=== PATIENT | male | born 1930 | race Caucasian/White ===

== ENCOUNTER 2017-01-10 13:26 | Inpatient (IN) | payer OTHER ==
[2017-01-10 13:41] VITALS: BMI 28.2
[2017-01-10] MEDS ORDERED: SODIUM CHLORIDE 0.9% 1000 ML INFUS.BAG IV ONE ×2 (14:37→15:37)
[2017-01-10 15:21] LABS: BASOPHIL 0.8 % (0-2.0); EOSINOPHIL 1.4 % (0-4.5); MCH 30.5 pg (25.7-33.7); MCHC 33.1 g/dl (32.0-35.9); MEAN CELL VOLUME 92.1 fl (80-96); MEAN PLT VOLUME 8.6 fl (7.5-11.1); NEUTROPHILS 64.9 % (42.8-82.8); PLATELET COUNT 199 K/MM3 (134-434); RDW 14.6 % (11.9-15.9); WHITE BLOOD COUNT 8.1 K/mm3 (4.0-10.0)
[2017-01-10 15:58] LABS: ALBUMIN 3.8 g/dl (3.4-5.0); ALK PHOS 123 U/L (45-117); ANION GAP 14 (8-16); BILIRUBIN,TOTAL 1.2 mg/dL (0.2-1.0); CALCIUM 9.5 mg/dL (8.5-10.1); CO2 24 mmol/L (21-32); CREATININE 1.7 mg/dL (0.7-1.3); GLUCOSE,RANDOM 119 mg/dL (74-106); SGOT/AST 17 U/L (15-37); SGPT/ALT 29 U/L (12-78); TOT PROT 7.4 g/dl (6.4-8.2)
--- NOTE | 2017-01-10 16:03 | PDOC ---
Attending Attestation - Resident Resident Name: Cornelius Walker - ED Attending Attestation I have performed the following: I have examined & evaluated the patient, The case was reviewed & discussed with the resident, I agree w/resident's findings & plan, Exceptions are as noted - HPI HPI: 01/10/17 15:57 86 yo M with unknown pmhx here with c/o lower back and groin pain. started few days ago. pt lives alone, brought by family who hasn't seen him in some time. pt family states went to his home and found it is dissarray, in filth, poorly kempt. concerns pt is confused and not taking care of himself and lives alone. pt states he has seen a danica bello but hasn't in many years. no n/v no hematuria. states has difficulty with urine stream. no f/c no cough monica cp or sob. states he was told he " had some blockage in his kidney may years ago " - Physicial Exam PE: 01/10/17 16:01 awake alert . dry mucous membranes. lungs clear. herat RRR no mrg. abd soft NT nondistended. no cva tenderness. ext wwp FROM. left anterior sainz with cellulitis changes ( erythema warmth, ulceration. no drainage. ) 2 + dp/ pt pulses bilaterally. alert and oriented x 3. but has some short term memory loss - Medical Decision Making 01/10/17 16:03 86 yo M with unknown pmhx here wtih /co groin and flank pain, concerns for social safety and unable to care for self in home. sx of cellulilits on exam. differential: renal failure, dehydration, anemia, retnention, uti, pna, anemia, dementia, electrolyte disturbance. plan labs fluids, bedside renal us bladder us. will likley require admission. 01/10/17 16:46 pt had bedside renal ultrasound focused ED renal ultrasound performed bilateral kidneys, moderate right hydronephrosis, left kidney multiple complicated cyst, bladder wtih 347 ml aorta not visulized. impression:" right moderate hydronephrosis, left renal cyst, recommend ct followup cirilli 01/10/17 17:25 d/w medical admitting resident blog sent. will admit pt for abx, for uti, celluilitks hydro and social concerns.
--- NOTE | 2017-01-10 16:09 | PDOC ---
History of Present Illness <oZnia Damian - Last Filed: 01/10/17 17:25> - General History Source: Patient, Family Exam Limitations: Clinical Condition, Dementia - History of Present Illness Initial Comments: 01/10/17 15:39 The patient is an 86M with an unknown PMH who presents to the ED with groin and back pain. The patient lives alone in his apartment and is not a reliable historian. His brother, brother's , and brother's daughter are at bedside. They state that the patient has been more confused and has terrible living conditions. The last time they saw him was one month ago and they are not sure if he is eating or drinking. He states that he has had 2-3 weeks of not feeling well. He is unsure of when the pain started and does not have a clear story about this pain. Allergies: NKDA Social: None Surg: none Meds: only a daily centrum, takes no meds Unsure about PCP, very poor historian <Cornelius Walker - Last Filed: 01/23/17 22:19> - General Chief Complaint: Back Pain Stated Complaint: GROIN PAIN Time Seen by Provider: 01/10/17 14:03 Past History <Zonia Damian - Last Filed: 01/10/17 17:25> - Past Medical History Other medical history: denies - Psycho/Social/Smoking Cessation Hx Anxiety: No Suicidal Ideation: No Smoking History: Never smoked Have you smoked in the past 12 months: No Information on smoking cessation initiated: No Hx Alcohol Use: No Drug/Substance Use Hx: No Substance Use Type: None <Cornelius Walker - Last Filed: 01/23/17 22:19> - Past Medical History Allergies/Adverse Reactions: Allergies Allergy/AdvReac Type Severity Reaction Status Date / Time No Known Allergies Allergy Verified 01/10/17 13:53 Home Medications: Ambulatory Orders Tamsulosin HCl [Flomax -] 0.4 mg PO BID@0830,2200 #30 cap 01/15/17 Review of Systems - Review of Systems Able to Perform ROS?: Yes Is the patient limited Luxem[place]ish proficient: No Constitutional: No: Chills, Fever Respiratory: No: Shortness of Breath Cardiac (ROS): No: Chest Pain ABD/GI: No: Nausea, Vomiting : No: Dysuria, Discharge, Flank Pain Neurological: No: Numbness, Tingling, Weakness <Cornelius Walker - Last Filed: 01/23/17 22:19> *Physical Exam - Vital Signs Last Vital Signs Temp Pulse Resp BP Pulse Ox 98.5 F 110 H 20 154/88 92 L 01/10/17 13:38 01/10/17 13:38 01/10/17 13:38 01/10/17 13:38 01/10/17 13:38 <Zonia Damian - Last Filed: 01/10/17 17:25> - Vital Signs Last Vital Signs Temp Pulse Resp BP Pulse Ox 98.5 F 110 H 20 154/88 92 L 01/10/17 13:38 01/10/17 13:38 01/10/17 13:38 01/10/17 13:38 01/10/17 13:38 - Physical Exam General Appearance: Yes: Nourished, Appropriately Dressed, Disheveled. No: Apparent Distress HEENT: positive: Normal Voice Respiratory/Chest: positive: Lungs Clear, Normal Breath Sounds. negative: Chest Tender, Respiratory Distress, Labored Respiration, Decreased Breath Sounds Cardiovascular: positive: Regular Rhythm, Regular Rate, S1, S2 Gastrointestinal/Abdominal: positive: Flat, Soft. negative: Tender, Guarding, Rebound, Tenderness Male Genitalia: negative: testicular tenderness Musculoskeletal: negative: CVA Tenderness, CVA Tenderness (R), CVA Tenderness (L ) Extremity: positive: Normal Range of Motion, Other (b/l anterior calf cellulitis ). negative: Swelling Neurologic: positive: accounts specialist II-XII NML intact, Fully Oriented, Alert, Normal Mood/ Affect, Normal Response, Motor Strength 5/5, Finger to Nose (normal), Confused ( Could not recall parts of his history). negative: Numbness, Sensory Deficit, Disoriented <Cornelius Walker - Last Filed: 01/23/17 22:19> Heart Score/ECG Review - ECG Impressions Comment:: 01/10/17 17:44 Sinus tach w/ 1 PVC <Cornelius Walker - Last Filed: 01/23/17 22:19> ED Treatment Course - LABORATORY CBC & Chemistry Diagram: 01/10/17 14:50 01/10/17 14:50 - ADDITIONAL ORDERS Additional order review: Laboratory Results 01/10/17 01/10/17 01/10/17 16:25 14:50 14:50 Sodium 142 Potassium 4.2 Chloride 104 Carbon Dioxide 24 Anion Gap 14 BUN 35 H D Creatinine 1.7 H Creat Clearance w eGFR 38.59 Random Glucose 119 H D Lactic Acid 1.7 Calcium 9.5 Total Bilirubin 1.2 H D AST 17 D ALT 29 D Alkaline Phosphatase 123 H D Total Protein 7.4 Albumin 3.8 Urine Color Yellow Urine Appearance Cloudy Urine pH 6.0 Urine Protein Negative Urine Glucose (UA) Negative Urine Ketones Trace H Urine Blood 1+ H Urine Nitrite Negative Urine Bilirubin Negative Urine Urobilinogen Negative Ur Leukocyte Esterase 3+ H Urine RBC 5 Urine WBC 876 Ur Epithelial Cells Rare Calcium Oxalate Crystal Rare Urine Bacteria Moderate 01/10/17 14:50 RBC 4.70 MCV 92.1 MCHC 33.1 RDW 14.6 MPV 8.6 Neutrophils % 64.9 Lymphocytes % 25.5 Monocytes % 7.4 Eosinophils % 1.4 Basophils % 0.8 - RADIOLOGY Radiology Studies Ordered: Category Date Time Status ABDOMEN & PELVIS CT W/O CONTR [CT] Stat CT Scan 01/10/17 15:49 Ordered SPINE-LUMBAR SACRAL [RAD] Stat Radiology 01/10/17 16:05 Ordered - Medications Given in the ED: ED Medications Discontinued Medications Generic Name Dose Route Start Last Admin Trade Name Freq PRN Reason Stop Dose Admin Piperacillin Sod/Tazobactam Sod 3.375 gm 01/10/17 16:41 01/10/17 16:55 Zosyn 3.375gm Ivpb (Pre-Docked) IVPB 01/10/17 16:42 3.375 gm ONCE ONE Administration Protocol Sodium Chloride 250 ml 01/10/17 14:37 01/10/17 15:18 Normal Saline - IV 01/10/17 14:38 250 ml ONCE ONE Administration Sodium Chloride 500 ml 01/10/17 15:37 01/10/17 16:13 Normal Saline - IV 01/10/17 15:38 500 ml ONCE ONE Administration Vancomycin HCl 1,000 mg 01/10/17 16:40 01/10/17 17:20 Vancomycin (Pre-Docked) IVPB 01/10/17 16:41 1,000 mg ONCE ONE Administration Protocol <Zonia Damian - Last Filed: 01/10/17 17:25> - LABORATORY CBC & Chemistry Diagram: 01/23/17 05:15 01/23/17 05:15 - ADDITIONAL ORDERS Additional order review: 01/10/17 14:50 RBC 4.70 MCV 92.1 MCHC 33.1 RDW 14.6 MPV 8.6 Neutrophils % 64.9 Lymphocytes % 25.5 Monocytes % 7.4 Eosinophils % 1.4 Basophils % 0.8 - RADIOLOGY Radiology Studies Ordered: Category Date Time Status CHEST X-RAY PORTABLE* [RAD] Stat Radiology 01/10/17 15:38 Ordered - Medications Given in the ED: ED Medications Discontinued Medications Generic Name Dose Route Start Last Admin Trade Name Freq PRN Reason Stop Dose Admin Sodium Chloride 250 ml 01/10/17 14:37 01/10/17 15:18 Normal Saline - IV 01/10/17 14:38 250 ml ONCE ONE Administration <Cornelius Walker - Last Filed: 01/23/17 22:19> Medical Decision Making - Medical Decision Making 01/10/17 16:24 Patient is an 86M with an unsure PMH who presented to the ED with groin and back pain. Bedside ultrasound reveals R hydronephrosis and multiple L sided cysts. 300 cc in bladder. aorta not visualized. Patient has no white count. UA pending. CMP wnl compared to previous CMP. <Cornelius Walekr - Last Filed: 01/23/17 22:19> *DC/Admit/Observation/Transfer - Discharge Dispostion Admit: Yes <Zonia Damian - Last Filed: 01/10/17 17:25> - Attestations Physician Attestion: 01/23/17 22:19 I, Dr. Cornelius Walker, attest that this document has been prepared under my direction and personally reviewed by me in its entirety. I further attest, that it accurately reflects all work, treatment, procedures and medical decision -making performed by me. <Cornelius Wlaker - Last Filed: 01/23/17 22:19> Diagnosis at time of Disposition: UTI (urinary tract infection), Hydronephrosis - Discharge Dispostion Condition at time of disposition: Improved - Prescriptions
[2017-01-10 16:33] LABS: URINE APPEARANCE CLOUDY; URINE BILIRUBIN NEGATIVE (NEGATIVE); URINE BLOOD 1+ (NEGATIVE); URINE COLOR YELLOW; URINE GLUCOSE (UA) NEGATIVE (NEGATIVE); URINE KETONE TRACE (NEGATIVE); URINE NITRITE NEGATIVE (NEGATIVE); URINE PROTEIN NEGATIVE (NEGATIVE); URINE UROBILINOGEN NEGATIVE mg/dL (0.2-1.0)
[2017-01-10 16:34] LABS: URINE LEUK ESTERASE 3+ (NEGATIVE)
[2017-01-10] MEDS ORDERED: VANCOMYCIN 1 GRAM (PRE-DOCKED) 1,000 MG/250 ML BAG IVPB ONE (16:40)
[2017-01-10] MEDS ORDERED: PIPERACILLIN/TAZOB 3.375 GM/50 ML PRE-DOCKED IVPB ONE (16:41)
[2017-01-10 16:44] LABS: CALCIUM OXALATE CRYSTALS RARE /hpf (NONE SEEN); URINE BACTERIA MODERATE /hpf (NONE SEEN); URINE RBC 5 /hpf (0-3); URINE WBC 876 /hpf (3-5)
[2017-01-10] MEDS ORDERED: VANCOMYCIN 1 GRAM (PRE-DOCKED) 250 ML IVPB ONE (16:55)
[2017-01-10] MEDS ORDERED: PIPERACILLIN/TAZOB 3.375 GM 50 ML IVPB ONE (16:55)
--- NOTE | 2017-01-10 17:14 | HP ---
CHIEF COMPLAINT: "My griun hurts" PCP: None HISTORY OF PRESENT ILLNESS: This is an 86 yo M with PMH of b/l severe hydronephrosis L>R seen on CT 10/31/15 , otherwise unknown [facility] (poor hitorian/no records), who presents with confusion , groin and back pain. He is brought by family members who found him in his apt confused, and weak, unable to walk as well as he used to a few mo ago. They have not seen him in several months (he lives alone), but state that he has been complaining of abdominal and back pain for 2 mo over the phone. Over the past few days he stopped answering phone and now appears confused. Per family, his appartment is filthy and unliveable in and the patient was very dirty and discheveled when they found him. They are not aware of any health problems aside from some doreen of "kidney blockage" ER course was notable for: (1)labs (2)ekg: unremarkable for strain or acs, cxr: clear lung [place], ct abd/pelvis (3)alexx mitchell Recent Travel: none PAST MEDICAL HISTORY: unknown, as above PAST SURGICAL HISTORY: unknown (patient denies but unreliable) Social History: lives alone. next of kin is sister and brother Smoking:unknown Alcohol:unknown Drugs: unknown Family History: unknown Allergies No Known Allergies Allergy (Verified 01/10/17 13:53) HOME MEDICATIONS: REVIEW OF SYSTEMS patient denies full ros other than R groun and buttock pain, however is unreliable due to confusion and memory trouble PHYSICAL EXAMINATION Vital Signs - 24 hr 01/10/17 13:38 Temperature 98.5 F Pulse Rate 110 H Respiratory 20 Rate Blood Pressure 154/88 O2 Sat by Pulse 92 L Oximetry (%) GENERAL: Awake, alert, mildly confused, in no acute distress. Very dirty HEAD: Normal with no signs of trauma. EYES: Pupils equal, round and reactive to light, extraocular movements intact, sclera anicteric, conjunctiva clear. No lid lag. EARS, NOSE, THROAT: Moist mucous membranes. Poor hearing b/l NECK: supple without JVD LUNGS: Breath sounds equal, clear to auscultation bilaterally HEART: Regular rate and rhythm, normal S1 and S2, premature beats ABDOMEN: Soft, nontender, moderately distended, normoactive bowel sounds, no guarding, no rebound, no masses. No hepatomegaly or splenomegaly. Negative leroy MUSCULOSKELETAL: No CVA tenderness. UPPER EXTREMITIES: 2+ pulses, warm, well-perfused. No cyanosis. No clubbing. No peripheral edema. LOWER EXTREMITIES: 2+ pulses, warm, well-perfused. No calf tenderness. No peripheral edema. L ankle blanching erythema, warmth, extending to mid lower third of calf, abrasion on anterior lower sainz. no abscess, nondraining, tender. R ankle nontender stasis dermatitis NEUROLOGICAL: Cranial nerves II-XII intact. Normal speech. strength 4+/5 in all extremities, sensation intact b/l PSYCHIATRIC: Cooperative. Good eye contact. Appropriate mood and affect, forgetful, confused SKIN: Warm, dry Laboratory Results - last 24 hr 01/10/17 01/10/17 01/10/17 14:50 14:50 14:50 WBC 8.1 RBC 4.70 Hgb 14.3 D Hct 43.3 D MCV 92.1 MCH 30.5 MCHC 33.1 RDW 14.6 Plt Count 199 MPV 8.6 Neutrophils % 64.9 Lymphocytes % 25.5 Monocytes % 7.4 Eosinophils % 1.4 Basophils % 0.8 Sodium 142 Potassium 4.2 Chloride 104 Carbon Dioxide 24 Anion Gap 14 BUN 35 H D Creatinine 1.7 H Creat Clearance w eGFR 38.59 Random Glucose 119 H D Lactic Acid 1.7 Calcium 9.5 Total Bilirubin 1.2 H D AST 17 D ALT 29 D Alkaline Phosphatase 123 H D Total Protein 7.4 Albumin 3.8 Urine Color Urine Appearance Urine pH Urine Protein Urine Glucose (UA) Urine Ketones Urine Blood Urine Nitrite Urine Bilirubin Urine Urobilinogen Ur Leukocyte Esterase Urine RBC Urine WBC Ur Epithelial Cells Calcium Oxalate Crystal Urine Bacteria 01/10/17 16:25 WBC RBC Hgb Hct MCV MCH MCHC RDW Plt Count MPV Neutrophils % Lymphocytes % Monocytes % Eosinophils % Basophils % Sodium Potassium Chloride Carbon Dioxide Anion Gap BUN Creatinine Creat Clearance w eGFR Random Glucose Lactic Acid Calcium Total Bilirubin AST ALT Alkaline Phosphatase Total Protein Albumin Urine Color Yellow Urine Appearance Cloudy Urine pH 6.0 Urine Protein Negative Urine Glucose (UA) Negative Urine Ketones Trace H Urine Blood 1+ H Urine Nitrite Negative Urine Bilirubin Negative Urine Urobilinogen Negative Ur Leukocyte Esterase 3+ H Urine RBC 5 Urine WBC 876 Ur Epithelial Cells Rare Calcium Oxalate Crystal Rare Urine Bacteria Moderate ASSESSMENT/PLAN: This is an 86 yo M with PMH of b/l severe hydronephrosis L>R seen on CT 10/31/15 , otherwise unknown [facility] (poor hitorian/no records), who presents with confusion , groin and back pain. Altered mental status/weakness -possibly due to UTI -r/o CVA with CT head -no electrolyte abnormality -PT eval for weakness UTI -no leukocytosis or fever -UA consistent with UTI (3+ leuk est, moderate bacteria) -History of b/l hydronephrosis, unkown cause or workup -R [place] and complex L renal cysts on bedside US per ED -f/u abd/pelvis CT -vanco/zosyn in ED; proceed with rocephin daily -f/u urine, blood cultures CKD: -BUN/creat at baseline compared with a yr ago, at which time b/l hydro was present (35/1.7) -gentle IV hydration -f/u CT abd/pelvis results and depending or results proceed with possible renal / urology consult LLE cellulitis -no evidence of abscess or drainage -f/u blood cultures -rocephin coverage R groin pain -R hip/pelvis x ray Hyperbilirubinemia -t bili 1.2 above baseline, known gall stones -no RUQ pain -f/u ct abd FEN: NS@50 lytes stable Na restricted diet hold a/c until head CT result (patient has R groin pain and L ankle abrasion, unknown if fell) Dispo: adm med emma. Plan placement into intermediate Problem List - Problem (1) Hydronephrosis Code(s): N13.30 - UNSPECIFIED HYDRONEPHROSIS (2) UTI (urinary tract infection) Code(s): N39.0 - URINARY TRACT INFECTION, SITE NOT SPECIFIED (3) Right groin pain Code(s): R10.31 - RIGHT LOWER QUADRANT PAIN (4) Altered mental status Code(s): R41.82 - ALTERED MENTAL STATUS, UNSPECIFIED (5) Hyperbilirubinemia Code(s): E80.6 - OTHER DISORDERS OF BILIRUBIN METABOLISM Visit type - Emergency Visit Emergency Visit: Yes Care time: The patient presented to the Emergency Department on the above date and was hospitalized for further evaluation of their emergent condition. - New Patient This patient is new to me today: Yes Date on this admission: 01/10/17 - Critical Care Critical Care patient: No
[2017-01-10] MEDS ORDERED: ACETAMINOPHEN 325 MG TABLET (FP) PO PRN (17:51)
[2017-01-10] MEDS: SODIUM CHLORIDE 1,000 ML IV SCH ×2 (18:53→23:12)
--- NOTE | 2017-01-10 19:09 | PN ---
Teaching Attending Note Name of Resident: Elva Nolan ATTENDING PHYSICIAN STATEMENT I saw and evaluated the patient. I reviewed the resident's note and discussed the case with the resident. I agree with the resident's findings and plan as documented. pt is a poor historian SUBJECTIVE:86 yo M c/o R flank pain radiating to the groin intermittent for the past week. radiates the the back. also notes LLE pain and tenderness for unknown length of time he said started as a bug bite. no oozing from the site. states he recently changed doctors and has not seen them since the lesion noted on his leg. denies Cp, SOB, fever, chills, N/V/C/D, dysuria, hematuria. last BM yesterday normal color and consistency, admits to having a whisky sour (unsure quantity) he states 2 weeks ago for his bday (actual bday was last month) As per report, family brought in pt after found in his apartment confused, weak and unable to walk. He was last seen by family 2 months ago. OBJECTIVE: Last Vital Signs Temp Pulse Resp BP Pulse Ox 98.5 F 110 H 20 154/88 92 L 01/10/17 13:38 01/10/17 13:38 01/10/17 13:38 01/10/17 13:38 01/10/17 13:38 General NAD, dishelved and filthy, INUPIAT HEENT poor oral dentition CV S1 S2 RRR no murmur/rub/gallop Lungs CTA B/L no wheezing/rales/rhonchi ABdomen soft NT/ND no CVA tenderness, hyperactivs BS Extremities chronic venous statis RLE. LLE with 3 cm superficial ulcer on anterior sainz with surrounding erythema, +warmth and tenderness R hip bruising ASSESSMENT AND PLAN: 86yo M with PMH B/L hydronephrosis but no self reported medical conditions presented to the ER iwth groin pain 1. AMS- medicine admission. possibly due to UTI vs likely mechanical fall as has bruising on R hip. also c/o groin pain but possible fracture of hip. check Head CT, R hip XR. start ceftriaxone, IVF. f/u UCx. bedbound for now. PT assessment. obtain more information from family 2. RLE cellulitis- unclear etiology. states bugs but possible fall due to location of lesion. afebrile. no signs of sepsis. received vanco/zosyn in the ER. unlikely requires such broad spectrum. on Ceftriaxone for UTI as well. Check BCx 3. Flank pain- pain from fall vs kidney stone. CT abdomen/pelvis pending 4. Elevated alk phos- no RUQ pain. ct abdomen/pelvis pending. f/u 5. DVT ppx- start hep sq
[2017-01-10] MEDS ORDERED: BACITRACIN 15 GM TUBE TOPICAL OINTMENT TP ONE ×2 (20:59→23:15)
[2017-01-10] MEDS ORDERED: PT OWN MED DRAWER 7, Y5N ONE (23:04)
[2017-01-11 07:33] LABS: MCH 31.4 pg (25.7-33.7); MCHC 33.8 g/dl (32.0-35.9); MEAN PLT VOLUME 8.7 fl (7.5-11.1); PLATELET COUNT 178 K/MM3 (134-434); RDW 14.9 % (11.9-15.9)
[2017-01-11 08:07] LABS: ALBUMIN 3.5 g/dl (3.4-5.0); ANION GAP 8 (8-16); CO2 26 mmol/L (21-32); GLUCOSE,RANDOM 95 mg/dL (74-106); MAGNESIUM 1.9 mg/dL (1.8-2.4); PHOSPHOROUS 2.7 mg/dL (2.5-4.9); SGOT/AST 19 U/L (15-37)
[2017-01-11 08:18] LABS: ALK PHOS 114 U/L (45-117); BILIRUBIN,TOTAL 1.4 mg/dL (0.2-1.0); CREATININE 1.5 mg/dL (0.7-1.3); SGPT/ALT 25 U/L (12-78); THYROID STIMULATING HORMONE 0.56 uIU/ml (0.358-3.74); TOT PROT 6.5 g/dl (6.4-8.2)
[2017-01-11] MEDS: HEPARIN NA (PORCINE) 5,000 UNITS/ML 1ML VIAL SQ SCH ×2 (09:30→21:02)
[2017-01-11 09:34] LABS: PLATELET ESTIMATE ADEQUATE (NORMAL)
[2017-01-11] MEDS ORDERED: ENOXAPARIN NA (PORCINE) 30 MG/0.3 ML DISP.SYRIN SQ SCH (10:00)
[2017-01-11] MEDS ORDERED: CEFTRIAXONE 50 ML IVPB SCH (10:00)
--- NOTE | 2017-01-11 14:22 | PN ---
Progress Note (short form) - Note Progress Note: states R flank overall improved. but continues to have intermittent pain. states he suffers from frequent UTI and was told he had a kidney problem but was unable to follow up with a doctor as his insurance ran out but his father suffered from the same symptoms. denies CP, SOB, fever, chills, N/V/C/D Current Medications Generic Name Dose Route Start Last Admin Trade Name Freq PRN Reason Stop Dose Admin Acetaminophen 650 mg 01/10/17 17:51 Tylenol - PO Q4H PRN FEVER OR PAIN Heparin Sodium (Porcine) 5,000 unit 01/11/17 10:00 01/11/17 09:30 Heparin - SQ 5,000 unit BID ROBERTO Administration Sodium Chloride 1,000 mls @ 50 mls/hr 01/10/17 18:00 01/10/17 23:12 Normal Saline - IV 01/11/17 17:53 50 mls/hr ASDIR ROBERTO Administration Ceftriaxone Sodium 50 mls @ 100 mls/hr 01/11/17 10:00 01/11/17 09:30 Rocephin 1gm Ivpb (Pre-Docked) IVPB 100 mls/hr DAILY ROBERTO Administration Last Vital Signs Temp Pulse Resp BP Pulse Ox 97.5 F L 100 H 20 136/78 96 01/11/17 11:00 01/11/17 11:00 01/11/17 11:00 01/11/17 11:00 01/11/17 09:00 General NAD, A&O x3, [place] CV S1 S2 RRR no murmur/rub/gallop Lungs CTA B/L no wheezing/rales/rhonchi ABdomen soft NT/ND no CVA tenderness, hyperactivs BS Extremities chronic venous statis RLE. LLE with 3 cm superficial ulcer on anterior sainz with gill crusting and surrounding erythema, +warmth and tenderness R hip bruising CBCD WBC 9.0 K/mm3 (4.0-10.0) 01/11/17 06:35 RBC 4.50 M/mm3 (4.00-5.60) 01/11/17 06:35 Hgb 14.1 GM/dL (11.7-16.9) 01/11/17 06:35 Hct 41.8 % (35.4-49) 01/11/17 06:35 MCV 93.0 fl (80-96) 01/11/17 06:35 MCHC 33.8 g/dl (32.0-35.9) 01/11/17 06:35 RDW 14.9 % (11.9-15.9) 01/11/17 06:35 Plt Count 178 K/MM3 (134-434) 01/11/17 06:35 MPV 8.7 fl (7.5-11.1) 01/11/17 06:35 CMP Sodium 141 mmol/L (136-145) 01/11/17 06:35 Potassium 4.0 mmol/L (3.5-5.1) 01/11/17 06:35 Chloride 107 mmol/L (98-107) 01/11/17 06:35 Carbon Dioxide 26 mmol/L (21-32) 01/11/17 06:35 Anion Gap 8 (8-16) 01/11/17 06:35 BUN 30 mg/dL (7-18) H 01/11/17 06:35 Creatinine 1.5 mg/dL (0.7-1.3) H 01/11/17 06:35 Creat Clearance w eGFR 44.59 (>60) 01/11/17 06:35 Calcium 9.0 mg/dL (8.5-10.1) 01/11/17 06:35 Total Bilirubin 1.4 mg/dL (0.2-1.0) H 01/11/17 06:35 AST 19 U/L (15-37) 01/11/17 06:35 ALT 25 U/L (12-78) 01/11/17 06:35 Alkaline Phosphatase 114 U/L (45-117) 01/11/17 06:35 Total Protein 6.5 g/dl (6.4-8.2) 01/11/17 06:35 Albumin 3.5 g/dl (3.4-5.0) 01/11/17 06:35 Microbiology 01/10/17 14:41 Urine - Urine Clean Catch Urine Culture - Preliminary Strep Agalactiae Group B ASSESSMENT AND PLAN: 86yo M with PMH B/L hydronephrosis but no self reported medical conditions presented to the ER iwth groin pain 1. AMS-possible due to uti. appears more alert and coherent. Head CT negative. TSH WNL. Vitamin B12 elevated. cont gentle hydration. will switch ceftriaxone to unasyn to cover for GBS UTI and cellulitis. bedbound for now. PT assessment. obtain more information from family 2. RLE cellulitis- unclear etiology. high suspicion for mechanical fall. improved. will switch to unasyn as will provide more coverage over mssa and will cover for group B strep. f/u BCx 3. Flank pain- pain from fall vs kidney stone. CT showing hyroureteralnephrosis. likely to have hx. has not seen urologist to f/u. will obtain evaluation while here, may need stenting. 4. Elevated alk phos- no RUQ pain. cholelithasis seen on CT but no signs of acute cholecystitis or choledocholithasis. possible recently passed stone. will monitor 5. DVT ppx- hep sq Visit type - Emergency Visit Emergency Visit: Yes ED Registration Date: 01/10/17 Care time: The patient presented to the Emergency Department on the above date and was hospitalized for further evaluation of their emergent condition. - New Patient This patient is new to me today: No - Critical Care Critical Care patient: No - Discharge Referral Referred to [facility] No
[2017-01-11] MEDS: AMPICILLIN NA/SULBACTAM NA 3 GM in SODIUM CHLORIDE 100 ML IVPB SCH ×2 (16:43→21:02)
[2017-01-11] MEDS ORDERED: MAGNESIUM HYDROX 2400MG/30ML ORAL SUSPENSION 30 ML CUP PO ONE (23:27)
[2017-01-12] MEDS: AMPICILLIN NA/SULBACTAM NA 3 GM in SODIUM CHLORIDE 100 ML IVPB SCH ×4 (02:29→21:04)
[2017-01-12 08:31] LABS: ALK PHOS 104 U/L (45-117); ANION GAP 8 (8-16); BILIRUBIN,TOTAL 0.9 mg/dL (0.2-1.0); CALCIUM 8.7 mg/dL (8.5-10.1); CO2 27 mmol/L (21-32); CREATININE 1.5 mg/dL (0.7-1.3); GLUCOSE,RANDOM 115 mg/dL (74-106); SGOT/AST 18 U/L (15-37); SGPT/ALT 24 U/L (12-78)
[2017-01-12] MEDS: HEPARIN NA (PORCINE) 5,000 UNITS/ML 1ML VIAL SQ SCH ×2 (09:25→21:04)
--- NOTE | 2017-01-12 10:19 | PN ---
Progress Note (short form) - Note Progress Note: asymptomatic. denies CP, SOB, fever, chills, N/V/C/D Current Medications Generic Name Dose Route Start Last Admin Trade Name Bret PRN Reason Stop Dose Admin Acetaminophen 650 mg 01/10/17 17:51 Tylenol - PO Q4H PRN FEVER OR PAIN Heparin Sodium (Porcine) 5,000 unit 01/11/17 10:00 01/12/17 09:25 Heparin - SQ 5,000 unit BID ROBERTO Administration Ampicillin Sodium/Sulbactam 100 mls @ 200 mls/hr 01/11/17 15:00 01/12/17 09:23 Sodium 3 gm/ Sodium Chloride IVPB 200 mls/hr Q6H-IV ROBERTO Administration Last Vital Signs Temp Pulse Resp BP Pulse Ox 97.6 F 84 20 141/94 96 01/12/17 06:00 01/12/17 06:00 01/12/17 06:00 01/12/17 06:00 01/11/17 21:00 General NAD, A&O x3, [employer] A[employer]IATED CV S1 S2 RRR no murmur/rub/gallop Lungs CTA B/L no wheezing/rales/rhonchi ABdomen soft NT/ND no CVA tenderness, hyperactivs BS Extremities chronic venous statis RLE. LLE with 3 cm superficial ulcer on anterior sainz with gill crusting and surrounding erythema, +warmth and tenderness R hip bruising CMP Sodium 142 mmol/L (136-145) 01/12/17 06:30 Potassium 3.9 mmol/L (3.5-5.1) 01/12/17 06:30 Chloride 107 mmol/L (98-107) 01/12/17 06:30 Carbon Dioxide 27 mmol/L (21-32) 01/12/17 06:30 Anion Gap 8 (8-16) 01/12/17 06:30 BUN 28 mg/dL (7-18) H 01/12/17 06:30 Creatinine 1.5 mg/dL (0.7-1.3) H 01/12/17 06:30 Creat Clearance w eGFR 44.59 (>60) 01/12/17 06:30 Calcium 8.7 mg/dL (8.5-10.1) 01/12/17 06:30 Total Bilirubin 0.9 mg/dL (0.2-1.0) D 01/12/17 06:30 AST 18 U/L (15-37) 01/12/17 06:30 ALT 24 U/L (12-78) 01/12/17 06:30 Alkaline Phosphatase 104 U/L (45-117) 01/12/17 06:30 Total Protein 6.0 g/dl (6.4-8.2) L 01/12/17 06:30 Albumin 3.0 g/dl (3.4-5.0) L 01/12/17 06:30 Microbiology 01/10/17 14:41 Urine Culture - Final Urine - Urine Clean Catch 01/10/17 20:30 Blood Culture - Preliminary Blood - Peripheral Venous NO GROWTH OBTAINED AFTER 24 HOURS, INCUBATION TO CONTINUE FOR 4 DAYS. 01/10/17 20:30 Blood Culture - Preliminary Blood - Peripheral Venous NO GROWTH OBTAINED AFTER 24 HOURS, INCUBATION TO CONTINUE FOR 4 DAYS. ASSESSMENT AND PLAN: 86yo M with PMH B/L hydronephrosis but no self reported medical conditions presented to the ER iwth groin pain 1. AMS-possible due to uti. appears more alert and coherent however repeats questions frequently. UCx was +GBS yesterday and now was reported as wrong. will cont treatment at this time for UTI. bedbound for now. PT assessment. obtain more information from family 2. RLE cellulitis- unclear etiology. high suspicion for mechanical fall. improved. on unasyn day 2. day 3 of abx. BCx negative. 3. Flank pain- pain from fall vs kidney stone. CT showing hyroureteralnephrosis. urology consulted. awaiting on recommendations if intervention is required at this time. pt refusing davis placement. 4. Elevated alk phos-trending down. possible recently passed stone. 5. JUNG- likely due to infection vs hydroureternephrosis. slowly improving. likely has some component of CKD. unknown baseline levels. will contact PMD tomorrow for last set of labs (only reading from last year 1.6 unknown if this is baseline) 6. DVT ppx- hep sq 7. family requesting intermediate placement at this time Visit type - Emergency Visit Emergency Visit: Yes ED Registration Date: 01/10/17 Care time: The patient presented to the Emergency Department on the above date and was hospitalized for further evaluation of their emergent condition. - New Patient This patient is new to me today: No - Critical Care Critical Care patient: No - Discharge Referral Referred to [facility] Med P.C.: No
[2017-01-12] MEDS ORDERED: PT OWN MED DRAWER 7, Y5N ONE ×2 (13:24→14:41)
[2017-01-12] MEDS: MULTIVITAMINS (DAILY MVI) TABLET (FP) PO SCH (14:58)
[2017-01-13] MEDS: AMPICILLIN NA/SULBACTAM NA 3 GM in SODIUM CHLORIDE 100 ML IVPB SCH ×4 (02:32→21:05)
[2017-01-13 08:00] LABS: ANION GAP 8 (8-16); CALCIUM 8.4 mg/dL (8.5-10.1); CO2 26 mmol/L (21-32); CREATININE 1.5 mg/dL (0.7-1.3); GLUCOSE,RANDOM 92 mg/dL (74-106)
[2017-01-13] MEDS ORDERED: PT OWN MED DRAWER 7, Y5N ONE ×2 (08:14→15:20)
[2017-01-13] MEDS: MULTIVITAMINS (DAILY MVI) TABLET (FP) PO SCH (09:42)
[2017-01-13] MEDS: HEPARIN NA (PORCINE) 5,000 UNITS/ML 1ML VIAL SQ SCH ×2 (09:42→22:17)
--- NOTE | 2017-01-13 09:52 | EKG ---
Test Reason : Blood Pressure : / mmHG Vent. Rate : 105 BPM Atrial Rate : 105 BPM P-R Int : 150 ms QRS Dur : 086 ms QT Int : 344 ms P-R-T Axes : 078 028 009 degrees QTc Int : 454 ms SINUS TACHYCARDIA WITH OCCASIONAL PREMATURE VENTRICULAR COMPLEXES OTHERWISE NORMAL ECG NO PREVIOUS ECGS AVAILABLE Confirmed by ALMA LOGAN MD ([id number]) on 01/13/2017 9:52:01 AM Referred By: Confirmed By:ALMA LOGAN MD
--- NOTE | 2017-01-13 12:42 | PN ---
Teaching Attending Note Name of Resident: Palmer Rios ATTENDING PHYSICIAN STATEMENT I saw and evaluated the patient. I reviewed the resident's note and discussed the case with the resident. I agree with the resident's findings and plan as documented. SUBJECTIVE:asymptomatic. denies Cp, SOB, fever, chills, N/V/C/D OBJECTIVE: Last Vital Signs Temp Pulse Resp BP Pulse Ox 99.0 F 86 18 141/81 96 01/13/17 06:00 01/13/17 06:00 01/13/17 06:00 01/13/17 06:00 01/12/17 21:00 General NAD, A&O x3, [place] CV S1 S2 RRR no murmur/rub/gallop Lungs CTA B/L no wheezing/rales/rhonchi ABdomen soft NT/ND no CVA tenderness, hyperactivs BS Extremities chronic venous statis RLE. LLE with 3 cm superficial ulcer on anterior sainz with gill crusting, some oozing noted today. and surrounding erythema, +warmth and tenderness CMP Sodium 140 mmol/L (136-145) 01/13/17 05:42 Potassium 4.1 mmol/L (3.5-5.1) 01/13/17 05:42 Chloride 106 mmol/L (98-107) 01/13/17 05:42 Carbon Dioxide 26 mmol/L (21-32) 01/13/17 05:42 Anion Gap 8 (8-16) 01/13/17 05:42 BUN 26 mg/dL (7-18) H 01/13/17 05:42 Creatinine 1.5 mg/dL (0.7-1.3) H 01/13/17 05:42 Creat Clearance w eGFR 44.59 (>60) 01/12/17 06:30 Calcium 8.4 mg/dL (8.5-10.1) L 01/13/17 05:42 Total Bilirubin 0.9 mg/dL (0.2-1.0) D 01/12/17 06:30 AST 18 U/L (15-37) 01/12/17 06:30 ALT 24 U/L (12-78) 01/12/17 06:30 Alkaline Phosphatase 104 U/L (45-117) 01/12/17 06:30 Total Protein 6.0 g/dl (6.4-8.2) L 01/12/17 06:30 Albumin 3.0 g/dl (3.4-5.0) L 01/12/17 06:30 ASSESSMENT AND PLAN: 86yo M with PMH B/L hydronephrosis but no self reported medical conditions presented to the ER iwth groin pain 1. AMS-possible due to uti. appears more alert and coherent however repeats questions frequently. back at baseline. spoke with sister and her who state he is at baseline but believe he is too confused to fully care of himself. interested in assisted living vs SNF. SW to d/w them options. 2. RLE cellulitis- unclear etiology. high suspicion for mechanical fall. today some oozing noted from center of lesion. decreased overall erythema. will cx drainage however less likely to be positive as already on ABx. high supicion for strep infection. cont unasyn day 3. 3. Flank pain- pain from fall vs kidney stone. CT showing hyroureteralnephrosis. urology consulted. awaiting on recommendations if intervention is required at this time. pt refusing davis placement. 4. Elevated alk phos- possible recently passed stone. resolved. 5. JUNG- likely due to infection vs hydroureternephrosis. appears to be at baseline from 2016. will try to obtain baseline from PMD. 6. DVT ppx- hep sq 7. PT assessment, may require [facility]. spoke with sister and her who are in agreement to [facility] then from there to either assisted living vs SNF.
--- NOTE | 2017-01-13 15:50 | PN ---
Physical Exam: SUBJECTIVE: Patient seen and examined No acute events overnight. No complaints this morning. OBJECTIVE: Vital Signs Period Temp Pulse Resp BP Sys/Locke Pulse Ox Last 24 Hr 97.7 F-99.0 F 86-98 18-20 141-154/62-89 95-96 GENERAL: Awake, alert, in no acute distress. HEAD: Normal with no signs of trauma. EYES: Pupils equal, round and reactive to light, extraocular movements intact, sclera anicteric, conjunctiva clear. No lid lag. EARS, NOSE, THROAT: Moist mucous membranes. Poor hearing b/l NECK: supple without JVD LUNGS: Breath sounds equal, clear to auscultation bilaterally HEART: Regular rate and rhythm, normal S1 and S2 ABDOMEN: Soft, nontender, moderately distended, normoactive bowel sounds, no guarding, no rebound, no masses. No hepatomegaly or splenomegaly. MUSCULOSKELETAL: No CVA tenderness. UPPER EXTREMITIES: 2+ pulses, warm, well-perfused. No cyanosis. No clubbing. No peripheral edema. LOWER EXTREMITIES: 2+ pulses, warm, well-perfused. No calf tenderness. No peripheral edema. L ankle cellulitis with honey colored oozing crust and warmth extending to mid lower third of calf +tenderness to palpation R ankle-nontender stasis dermatitis NEUROLOGICAL: Cranial nerves II-XII intact. Normal speech. strength 4+/5 in all extremities, sensation intact b/l PSYCHIATRIC: Cooperative. Good eye contact. Appropriate mood and affect, forgetful, confused SKIN: Warm, dry Laboratory Results - last 24 hr 01/13/17 05:42 Sodium 140 Potassium 4.1 Chloride 106 Carbon Dioxide 26 Anion Gap 8 BUN 26 H Creatinine 1.5 H Random Glucose 92 Calcium 8.4 L Active Medications Generic Name Dose Route Start Last Admin Trade Name Freq PRN Reason Stop Dose Admin Acetaminophen 650 mg 01/10/17 17:51 Tylenol - PO Q4H PRN FEVER OR PAIN Heparin Sodium (Porcine) 5,000 unit 01/11/17 10:00 01/13/17 09:42 Heparin - SQ 5,000 unit BID ROBERTO Administration Ampicillin Sodium/Sulbactam 100 mls @ 200 mls/hr 01/11/17 15:00 01/13/17 15:40 Sodium 3 gm/ Sodium Chloride IVPB 200 mls/hr Q6H-IV ROBERTO Administration Multivitamins/Minerals/Vitamin C 1 tab 01/12/17 15:00 01/13/17 09:42 Tab-A-Vit - PO 1 tab DAILY ROBERTO Administration ASSESSMENT/PLAN: 86 yo M with PMH of b/l severe hydronephrosis L>R seen on CT 10/31/15, otherwise unknown [facility] (poor hitorian/no records), who presented with confusion, groin and back pain. #Altered mental status/weakness possibly secondary to UTI -A&Ox3 -Dr. Lopez spoke with family today who believes he should not go back home and should be placed into a intermediate teacher housing facility. 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 Will attempt to speak with them tomorrow. #FEN: -No fluids -lytes stable -Na restricted diet #PPx -DVT: heparin 5000 units sq BID -GI: not indicated at this time Visit type - Emergency Visit Emergency Visit: No - New Patient This patient is new to me today: Yes Date on this admission: 01/13/17 - Critical Care Critical Care patient: No
[2017-01-14] MEDS: AMPICILLIN NA/SULBACTAM NA 3 GM in SODIUM CHLORIDE 100 ML IVPB SCH ×4 (02:26→20:38)
[2017-01-14 07:06] LABS: MCHC 33.3 g/dl (32.0-35.9); MEAN PLT VOLUME 8.8 fl (7.5-11.1); PLATELET COUNT 159 K/MM3 (134-434); RDW 15.1 % (11.9-15.9)
[2017-01-14 07:36] LABS: ANION GAP 7 (8-16); CALCIUM 8.6 mg/dL (8.5-10.1); CO2 25 mmol/L (21-32); CREATININE 1.4 mg/dL (0.7-1.3); GLUCOSE,RANDOM 97 mg/dL (74-106)
--- NOTE | 2017-01-14 09:08 | CON.GU ---
Consult - History of Present Illness History of Present Illness: 86 yo male admitted with confusion. Has had recent CT which shows bilateral hydronephrosis down to a distended bladder with an enlarged prostate-similar to a CT from last year. Doesnt see a Urologist. Denies any hematuria/dysuria - Alcohol/Substance Use Hx Alcohol Use: No - Smoking History Smoking history: Never smoked Have you smoked in the past 12 months: No Home Medications - Allergies Allergies/Adverse Reactions: Allergies Allergy/AdvReac Type Severity Reaction Status Date / Time No Known Allergies Allergy Verified 01/10/17 13:53 - Home Medications Home Medications: Ambulatory Orders Unobtainable [Unobtainable] 01/10/17 Physical Exam- Vital Signs: Vital Signs Temperature 98.2 F 01/14/17 06:00 Pulse Rate 90 01/14/17 06:00 Respiratory Rate 20 01/14/17 06:00 Blood Pressure 151/78 01/14/17 06:00 O2 Sat by Pulse Oximetry (%) 94 L 01/13/17 21:00 Renal/: Yes: Bladder Distention Labs: CBC, BMP 01/14/17 06:25 01/14/17 06:25 Imaging - Results Cat Scan: Report Reviewed, Image Reviewed Problem List - Problems (1) Incomplete emptying of bladder due to benign prostatic hyperplasia Assessment/Plan: patient refusing davis vcatheterization. Unserstands the implications for renal function deterioration and infection. Will start flomax 0.4mg BID Code(s): N40.1 - BENIGN PROSTATIC HYPERPLASIA WITH LOWER URINARY TRACT SYMP R39.14 - FEELING OF INCOMPLETE BLADDER EMPTYING
[2017-01-14] MEDS ORDERED: PT OWN MED DRAWER 7, Y5N ONE ×3 (10:15→20:24)
[2017-01-14] MEDS: BACITRACIN/POLYMYXIN B SULFATE 15 GM TUBE TP SCH ×2 (10:17→22:06)
[2017-01-14] MEDS: TAMSULOSIN HCL 0.4 MG CAP.ER.24H (FP) PO SCH ×2 (10:17→22:06)
[2017-01-14] MEDS: HEPARIN NA (PORCINE) 5,000 UNITS/ML 1ML VIAL SQ SCH ×2 (10:17→22:06)
[2017-01-14] MEDS: MULTIVITAMINS (DAILY MVI) TABLET (FP) PO SCH (10:17)
[2017-01-14 10:33] LABS: PLATELET ESTIMATE ADEQUATE (NORMAL)
[2017-01-14 15:16] LABS: URINE APPEARANCE CLEAR; URINE BILIRUBIN NEGATIVE (NEGATIVE); URINE BLOOD NEGATIVE (NEGATIVE); URINE COLOR LTYELLOW; URINE GLUCOSE (UA) NEGATIVE (NEGATIVE); URINE KETONE NEGATIVE (NEGATIVE); URINE NITRITE NEGATIVE (NEGATIVE); URINE PROTEIN NEGATIVE (NEGATIVE); URINE UROBILINOGEN NEGATIVE mg/dL (0.2-1.0)
[2017-01-14 15:35] LABS: URINE LEUK ESTERASE 3+ (NEGATIVE)
[2017-01-14 15:50] LABS: URINE RBC 5 /hpf (0-3); URINE WBC 68 /hpf (3-5)
--- NOTE | 2017-01-14 18:14 | PN ---
Teaching Attending Note Name of Resident: Palmer Rios ATTENDING PHYSICIAN STATEMENT I saw and evaluated the patient. I reviewed the resident's note and discussed the case with the resident. I agree with the resident's findings and plan as documented. SUBJECTIVE: Patient has no complaints. OBJECTIVE: Vital Signs Period Temp Pulse Resp BP Sys/Locke Pulse Ox Last 24 Hr 97.7 F-98.4 F 85-95 20-22 117-151/62-99 94-97 HEART: S1S2, RRR LUNGS: Clear ABDOMEN: Soft, non-tender, non-distended, normal BS EXTREMITIES: Trace edema, erythema and tenderness of left lower leg ASSESSMENT AND PLAN: This is an 86-year-old man with a history of bilateral hydronephrosis who presented to the ER with groin pain. 1. Acute metabolic encephalopathy secondary to UTI and LLE cellulitis - Resolved - Continue Unasyn 2. Bilateral hydroureteronephrosis - Urology consult appreciated - Refusing Segura - Flomax started 3. Stage 3 CKD - Stable 4. Disposition - Continue PT - Will likely need subacute rehab
--- NOTE | 2017-01-14 19:41 | PN ---
Physical Exam: SUBJECTIVE: Patient seen and examined No acute events overnight. No complaints this morning. OBJECTIVE: Vital Signs Period Temp Pulse Resp BP Sys/Locke Pulse Ox Last 24 Hr 97.7 F-98.4 F 85-99 20-22 117-151/62-99 94-97 GENERAL: Awake, alert, in no acute distress. HEAD: Normal with no signs of trauma. EYES: Pupils equal, round and reactive to light, extraocular movements intact, sclera anicteric, conjunctiva clear. No lid lag. EARS, NOSE, THROAT: Moist mucous membranes. Poor hearing b/l NECK: supple without JVD LUNGS: Breath sounds equal, clear to auscultation bilaterally HEART: Regular rate and rhythm, normal S1 and S2 ABDOMEN: Soft, nontender, moderately distended, normoactive bowel sounds, no guarding, no rebound, no masses. No hepatomegaly or splenomegaly. MUSCULOSKELETAL: No CVA tenderness. UPPER EXTREMITIES: 2+ pulses, warm, well-perfused. No cyanosis. No clubbing. No peripheral edema. LOWER EXTREMITIES: 2+ pulses, warm, well-perfused. No calf tenderness. No peripheral edema. L ankle cellulitis with honey colored oozing crust and warmth extending to mid lower third of calf +tenderness to palpation R ankle-nontender stasis dermatitis NEUROLOGICAL: Cranial nerves II-XII intact. Normal speech. strength 4+/5 in all extremities, sensation intact b/l PSYCHIATRIC: Cooperative. Good eye contact. Appropriate mood and affect, forgetful, confused SKIN: Warm, dry Laboratory Results - last 24 hr 01/14/17 01/14/17 01/14/17 06:25 06:25 14:45 WBC 10.0 RBC 4.31 Hgb 13.4 Hct 40.1 MCV 93.0 MCH 31.0 MCHC 33.3 RDW 15.1 Plt Count 159 MPV 8.8 Neutrophils % 67.0 Lymphocytes % 21.0 D Monocytes % 4.0 Eosinophils % 6.0 H D Basophils % 0.0 Band Neutrophils 0.0 Differential Comment Manual diff done Reactive Lymphocytes 2 D Platelet Estimate Adequate Sodium 140 Potassium 4.0 Chloride 108 H Carbon Dioxide 25 Anion Gap 7 L BUN 27 H Creatinine 1.4 H Random Glucose 97 Calcium 8.6 Urine Color Ltyellow Urine Appearance Clear Urine pH 6.0 Urine Protein Negative Urine Glucose (UA) Negative Urine Ketones Negative Urine Blood Negative Urine Nitrite Negative Urine Bilirubin Negative Urine Urobilinogen Negative Ur Leukocyte Esterase 3+ H Urine RBC 5 Urine WBC 68 Active Medications Generic Name Dose Route Start Last Admin Trade Name Bret PRN Reason Stop Dose Admin Acetaminophen 650 mg 01/10/17 17:51 Tylenol - PO Q4H PRN FEVER OR PAIN Bacitracin/Polymyxin B Sulfate 1 applic 01/14/17 10:00 01/14/17 10:17 Polysporin Ointment - TP 1 applic BID ROBERTO Administration Heparin Sodium (Porcine) 5,000 unit 01/11/17 10:00 01/14/17 10:17 Heparin - SQ 5,000 unit BID ROBERTO Administration Ampicillin Sodium/Sulbactam 100 mls @ 200 mls/hr 01/11/17 15:00 01/14/17 14:16 Sodium 3 gm/ Sodium Chloride IVPB 200 mls/hr Q6H-IV ROBERTO Administration Multivitamins/Minerals/Vitamin C 1 tab 01/12/17 15:00 01/14/17 10:17 Tab-A-Vit - PO 1 tab DAILY ROBERTO Administration Tamsulosin HCl 0.4 mg 01/14/17 09:15 01/14/17 10:17 Flomax - PO 0.4 mg BID@0830,2200 ROBERTO Administration ASSESSMENT/PLAN: 86 yo M with PMH of b/l severe hydronephrosis L>R seen on CT 10/31/15, otherwise unknown [facility] (poor hitorian/no records), who presented with confusion, groin and back pain. #Metabolic encephalopathy in the setting of AMS possibly due to UTI being tx w/ abx -A&Ox3 -Dr. Lopez spoke with family today who believes he should not go back home and should be placed into a middle or intermediate school principal housing facility. 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
[2017-01-15] MEDS: AMPICILLIN NA/SULBACTAM NA 3 GM in SODIUM CHLORIDE 100 ML IVPB SCH ×4 (03:23→21:29)
[2017-01-15 07:34] LABS: BASOPHIL 0.5 % (0-2.0); MCH 31.2 pg (25.7-33.7); MCHC 33.6 g/dl (32.0-35.9); MEAN PLT VOLUME 8.8 fl (7.5-11.1); NEUTROPHILS 65.2 % (42.8-82.8); PLATELET COUNT 141 K/MM3 (134-434); WHITE BLOOD COUNT 10.2 K/mm3 (4.0-10.0)
[2017-01-15 07:50] LABS: ANION GAP 7 (8-16); CALCIUM 8.6 mg/dL (8.5-10.1); CO2 28 mmol/L (21-32); CREATININE 1.4 mg/dL (0.7-1.3); GLUCOSE,RANDOM 114 mg/dL (74-106)
[2017-01-15] MEDS ORDERED: PT OWN MED DRAWER 7, Y5N ONE ×2 (08:34→15:52)
[2017-01-15] MEDS: TAMSULOSIN HCL 0.4 MG CAP.ER.24H (FP) PO SCH ×2 (08:36→21:29)
[2017-01-15] MEDS: MULTIVITAMINS (DAILY MVI) TABLET (FP) PO SCH (12:12)
[2017-01-15] MEDS: HEPARIN NA (PORCINE) 5,000 UNITS/ML 1ML VIAL SQ SCH ×2 (12:12→21:29)
[2017-01-15] MEDS: BACITRACIN/POLYMYXIN B SULFATE 15 GM TUBE TP SCH ×2 (12:52→21:30)
--- NOTE | 2017-01-15 16:49 | PN ---
Physical Exam: SUBJECTIVE: Patient seen and examined No acute events overnight. No complaints this morning. OBJECTIVE: Vital Signs Period Temp Pulse Resp BP Sys/Locke Pulse Ox Last 24 Hr 97.6 F-98.3 F 83-121 20-22 113-133/66-78 92-98 GENERAL: Awake, alert, in no acute distress. HEAD: Normal with no signs of trauma. EYES: Pupils equal, round and reactive to light, extraocular movements intact, sclera anicteric, conjunctiva clear. No lid lag. EARS, NOSE, THROAT: Moist mucous membranes. Poor hearing b/l NECK: supple without JVD LUNGS: Breath sounds equal, clear to auscultation bilaterally HEART: Regular rate and rhythm, normal S1 and S2 ABDOMEN: Soft, nontender, moderately distended, normoactive bowel sounds, no guarding, no rebound, no masses. No hepatomegaly or splenomegaly. MUSCULOSKELETAL: No CVA tenderness. UPPER EXTREMITIES: 2+ pulses, warm, well-perfused. No cyanosis. No clubbing. No peripheral edema. LOWER EXTREMITIES: 2+ pulses, warm, well-perfused. No calf tenderness. No peripheral edema. L ankle cellulitis with honey colored oozing crust and warmth extending to mid lower third of calf +tenderness to palpation R ankle-nontender stasis dermatitis NEUROLOGICAL: Cranial nerves II-XII intact. Normal speech. strength 4+/5 in all extremities, sensation intact b/l PSYCHIATRIC: Cooperative. Good eye contact. Appropriate mood and affect, forgetful, confused SKIN: Warm, dry Laboratory Results - last 24 hr 01/14/17 01/15/17 01/15/17 14:45 06:40 06:40 WBC 10.2 H RBC 4.17 Hgb 13.0 Hct 38.8 MCV 93.0 MCH 31.2 MCHC 33.6 RDW 15.0 Plt Count 141 MPV 8.8 Neutrophils % 65.2 Lymphocytes % 23.8 Monocytes % 6.5 Eosinophils % 4.0 Basophils % 0.5 D Sodium 142 Potassium 4.1 Chloride 107 Carbon Dioxide 28 Anion Gap 7 L BUN 30 H Creatinine 1.4 H Random Glucose 114 H Calcium 8.6 Urine Color Ltyellow Urine Appearance Clear Urine pH 6.0 Ur Specific [place] 1.015 Urine Protein Negative Urine Glucose (UA) Negative Urine Ketones Negative Urine Blood Negative Urine Nitrite Negative Urine Bilirubin Negative Urine Urobilinogen Negative Ur Leukocyte Esterase 3+ H Urine RBC 5 Urine WBC 68 Active Medications Generic Name Dose Route Start Last Admin Trade Name Freq PRN Reason Stop Dose Admin Acetaminophen 650 mg 01/10/17 17:51 Tylenol - PO Q4H PRN FEVER OR PAIN Bacitracin/Polymyxin B Sulfate 1 applic 01/14/17 10:00 01/15/17 12:52 Polysporin Ointment - TP 1 applic BID ROBERTO Administration Heparin Sodium (Porcine) 5,000 unit 01/11/17 10:00 01/15/17 12:12 Heparin - SQ 5,000 unit BID ROBERTO Administration Ampicillin Sodium/Sulbactam 100 mls @ 200 mls/hr 01/11/17 15:00 01/15/17 15:54 Sodium 3 gm/ Sodium Chloride IVPB 200 mls/hr Q6H-IV ROBERTO Administration Multivitamins/Minerals/Vitamin C 1 tab 01/12/17 15:00 01/15/17 12:12 Tab-A-Vit - PO 1 tab DAILY ROBERTO Administration Tamsulosin HCl 0.4 mg 01/14/17 09:15 01/15/17 08:36 Flomax - PO 0.4 mg BID@0830,2200 ROBERTO Administration ASSESSMENT/PLAN: 86 yo M with PMH of b/l severe hydronephrosis L>R seen on CT 10/31/15, otherwise unknown [facility] (poor hitorian/no records), who presented with confusion, groin and back pain. #Metabolic encephalopathy in the setting of AMS possibly due to UTI being tx w/ abx -A&Ox3 -Resolved -Patient awaiting placement #LLE cellulitis, improving -Afebrile -Wound cx - no growth to date -Continue IV Unasyn day 5 #Flank Pain: -CT- hydroureteralonephrosis -Urology recs- Flomax 0.4 mg BID #JUNG/possible CKD -Cr. 1.4 -Appears baseline from prior Cr levels #FEN: -No fluids -lytes stable -Na restricted diet #PPx -DVT: heparin 5000 units sq BID -GI: not indicated at this time Visit type - Emergency Visit Emergency Visit: No - New Patient This patient is new to me today: No - Critical Care Critical Care patient: No
--- NOTE | 2017-01-15 17:13 | PN ---
Teaching Attending Note Name of Resident: Palmer Rios ATTENDING PHYSICIAN STATEMENT I saw and evaluated the patient. I reviewed the resident's note and discussed the case with the resident. I agree with the resident's findings and plan as documented. SUBJECTIVE: No complaints. OBJECTIVE: Vital Signs Period Temp Pulse Resp BP Sys/Locke Pulse Ox Last 24 Hr 97.6 F-98.3 F 83-121 20-22 113-133/66-78 92-98 HEART: S1S2, RRR LUNGS: Clear ABDOMEN: Soft, non-tender, non-distended, normal BS EXTREMITIES: Trace edema, erythema and tenderness of left lower leg ASSESSMENT AND PLAN: This is an 86-year-old man with a history of bilateral hydronephrosis who presented to the ER with groin pain. 1. Acute metabolic encephalopathy secondary to UTI and LLE cellulitis - Resolved - Continue Unasyn 2. Bilateral hydroureteronephrosis - Continue Flomax - Refused Segura 3. Stage 3 CKD - Stable 4. Disposition - Continue PT - Plan for subacute rehab
[2017-01-16] MEDS: AMPICILLIN NA/SULBACTAM NA 3 GM in SODIUM CHLORIDE 100 ML IVPB SCH ×4 (03:01→21:42)
[2017-01-16 07:28] LABS: BASOPHIL 0.9 % (0-2.0); EOSINOPHIL 5.5 % (0-4.5); MCH 31.1 pg (25.7-33.7); MCHC 33.7 g/dl (32.0-35.9); MEAN CELL VOLUME 92.4 fl (80-96); MEAN PLT VOLUME 8.9 fl (7.5-11.1); NEUTROPHILS 62.5 % (42.8-82.8); PLATELET COUNT 133 K/MM3 (134-434); RDW 15.2 % (11.9-15.9); WHITE BLOOD COUNT 9.1 K/mm3 (4.0-10.0)
[2017-01-16] MEDS ORDERED: PT OWN MED DRAWER 7, Y5N ONE ×4 (08:01→18:58)
[2017-01-16] MEDS: TAMSULOSIN HCL 0.4 MG CAP.ER.24H (FP) PO SCH ×2 (08:16→22:11)
[2017-01-16 08:32] LABS: ANION GAP 9 (8-16); CALCIUM 8.3 mg/dL (8.5-10.1); CO2 25 mmol/L (21-32); CREATININE 1.3 mg/dL (0.7-1.3); GLUCOSE,RANDOM 106 mg/dL (74-106)
[2017-01-16] MEDS: HEPARIN NA (PORCINE) 5,000 UNITS/ML 1ML VIAL SQ SCH ×2 (10:19→22:11)
[2017-01-16] MEDS: MULTIVITAMINS (DAILY MVI) TABLET (FP) PO SCH (10:19)
[2017-01-16] MEDS: BACITRACIN/POLYMYXIN B SULFATE 15 GM TUBE TP SCH ×2 (10:25→22:11)
--- NOTE | 2017-01-16 11:36 | PN ---
Progress Note (short form) - Note Progress Note: voiding spontaneously on flomax pvr today 420cc still refusing davis will need outpt evaluation Problem List - Problems (1) Incomplete emptying of bladder due to benign prostatic hyperplasia Code(s): N40.1 - BENIGN PROSTATIC HYPERPLASIA WITH LOWER URINARY TRACT SYMP R39.14 - FEELING OF INCOMPLETE BLADDER EMPTYING
--- NOTE | 2017-01-16 14:07 | PN ---
Teaching Attending Note Name of Resident: Palmer Rios ATTENDING PHYSICIAN STATEMENT I saw and evaluated the patient. I reviewed the resident's note and discussed the case with the resident. I agree with the resident's findings and plan as documented. SUBJECTIVE: Patient complains of cough. He was hypoxic this morning and was placed on oxygen with improvement. OBJECTIVE: Vital Signs Period Temp Pulse Resp BP Sys/Locke Pulse Ox Last 24 Hr 97.8 F-99.2 F 100-120 20-22 112-148/54-72 96-97 HEART: S1S2, tachycardic LUNGS: Rhonchi at left base ABDOMEN: Soft, non-tender, non-distended, normal BS EXTREMITIES: Trace edema, decreased erythema of left lower leg ASSESSMENT AND PLAN: This is an 86-year-old man with a history of bilateral hydronephrosis who presented to the ER with groin pain. 1. Acute metabolic encephalopathy secondary to UTI and LLE cellulitis - Resolved - Continue Unasyn 2. Atelectasis vs pneumonia - Continue Unasyn - Incentive spirometer 3. Bilateral hydroureteronephrosis - Continue Flomax 4. Stage 3 CKD - Stable 5. Disposition - Continue PT - Plan for subacute rehab
--- NOTE | 2017-01-16 16:43 | PN ---
Physical Exam: SUBJECTIVE: Patient seen and examined No acute events overnight. Patient has a cough. Patient became hypoxic this morning and improved with O2 NC. OBJECTIVE: Vital Signs Period Temp Pulse Resp BP Sys/Locke Pulse Ox Last 24 Hr 97.8 F-99.2 F 98-120 20-22 112-148/54-72 96-97 GENERAL: Awake, alert, in no acute distress. HEAD: Normal with no signs of trauma. EYES: Pupils equal, round and reactive to light, extraocular movements intact, sclera anicteric, conjunctiva clear. No lid lag. EARS, NOSE, THROAT: Moist mucous membranes. Poor hearing b/l NECK: supple without JVD LUNGS: Breath sounds equal, Left base-Rhochi and crackles HEART: Regular rate and rhythm, normal S1 and S2 ABDOMEN: Soft, nontender, moderately distended, normoactive bowel sounds, no guarding, no rebound, no masses. No hepatomegaly or splenomegaly. MUSCULOSKELETAL: No CVA tenderness. UPPER EXTREMITIES: 2+ pulses, warm, well-perfused. No cyanosis. No clubbing. No peripheral edema. LOWER EXTREMITIES: 2+ pulses, warm, well-perfused. No calf tenderness. No peripheral edema. L ankle cellulitis with honey colored oozing crust and warmth extending to mid lower third of calf -- improving R ankle-nontender stasis dermatitis NEUROLOGICAL: Cranial nerves II-XII intact. Normal speech. strength 4+/5 in all extremities, sensation intact b/l PSYCHIATRIC: Cooperative. Good eye contact. Appropriate mood and affect, forgetful, confused SKIN: Warm, dry Laboratory Results - last 24 hr 01/16/17 01/16/17 06:30 06:30 WBC 9.1 RBC 3.95 L Hgb 12.3 Hct 36.5 MCV 92.4 MCH 31.1 MCHC 33.7 RDW 15.2 Plt Count 133 L MPV 8.9 Neutrophils % 62.5 Lymphocytes % 24.5 Monocytes % 6.6 Eosinophils % 5.5 H Basophils % 0.9 Sodium 141 Potassium 4.0 Chloride 107 Carbon Dioxide 25 Anion Gap 9 BUN 32 H Creatinine 1.3 Random Glucose 106 Calcium 8.3 L Active Medications Generic Name Dose Route Start Last Admin Trade Name Freq PRN Reason Stop Dose Admin Acetaminophen 650 mg 01/10/17 17:51 Tylenol - PO Q4H PRN FEVER OR PAIN Bacitracin/Polymyxin B Sulfate 1 applic 01/14/17 10:00 01/16/17 10:25 Polysporin Ointment - TP 1 applic BID ROBERTO Administration Guaifenesin 10 ml 01/16/17 08:43 Robitussin - PO Q6H PRN COUGH Heparin Sodium (Porcine) 5,000 unit 01/11/17 10:00 01/16/17 10:19 Heparin - SQ 5,000 unit BID ROBERTO Administration Ampicillin Sodium/Sulbactam 100 mls @ 200 mls/hr 01/11/17 15:00 01/16/17 15:45 Sodium 3 gm/ Sodium Chloride IVPB 200 mls/hr Q6H-IV ROBERTO Administration Multivitamins/Minerals/Vitamin C 1 tab 01/12/17 15:00 01/16/17 10:19 Tab-A-Vit - PO 1 tab DAILY ROBERTO Administration Tamsulosin HCl 0.4 mg 01/14/17 09:15 01/16/17 08:16 Flomax - PO 0.4 mg BID@0830,2200 ROBERTO Administration ASSESSMENT/PLAN: 86 yo M with PMH of b/l severe hydronephrosis L>R seen on CT 10/31/15, otherwise unknown [facility] (poor hitorian/no records), who presented with confusion, groin and back pain. #Metabolic encephalopathy in the setting of AMS possibly due to UTI being tx w/ abx -A&Ox3 -Resolved -Patient awaiting placement -Day 6 IV Unasyn 3 gm #Cough -CXR reviewed -Atelectasis vs. possible pneumonia -Continue IV Unasyn Day 6 #LLE cellulitis, improving -Afebrile -Wound cx - no growth to date -Continue IV Unasyn day 5 #Flank Pain: -CT- hydroureteralonephrosis -Urology recs- Flomax 0.4 mg BID #CKD -Stable -Appears baseline from prior Cr levels #FEN: -No fluids -lytes stable -Na restricted diet #PPx -DVT: heparin 5000 units sq BID -GI: not indicated at this time Pt will need to go to [facility] and outpt f/u with Urology. Visit type - Emergency Visit Emergency Visit: No - New Patient This patient is new to me today: No - Critical Care Critical Care patient: No
[2017-01-17] MEDS: AMPICILLIN NA/SULBACTAM NA 3 GM in SODIUM CHLORIDE 100 ML IVPB SCH ×4 (02:52→22:05)
[2017-01-17] MEDS ORDERED: PT OWN MED DRAWER 7, Y5N ONE ×2 (07:51→22:02)
[2017-01-17] MEDS: TAMSULOSIN HCL 0.4 MG CAP.ER.24H (FP) PO SCH ×2 (07:52→22:07)
[2017-01-17 08:10] LABS: BASOPHIL 0.6 % (0-2.0); EOSINOPHIL 6.1 % (0-4.5); MCH 30.8 pg (25.7-33.7); MCHC 33.4 g/dl (32.0-35.9); MEAN CELL VOLUME 92.4 fl (80-96); NEUTROPHILS 60.6 % (42.8-82.8); PLATELET COUNT 129 K/MM3 (134-434); WHITE BLOOD COUNT 8.4 K/mm3 (4.0-10.0)
[2017-01-17 08:47] LABS: ANION GAP 9 (8-16); CALCIUM 8.4 mg/dL (8.5-10.1); CO2 26 mmol/L (21-32); CREATININE 1.4 mg/dL (0.7-1.3); GLUCOSE,RANDOM 94 mg/dL (74-106)
[2017-01-17] MEDS: HEPARIN NA (PORCINE) 5,000 UNITS/ML 1ML VIAL SQ SCH ×2 (11:11→22:07)
[2017-01-17] MEDS: MULTIVITAMINS (DAILY MVI) TABLET (FP) PO SCH (11:12)
[2017-01-17] MEDS: BACITRACIN/POLYMYXIN B SULFATE 15 GM TUBE TP SCH ×2 (11:13→22:09)
--- NOTE | 2017-01-17 11:29 | PN ---
Physical Exam: SUBJECTIVE: Patient seen and examined No acute events overnight. Patient still has mild cough. Using incentive spirometer per the nurse. OBJECTIVE: Vital Signs Period Temp Pulse Resp BP Sys/Locke Pulse Ox Last 24 Hr 98.3 F-99.4 F 75-120 18-22 101-128/62-90 96-97 GENERAL: Awake, alert, in no acute distress. HEAD: Normal with no signs of trauma. EYES: Pupils equal, round and reactive to light, extraocular movements intact, sclera anicteric, conjunctiva clear. No lid lag. EARS, NOSE, THROAT: Moist mucous membranes. Poor hearing b/l NECK: supple without JVD LUNGS: Breath sounds equal, Left base-Rhochi and wheezing, Right base- wheeezing HEART: Regular rate and rhythm, normal S1 and S2 ABDOMEN: Soft, nontender, moderately distended, normoactive bowel sounds, no guarding, no rebound, no masses. No hepatomegaly or splenomegaly. MUSCULOSKELETAL: No CVA tenderness. UPPER EXTREMITIES: 2+ pulses, warm, well-perfused. No cyanosis. No clubbing. No peripheral edema. LOWER EXTREMITIES: 2+ pulses, warm, well-perfused. No calf tenderness. No peripheral edema. L ankle cellulitis with honey colored oozing crust and warmth extending to mid lower third of calf -- improving. Re-wrapped this AM, Mild pitting edema R ankle-Nontender stasis dermatitis, mild pitting edema NEUROLOGICAL: Cranial nerves II-XII intact. Normal speech. strength 4+/5 in all extremities, sensation intact b/l PSYCHIATRIC: Cooperative. Good eye contact. Appropriate mood and affect, forgetful, confused SKIN: Warm, dry Laboratory Results - last 24 hr 01/17/17 01/17/17 06:58 06:58 WBC 8.4 RBC 3.84 L Hgb 11.8 Hct 35.5 MCV 92.4 MCH 30.8 MCHC 33.4 RDW 15.0 Plt Count 129 L MPV 9.0 Neutrophils % 60.6 Lymphocytes % 25.4 Monocytes % 7.3 Eosinophils % 6.1 H Basophils % 0.6 Sodium 141 Potassium 4.1 Chloride 106 Carbon Dioxide 26 Anion Gap 9 BUN 31 H Creatinine 1.4 H Random Glucose 94 Calcium 8.4 L Active Medications Generic Name Dose Route Start Last Admin Trade Name Freq PRN Reason Stop Dose Admin Acetaminophen 650 mg 01/10/17 17:51 Tylenol - PO Q4H PRN FEVER OR PAIN Bacitracin/Polymyxin B Sulfate 1 applic 01/14/17 10:00 01/17/17 11:13 Polysporin Ointment - TP 1 applic BID ROBERTO Administration Guaifenesin 10 ml 01/16/17 08:43 Robitussin - PO Q6H PRN COUGH Heparin Sodium (Porcine) 5,000 unit 01/11/17 10:00 01/17/17 11:11 Heparin - SQ 5,000 unit BID ROBERTO Administration Ampicillin Sodium/Sulbactam 100 mls @ 200 mls/hr 01/11/17 15:00 01/17/17 11:10 Sodium 3 gm/ Sodium Chloride IVPB 200 mls/hr Q6H-IV ROBERTO Administration Multivitamins/Minerals/Vitamin C 1 tab 01/12/17 15:00 01/17/17 11:12 Tab-A-Vit - PO Not Given DAILY ROBERTO Tamsulosin HCl 0.4 mg 01/14/17 09:15 01/17/17 07:52 Flomax - PO 0.4 mg BID@0830,2200 ROBERTO Administration ASSESSMENT/PLAN: 86 yo M with PMH of b/l severe hydronephrosis L>R seen on CT 10/31/15, otherwise unknown [facility] (poor hitorian/no records), who presented with confusion, groin and back pain. #Metabolic encephalopathy in the setting of AMS possibly due to UTI being tx w/ abx, RESOLVED -A&Ox3 -Patient awaiting placement -Day 7 IV Unasyn 3 gm #Cough, unchanged -01/16-CXR, Possible fluid with atelectasis -01/17-Chest CT- Mild bibasilar posterior bronchiectatic changes w/ mild peribronchial consolidations on the Left. 3 mm nodule in the right middle lobe, which will need f/u. Cholelithiasis. -Continue IV Unasyn Day 7 #LLE cellulitis, improving -Afebrile -Wound cx - no growth to date -Continue IV Unasyn day 7 #Flank Pain: -CT- hydroureteralonephrosis -Urology recs- Flomax 0.4 mg BID, f/u outpatient #CKD -Stable -Appears baseline from prior Cr levels #FEN: -No fluids -lytes stable -Na restricted diet #PPx -DVT: heparin 5000 units sq BID -GI: not indicated at this time Pt will need to go to [facility] and outpt f/u with Urology. Visit type - Emergency Visit Emergency Visit: No - New Patient This patient is new to me today: No - Critical Care Critical Care patient: No
--- NOTE | 2017-01-17 14:11 | PN ---
Progress Note (short form) - Note Progress Note: ID consult dictated imp/reccd 86 year old man admitted from home with groin and back pain no fevers no lactic acidosis known bilateral hydronephrosis- refuses workup with urology- refuses davis catheter noted to have nonproductive cough with some wheezing chest ct no infiltrate doubt pneumonia would complete 7 days antibiotics (last day today) and then d/c antibiotics consider workup for copd/chf d/w resident Problem List - Problems (1) COPD (chronic obstructive pulmonary disease) Code(s): J44.9 - CHRONIC OBSTRUCTIVE PULMONARY DISEASE, UNSPECIFIED (2) CHF (congestive heart failure) Code(s): I50.9 - HEART FAILURE, UNSPECIFIED
--- NOTE | 2017-01-17 15:06 | PN ---
Teaching Attending Note Name of Resident: Palmer Rios ATTENDING PHYSICIAN STATEMENT I saw and evaluated the patient. I reviewed the resident's note and discussed the case with the resident. I agree with the resident's findings and plan as documented. SUBJECTIVE: Patient coughing and is SOB with exertion. OBJECTIVE: Vital Signs Period Temp Pulse Resp BP Sys/Locke Pulse Ox Last 24 Hr 98.3 F-99.4 F 75-105 18-20 101-125/62-90 96-97 HEART: S1S2, tachycardic LUNGS: Rhonchi and wheezes at left base ABDOMEN: Soft, non-tender, non-distended, normal BS EXTREMITIES: Trace edema, decreased erythema of left lower leg Current Medications Generic Name Dose Route Start Last Admin Trade Name Freq PRN Reason Stop Dose Admin Acetaminophen 650 mg 01/10/17 17:51 Tylenol - PO Q4H PRN FEVER OR PAIN Albuterol/Ipratropium 1 amp 01/17/17 15:19 Duoneb - NEB TIDR PRN SHORTNESS OF BREATH Albuterol/Ipratropium 1 amp 01/17/17 18:00 Duoneb - NEB QIDR ROBERTO Bacitracin/Polymyxin B Sulfate 1 applic 01/14/17 10:00 01/17/17 11:13 Polysporin Ointment - TP 1 applic BID ROBERTO Administration Guaifenesin 10 ml 01/16/17 08:43 Robitussin - PO Q6H PRN COUGH Heparin Sodium (Porcine) 5,000 unit 01/11/17 10:00 01/17/17 11:11 Heparin - SQ 5,000 unit BID ROBERTO Administration Ampicillin Sodium/Sulbactam 100 mls @ 200 mls/hr 01/11/17 15:00 01/17/17 14:52 Sodium 3 gm/ Sodium Chloride IVPB 01/17/17 23:59 200 mls/hr Q6H-IV ROBEROT Administration Multivitamins/Minerals/Vitamin C 1 tab 01/12/17 15:00 01/17/17 11:12 Tab-A-Vit - PO Not Given DAILY ROBERTO Tamsulosin HCl 0.4 mg 01/14/17 09:15 01/17/17 07:52 Flomax - PO 0.4 mg BID@0830,2200 ROBERTO Administration ASSESSMENT AND PLAN: This is an 86-year-old man with a history of bilateral hydronephrosis who presented to the ER with groin pain. 1. Acute metabolic encephalopathy secondary to UTI and LLE cellulitis - Resolved - Continue Unasyn 2. Acute bronchitis with atelectasis - Chest CT shows mild bibasilar posterior bronchiectatic changes with mild peribronchial consolidation on left; 3 mm RML nodule; multiple liver hypodensities; contracted GB with calcified stone - Continue Unasyn - Continue incentive spirometer - DuoNeb added 3. Bilateral hydroureteronephrosis - Continue Flomax 4. Stage 3 CKD - Stable 5. Lung nodule - 3 mm RML 6. Disposition - Continue PT - Plan for subacute rehab
[2017-01-17] MEDS ORDERED: ALBUTEROL SO4 2.5/IPRATROPIUM 0.5 INH SOL 3 ML VIAL.NEB. NEB PRN (15:19)
--- NOTE | 2017-01-17 15:37 | PN ---
Progress Note, Physician History of Present Illness: PULMONARY CONSULTATION DICTATED 01/17/17 IMP HYPOXEMIA ACUTE BRONCHITIS ATELECTASIS RUL NODULE 3mm BILATERAL HYDRONEPHROSIS CELLULITIS ACUTE RENAL INSUFFICIENCY PLAN O2 INHALED BRONCHODILATORS ANTIBIOTICS ABG MONITOR O2 SATS PER [employer] GUIDLINES NO FOLLOW-UP NECESSARY FOR PTS PULMONARY NODULE <5MM,NON-SMOKER DR CHAHAL - Current Medication List Current Medications: Active Medications Acetaminophen (Tylenol -) 650 mg PO Q4H PRN PRN Reason: FEVER OR PAIN Albuterol/Ipratropium (Duoneb -) 1 amp NEB TIDR PRN PRN Reason: SHORTNESS OF BREATH Albuterol/Ipratropium (Duoneb -) 1 amp NEB QIDR ROBERTO Bacitracin/Polymyxin B Sulfate (Polysporin Ointment -) 1 applic TP BID [facility] Last Admin: 01/17/17 11:13 Dose: 1 applic Guaifenesin (Robitussin -) 10 ml PO Q6H PRN PRN Reason: COUGH Heparin Sodium (Porcine) (Heparin -) 5,000 unit SQ BID [facility] Last Admin: 01/17/17 11:11 Dose: 5,000 unit Ampicillin Sodium/Sulbactam (Sodium 3 gm/ Sodium Chloride) 100 mls @ 200 mls/ hr IVPB Q6H-IV [facility] Stop: 01/17/17 23:59 Last Admin: 01/17/17 14:52 Dose: 200 mls/hr Multivitamins/Minerals/Vitamin C (Tab-A-Vit -) 1 tab PO DAILY [facility] Last Admin: 01/17/17 11:12 Dose: Not Given Tamsulosin HCl (Flomax -) 0.4 mg PO BID@0830,2200 [facility] Last Admin: 01/17/17 07:52 Dose: 0.4 mg - Objective Vital Signs: Vital Signs Temperature 98.3 F 01/17/17 06:00 Pulse Rate 75 01/17/17 10:05 Respiratory Rate 20 01/17/17 06:00 Blood Pressure 109/62 01/17/17 06:00 O2 Sat by Pulse Oximetry (%) 97 01/17/17 10:05 Labs: CBC, BMP 01/17/17 06:58 01/17/17 06:58
--- NOTE | 2017-01-17 15:46 | PN ---
Progress Note (short form) - Note Progress Note: PULMONARY CONSULTATION DICTATED IMP HYPOXEMIA BRONCHITIS BRONCHIECTASIS? ATELECTASIS PULMONARY NODULE 3mm BILATERAL HYDRONEPHROSIS ACUTE RENAL INSUFFICIENCY ALTERED MENTAL STATUS IMPROVED CELLULITIS PLAN INHALED BRONCHODILATORS NASAL O2 INCENTIVE SPIROMETER ANTIBIOTICS PER ID ABG ON RA PER [employer] RECOMMENDATIONS NO FOLLOW-UP NECESSARY REGARDING PTS PULMONARY NODULE DR CHAHAL Problem List - Problems (1) Altered mental status Code(s): R41.82 - ALTERED MENTAL STATUS, UNSPECIFIED (2) Cellulitis Code(s): L03.90 - CELLULITIS, UNSPECIFIED (3) UTI (urinary tract infection) Code(s): N39.0 - URINARY TRACT INFECTION, SITE NOT SPECIFIED (4) Hydronephrosis Code(s): N13.30 - UNSPECIFIED HYDRONEPHROSIS (5) Kidney injury Code(s): S37.009A - UNSPECIFIED INJURY OF UNSPECIFIED KIDNEY, INITIAL ENCOUNTER (6) Hypoxemia Code(s): R09.02 - HYPOXEMIA (7) Lung nodule Code(s): R91.1 - SOLITARY PULMONARY NODULE
[2017-01-17 16:10] LABS: ARTERIAL BLD GAS O2 SATURATION 92.7 % (90-98.9); ARTERIAL BLOOD GAS BASE EXCESS 0.5 meq/l (-2-2); ARTERIAL BLOOD GAS HCO3 24.2 meq/L (22-26); ARTERIAL BLOOD GAS PO2 61.7 mmHg (68-100); ARTERIAL BLOOD GAS pH 7.43 (7.35-7.45)
[2017-01-17 16:11] LABS: ALLENS TEST POSITIVE; ART PUNCT SITE RIGHT BRACHIAL; LPM/O2% 21%; PT. ON O2? NO; TYPE OF O2 R/A
[2017-01-17] MEDS ORDERED: ALBUTEROL SO4 2.5/IPRATROPIUM 0.5 INH SOL 3 ML VIAL.NEB. NEB SCH (18:00)
[2017-01-17] MEDS: ALBUTEROL SO4 2.5/IPRATROPIUM 0.5 INH SOL 3 ML VIAL.NEB. NEB SCH ×2 (18:20→23:08)
--- NOTE | 2017-01-17 18:50 | CONS ---
DATE OF CONSULTATION: DATE OF DICTATION: 01/17/2017 INFECTIOUS DISEASE CONSULTATION REQUESTING PHYSICIAN: The hospitalist service CONSULTING PHYSICIAN: Richard Berg M.D. HISTORY OF PRESENT ILLNESS: This is an 86-year-old man who lives at home alone. He presented to the emergency room on the with some confusion and weakness. He had been having some groin pain and his apartment was unlivable and apparently very filthy. He has a known history of bilateral hydronephrosis. Has not been in medical care for a long time, was admitted. He had no fever. Lactic acidosis was normal. White count was normal. He was treated with Unasyn for presumptive UTI as well as cellulitis of his left lower extremity. Yesterday he started having developing some cough which was nonproductive. He was noted to have O2 saturations lower than normal. He was placed on oxygen. He had a chest CT, and I was asked to see him for possible pneumonia. CAT scan was reviewed with pulmonary, Dr. Mariscal. There is no evidence of any acute infiltrate. Patient is awake and alert, reports feeling fine. He is refusing Segura catheter at this time and has a large post-void residual despite being started on Flomax. PAST MEDICAL HISTORY: Unknown except for the bilateral hydronephrosis seen on a prior CAT scan from 2016. SURGICAL HISTORY: Negative. SOCIAL HISTORY: He lives alone. He has no children. ALLERGIES: He has no known drug allergies. MEDICATION: He takes no medications. REVIEW OF SYSTEMS: Currently unremarkable. He is feeling well. He denies any nausea, vomiting, fever or chills. PHYSICAL EXAMINATION: Vital signs: Temperature 98.3, he has had no fever since admission. His pulse is 75, blood pressure 109/62, respiratory rate 20. Current O2 saturation on room air is 97%. HEENT: Normocephalic. Eyes are anicteric. He has no thrush. Neck: Supple. Lungs: Bilateral rhonchi, scattered wheezes. Heart: Regular rate and rhythm. Abdomen: Soft, nontender. Extremities: Notable for minimal edema of the left lower leg with a healed ulcer. He has some suprapubic fullness but denies pain. He has no flank pain. LABORATORY: Notable for a white count of 8.4, hemoglobin 11.8, platelets are 129. His BUN and creatinine are 31 and 1.4. Urinalysis has 3+ leukocytes with 68 white cells. His RPR is nonreactive. Blood culture and urine cultures are negative. Wound culture of his leg is negative. IMPRESSION: In summary, this is an elderly man, day 7 of antibiotics for cellulitis, urinary tract infection. Negative cultures, was noted to have a nonproductive cough with some wheezing. Chest CT, there is no infiltrate. I doubt he has pneumonia. Would finish his 7-day course of antibiotics. Last day today, and then stop his antibiotics. Would consider workup for COPD and CHF. All of the above is discussed with Dr. Lebron the resident on the service. RICHARD BERG M.D. [id number] MTDD
--- NOTE | 2017-01-18 06:43 | CONS ---
DATE OF CONSULTATION: 01/17/2017 REFERRING PHYSICIAN: Cornelius Castle MD HISTORY OF PRESENT ILLNESS: The patient is an 86-year-old white male without any significant past medical history who is a nonsmoker admitted to [facility] on January 10 with confusion, groin and back pain. Patient apparently was brought in by his family members, found in his apartment confused and weak and unable to walk. Apparently, on admission he was felt to have urosepsis as well as lower extremity cellulitis. He was placed on broad-spectrum antibiotics. Of note, his mental status improved as the infection resolved. Patient underwent a CT of the abdomen and pelvis on admission which revealed evidence of bilateral hydronephrosis. He was evaluated by Urology and the patient refused any treatment. Of note is earlier today the patient was noted to have some mild increased congestion and wheezing. He was also noted to be hypoxemic on room air. He was started on supplemental O2. The patient is a nonsmoker. 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 There is no apparent history of DVT or PE in the past. Denies a history of pneumonia, COPD, or asthma in the past. There is no history of hemoptysis. Of note, he underwent a CT scan of the chest earlier today which revealed some mild bibasilar posterior bronchiectatic changes and some increased markings in the left lower lobe which are most likely secondary to atelectasis. He was also noted to have a 3-mm nodule in the right upper lobe. PAST MEDICAL HISTORY: Again is unremarkable. CURRENT MEDICATIONS: Include: 1. Flomax. 2. Tylenol. 3. Unasyn. 4. . 5. Heparin. 6. Duo-Neb. 7. Robitussin. 8. Tab-A-Stanton. REVIEW OF SYSTEMS: Positive cough. No chest pain. No palpitations. Denies shortness of breath, although patient apparently ambulates and develops shortness of breath. No abdominal pain. Positive left lower extremity erythema. PHYSICAL EXAMINATION: General: The patient is a well-developed, well-nourished male, awake, alert, currently in no acute distress. Vital Signs: He is currently afebrile. Blood pressure is 109/62. Respiratory rate is 20. O2 saturation was at 97 on 2 L earlier. I am not really sure if that is correct. HEENT: Normocephalic, atraumatic. Neck: Supple. Heart: Regular, with S1, S2. Chest: A few scattered rhonchi and wheezes more pronounced and prominent in the left base. Abdomen: Soft. Bowel sounds are positive. Extremities: There is mild edema. There is erythema of the left lower extremity to midcalf. LABORATORIES: WBC is 8.4, hemoglobin 11.8, hematocrit 35.5, with a platelet count of 129,000. BUN is 31, creatinine 1.4. Lactate level was 1.7. UA: 3+ leukocyte esterase. That was on admission. RPR is nonreactive. Chest x-ray: Cardiomegaly, increased markings of the left base. Chest CT: Noted earlier. IMPRESSION: 1. Hypoxia, etiology to be determined, possible acute bronchitis, possible pneumonia although not evident on chest x-ray. 2. Status post urosepsis. 3. Altered mental status, improved. 4. Cellulitis. PLAN: Inhaled bronchodilator. Supplemental O2. Check arterial blood gas on room air. Also do ambulatory O2 saturations. Obtain followup chest x-ray, cultures. Incentive spirometer. CINDA CHAHAL M.D. [id number]
[2017-01-18] MEDS: ALBUTEROL SO4 2.5/IPRATROPIUM 0.5 INH SOL 3 ML VIAL.NEB. NEB SCH ×3 (06:59→19:00)
[2017-01-18 07:03] LABS: BASOPHIL 0.7 % (0-2.0); EOSINOPHIL 5.7 % (0-4.5); MCHC 33.1 g/dl (32.0-35.9); MEAN CELL VOLUME 93.5 fl (80-96); MEAN PLT VOLUME 8.8 fl (7.5-11.1); NEUTROPHILS 61.1 % (42.8-82.8); PLATELET COUNT 139 K/MM3 (134-434); RDW 15.5 % (11.9-15.9); WHITE BLOOD COUNT 8.1 K/mm3 (4.0-10.0)
[2017-01-18 07:28] LABS: ANION GAP 10 (8-16); CALCIUM 8.8 mg/dL (8.5-10.1); CO2 25 mmol/L (21-32); CREATININE 1.4 mg/dL (0.7-1.3); GLUCOSE,RANDOM 98 mg/dL (74-106)
--- NOTE | 2017-01-18 09:13 | PN ---
Teaching Attending Note Name of Resident: Palmer Rios ATTENDING PHYSICIAN STATEMENT I saw and evaluated the patient. I reviewed the resident's note and discussed the case with the resident. I agree with the resident's findings and plan as documented. SUBJECTIVE: Patient has no complaints. OBJECTIVE: Vital Signs Period Temp Pulse Resp BP Sys/Locke Pulse Ox Last 24 Hr 97.6 F-99.4 F 75-105 20-21 124-136/73-91 97-97 HEART: S1S2, RRR LUNGS: Rhonchi at left base ABDOMEN: Soft, non-tender, non-distended, normal BS EXTREMITIES: Trace edema ASSESSMENT AND PLAN: This is an 86-year-old man with a history of bilateral hydronephrosis who presented to the ER with groin pain. 1. Acute metabolic encephalopathy secondary to UTI and LLE cellulitis - Resolved - Completed Unasyn 2. Acute bronchitis with atelectasis - Chest CT shows mild bibasilar posterior bronchiectatic changes with mild peribronchial consolidation on left; 3 mm RML nodule; multiple liver hypodensities; contracted GB with calcified stone - Continue incentive spirometer, DuoNeb 3. Bilateral hydroureteronephrosis secondary to BPH - Refused Segura - Continue Flomax - Outpatient urology follow-up 4. Stage 3 CKD - Stable 5. Lung nodule, 3 mm in RML - No follow-up necessary per pulmonary 6. Possible hepatic cysts - Oupatient US 7. Disposition - Continue PT - Awaiting insurance authorization for subacute rehab
[2017-01-18] MEDS: BACITRACIN/POLYMYXIN B SULFATE 15 GM TUBE TP SCH ×2 (10:08→23:40)
[2017-01-18] MEDS: TAMSULOSIN HCL 0.4 MG CAP.ER.24H (FP) PO SCH ×2 (10:19→22:15)
[2017-01-18] MEDS: MULTIVITAMINS (DAILY MVI) TABLET (FP) PO SCH (10:19)
[2017-01-18] MEDS: HEPARIN NA (PORCINE) 5,000 UNITS/ML 1ML VIAL SQ SCH ×2 (10:20→22:15)
--- NOTE | 2017-01-18 11:03 | PN ---
Progress Note, Physician History of Present Illness: pulmonary alert,nad,+ cough,O2 sat 93% on 2l - Current Medication List Current Medications: Active Medications Acetaminophen (Tylenol -) 650 mg PO Q4H PRN PRN Reason: FEVER OR PAIN Albuterol/Ipratropium (Duoneb -) 1 amp NEB TIDR PRN PRN Reason: SHORTNESS OF BREATH Albuterol/Ipratropium (Duoneb -) 1 amp NEB QIDR [facility] Last Admin: 01/18/17 06:59 Dose: 1 amp Bacitracin/Polymyxin B Sulfate (Polysporin Ointment -) 1 applic TP BID [facility] Last Admin: 01/17/17 22:09 Dose: 1 applic Guaifenesin (Robitussin -) 10 ml PO Q6H PRN PRN Reason: COUGH Heparin Sodium (Porcine) (Heparin -) 5,000 unit SQ BID [facility] Last Admin: 01/18/17 10:20 Dose: 5,000 unit Multivitamins/Minerals/Vitamin C (Tab-A-Vit -) 1 tab PO DAILY [facility] Last Admin: 01/18/17 10:19 Dose: 1 tab Tamsulosin HCl (Flomax -) 0.4 mg PO BID@0830,2200 [facility] Last Admin: 01/18/17 10:19 Dose: 0.4 mg - Objective Vital Signs: Vital Signs Temperature 97.8 F 01/18/17 09:56 Pulse Rate 112 H 01/18/17 09:56 Respiratory Rate 20 01/18/17 09:56 Blood Pressure 134/69 01/18/17 09:56 O2 Sat by Pulse Oximetry (%) 97 01/17/17 21:00 Constitutional: Yes: Well Nourished, Calm Eyes: Yes: WNL HENT: Yes: WNL Neck: Yes: WNL Cardiovascular: Yes: Regular Rate and Rhythm, S1, S2 Respiratory: Yes: Rales (FEW CRACKLES LEFT BASE,FEW RHONCHI) Gastrointestinal: Yes: Normal Bowel Sounds, Soft Extremities: Yes: WNL Edema: Yes Labs: CBC, BMP 01/18/17 06:00 01/18/17 06:00 Laboratory Tests 01/17/17 16:00 ABG pH 7.43 ABG pCO2 at Pt Temp 37.6 ABG pO2 at Pt Temp 61.7 L ABG HCO3 24.2 ABG O2 Sat (Measured) 92.7 O2 Delivery Device R/a Oxygen Flow Rate 21% Problem List - Problems (1) Altered mental status Code(s): R41.82 - ALTERED MENTAL STATUS, UNSPECIFIED (2) Cellulitis Code(s): L03.90 - CELLULITIS, UNSPECIFIED (3) UTI (urinary tract infection) Code(s): N39.0 - URINARY TRACT INFECTION, SITE NOT SPECIFIED (4) Hydronephrosis Code(s): N13.30 - UNSPECIFIED HYDRONEPHROSIS (5) Kidney injury Code(s): S37.009A - UNSPECIFIED INJURY OF UNSPECIFIED KIDNEY, INITIAL ENCOUNTER (6) Hypoxemia Code(s): R09.02 - HYPOXEMIA (7) Lung nodule Code(s): R91.1 - SOLITARY PULMONARY NODULE Assessment/Plan IMP HYPOXEMIA BRONCHITIS BRONCHIECTASIS? ATELECTASIS PULMONARY NODULE 3mm BILATERAL HYDRONEPHROSIS ACUTE RENAL INSUFFICIENCY ALTERED MENTAL STATUS IMPROVED CELLULITIS PLAN INHALED BRONCHODILATORS NASAL O2 INCENTIVE SPIROMETER ANTIBIOTICS PER ID PER NEW [employer] RECOMMENDATIONS NO FOLLOW-UP NECESSARY REGARDING PTS PULMONARY NODULE DR CHAHAL Problem List - Problems (1) Altered mental status Code(s): R41.82 - ALTERED MENTAL STATUS, UNSPECIFIED (2) Cellulitis Code(s): L03.90 - CELLULITIS, UNSPECIFIED (3) UTI (urinary tract infection) Code(s): N39.0 - URINARY TRACT INFECTION, SITE NOT SPECIFIED (4) Hydronephrosis Code(s): N13.30 - UNSPECIFIED HYDRONEPHROSIS (5) Kidney injury Code(s): S37.009A - UNSPECIFIED INJURY OF UNSPECIFIED KIDNEY, INITIAL ENCOUNTER (6) Hypoxemia Code(s): R09.02 - HYPOXEMIA (7) Lung nodule Code(s): R91.1 - SOLITARY PULMONARY NODULE
[2017-01-18] MEDS ORDERED: ALBUTEROL SO4 0.083% IH SOL 2.5 MG/3 ML VIAL.NEB. NEB PRN (11:05)
--- NOTE | 2017-01-18 11:54 | PN ---
Physical Exam: SUBJECTIVE: Patient seen and examined No acute events overnight. Patient has no complaints this morning. OBJECTIVE: Vital Signs Period Temp Pulse Resp BP Sys/Locke Pulse Ox Last 24 Hr 97.6 F-99.4 F 96-112 20-21 124-136/69-91 97 GENERAL: Awake, alert, in no acute distress. HEAD: Normal with no signs of trauma. EYES: Pupils equal, round and reactive to light, extraocular movements intact, sclera anicteric, conjunctiva clear. No lid lag. EARS, NOSE, THROAT: Moist mucous membranes. Poor hearing b/l NECK: supple without JVD LUNGS: Breath sounds equal, Left base-Rhochis, crackles HEART: Regular rate and rhythm, normal S1 and S2 ABDOMEN: Soft, nontender, moderately distended, normoactive bowel sounds, no guarding, no rebound, no masses. No hepatomegaly or splenomegaly. MUSCULOSKELETAL: No CVA tenderness. UPPER EXTREMITIES: 2+ pulses, warm, well-perfused. No cyanosis. No clubbing. No peripheral edema. LOWER EXTREMITIES: 2+ pulses, warm, well-perfused. No calf tenderness. No peripheral edema. L ankle cellulitis with honey colored oozing crust and warmth extending to mid lower third of calf -- improving. Re-wrapped this AM, Mild pitting edema R ankle-Nontender stasis dermatitis, mild pitting edema NEUROLOGICAL: Cranial nerves II-XII intact. Normal speech. strength 4+/5 in all extremities, sensation intact b/l PSYCHIATRIC: Cooperative. Good eye contact. Appropriate mood and affect, forgetful, confused SKIN: Warm, dry Laboratory Results - last 24 hr 01/17/17 01/18/17 01/18/17 16:00 06:00 06:00 WBC 8.1 RBC 4.04 Hgb 12.5 Hct 37.8 MCV 93.5 MCH 31.0 MCHC 33.1 RDW 15.5 Plt Count 139 MPV 8.8 Neutrophils % 61.1 Lymphocytes % 25.8 Monocytes % 6.7 Eosinophils % 5.7 H Basophils % 0.7 Puncture Site Right brachial ABG pH 7.43 ABG pCO2 at Pt Temp 37.6 ABG pO2 at Pt Temp 61.7 L ABG HCO3 24.2 ABG O2 Sat (Measured) 92.7 ABG O2 Content 15.2 ABG Base Excess 0.5 Sanket Test Positive O2 Delivery Device R/a Oxygen Flow Rate 21% Sodium 141 Potassium 4.1 Chloride 106 Carbon Dioxide 25 Anion Gap 10 BUN 31 H Creatinine 1.4 H Random Glucose 98 Calcium 8.8 B-Natriuretic Peptide 01/18/17 06:00 WBC RBC Hgb Hct MCV MCH MCHC RDW Plt Count MPV Neutrophils % Lymphocytes % Monocytes % Eosinophils % Basophils % Puncture Site ABG pH ABG pCO2 at Pt Temp ABG pO2 at Pt Temp ABG HCO3 ABG O2 Sat (Measured) ABG O2 Content ABG Base Excess Sanket Test O2 Delivery Device Oxygen Flow Rate Sodium Potassium Chloride Carbon Dioxide Anion Gap BUN Creatinine Random Glucose Calcium B-Natriuretic Peptide 1063.96 H Active Medications Generic Name Dose Route Start Last Admin Trade Name Freq PRN Reason Stop Dose Admin Acetaminophen 650 mg 01/10/17 17:51 Tylenol - PO Q4H PRN FEVER OR PAIN Albuterol Sulfate 1 amp 01/18/17 11:05 Ventolin 0.083% Nebulizer Soln - NEB Q4H PRN SHORT OF BREATH/WHEEZING Albuterol/Ipratropium 1 amp 01/17/17 18:00 01/18/17 06:59 Duoneb - NEB 1 amp QIDR MAURIZIO Administration Bacitracin/Polymyxin B Sulfate 1 applic 01/14/17 10:00 01/17/17 22:09 Polysporin Ointment - TP 1 applic BID [facility] Administration Guaifenesin 10 ml 01/16/17 08:43 Robitussin - PO Q6H PRN COUGH Heparin Sodium (Porcine) 5,000 unit 01/11/17 10:00 01/18/17 10:20 Heparin - SQ 5,000 unit BID [facility] Administration Multivitamins/Minerals/Vitamin C 1 tab 01/12/17 15:00 01/18/17 10:19 Tab-A-Vit - PO 1 tab DAILY [facility] Administration Tamsulosin HCl 0.4 mg 01/14/17 09:15 01/18/17 10:19 Flomax - PO 0.4 mg BID@0830,2200 [facility] Administration ASSESSMENT/PLAN: 86 yo M with PMH of b/l severe hydronephrosis L>R seen on CT 10/31/15, otherwise unknown [facility] (poor hitorian/no records), who presented with confusion, groin and back pain. #Metabolic encephalopathy in the setting of AMS possibly due to UTI being tx w/ abx, RESOLVED -A&Ox3 -Patient awaiting placement -completed course of unasyn #Cough, likely acute bronchitis, improved -01/16-CXR, Possible fluid with atelectasis -01/17-Chest CT- Mild bibasilar posterior bronchiectatic changes w/ mild peribronchial consolidations on the Left. 3 mm nodule in the right middle lobe, which will need f/u. Cholelithiasis. -Incentive spirometer -Guanifensen 10 ml Q6 PRN -Pre-post on O2 2L and Off O2 -Continue duonebs QIDR maurizio and TIDR PRN -Pulmonary on board, Dr. Mariscal -No need to follow up on pulmonary nodule due to fleischner society recommendations #LLE cellulitis, improving -Afebrile -Wound cx - no growth to date -Unasyn completed #Flank Pain: -CT- hydroureteralonephrosis -Urology recs- Flomax 0.4 mg BID, f/u outpatient -Patient refuses davis #CKD -Stable -Appears baseline from prior Cr levels #FEN: -No fluids -lytes stable -Na restricted diet #PPx -DVT: heparin 5000 units sq BID -GI: not indicated at this time Pt will need to go to [facility] and outpt f/u with Urology. Visit type - Emergency Visit Emergency Visit: No - New Patient This patient is new to me today: No - Critical Care Critical Care patient: No
[2017-01-19] MEDS: ALBUTEROL SO4 2.5/IPRATROPIUM 0.5 INH SOL 3 ML VIAL.NEB. NEB SCH ×6 (00:30→23:05)
--- NOTE | 2017-01-19 08:53 | PN ---
Physical Exam: SUBJECTIVE: Patient seen and examined The patent is an 86-year-old man with a history of chronic bilateral hydronephrosis who was admitted to inpatient services with metabolic encephalopathy presumed secondary to UTU and cellulitis. He has no complaints and understands the plan of care. OBJECTIVE: Vital Signs Period Temp Pulse Resp BP Sys/Locke Pulse Ox Last 24 Hr 97.8 F-99.9 F 110-124 20-24 109-135/67-74 94-96 HEART: S1S2, RRR LUNGS: scattered rhonchi ABDOMEN: Soft, non-tender, non-distended, normal BS EXTREMITIES: Trace edema Active Medications Generic Name Dose Route Start Last Admin Trade Name Freq PRN Reason Stop Dose Admin Acetaminophen 650 mg 01/10/17 17:51 Tylenol - PO Q4H PRN FEVER OR PAIN Albuterol Sulfate 1 amp 01/18/17 11:05 Ventolin 0.083% Nebulizer Soln - NEB Q4H PRN SHORT OF BREATH/WHEEZING Albuterol/Ipratropium 1 amp 01/17/17 18:00 01/19/17 06:28 Duoneb - NEB 1 amp QIDR ROBERTO Administration Bacitracin/Polymyxin B Sulfate 1 applic 01/14/17 10:00 01/18/17 23:40 Polysporin Ointment - TP 1 applic BID [facility] Administration Guaifenesin 10 ml 01/16/17 08:43 Robitussin - PO Q6H PRN COUGH Heparin Sodium (Porcine) 5,000 unit 01/11/17 10:00 01/18/17 22:15 Heparin - SQ 5,000 unit BID [facility] Administration Multivitamins/Minerals/Vitamin C 1 tab 01/12/17 15:00 01/18/17 10:19 Tab-A-Vit - PO 1 tab DAILY [facility] Administration Tamsulosin HCl 0.4 mg 01/14/17 09:15 01/18/17 22:15 Flomax - PO 0.4 mg BID@0830,2200 [facility] Administration ASSESSMENT/PLAN: #NEURO Acute metabolic encephalopathy secondary to UTI and LLE cellulitis Resolved Completed Unasyn #PULMONARY Acute bronchitis with atelectasis Chest CT showed mild bibasilar posterior bronchiectatic changes with mild peribronchial consolidation on left; 3 mm RML nodule; multiple liver hypodensities; contracted GB with calcified stone Appreciate pulm input Continue incentive spirometer, DuoNeb # Chronic bilateral hydroureteronephrosis secondary to BPH He has refused Segura Continue Flomax Outpatient urology follow-up #RENAL Stage 3 CKD Stable #GI Possible hepatic cysts Outpatient US #FEN Na controlled diet #PROPHYLAXIS Heparin SQ Eating # DISPOSITION Awaiting insurance authorization for subacute rehab Visit type - Emergency Visit Emergency Visit: Yes ED Registration Date: 01/10/17 Care time: The patient presented to the Emergency Department on the above date and was hospitalized for further evaluation of their emergent condition. - New Patient This patient is new to me today: Yes Date on this admission: 01/19/17 - Critical Care Critical Care patient: No
[2017-01-19 08:57] LABS: BASOPHIL 0.4 % (0-2.0); EOSINOPHIL 3.3 % (0-4.5); MCH 30.7 pg (25.7-33.7); MCHC 33.1 g/dl (32.0-35.9); MEAN CELL VOLUME 92.8 fl (80-96); MEAN PLT VOLUME 8.9 fl (7.5-11.1); NEUTROPHILS 72.1 % (42.8-82.8); PLATELET COUNT 137 K/MM3 (134-434); RDW 15.3 % (11.9-15.9); WHITE BLOOD COUNT 8.3 K/mm3 (4.0-10.0)
[2017-01-19] MEDS: TAMSULOSIN HCL 0.4 MG CAP.ER.24H (FP) PO SCH ×2 (09:08→21:22)
[2017-01-19] MEDS: BACITRACIN/POLYMYXIN B SULFATE 15 GM TUBE TP SCH ×2 (09:08→21:24)
[2017-01-19] MEDS: MULTIVITAMINS (DAILY MVI) TABLET (FP) PO SCH (09:08)
[2017-01-19] MEDS: HEPARIN NA (PORCINE) 5,000 UNITS/ML 1ML VIAL SQ SCH ×2 (09:08→21:22)
[2017-01-19 09:22] LABS: ANION GAP 12 (8-16); CALCIUM 8.9 mg/dL (8.5-10.1); CO2 23 mmol/L (21-32); CREATININE 1.6 mg/dL (0.7-1.3); GLUCOSE,RANDOM 115 mg/dL (74-106)
--- NOTE | 2017-01-19 10:43 | PN ---
Progress Note, Physician History of Present Illness: PULMONARY ALERT,OOB-CHAIR,-SOB, LESS COUGH - Current Medication List Current Medications: Active Medications Acetaminophen (Tylenol -) 650 mg PO Q4H PRN PRN Reason: FEVER OR PAIN Albuterol Sulfate (Ventolin 0.083% Nebulizer Soln -) 1 amp NEB Q4H PRN PRN Reason: SHORT OF BREATH/WHEEZING Albuterol/Ipratropium (Duoneb -) 1 amp NEB QIDR [facility] Last Admin: 01/19/17 06:28 Dose: 1 amp Bacitracin/Polymyxin B Sulfate (Polysporin Ointment -) 1 applic TP BID [facility] Last Admin: 01/19/17 09:08 Dose: 1 applic Guaifenesin (Robitussin -) 10 ml PO Q6H PRN PRN Reason: COUGH Heparin Sodium (Porcine) (Heparin -) 5,000 unit SQ BID [facility] Last Admin: 01/19/17 09:08 Dose: 5,000 unit Multivitamins/Minerals/Vitamin C (Tab-A-Vit -) 1 tab PO DAILY [facility] Last Admin: 01/19/17 09:08 Dose: 1 tab Tamsulosin HCl (Flomax -) 0.4 mg PO BID@0830,2200 [facility] Last Admin: 01/19/17 09:08 Dose: 0.4 mg - Objective Vital Signs: Vital Signs Temperature 98.2 F 01/19/17 10:00 Pulse Rate 102 H 01/19/17 10:00 Respiratory Rate 18 01/19/17 10:00 Blood Pressure 116/56 01/19/17 10:00 O2 Sat by Pulse Oximetry (%) 94 L 01/18/17 21:00 Constitutional: Yes: Well Nourished, Calm Eyes: Yes: WNL HENT: Yes: WNL Neck: Yes: WNL Cardiovascular: Yes: Regular Rate and Rhythm, S1, S2 Respiratory: Yes: Rales (CRACKLES LEFT BASE) Gastrointestinal: Yes: Normal Bowel Sounds, Soft Extremities: Yes: WNL Edema: Yes Labs: CBC, BMP 01/19/17 07:50 01/19/17 07:50 Problem List - Problems (1) Altered mental status Code(s): R41.82 - ALTERED MENTAL STATUS, UNSPECIFIED (2) Cellulitis Code(s): L03.90 - CELLULITIS, UNSPECIFIED (3) UTI (urinary tract infection) Code(s): N39.0 - URINARY TRACT INFECTION, SITE NOT SPECIFIED (4) Hydronephrosis Code(s): N13.30 - UNSPECIFIED HYDRONEPHROSIS (5) Kidney injury Code(s): S37.009A - UNSPECIFIED INJURY OF UNSPECIFIED KIDNEY, INITIAL ENCOUNTER (6) Hypoxemia Code(s): R09.02 - HYPOXEMIA (7) Lung nodule Code(s): R91.1 - SOLITARY PULMONARY NODULE Assessment/Plan IMP HYPOXEMIA IMPROVED BRONCHITIS IMPROVING BRONCHIECTASIS? ATELECTASIS PULMONARY NODULE 3mm BILATERAL HYDRONEPHROSIS ACUTE RENAL INSUFFICIENCY ALTERED MENTAL STATUS IMPROVED CELLULITIS PLAN INHALED BRONCHODILATORS NASAL O2 INCENTIVE SPIROMETER PER NEW [employer] RECOMMENDATIONS NO FOLLOW-UP NECESSARY REGARDING PTS PULMONARY NODULE DR CHAHAL Problem List - Problems (1) Altered mental status Code(s): R41.82 - ALTERED MENTAL STATUS, UNSPECIFIED (2) Cellulitis Code(s): L03.90 - CELLULITIS, UNSPECIFIED (3) UTI (urinary tract infection) Code(s): N39.0 - URINARY TRACT INFECTION, SITE NOT SPECIFIED (4) Hydronephrosis Code(s): N13.30 - UNSPECIFIED HYDRONEPHROSIS (5) Kidney injury Code(s): S37.009A - UNSPECIFIED INJURY OF UNSPECIFIED KIDNEY, INITIAL ENCOUNTER (6) Hypoxemia Code(s): R09.02 - HYPOXEMIA (7) Lung nodule Code(s): R91.1 - SOLITARY PULMONARY NODULE
[2017-01-19] MEDS: guaiFENesin 200 MG/10 ML 10 ML UNIT-DOSE CUPS PO PRN (11:14)
[2017-01-19] MEDS ORDERED: PT OWN MED DRAWER 7, Y5N ONE (20:28)
[2017-01-20] MEDS ORDERED: dilTIAZem HCL 50 MG/10 ML - 10 ML VIAL IVPUSH ONE ×3 (03:49→10:15)
[2017-01-20] MEDS ORDERED: dilTIAZem HCL 30 MG TABLET (FP) PO ONE ×3 (03:54→04:34)
[2017-01-20] MEDS ORDERED: dilTIAZem HCL 30 MG TABLET (FP) ONE (03:59)
[2017-01-20] MEDS ORDERED: HEPARIN NA (PORCINE) 5,000 UNITS/ML 1ML VIAL IVPUSH PRN (04:43)
[2017-01-20] MEDS ORDERED: HEPARIN INFUSION - 500 ML IVPB ONE (04:54)
--- NOTE | 2017-01-20 04:54 | HOSP ---
Subjective - Review of Symptoms Subjective: Called for New- Onset A Fib pt. asymptomatic at bedside Denies any chest pain, pressure, or palpitations Physical: VS: Vital Signs Period Temp Pulse Resp BP Sys/Locke Pulse Ox Last 24 Hr 97.9 F-98.9 F 91-149 18-23 103-135/50-73 96-96 GEN: NAD, Resting in bed HEENT: NCAT, PERRL CARD: IRR S1, S2 RESP: CTAB ABD: BSX4, ntd to palpation Ext: +3 Pitting edema bilateral and equal CBCD WBC 8.3 K/mm3 (4.0-10.0) 01/19/17 07:50 RBC 4.00 M/mm3 (4.00-5.60) 01/19/17 07:50 Hgb 12.3 GM/dL (11.7-16.9) 01/19/17 07:50 Hct 37.1 % (35.4-49) 01/19/17 07:50 MCV 92.8 fl (80-96) 01/19/17 07:50 MCHC 33.1 g/dl (32.0-35.9) 01/19/17 07:50 RDW 15.3 % (11.9-15.9) 01/19/17 07:50 Plt Count 137 K/MM3 (134-434) 01/19/17 07:50 MPV 8.9 fl (7.5-11.1) 01/19/17 07:50 CMP Sodium 141 mmol/L (136-145) 01/19/17 07:50 Potassium 4.2 mmol/L (3.5-5.1) 01/19/17 07:50 Chloride 106 mmol/L (98-107) 01/19/17 07:50 Carbon Dioxide 23 mmol/L (21-32) 01/19/17 07:50 Anion Gap 12 (8-16) 01/19/17 07:50 BUN 32 mg/dL (7-18) H 01/19/17 07:50 Creatinine 1.6 mg/dL (0.7-1.3) H 01/19/17 07:50 Creat Clearance w eGFR 44.59 (>60) 01/12/17 06:30 Random Glucose 115 mg/dL (74-106) H 01/19/17 07:50 Calcium 8.9 mg/dL (8.5-10.1) 01/19/17 07:50 Total Bilirubin 0.9 mg/dL (0.2-1.0) D 01/12/17 06:30 AST 18 U/L (15-37) 01/12/17 06:30 ALT 24 U/L (12-78) 01/12/17 06:30 Alkaline Phosphatase 104 U/L (45-117) 01/12/17 06:30 Total Protein 6.0 g/dl (6.4-8.2) L 01/12/17 06:30 Albumin 3.0 g/dl (3.4-5.0) L 01/12/17 06:30 EKG: Afib HR 151 Echo 01/17- Ef 55 1.) New Onset A-Fib w. RVR - Cardizem IV ( At time of pt. presentation, no tele beds were available and pt. was unable to be transferred), not accepted by ICU - Cardizem PO- titrate HR <120 - Pt. accepted to tele- IF HR continues to increase, Cardizem IV - Troponin I, Echo ( Done 01/17, see above), repeat ekg - poor hx? [id number]- Heparin gtt - Cardiology consulted - TO be transferred to Telemetry for closer monitoring Physical Examination Vital Signs: Vital Signs Temperature 98.1 F 01/19/17 23:00 Pulse Rate 105 H 01/19/17 23:00 Respiratory Rate 18 01/19/17 23:00 Blood Pressure 103/54 01/19/17 23:00 O2 Sat by Pulse Oximetry (%) 96 01/19/17 21:00 Labs: CBC, BMP 01/19/17 07:50 01/19/17 07:50
--- NOTE | 2017-01-20 05:00 | HOSP ---
Subjective - Review of Symptoms Subjective: Paged around 0400h on 01/20 due to heavier breathing and tachycardia noted by nursing staff. Pt denied any previous episodes of atrial fibrillation and reported "feeling fine" while resting comfortably in bed. Pt denied any dizziness/lightheadedness, palpitations, headache, visual changes, chest pain, SOB, lower extremity edema. Physical Examination Vital Signs: Vital Signs Temperature 98.1 F 01/19/17 23:00 Pulse Rate 105 H 01/19/17 23:00 Respiratory Rate 18 01/19/17 23:00 Blood Pressure 103/54 01/19/17 23:00 O2 Sat by Pulse Oximetry (%) 96 01/19/17 21:00 Findings/Remarks: Vitals at bedside noted to be 94% SpO2 while on NC, BP 124/62 Gen: NAD, resting comfortably at bedside Lungs: Expiratory wheezes bilaterally noted on auscultation. No accessory muscle use Cardiac: Irregularly irregular rhythm, No murmurs or clicks noted Extremities: Pulse tachycardic and irregularly irregular. No lower extremity edema. Chronic venous changes noted on lower extremities Labs: CBC, BMP 01/19/17 07:50 01/19/17 07:50 Hospitalist Encounter Assessment: Stat EKG was performed; showed by my read atrial fibrillation with RVR at a rate of [address] abnormalities noted in any leads --Due to inability to transfer to a monitored floor; Cardizem 30mg PO was given (10mg IVP was not allowed per nursing protocol of floor) --Q15min vital checks due to inability to transfer to monitored floor --Stat troponin I ordered; trend q6h --Portable CXR ordered for 0600h --Echocardiogram routine ordered for AM team to follow --F[employer] consultation NOTE: 04:35h 01/20 --35 minutes past initial Cardizem 30mg PO, HR was still 138-150 bpm range with BP ~120/72 --Per hospitalist attending second dose of Cardizem 30mg PO was administered
[2017-01-20] MEDS: HEPARIN INFUSION - 500 ML IVPB SCH ×2 (05:01→17:00)
--- NOTE | 2017-01-20 05:05 | HOSP ---
Subjective - Review of Symptoms Events since last encounter: Paged by nurse for shallow breathing and rapid heart rate. Stat EKG reveals new onset of A-fib with RVR. Patient c/o heaviness in his nose but no active chest pain. Stat trop's sent. Given PO cardizem 30mg due to floor nurse and nursing education consultant did not allow IV push on med-surg floor without cardiac monitoring. Started on heparin gtt in light of elevated Cr. ICU contacted regarding bed availability and was advised to cont. monitor the patient since PO dose was given not long ago. Reassessed with vitals: HR 130, BP 128/58. Pulmonary: No: Dyspnea Cardiovascular: No: Chest Pain, Palpitations Physical Examination Vital Signs: Vital Signs Temperature 98.1 F 01/19/17 23:00 Pulse Rate 105 H 01/19/17 23:00 Respiratory Rate 18 01/19/17 23:00 Blood Pressure 103/54 01/19/17 23:00 O2 Sat by Pulse Oximetry (%) 96 01/19/17 21:00 Constitutional: Yes: Mild Distress Cardiovascular: Yes: Pulse Irregular, S1, S2 Respiratory: Yes: CTA Bilaterally Labs: CBC, BMP 01/19/17 07:50 01/19/17 07:50 Hospitalist Encounter Assessment: A-fib with RVR, new onset - [id number] > 2 - Start heparin gtt - PO cardizem 30mg given on med-surg floor - En route to telemetry floor * IV cardizem 10mg PRN - Cardiology consult Visit type - Emergency Visit Emergency Visit: No - New Patient This patient is new to me today: Yes Date on this admission: 01/20/17 - Critical Care Critical Care patient: No
[2017-01-20 05:23] LABS: BASOPHIL 0.7 % (0-2.0); EOSINOPHIL 3.9 % (0-4.5); MCH 31.2 pg (25.7-33.7); MCHC 33.3 g/dl (32.0-35.9); MEAN CELL VOLUME 93.6 fl (80-96); MEAN PLT VOLUME 9.2 fl (7.5-11.1); NEUTROPHILS 67.9 % (42.8-82.8); PLATELET COUNT 127 K/MM3 (134-434); RDW 15.4 % (11.9-15.9)
[2017-01-20 05:35] LABS: INR 1.24 (0.82-1.09); PROTHROMBIN TIME (PATIENT) 13.7 SEC (9.98-11.88)
[2017-01-20 05:46] LABS: ANION GAP 6 (8-16); CALCIUM 8.3 mg/dL (8.5-10.1); CO2 25 mmol/L (21-32); CREATININE 1.7 mg/dL (0.7-1.3); GLUCOSE,RANDOM 121 mg/dL (74-106); PHOSPHOROUS 3.9 mg/dL (2.5-4.9)
[2017-01-20] MEDS: ALBUTEROL SO4 2.5/IPRATROPIUM 0.5 INH SOL 3 ML VIAL.NEB. NEB SCH (06:44)
--- NOTE | 2017-01-20 09:34 | CON.CARD ---
Consult Consult Specialty:: Cardiology Referred by:: Hospitalist Reason for Consultation:: Cardiac evaluation - History of Present Illness Chief Complaint: New onset AF History of Present Illness: Patient is an 86 year old male with unknown past medical history who presented to [facility] with back pain and groin pain. He was found to have hydronephrosis and was evaluated by as well was ID service. Patient refused further work up. Abdominal CT and Chest CT were obtained. It showed bilateral hydronephrosis. He also has erythema to left lower extremity which he states that it is a bug bite. He developed atrial fibrillation with rapid ventricular response this morning. He was given IV Cardizem and then was also given PO. He was transferred to telemetry for further monitoring and management. He was also started on IV Heparin drip. He currently lives by himself, never and has no children. His living condition has been poor according to medical record. Cardiology consultation was called for further evaluation. 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 - Alcohol/Substance Use Hx Alcohol Use: No - Smoking History Smoking history: Never smoked Have you smoked in the past 12 months: No Home Medications - Allergies Allergies/Adverse Reactions: Allergies Allergy/AdvReac Type Severity Reaction Status Date / Time No Known Allergies Allergy Verified 01/10/17 13:53 - Home Medications Home Medications: Ambulatory Orders Tamsulosin HCl [Flomax -] 0.4 mg PO BID@0830,2200 #30 cap 01/15/17 Family Disease History - Family Disease History Family History: Unable to Obtain Review of Systems - Review of Systems Constitutional: denies: Chills, Fever Cardiovascular: denies: Chest Pain, Palpitations, Shortness of Breath Respiratory: reports: Cough. denies: Hemoptysis, Orthopnea, PND, SOB Gastrointestinal: denies: Abdominal Pain, Constipation, Diarrhea, Melena, Nausea , Rectal Bleeding, Vomiting Genitourinary: reports: Other (Groin pain) Musculoskeletal: reports: Back Pain Neurological: reports: Unsteady Gait, Weakness. denies: Dizziness, Headache, Seizure, Syncope, Tremors Vital Signs: Vital Signs Temperature 97.5 F L 01/20/17 04:20 Pulse Rate 144 H 01/20/17 05:32 Respiratory Rate 24 01/20/17 04:20 Blood Pressure 123/76 01/20/17 05:32 O2 Sat by Pulse Oximetry (%) 96 01/19/17 21:00 Neck: Yes: Supple Respiratory: Yes: Diminished Gastrointestinal: Yes: Normal Bowel Sounds, Soft. No: Tenderness Cardiovascular: Yes: Tachycardia, Pulse Irregular JVD: No Carotid Bruit: No PMI: Non-Displaced Heart Sounds: Yes: S1, S2 Murmur: Yes: Systolic Murmur, Grade 1 Extremities: Yes: Erythema (Left lower extermity) Edema: Yes - Other Data Labs, Other Data: CBC, BMP 01/20/17 05:00 01/20/17 05:00 INR, PTT INR 1.24 (0.82-1.09) H 01/20/17 05:00 Troponin, BNP Laboratory Results - last 24 hr 01/19/17 01/20/17 01/20/17 07:50 05:00 05:00 WBC 8.0 RBC 3.84 L Hgb 12.0 Hct 36.0 MCV 93.6 MCH 31.2 MCHC 33.3 RDW 15.4 Plt Count 127 L MPV 9.2 Neutrophils % 67.9 Lymphocytes % 19.4 Monocytes % 8.1 Eosinophils % 3.9 Basophils % 0.7 INR PTT (Actin FS) Sodium 141 137 Potassium 4.2 4.4 Chloride 106 106 Carbon Dioxide 23 25 Anion Gap 12 6 L BUN 32 H 45 H D Creatinine 1.6 H 1.7 H Random Glucose 115 H 121 H Calcium 8.9 8.3 L Phosphorus 3.9 D Magnesium 2.0 Troponin I B-Natriuretic Peptide 5751.52 H 01/20/17 01/20/17 01/20/17 05:00 05:00 05:00 WBC RBC Hgb Hct MCV MCH MCHC RDW Plt Count MPV Neutrophils % Lymphocytes % Monocytes % Eosinophils % Basophils % INR 1.24 H Cancelled PTT (Actin FS) 29.0 Sodium Potassium Chloride Carbon Dioxide Anion Gap BUN Creatinine Random Glucose Calcium Phosphorus Magnesium Troponin I 0.17 H B-Natriuretic Peptide 01/20/17 01/20/17 05:00 05:00 Troponin I 0.17 H B-Natriuretic Peptide 5751.52 H Atrial fibrillation with rapid ventricular response Echo: Pending Imaging - Results Chest X-ray: Report Reviewed Cat Scan: Report Reviewed (CT chest - pulmonary nodules, cholelithiasis, peribronchial consolidation) EKG: Report Reviewed Problem List - Problems (1) Altered mental status Code(s): R41.82 - ALTERED MENTAL STATUS, UNSPECIFIED (2) CHF (congestive heart failure) Code(s): I50.9 - HEART FAILURE, UNSPECIFIED Qualifiers: Congestive heart failure type: unspecified congestive heart failure type Congestive heart failure chronicity: unspecified congestive heart failure chronicity Qualified Code(s): I50.9 - Heart failure, unspecified (3) COPD (chronic obstructive pulmonary disease) Code(s): J44.9 - CHRONIC OBSTRUCTIVE PULMONARY DISEASE, UNSPECIFIED (4) Cellulitis Code(s): L03.90 - CELLULITIS, UNSPECIFIED (5) Lung nodule Code(s): R91.1 - SOLITARY PULMONARY NODULE (6) Hydronephrosis Code(s): N13.30 - UNSPECIFIED HYDRONEPHROSIS (7) Atrial fibrillation with RVR Code(s): I48.91 - UNSPECIFIED ATRIAL FIBRILLATION (8) Dementia Code(s): F03.90 - UNSPECIFIED DEMENTIA WITHOUT BEHAVIORAL DISTURBANCE (9) Metabolic encephalopathy Code(s): G93.41 - METABOLIC ENCEPHALOPATHY Assessment/Plan 1. New onset atrial fibrillation with RVR - [id number] score at least 2 and above 2. Possible acute on chronic LV diastolic failure with elevated BNP and pedal edema 3. Cannot rule out lower extremity cellulitis 4. Bilateral hydronephrosis, etiology unclear 5. Acute on chronic kidney disease 6. Metabolic encephalopathy and probable underlying dementia PLAN: 1. Continue Heparin drip for now and will assess need for PO anticoagulation preferably NOAC (such as Eliquis if feasible) 2. IV Cardizem 10 mg now and start Metoprolol 25 mg BID for rate control and up- titrate. If further HR control is needed, also may use PO Cardizem as well 3. Transthoracic echocardiography to assess LV/RV and valvular function - reported on 01/17 - normal LV function with pulmonary HTN, mild MR and TR 4. Serial cardiac enzymes - currently likely demand ischemia with still possible diastolic heart failure and underlying renal insufficiency 5. customer services coordinator evaluation as he may not be able to care for himself once ready for discharge 6. Check lipid panel and hemoglobin A1C. TSH checked Further plans are to follow Mac Cueto MD
[2017-01-20] MEDS: METOPROLOL TARTRATE 25 MG TABLET (FP) PO SCH ×2 (10:24→22:37)
[2017-01-20] MEDS: MULTIVITAMINS (DAILY MVI) TABLET (FP) PO SCH (10:24)
[2017-01-20] MEDS: guaiFENesin 200 MG/10 ML 10 ML UNIT-DOSE CUPS PO PRN (10:25)
[2017-01-20] MEDS: BACITRACIN/POLYMYXIN B SULFATE 15 GM TUBE TP SCH ×2 (10:25→22:42)
[2017-01-20] MEDS: TAMSULOSIN HCL 0.4 MG CAP.ER.24H (FP) PO SCH ×2 (10:25→22:37)
--- NOTE | 2017-01-20 11:13 | PN ---
Progress Note, Physician History of Present Illness: PULMONARY EVENTS NOTED TRANSFERRED TO TELEMETRY SECONDARY TO NEW ONSET A-FIB - Current Medication List Current Medications: Active Medications Acetaminophen (Tylenol -) 650 mg PO Q4H PRN PRN Reason: FEVER OR PAIN Albuterol Sulfate (Ventolin 0.083% Nebulizer Soln -) 1 amp NEB Q4H PRN PRN Reason: SHORT OF BREATH/WHEEZING Albuterol/Ipratropium (Duoneb -) 1 amp NEB QIDR [facility] Last Admin: 01/20/17 06:44 Dose: Not Given Bacitracin/Polymyxin B Sulfate (Polysporin Ointment -) 1 applic TP BID [facility] Last Admin: 01/20/17 10:25 Dose: 1 applic Guaifenesin (Robitussin -) 10 ml PO Q6H PRN PRN Reason: COUGH Last Admin: 01/20/17 10:25 Dose: 10 ml Heparin Sodium (Porcine) (Heparin -) 1,000 unit IVPUSH PRN PRN PRN Reason: Heparin Heparin Sodium (Porcine) (Heparin -) 5,000 unit IVPUSH PRN PRN PRN Reason: Heparin Heparin Sodium/Dextrose (Heparin Infusion -) 500 mls @ 20 mls/hr IVPB TITR ROBERTO ; 1,000 UNITS/HR PRN Reason: Protocol Last Admin: 01/20/17 05:01 Dose: 20 mls/hr Metoprolol Tartrate (Lopressor -) 25 mg PO BID [facility] Last Admin: 01/20/17 10:24 Dose: 25 mg Multivitamins/Minerals/Vitamin C (Tab-A-Vit -) 1 tab PO DAILY [facility] Last Admin: 01/20/17 10:24 Dose: 1 tab Tamsulosin HCl (Flomax -) 0.4 mg PO BID@0830,2200 [facility] Last Admin: 01/20/17 10:25 Dose: 0.4 mg - Objective Vital Signs: Vital Signs Temperature 97.5 F L 01/20/17 04:20 Pulse Rate 144 H 01/20/17 05:32 Respiratory Rate 24 01/20/17 04:20 Blood Pressure 123/76 01/20/17 05:32 O2 Sat by Pulse Oximetry (%) 96 01/19/17 21:00 Constitutional: Yes: Well Nourished, Calm Eyes: Yes: WNL HENT: Yes: WNL Neck: Yes: WNL Cardiovascular: Yes: Tachycardia, Pulse Irregular, S1, S2 Respiratory: Yes: Rales (BIBASILAR CRACKLES) Gastrointestinal: Yes: Normal Bowel Sounds, Soft Extremities: Yes: WNL Edema: Yes Labs: CBC, BMP 01/20/17 05:00 01/20/17 05:00 INR, PTT INR 1.24 (0.82-1.09) H 01/20/17 05:00 - ....Imaging Chest X-ray: Report Reviewed, Image Reviewed (NEW LEFT SIDED INFILRATE) Problem List - Problems (1) Altered mental status Code(s): R41.82 - ALTERED MENTAL STATUS, UNSPECIFIED (2) Cellulitis Code(s): L03.90 - CELLULITIS, UNSPECIFIED (3) UTI (urinary tract infection) Code(s): N39.0 - URINARY TRACT INFECTION, SITE NOT SPECIFIED (4) Hydronephrosis Code(s): N13.30 - UNSPECIFIED HYDRONEPHROSIS (5) Kidney injury Code(s): S37.009A - UNSPECIFIED INJURY OF UNSPECIFIED KIDNEY, INITIAL ENCOUNTER (6) Hypoxemia Code(s): R09.02 - HYPOXEMIA (7) Lung nodule Code(s): R91.1 - SOLITARY PULMONARY NODULE Assessment/Plan IMP HYPOXEMIA IMPROVED AFIB PNEUMONIA BRONCHIECTASIS? ATELECTASIS PULMONARY NODULE 3mm BILATERAL HYDRONEPHROSIS ACUTE RENAL INSUFFICIENCY ALTERED MENTAL STATUS IMPROVED CELLULITIS PLAN INHALED BRONCHODILATORS NASAL O2 INCENTIVE SPIROMETER PER NEW FLEISCHNER SOCIETY RECOMMENDATIONS NO FOLLOW-UP NECESSARY REGARDING PTS PULMONARY NODULE ANTIBIOTICS PER ID RATE CONTROL DR CHAHAL Problem List - Problems (1) Altered mental status Code(s): R41.82 - ALTERED MENTAL STATUS, UNSPECIFIED (2) Cellulitis Code(s): L03.90 - CELLULITIS, UNSPECIFIED (3) UTI (urinary tract infection) Code(s): N39.0 - URINARY TRACT INFECTION, SITE NOT SPECIFIED (4) Hydronephrosis Code(s): N13.30 - UNSPECIFIED HYDRONEPHROSIS (5) Kidney injury Code(s): S37.009A - UNSPECIFIED INJURY OF UNSPECIFIED KIDNEY, INITIAL ENCOUNTER (6) Hypoxemia Code(s): R09.02 - HYPOXEMIA (7) Lung nodule Code(s): R91.1 - SOLITARY PULMONARY NODULE
[2017-01-20] MEDS ORDERED: ALBUTEROL SO4 2.5/IPRATROPIUM 0.5 INH SOL 3 ML VIAL.NEB. NEB PRN (11:14)
--- NOTE | 2017-01-20 11:16 | PN ---
Teaching Attending Note Name of Resident: Palmer Rios ATTENDING PHYSICIAN STATEMENT I saw and evaluated the patient. I reviewed the resident's note and discussed the case with the resident. I agree with the resident's findings and plan as documented. SUBJECTIVE: No complaints Rapid atrial fibrillation overnight OBJECTIVE: Vitals noted Pulse 110-120 after Cardizem 10mg IV ASSESSMENT AND PLAN: Begin Cardizem drip at 7.5mg/hr Begin Lasix 20mg IV BID and titrate to appropriate diuresis Obtain 6p lytes to follow creatinine and potassium closely Appreciate internal controls consultant input See resident note for full details
[2017-01-20] MEDS ORDERED: LISINOPRIL 5 MG TABLET (FP) PO SCH (11:30)
[2017-01-20] MEDS: FUROSEMIDE 40 MG/4 ML INJECTABLE VIAL IVPUSH SCH (13:57)
--- NOTE | 2017-01-20 14:09 | EKG ---
Test Reason : Blood Pressure : / mmHG Vent. Rate : 151 BPM Atrial Rate : 182 BPM P-R Int : 000 ms QRS Dur : 086 ms QT Int : 292 ms P-R-T Axes : 000 025 -19 degrees QTc Int : 462 ms ATRIAL FIBRILLATION WITH RAPID VENTRICULAR RESPONSE ABNORMAL ECG WHEN COMPARED WITH ECG OF 10-JAN-2017 14:40, ATRIAL FIBRILLATION HAS REPLACED SINUS RHYTHM VENT. RATE HAS INCREASED Confirmed by ALMA LOGAN MD ([id number]) on 01/20/2017 2:08:45 PM Referred By: Confirmed By:ALMA LOGAN MD
[2017-01-20] MEDS: DILTIAZEM INJECTION 125 MG in DEXTROSE 5%-WATER - 100 ML IVPB SCH (14:11)
[2017-01-20] MEDS: HEPARIN NA (PORCINE) 5,000 UNITS/ML 1ML VIAL IVPUSH PRN (16:02)
--- NOTE | 2017-01-20 16:08 | PN ---
Physical Exam: SUBJECTIVE: Patient seen and examined Overnight, patient was found to have new onset A. Fib. Patient has been asymptomatic. Cardizem 30 mg given po x 2. Patient started on heparin drip and transferred to telemetry. No complaints this morning OBJECTIVE: Vital Signs Period Temp Pulse Resp BP Sys/Locke Pulse Ox Last 24 Hr 97.0 F-98.1 F 90-155 18-24 103-128/54-107 96-97 GENERAL: Awake, alert, in no acute distress. HEAD: Normal with no signs of trauma. EYES: Pupils equal, round and reactive to light, extraocular movements intact, sclera anicteric, conjunctiva clear. No lid lag. EARS, NOSE, THROAT: Moist mucous membranes. Poor hearing b/l NECK: supple without JVD LUNGS: Breath sounds equal, Left base-Rhochis, crackles HEART: Tachycardic, Regular rhythm, normal S1 and S2 ABDOMEN: Soft, nontender, moderately distended, normoactive bowel sounds, no guarding, no rebound, no masses. No hepatomegaly or splenomegaly. MUSCULOSKELETAL: No CVA tenderness. UPPER EXTREMITIES: 2+ pulses, warm, well-perfused. No cyanosis. No clubbing. No peripheral edema. LOWER EXTREMITIES: 2+ pulses, warm, well-perfused. No calf tenderness. No peripheral edema. L ankle cellulitis -- improving. Mild pitting edema R ankle-Nontender stasis dermatitis, mild pitting edema NEUROLOGICAL: Cranial nerves II-XII intact. Normal speech. strength 4+/5 in all extremities, sensation intact b/l PSYCHIATRIC: Cooperative. Good eye contact. Appropriate mood and affect, forgetful, confused SKIN: Warm, dry Laboratory Results - last 24 hr 01/20/17 01/20/17 01/20/17 05:00 05:00 05:00 WBC 8.0 RBC 3.84 L Hgb 12.0 Hct 36.0 MCV 93.6 MCH 31.2 MCHC 33.3 RDW 15.4 Plt Count 127 L MPV 9.2 Neutrophils % 67.9 Lymphocytes % 19.4 Monocytes % 8.1 Eosinophils % 3.9 Basophils % 0.7 INR 1.24 H PTT (Actin FS) 29.0 Sodium 137 Potassium 4.4 Chloride 106 Carbon Dioxide 25 Anion Gap 6 L BUN 45 H D Creatinine 1.7 H Random Glucose 121 H Calcium 8.3 L Phosphorus 3.9 D Magnesium 2.0 Troponin I B-Natriuretic Peptide 5751.52 H 01/20/17 01/20/17 01/20/17 05:00 05:00 10:40 WBC RBC Hgb Hct MCV MCH MCHC RDW Plt Count MPV Neutrophils % Lymphocytes % Monocytes % Eosinophils % Basophils % INR Cancelled PTT (Actin FS) Sodium Potassium Chloride Carbon Dioxide Anion Gap BUN Creatinine Random Glucose Calcium Phosphorus Magnesium Troponin I 0.17 H 0.13 H B-Natriuretic Peptide 01/20/17 14:10 WBC RBC Hgb Hct MCV MCH MCHC RDW Plt Count MPV Neutrophils % Lymphocytes % Monocytes % Eosinophils % Basophils % INR PTT (Actin FS) 46.2 H D Sodium Potassium Chloride Carbon Dioxide Anion Gap BUN Creatinine Random Glucose Calcium Phosphorus Magnesium Troponin I B-Natriuretic Peptide Active Medications Generic Name Dose Route Start Last Admin Trade Name Freq PRN Reason Stop Dose Admin Acetaminophen 650 mg 01/10/17 17:51 Tylenol - PO Q4H PRN FEVER OR PAIN Albuterol/Ipratropium 1 amp 01/20/17 11:14 Duoneb - NEB Q4H PRN SHORTNESS OF BREATH Bacitracin/Polymyxin B Sulfate 1 applic 01/14/17 10:00 01/20/17 10:25 Polysporin Ointment - TP 1 applic BID MAURIZIO Administration Furosemide 20 mg 01/20/17 14:00 01/20/17 13:57 Lasix Injection - IVPUSH 20 mg BID@0600,1400 MAURIZIO Administration Guaifenesin 10 ml 01/16/17 08:43 01/20/17 10:25 Robitussin - PO 10 ml Q6H PRN Administration COUGH Heparin Sodium (Porcine) 1,000 unit 01/20/17 04:43 01/20/17 16:02 Heparin - IVPUSH 1,000 unit PRN PRN Administration Heparin Heparin Sodium (Porcine) 5,000 unit 01/20/17 04:43 Heparin - IVPUSH PRN PRN Heparin Heparin Sodium/Dextrose 500 mls @ 20 mls/hr 01/20/17 04:45 01/20/17 15:58 Heparin Infusion - IVPB 1,100 units/hr TITR MAURIZIO Titration Protocol 1,000 UNITS/HR Diltiazem HCl 125 mg/ Dextrose 125 mls @ 7.5 mls/hr 01/20/17 11:30 01/20/17 14: 11 IVPB 7.5 mls/hr TITR MAURIZIO Administration Protocol 7.5 MG/HR Metoprolol Tartrate 25 mg 01/20/17 10:00 01/20/17 10:24 Lopressor - PO 25 mg BID MA[facility]IZIO Administration Multivitamins/Minerals/Vitamin C 1 tab 01/12/17 15:00 01/20/17 10:24 Tab-A-Vit - PO 1 tab DAILY [facility] Administration Tamsulosin HCl 0.4 mg 01/14/17 09:15 01/20/17 10:25 Flomax - PO 0.4 mg BID@0830,2200 MA[facility]IO Administration ASSESSMENT/PLAN: 86 yo M with PMH of b/l severe hydronephrosis L>R seen on CT 10/31/15, otherwise unknown PNH (poor historian/no records), who presented with confusion, groin and back pain. #Metabolic encephalopathy in the setting of AMS possibly due to UTI being tx w/ abx, RESOLVED -A&Ox3 -completed course of unasyn #New onset Atrial Fibrillation -Received Cardizem 30 mg given po x 2 -Start cardizem iv drip @ 7.5 mg/hr -first troponin +, second troponin downtrending. -Continue Toporol 25 mg BID #Cough, likely acute bronchitis with atelectasis -01/16-CXR, Possible fluid with atelectasis -01/17-Chest CT- Mild bibasilar posterior bronchiectatic changes w/ mild peribronchial consolidations on the Left. 3 mm nodule in the right middle lobe, which will need f/u. Cholelithiasis. -Incentive spirometer -Guanifensen 10 ml Q6 PRN -Continue duonebs QIDR maurizio and TIDR PRN -Pulmonary on board, Dr. Mariscal -No need to follow up on pulmonary nodule due to fleischner society recommendations -Start Lasix 20 mg iv bid -6 pm labs to monitor creatinine and potassium. #LLE cellulitis, improving -Afebrile -Wound cx - no growth to date -Unasyn completed #Flank Pain: -CT- hydroureteralonephrosis -Urology recs- Flomax 0.4 mg BID, f/u outpatient -Patient refuses davis #CKD -Stable -Appears baseline from prior Cr levels #FEN: -No fluids -lytes stable -Na restricted diet #PPx -DVT: heparin 5000 units sq BID -GI: not indicated at this time Visit type - Emergency Visit Emergency Visit: No - New Patient This patient is new to me today: No - Critical Care Critical Care patient: No
--- NOTE | 2017-01-20 16:37 | PN ---
Progress Note, Physician History of Present Illness: Awake, alert Hard of hearing Slightly dyspneic at rest No c/o chest pain/ cough [place] WBC WNL O2 sat 96% - Current Medication List Current Medications: Active Medications Acetaminophen (Tylenol -) 650 mg PO Q4H PRN PRN Reason: FEVER OR PAIN Albuterol/Ipratropium (Duoneb -) 1 amp NEB Q4H PRN PRN Reason: SHORTNESS OF BREATH Bacitracin/Polymyxin B Sulfate (Polysporin Ointment -) 1 applic TP BID [facility] Last Admin: 01/20/17 10:25 Dose: 1 applic Furosemide (Lasix Injection -) 20 mg IVPUSH BID@0600,1400 [facility] Last Admin: 01/20/17 13:57 Dose: 20 mg Guaifenesin (Robitussin -) 10 ml PO Q6H PRN PRN Reason: COUGH Last Admin: 01/20/17 10:25 Dose: 10 ml Heparin Sodium (Porcine) (Heparin -) 1,000 unit IVPUSH PRN PRN PRN Reason: Heparin Last Admin: 01/20/17 16:02 Dose: 1,000 unit Heparin Sodium (Porcine) (Heparin -) 5,000 unit IVPUSH PRN PRN PRN Reason: Heparin Heparin Sodium/Dextrose (Heparin Infusion -) 500 mls @ 20 mls/hr IVPB TITR ROBERTO ; 1,000 UNITS/HR PRN Reason: Protocol Last Titration: 01/20/17 15:58 Dose: 1,100 units/hr Diltiazem HCl 125 mg/ Dextrose 125 mls @ 7.5 mls/hr IVPB TITR ROBERTO; 7.5 MG/HR PRN Reason: Protocol Last Admin: 01/20/17 14:11 Dose: 7.5 mls/hr Metoprolol Tartrate (Lopressor -) 25 mg PO BID [facility] Last Admin: 01/20/17 10:24 Dose: 25 mg Multivitamins/Minerals/Vitamin C (Tab-A-Vit -) 1 tab PO DAILY [facility] Last Admin: 01/20/17 10:24 Dose: 1 tab Tamsulosin HCl (Flomax -) 0.4 mg PO BID@0830,2200 [facility] Last Admin: 01/20/17 10:25 Dose: 0.4 mg - Objective Vital Signs: Vital Signs Temperature 97.4 F L 01/20/17 14:01 Pulse Rate 128 H 01/20/17 14:11 Respiratory Rate 20 01/20/17 14:01 Blood Pressure 115/70 01/20/17 14:11 O2 Sat by Pulse Oximetry (%) 97 01/20/17 09:00 Constitutional: Yes: No Distress Eyes: Yes: Conjunctiva Clear Cardiovascular: Yes: S1, S2. No: Regular Rate and Rhythm Respiratory: Yes: CTA Bilaterally Gastrointestinal: Yes: Normal Bowel Sounds, Soft. No: Tenderness Extremities: Yes: Other (erythema L LE no warmth/ tenderness) Edema: Yes Edema: LLE: 1+, RLE: 1+ Labs: CBC, BMP 01/20/17 05:00 01/20/17 05:00 INR, PTT INR 1.24 (0.82-1.09) H 01/20/17 05:00 Assessment/Plan Hx new onset Afib Cellulitis L LE - s/p course of antibiotics Doubt pneumonia Observe off antibiotcs
[2017-01-20 17:56] LABS: BASOPHIL 0.9 % (0-2.0); EOSINOPHIL 4.1 % (0-4.5); MCH 31.3 pg (25.7-33.7); MCHC 33.8 g/dl (32.0-35.9); MEAN CELL VOLUME 92.7 fl (80-96); MEAN PLT VOLUME 8.7 fl (7.5-11.1); NEUTROPHILS 72.6 % (42.8-82.8); PLATELET COUNT 110 K/MM3 (134-434); RDW 15.4 % (11.9-15.9); WHITE BLOOD COUNT 9.3 K/mm3 (4.0-10.0)
[2017-01-20 18:17] LABS: ANION GAP 9 (8-16); CALCIUM 8.4 mg/dL (8.5-10.1); CO2 24 mmol/L (21-32); CREATININE 1.7 mg/dL (0.7-1.3); GLUCOSE,RANDOM 115 mg/dL (74-106)
[2017-01-21] MEDS: HEPARIN INFUSION - 500 ML IVPB SCH (02:00)
[2017-01-21] MEDS: HEPARIN NA (PORCINE) 5,000 UNITS/ML 1ML VIAL IVPUSH PRN (02:02)
[2017-01-21] MEDS: FUROSEMIDE 40 MG/4 ML INJECTABLE VIAL IVPUSH SCH ×2 (06:56→13:52)
[2017-01-21 07:15] LABS: BASOPHIL 0.6 % (0-2.0); EOSINOPHIL 2.5 % (0-4.5); MCH 31.2 pg (25.7-33.7); MCHC 33.7 g/dl (32.0-35.9); MEAN CELL VOLUME 92.6 fl (80-96); MEAN PLT VOLUME 8.6 fl (7.5-11.1); NEUTROPHILS 73.4 % (42.8-82.8); PLATELET COUNT 78 K/MM3 (134-434); RDW 15.3 % (11.9-15.9); WHITE BLOOD COUNT 9.1 K/mm3 (4.0-10.0)
[2017-01-21 08:04] LABS: ANION GAP 8 (8-16); CALCIUM 8.5 mg/dL (8.5-10.1); CHOLESTEROL 152 mg/dL (50-200); CO2 24 mmol/L (21-32); CREATININE 1.7 mg/dL (0.7-1.3); GLUCOSE,RANDOM 121 mg/dL (74-106); LDL CHOLESTEROL (ONLY SJRH) 98 mg/dL (5-100); MAGNESIUM 1.9 mg/dL (1.8-2.4); PHOSPHOROUS 3.3 mg/dL (2.5-4.9)
[2017-01-21] MEDS ORDERED: METOPROLOL TARTRATE 50 MG TABLET (FP) PO SCH ×2 (08:28→12:06)
[2017-01-21] MEDS: TAMSULOSIN HCL 0.4 MG CAP.ER.24H (FP) PO SCH ×2 (09:18→21:27)
[2017-01-21] MEDS: MULTIVITAMINS (DAILY MVI) TABLET (FP) PO SCH (09:19)
[2017-01-21] MEDS: BACITRACIN/POLYMYXIN B SULFATE 15 GM TUBE TP SCH ×2 (09:20→21:27)
[2017-01-21] MEDS ORDERED: PT OWN MED DRAWER 7, Y5N ONE (09:20)
[2017-01-21] MEDS ORDERED: RAMIPRIL 2.5 MG CAPSULE (FP) PO SCH (10:00)
--- NOTE | 2017-01-21 10:50 | PN ---
Progress Note (short form) - Note Progress Note: Chief Complaint: Seen and examined, notes were reviewed, advanced noted. Patient denies any chest discomfort but Reports dyspnea, atrial fibrillation Persists History of Present Illness: Seen and examined on Telemetry. Seen and examined, notes were reviewed, advanced noted. Patient denies any chest discomfort but Reports dyspnea, atrial fibrillation Persists Transthoracic echocardiography dated 01/17/17 Revealed normal LV Systolic function with pulmonary HTN (RVSP between 40-50 Millimeters mercury), mild MR and TR Medications: Current Medications Acetaminophen (Tylenol -) 650 mg PO Q4H PRN PRN Reason: FEVER OR PAIN Albuterol/Ipratropium (Duoneb -) 1 amp NEB Q4H PRN PRN Reason: SHORTNESS OF BREATH Bacitracin/Polymyxin B Sulfate (Polysporin Ointment -) 1 applic TP BID [facility] Last Admin: 01/21/17 09:20 Dose: 1 applic Furosemide (Lasix Injection -) 20 mg IVPUSH BID@0600,1400 [facility] Last Admin: 01/21/17 06:56 Dose: 20 mg Guaifenesin (Robitussin -) 10 ml PO Q6H PRN PRN Reason: COUGH Last Admin: 01/20/17 10:25 Dose: 10 ml Heparin Sodium (Porcine) (Heparin -) 1,000 unit IVPUSH PRN PRN PRN Reason: Heparin Last Admin: 01/21/17 02:02 Dose: 1,000 unit Heparin Sodium (Porcine) (Heparin -) 5,000 unit IVPUSH PRN PRN PRN Reason: Heparin Heparin Sodium/Dextrose (Heparin Infusion -) 500 mls @ 20 mls/hr IVPB TITR ROBERTO ; 1,000 UNITS/HR PRN Reason: Protocol Last Admin: 01/21/17 02:00 Dose: 24 mls/hr Diltiazem HCl 125 mg/ Dextrose 125 mls @ 7.5 mls/hr IVPB TITR ROBERTO; 7.5 MG/HR PRN Reason: Protocol Last Titration: 01/20/17 17:00 Dose: 10 mg/hr Metoprolol Tartrate (Lopressor -) 50 mg PO BID [facility] Last Admin: 01/21/17 09:19 Dose: 50 mg Multivitamins/Minerals/Vitamin C (Tab-A-Vit -) 1 tab PO DAILY [facility] Last Admin: 01/21/17 09:19 Dose: 1 tab Ramipril (Altace -) 2.5 mg PO DAILY [facility] Last Admin: 01/21/17 09:19 Dose: 2.5 mg Tamsulosin HCl (Flomax -) 0.4 mg PO BID@0830,2200 [facility] Last Admin: 01/21/17 09:18 Dose: 0.4 mg Review of Systems - Review of Systems Constitutional: denies: Chills, Fever Cardiovascular: denies: Chest Pain, Palpitations, Shortness of Breath Respiratory: reports: Cough. denies: Hemoptysis, Orthopnea, PND, SOB Gastrointestinal: denies: Abdominal Pain, Constipation, Diarrhea, Melena, Nausea , Rectal Bleeding, Vomiting Genitourinary: reports: Other (Groin pain) Musculoskeletal: reports: Back Pain Neurological: reports: Unsteady Gait, Weakness. denies: Dizziness, Headache, Seizure, Syncope, Tremors Vital Signs: Last Vital Signs Temp Pulse Resp BP Pulse Ox 97.8 F 115 H 22 109/60 97 01/21/17 10:00 01/21/17 10:00 01/21/17 10:00 01/21/17 10:00 01/21/17 09:00 Intake & Output 01/18/17 01/19/17 01/20/17 01/21/17 23:59 23:59 23:59 23:59 Intake Total 1050 870 160 420 Output Total 200 400 Balance 850 870 160 20 Neck: Supple Negative JVD negative bruit Respiratory: Diminished Breath sounds at the bases Cardiovascular: S1 and S2 Irregularly Irregular Gastrointestinal: Soft benign Normal Bowel Sounds Extremities: Erythema (Left lower extremity) and bilateral edema Labs: CBC, BMP 01/21/17 05:35 01/21/17 05:35 Assessment/Plan ASSESSMENT: 1. New onset paroxysmal atrial fibrillation with Periods of rapid Ventricular response [id number] score of 3 currently on Heparin therapy 2. 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 Encephalopathy, Probable toxic Metabolic and probable underlying dementia 5. Acute on chronic kidney disease 6. Bilateral hydronephrosis 7. Anemia and Thrombocytopenia, consider chronic liver disease PLAN: 1. Continue Heparin drip for now, penitentiary anticoagulation therapy is recommended considering the Above-noted [id number] score of 3, limiting factor is the above-noted thrombocytopenia, possible chronic liver disease and patient compliance with therapy administration 2. Attempt to taper off IV Cardizem 3. Continue Metoprolol and titrate dosage as tolerated 4. Initiate PRITI inhibitor therapy, Altace 5. Continue IV Lasix with close monitoring of renal function Carl Jara MD
--- NOTE | 2017-01-21 11:20 | PN ---
Progress Note, Physician History of Present Illness: PULMONARY ALERT,NAD LESS COUGH,-CP - Current Medication List Current Medications: Active Medications Acetaminophen (Tylenol -) 650 mg PO Q4H PRN PRN Reason: FEVER OR PAIN Albuterol/Ipratropium (Duoneb -) 1 amp NEB Q4H PRN PRN Reason: SHORTNESS OF BREATH Bacitracin/Polymyxin B Sulfate (Polysporin Ointment -) 1 applic TP BID [facility] Last Admin: 01/21/17 09:20 Dose: 1 applic Furosemide (Lasix Injection -) 20 mg IVPUSH BID@0600,1400 [facility] Last Admin: 01/21/17 06:56 Dose: 20 mg Guaifenesin (Robitussin -) 10 ml PO Q6H PRN PRN Reason: COUGH Last Admin: 01/20/17 10:25 Dose: 10 ml Heparin Sodium (Porcine) (Heparin -) 1,000 unit IVPUSH PRN PRN PRN Reason: Heparin Last Admin: 01/21/17 02:02 Dose: 1,000 unit Heparin Sodium (Porcine) (Heparin -) 5,000 unit IVPUSH PRN PRN PRN Reason: Heparin Heparin Sodium/Dextrose (Heparin Infusion -) 500 mls @ 20 mls/hr IVPB TITR ROBERTO ; 1,000 UNITS/HR PRN Reason: Protocol Last Admin: 01/21/17 02:00 Dose: 24 mls/hr Diltiazem HCl 125 mg/ Dextrose 125 mls @ 7.5 mls/hr IVPB TITR ROBERTO; 7.5 MG/HR PRN Reason: Protocol Last Titration: 01/20/17 17:00 Dose: 10 mg/hr Metoprolol Tartrate (Lopressor -) 50 mg PO BID [facility] Last Admin: 01/21/17 09:19 Dose: 50 mg Multivitamins/Minerals/Vitamin C (Tab-A-Vit -) 1 tab PO DAILY [facility] Last Admin: 01/21/17 09:19 Dose: 1 tab Ramipril (Altace -) 2.5 mg PO DAILY [facility] Last Admin: 01/21/17 09:19 Dose: 2.5 mg Tamsulosin HCl (Flomax -) 0.4 mg PO BID@0830,2200 [facility] Last Admin: 01/21/17 09:18 Dose: 0.4 mg - Objective Vital Signs: Vital Signs Temperature 97.8 F 01/21/17 10:00 Pulse Rate 115 H 01/21/17 10:00 Respiratory Rate 22 01/21/17 10:00 Blood Pressure 109/60 01/21/17 10:00 O2 Sat by Pulse Oximetry (%) 97 01/21/17 09:00 Constitutional: Yes: Well Nourished, Calm Eyes: Yes: WNL HENT: Yes: WNL Neck: Yes: WNL Cardiovascular: Yes: Pulse Irregular, S1, S2 Respiratory: Yes: Rales (FEW CRACKLES LEFT BASE) Gastrointestinal: Yes: Normal Bowel Sounds, Soft Extremities: Yes: WNL Edema: No Labs: CBC, BMP 01/21/17 05:35 01/21/17 05:35 INR, PTT INR 1.24 (0.82-1.09) H 01/20/17 05:00 Problem List - Problems (1) Altered mental status Code(s): R41.82 - ALTERED MENTAL STATUS, UNSPECIFIED (2) Cellulitis Code(s): L03.90 - CELLULITIS, UNSPECIFIED (3) UTI (urinary tract infection) Code(s): N39.0 - URINARY TRACT INFECTION, SITE NOT SPECIFIED (4) Hydronephrosis Code(s): N13.30 - UNSPECIFIED HYDRONEPHROSIS (5) Kidney injury Code(s): S37.009A - UNSPECIFIED INJURY OF UNSPECIFIED KIDNEY, INITIAL ENCOUNTER (6) Hypoxemia Code(s): R09.02 - HYPOXEMIA (7) Lung nodule Code(s): R91.1 - SOLITARY PULMONARY NODULE Assessment/Plan IMP HYPOXEMIA IMPROVED AFIB BRONCHIECTASIS? ATELECTASIS PULMONARY NODULE 3mm BILATERAL HYDRONEPHROSIS ACUTE RENAL INSUFFICIENCY ALTERED MENTAL STATUS IMPROVED CELLULITIS PLAN INHALED BRONCHODILATORS NASAL O2 INCENTIVE SPIROMETER PER NEW [employer] RECOMMENDATIONS NO FOLLOW-UP NECESSARY REGARDING PTS PULMONARY NODULE RATE CONTROL DR CHAHAL Problem List - Problems (1) Altered mental status Code(s): R41.82 - ALTERED MENTAL STATUS, UNSPECIFIED (2) Cellulitis Code(s): L03.90 - CELLULITIS, UNSPECIFIED (3) UTI (urinary tract infection) Code(s): N39.0 - URINARY TRACT INFECTION, SITE NOT SPECIFIED (4) Hydronephrosis Code(s): N13.30 - UNSPECIFIED HYDRONEPHROSIS (5) Kidney injury Code(s): S37.009A - UNSPECIFIED INJURY OF UNSPECIFIED KIDNEY, INITIAL ENCOUNTER (6) Hypoxemia Code(s): R09.02 - HYPOXEMIA (7) Lung nodule Code(s): R91.1 - SOLITARY PULMONARY NODULE
--- NOTE | 2017-01-21 15:40 | PN ---
Teaching Attending Note Name of Resident: Palmer Rios ATTENDING PHYSICIAN STATEMENT I saw and evaluated the patient. I reviewed the resident's note and discussed the case with the resident. I agree with the resident's findings and plan as documented. SUBJECTIVE:currently asymptomatic. denies CP, palpitations, SOB,fever, chills, N /V/C/D OBJECTIVE: Last Vital Signs Temp Pulse Resp BP Pulse Ox 97.8 F 115 H 22 109/60 97 01/21/17 10:00 01/21/17 10:00 01/21/17 10:00 01/21/17 10:01/21/17 09:00 General NAD, [place] [employer] CV S1 S2 tachycardic Lungs CTA B/L no wheezing/rales/rhonchi Extremities chronic venous changes B/L LE ASSESSMENT AND PLAN: 86-year-old man with a history of bilateral hydronephrosis who presented to the ER with groin pain. 1. Acute metabolic encephalopathy secondary to UTI and LLE cellulitis- resolved. completed abx course 2. New onset Afib- on cardizem ggt. metoprolol increased to 50 BID. will cont to titrate to optimize control. consider starting cardizem po to optimize. Echo done with enlarged LA no thrombus noted. on heparin ggt. will consider switching to eliquis, dose adjusted to age and kidney fucntion. 3. Thrombocytopenia- likely Heparin induced. HIT ab sent. monitor plt function 4. Pulmonary nodule- resolved. as per pulmonary no need to monitor pulmonary nodule. 5. L pleural effusion- likely volume overload with aggressive fluid recusitation. echo does not show CHF. on lasix. cont for now 6. Bilateral hydroureteronephrosis secondary to BPH- refusing davis. cont flomax. urology outpatient follow up 7. Stage 3 CKD- Stable 8. Possible hepatic cysts- Oupatient US 9.will need BONITA placement when medically optimized.
--- NOTE | 2017-01-21 16:02 | PN ---
Physical Exam: SUBJECTIVE: Patient seen and examined No acute events overnight. Patient had no complaints this morning. OBJECTIVE: Vital Signs Period Temp Pulse Resp BP Sys/Locke Pulse Ox Last 24 Hr 97.8 F-99.4 F 106-133 18-22 100-135/60-78 91-97 GENERAL: Awake, alert, in no acute distress. HEAD: Normal with no signs of trauma. EYES: Pupils equal, round and reactive to light, extraocular movements intact, sclera anicteric, conjunctiva clear. No lid lag. EARS, NOSE, THROAT: Moist mucous membranes. Poor hearing b/l NECK: supple without JVD LUNGS: Breath sounds equal, Lungs clear to auscultation bilatearlly. mild crackles at right base HEART: Tachycardic, Regular rhythm, normal S1 and S2 ABDOMEN: Soft, nontender, moderately distended, normoactive bowel sounds, no guarding, no rebound, no masses. No hepatomegaly or splenomegaly. MUSCULOSKELETAL: No CVA tenderness. UPPER EXTREMITIES: 2+ pulses, warm, well-perfused. No cyanosis. No clubbing. No peripheral edema. LOWER EXTREMITIES: 2+ pulses, warm, well-perfused. No calf tenderness. No peripheral edema. L ankle cellulitis -- improving. Mild pitting edema R ankle-Nontender stasis dermatitis, mild pitting edema NEUROLOGICAL: Cranial nerves II-XII intact. Normal speech. strength 4+/5 in all extremities, sensation intact b/l PSYCHIATRIC: Cooperative. Good eye contact. Appropriate mood and affect, forgetful, confused SKIN: Warm, dry Laboratory Results - last 24 hr 01/20/17 01/20/17 01/21/17 17:30 17:45 00:10 WBC 9.3 RBC 3.83 L Hgb 12.0 Hct 35.5 MCV 92.7 MCH 31.3 MCHC 33.8 RDW 15.4 Plt Count 110 L MPV 8.7 Neutrophils % 72.6 Lymphocytes % 15.7 Monocytes % 6.7 Eosinophils % 4.1 Basophils % 0.9 PTT (Actin FS) 40.6 H Sodium 138 Potassium 4.2 Chloride 105 Carbon Dioxide 24 Anion Gap 9 BUN 45 H Creatinine 1.7 H Random Glucose 115 H Hemoglobin A1c % Calcium 8.4 L Phosphorus Magnesium Triglycerides Cholesterol Total LDL Cholesterol HDL Cholesterol 01/21/17 01/21/17 01/21/17 05:35 05:35 05:35 WBC 9.1 RBC 3.76 L Hgb 11.8 Hct 34.8 L MCV 92.6 MCH 31.2 MCHC 33.7 RDW 15.3 Plt Count 78 L D MPV 8.6 Neutrophils % 73.4 Lymphocytes % 16.9 Monocytes % 6.6 Eosinophils % 2.5 Basophils % 0.6 PTT (Actin FS) Sodium 138 Potassium 4.0 Chloride 106 Carbon Dioxide 24 Anion Gap 8 BUN 47 H Creatinine 1.7 H Random Glucose 121 H Hemoglobin A1c % 5.8 Calcium 8.5 Phosphorus 3.3 Magnesium 1.9 Triglycerides 55 Cholesterol 152 Total LDL Cholesterol 98 HDL Cholesterol 46 Active Medications Generic Name Dose Route Start Last Admin Trade Name Freq PRN Reason Stop Dose Admin Acetaminophen 650 mg 01/10/17 17:51 Tylenol - PO Q4H PRN FEVER OR PAIN Albuterol/Ipratropium 1 amp 01/20/17 11:14 Duoneb - NEB Q4H PRN SHORTNESS OF BREATH Apixaban 2.5 mg 01/21/17 22:00 Eliquis - PO BID MAURIZIO Bacitracin/Polymyxin B Sulfate 1 applic 01/14/17 10:00 01/21/17 09:20 Polysporin Ointment - TP 1 applic BID MA[facility]IZIO Administration Furosemide 20 mg 01/20/17 14:00 01/21/17 13:52 Lasix Injection - IVPUSH 20 mg BID@0600,1400 [facility] Administration Guaifenesin 10 ml 01/16/17 08:43 01/20/17 10:25 Robitussin - PO 10 ml Q6H PRN Administration COUGH Heparin Sodium/Dextrose 500 mls @ 20 mls/hr 01/20/17 04:45 01/21/17 02:00 Heparin Infusion - IVPB 01/21/17 20:00 24 mls/hr TITR MAURIZIO Administration Protocol 1,000 UNITS/HR Diltiazem HCl 125 mg/ Dextrose 125 mls @ 7.5 mls/hr 01/20/17 11:30 01/20/17 17: 00 IVPB 10 mg/hr TITR MAURIZIO Titration Protocol 7.5 MG/HR Metoprolol Tartrate 50 mg 01/21/17 12:06 Lopressor - PO BID [facility] Multivitamins/Minerals/Vitamin C 1 tab 01/12/17 15:00 01/21/17 09:19 Tab-A-Vit - PO 1 tab DAILY [facility] Administration Ramipril 2.5 mg 01/21/17 10:00 01/21/17 09:19 Altace - PO 2.5 mg DAILY [facility] Administration Tamsulosin HCl 0.4 mg 01/14/17 09:15 01/21/17 09:18 Flomax - PO 0.4 mg BID@0830,2200 [facility] Administration ASSESSMENT/PLAN: 86 yo M with PMH of b/l severe hydronephrosis L>R seen on CT 10/31/15, otherwise unknown [facility] (poor historian/no records), who presented with confusion, groin and back pain. #Metabolic encephalopathy in the setting of AMS possibly due to UTI being tx w/ abx, RESOLVED -A&Ox3 -completed course of unasyn #New onset Atrial Fibrillation -Received Cardizem 30 mg given po x 2 -On cardizem iv drip @ 10 mg/hr -Metoprolol increased to 50 mg bid -Will taper cardizem drip and consider po cardizem for rate control -Echo on 01/17- Enlarge left atrium with no thrombus. 55% Ef #Thrombocytopenia -Likely 2/2 to heparin -HIT antibody sent -Will likely switch to eliquis 2.5 mg tomorrow -will monitor plt levels #Cough, likely acute bronchitis with atelectasis -01/16-CXR, Possible fluid with atelectasis -01/17-Chest CT- Mild bibasilar posterior bronchiectatic changes w/ mild peribronchial consolidations on the Left. 3 mm nodule in the right middle lobe, which will need f/u. Cholelithiasis. -Incentive spirometer -Guanifensen 10 ml Q6 PRN -Continue duonebs QIDR maurizio and TIDR PRN -Pulmonary on board, Dr. Mariscal -No need to follow up on pulmonary nodule due to fleischner society recommendations -Continue Lasix 20 mg iv bid #LLE cellulitis, improving -Afebrile -Wound cx - no growth to date -Unasyn completed #Flank Pain: -CT- hydroureteralonephrosis -Urology recs- Flomax 0.4 mg BID, f/u outpatient -Patient refuses davis #CKD -Stable -Appears baseline from prior Cr levels #FEN: -No fluids -lytes stable -Na restricted diet #PPx -DVT: heparin 5000 units sq BID -GI: not indicated at this time Visit type - Emergency Visit Emergency Visit: No - New Patient This patient is new to me today: No - Critical Care Critical Care patient: No
[2017-01-21] MEDS: DILTIAZEM INJECTION 125 MG in DEXTROSE 5%-WATER - 100 ML IVPB SCH (16:52)
[2017-01-21] MEDS ORDERED: APIXABAN 2.5 MG TABLET PO SCH (22:00)
[2017-01-22] MEDS ORDERED: HEPARIN NA (PORCINE) 5,000 UNITS/ML 1ML VIAL IVPUSH PRN ×4 (00:30→20:36)
[2017-01-22] MEDS: HEPARIN INFUSION - 500 ML IVPB SCH ×2 (00:57→04:45)
[2017-01-22] MEDS ORDERED: PT OWN MED DRAWER 7, Y5N ONE ×2 (02:15→22:15)
[2017-01-22] MEDS: DILTIAZEM INJECTION 125 MG in DEXTROSE 5%-WATER - 100 ML IVPB SCH (02:46)
[2017-01-22] MEDS: FUROSEMIDE 40 MG/4 ML INJECTABLE VIAL IVPUSH SCH (05:59)
[2017-01-22 07:34] LABS: BASOPHIL 0.4 % (0-2.0); EOSINOPHIL 1.7 % (0-4.5); MCHC 33.3 g/dl (32.0-35.9); MEAN CELL VOLUME 93.2 fl (80-96); MEAN PLT VOLUME 8.7 fl (7.5-11.1); NEUTROPHILS 73.1 % (42.8-82.8); PLATELET COUNT 63 K/MM3 (134-434); RDW 15.5 % (11.9-15.9); WHITE BLOOD COUNT 8.6 K/mm3 (4.0-10.0)
[2017-01-22] MEDS ORDERED: METOPROLOL TARTRATE 50 MG TABLET (FP) PO SCH (07:54)
--- NOTE | 2017-01-22 07:56 | PN ---
Progress Note (short form) - Note Progress Note: hypotensive overnight and this am: systoliv bp 80s-90s -d/c cardizem -set parameters for bp : hold metoprolol and ramipril for bp < 90 -d/c lasix for now -stat cxr -oxygen saturation 88 on 3L -re-evaluate
[2017-01-22 08:52] LABS: ANION GAP 11 (8-16); CALCIUM 8.3 mg/dL (8.5-10.1); CO2 23 mmol/L (21-32); CREATININE 2.6 mg/dL (0.7-1.3); GLUCOSE,RANDOM 115 mg/dL (74-106); MAGNESIUM 2.1 mg/dL (1.8-2.4); PHOSPHOROUS 4.6 mg/dL (2.5-4.9)
[2017-01-22] MEDS ORDERED: RAMIPRIL 2.5 MG CAPSULE (FP) PO SCH (10:00)
[2017-01-22 10:34] LABS: ARTERIAL BLD GAS O2 SATURATION 93.8 % (90-98.9); ARTERIAL BLOOD GAS BASE EXCESS -1.7 meq/l (-2-2); ARTERIAL BLOOD GAS HCO3 21.3 meq/L (22-26); ARTERIAL BLOOD GAS pH 7.44 (7.35-7.45)
[2017-01-22 10:35] LABS: ALLENS TEST POSITIVE; ART PUNCT SITE RIGHT BRACHIAL; LPM/O2% 3 1/2L; PT. ON O2? YES; TYPE OF O2 NASAL O2
[2017-01-22 10:36] LABS: ARTERIAL BLOOD GAS PO2 67.7 mmHg (68-100)
[2017-01-22 10:48] LABS: HIV 1 & 2 AB NEGATIVE; HIV 1 AGp24 NEGATIVE
[2017-01-22] MEDS: TAMSULOSIN HCL 0.4 MG CAP.ER.24H (FP) PO SCH ×2 (11:11→22:17)
[2017-01-22] MEDS: BACITRACIN/POLYMYXIN B SULFATE 15 GM TUBE TP SCH ×2 (11:11→22:19)
[2017-01-22] MEDS: MULTIVITAMINS (DAILY MVI) TABLET (FP) PO SCH (11:11)
--- NOTE | 2017-01-22 11:21 | PN ---
Progress Note, Physician History of Present Illness: PULMONARY ALERT,MILDLY DYSPNEIC. PT DEVELOPED HYPOTENSION LAST NIGHT LASIX ,CARDIZEM DISCONTINUED.PT REMAINS HYPOTENSIVE BP 88/58 - Current Medication List Current Medications: Active Medications Acetaminophen (Tylenol -) 650 mg PO Q4H PRN PRN Reason: FEVER OR PAIN Albuterol/Ipratropium (Duoneb -) 1 amp NEB Q4HWA [facility] Bacitracin/Polymyxin B Sulfate (Polysporin Ointment -) 1 applic TP BID [facility] Last Admin: 01/22/17 11:11 Dose: 1 applic Guaifenesin (Robitussin -) 10 ml PO Q6H PRN PRN Reason: COUGH Last Admin: 01/20/17 10:25 Dose: 10 ml Argatroban 250,000 mcg/ Sodium (Chloride) 250 mls @ 11.97 mls/hr IVPB TITR [facility] ; 2 MCG/KG/MIN PRN Reason: Protocol Metoprolol Tartrate (Lopressor -) 25 mg PO TID [facility] Multivitamins/Minerals/Vitamin C (Tab-A-Vit -) 1 tab PO DAILY [facility] Last Admin: 01/22/17 11:11 Dose: 1 tab Ramipril (Altace -) 2.5 mg PO DAILY [facility] Last Admin: 01/22/17 11:14 Dose: Not Given Tamsulosin HCl (Flomax -) 0.4 mg PO BID@0830,2200 [facility] Last Admin: 01/22/17 11:11 Dose: 0.4 mg - Objective Vital Signs: Vital Signs Temperature 98.2 F 01/22/17 10:00 Pulse Rate 106 H 01/22/17 11:14 Respiratory Rate 20 01/22/17 11:14 Blood Pressure 88/58 01/22/17 11:14 O2 Sat by Pulse Oximetry (%) 93 L 01/21/17 21:00 Constitutional: Yes: Well Nourished, Other (MILDLY DYSPNEIC) Eyes: Yes: WNL HENT: Yes: WNL Neck: Yes: WNL Cardiovascular: Yes: Pulse Irregular, S1, S2 Respiratory: Yes: Wheezes (BILATERAL WHEEZES) Gastrointestinal: Yes: Normal Bowel Sounds, Soft Extremities: Yes: WNL Edema: Yes Labs: CBC, BMP 01/22/17 05:48 01/22/17 06:00 INR, PTT INR 1.24 (0.82-1.09) H 01/20/17 05:00 Laboratory Tests 01/22/17 05:48 WBC 8.6 RBC 3.62 L Hgb 11.2 L Hct 33.7 L MCV 93.2 MCH 31.0 MCHC 33.3 RDW 15.5 Plt Count 63 L Neutrophils % 73.1 Lymphocytes % 16.5 Monocytes % 8.3 Eosinophils % 1.7 - ....Imaging Chest X-ray: Report Reviewed, Image Reviewed (CARDIOMEGALY,POOR INSPIRATORY EFFORT,? SMALL LEFT EFFUSION/ATELECTASIS) Problem List - Problems (1) Altered mental status Code(s): R41.82 - ALTERED MENTAL STATUS, UNSPECIFIED (2) Cellulitis Code(s): L03.90 - CELLULITIS, UNSPECIFIED (3) UTI (urinary tract infection) Code(s): N39.0 - URINARY TRACT INFECTION, SITE NOT SPECIFIED (4) Hydronephrosis Code(s): N13.30 - UNSPECIFIED HYDRONEPHROSIS (5) Kidney injury Code(s): S37.009A - UNSPECIFIED INJURY OF UNSPECIFIED KIDNEY, INITIAL ENCOUNTER (6) Hypoxemia Code(s): R09.02 - HYPOXEMIA (7) Lung nodule Code(s): R91.1 - SOLITARY PULMONARY NODULE Assessment/Plan IMP HYPOXEMIA AFIB PULMONARY HTN THROMBOCYOPENIA ? HIT BRONCHIECTASIS? ATELECTASIS PULMONARY NODULE 3mm BILATERAL HYDRONEPHROSIS ACUTE RENAL INSUFFICIENCY ALTERED MENTAL STATUS IMPROVED CELLULITIS PLAN INHALED BRONCHODILATORS SHORT COURSE OF STEROIDS NASAL O2 INCENTIVE SPIROMETER RATE CONTROL MONITOR PLT CT,CBC DR CHAHAL Problem List - Problems (1) Altered mental status Code(s): R41.82 - ALTERED MENTAL STATUS, UNSPECIFIED (2) Cellulitis Code(s): L03.90 - CELLULITIS, UNSPECIFIED (3) UTI (urinary tract infection) Code(s): N39.0 - URINARY TRACT INFECTION, SITE NOT SPECIFIED (4) Hydronephrosis Code(s): N13.30 - UNSPECIFIED HYDRONEPHROSIS (5) Kidney injury Code(s): S37.009A - UNSPECIFIED INJURY OF UNSPECIFIED KIDNEY, INITIAL ENCOUNTER (6) Hypoxemia Code(s): R09.02 - HYPOXEMIA (7) Lung nodule Code(s): R91.1 - SOLITARY PULMONARY NODULE
[2017-01-22] MEDS ORDERED: ARGATROBAN - 250,000 MCG in SODIUM CHLORIDE 247.5 ML IVPB SCH (12:00)
[2017-01-22] MEDS: methylPREDNISolone NA SUCC 40 MG/1 ML VIAL IVPB SCH ×3 (12:13→21:00)
--- NOTE | 2017-01-22 12:27 | PN ---
Progress Note (short form) - Note Progress Note: Chief Complaint: Events noted, notes reviewed. Patient reports persistent dyspnea, denies any chest discomfort, atrial fibrillation Persists, asymptomatic hypotension last light and this a.m. in view of which IV Cardizem therapy was discontinued History of Present Illness: Seen and examined on Telemetry. Events noted, notes reviewed. Patient reports persistent dyspnea, denies any chest discomfort, atrial fibrillation Persists, asymptomatic hypotension last light and this a.m. in view of which IV Cardizem therapy was discontinued Transthoracic echocardiography dated 01/17/17 Revealed normal LV Systolic function with pulmonary HTN (RVSP between 40-50 Millimeters mercury), mild MR and TR Medications: Current Medications Acetaminophen (Tylenol -) 650 mg PO Q4H PRN PRN Reason: FEVER OR PAIN Albuterol/Ipratropium (Duoneb -) 1 amp NEB Q4HWA [facility] Bacitracin/Polymyxin B Sulfate (Polysporin Ointment -) 1 applic TP BID [facility] Last Admin: 01/22/17 11:11 Dose: 1 applic Guaifenesin (Robitussin -) 10 ml PO Q6H PRN PRN Reason: COUGH Last Admin: 01/20/17 10:25 Dose: 10 ml Argatroban 250,000 mcg/ Sodium (Chloride) 250 mls @ 11.97 mls/hr IVPB TITR ROBERTO ; 2 MCG/KG/MIN PRN Reason: Protocol Metoprolol Tartrate (Lopressor -) 25 mg PO TID [facility] Multivitamins/Minerals/Vitamin C (Tab-A-Vit -) 1 tab PO DAILY [facility] Last Admin: 01/22/17 11:11 Dose: 1 tab Ramipril (Altace -) 2.5 mg PO DAILY [facility] Last Admin: 01/22/17 11:14 Dose: Not Given Tamsulosin HCl (Flomax -) 0.4 mg PO BID@0830,2200 [facility] Last Admin: 01/22/17 11:11 Dose: 0.4 mg Review of Systems - Review of Systems Constitutional: denies: Chills, Fever Cardiovascular: As noted above Respiratory: reports: Cough or Sputum Production Gastrointestinal: denies: Nausea, Vomiting, Diarrhea, Constipation or Abdominal Pain Genitourinary: No symptoms reported Musculoskeletal: reports: Persistent Back Pain Vital Signs: Last Vital Signs Temp Pulse Resp BP Pulse Ox 98.2 F 106 H 20 88/58 93 L 01/22/17 10:00 01/22/17 11:14 01/22/17 11:14 01/22/17 11:14 01/21/17 21:00 Intake & Output 01/19/17 01/20/17 01/21/17 01/22/17 23:59 23:59 23:59 23:59 Intake Total 010 235 8184 320 Output Total 1350 Balance 870 160 -160 320 Neck: Supple Negative JVD no bruit appreciated Respiratory: Diminished Breath sounds at the bases with bilateral expiratory rhonchi right greater than the left Cardiovascular: S1 and S2 Irregularly Irregular Gastrointestinal: Soft benign Normal Bowel Sounds Extremities: Trace bilateral edema Labs: CBC, BMP 01/22/17 05:48 01/22/17 06:00 INR, PTT INR 1.24 (0.82-1.09) H 01/20/17 05:00 Assessment/Plan ASSESSMENT: 1. Hypotension, asymptomatic most likely multifactorial, over-diuresis/ hypovolemia 2. New onset paroxysmal atrial fibrillation [id number] score of 3-4 currently on Heparin therapy 3. 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 CAD angina pectoris 5. Encephalopathy, Probable toxic Metabolic and probable underlying dementia 6. Acute on chronic kidney disease, Progressive 7. Bilateral hydronephrosis 8. 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 Continue Heparin drip for now pending HIT studies, network mgr anticoagulation therapy is recommended considering the Above-noted [id number] score of 3-4, limiting factor is the above-noted thrombocytopenia and patient compliance with therapy administration 2. Discontinue IV Cardizem 3. Continue Metoprolol and titrate dosage as tolerated, Hemodynamics permitting 4. Discontinue Altace in view of the above-noted progressive renal insufficiency 5. Withhold IV Lasix in view of the above-noted progressive renal insufficiency Carl Jara MD
[2017-01-22] MEDS: METOPROLOL TARTRATE 25 MG TABLET (FP) PO SCH ×3 (13:49→22:16)
--- NOTE | 2017-01-22 13:59 | PN ---
Teaching Attending Note Name of Resident: Palmer Rios ATTENDING PHYSICIAN STATEMENT I saw and evaluated the patient. I reviewed the resident's note and discussed the case with the resident. I agree with the resident's findings and plan as documented. SUBJECTIVE:states hes asymptomatic. however pt is noted to be tachypnic, noted to be hypotensive over night. cardizem ggt d/c and antihypertensives held. OBJECTIVE: Last Vital Signs Temp Pulse Resp BP Pulse Ox 98.2 F 106 H 20 88/58 93 L 01/22/17 10:00 01/22/17 11:14 01/22/17 11:14 01/22/17 11:14 01/21/17 21:00 General NAD, [place], tachypnic CV S1 S2 tachycardic Lungs diffuse wheezing. Crackles +L base >R base Extremities chronic venous changes B/L LE 1+ pitting edema ASSESSMENT AND PLAN: 86-year-old man with a history of bilateral hydronephrosis who presented to the ER with groin pain. 1. Acute metabolic encephalopathy secondary to UTI and LLE cellulitis- resolved. completed abx course 2. Acute Hypoxic respiratory distress- likely due to pleural effusion vs concern for PE (pt is tachycardic, hypoxic) Kidney function worsening and unable to obtain CTA. will obtain vascular study to r/o DVT. will be started on argatroban as concern for HIT. neb treatment stat. start IV steroids. will consider thoracentesis for pleural effusion as failed attempt at diuresis however not an option in setting of thrombocytopenia. currently saturating 92% on 4L NC. ABG being obtained. pulmonary on baord 3. New onset Afib- tachycardic. cardizem ggt on hold. will re-start metoprolol at 25mg TID when BP can tolerate. switched to argatroban for a/c. 4. Thrombocytopenia- likely Heparin induced. 4T score high. hematology consulted and coagulability workup sent. HIT ab sent. monitor plt function 5. Pulmonary nodule- resolved. as per pulmonary no need to monitor pulmonary nodule. 6. Acute on CKD- likely due to medication induced vs hypoperfusion. hold lasix. avoid nephrotoxic agents. pt been refusing davis will place [place] cath to monitor output. 7. Hypoperfusion- developing sepsis? CXR showing questionable consolidation but remains afebrile and no leukocytosis. vs if hypotension from large PE. monitor closely. request input from ID if empiric treatment should be started. 8. Bilateral hydroureteronephrosis secondary to BPH- refusing davis. cont flomax. urology outpatient follow up 9. Possible hepatic cysts- Oupatient US
[2017-01-22] MEDS ORDERED: ALBUTEROL SO4 2.5/IPRATROPIUM 0.5 INH SOL 3 ML VIAL.NEB. NEB SCH (14:00)
--- NOTE | 2017-01-22 14:17 | PN ---
Physical Exam: SUBJECTIVE: Patient seen and examined Overnight, patient was found to be hypotensive 80's/50's. Patient was asymptomatic this morning. He was feeling at his baseline. OBJECTIVE: Vital Signs Period Temp Pulse Resp BP Sys/Locke Pulse Ox Last 24 Hr 97.8 F-99.2 F 92-115 16-20 81-100/45-66 93 GENERAL: Awake, alert, in no acute distress. HEAD: Normal with no signs of trauma. EYES: Pupils equal, round and reactive to light, extraocular movements intact, sclera anicteric, conjunctiva clear. No lid lag. EARS, NOSE, THROAT: Moist mucous membranes. Poor hearing b/l NECK: supple without JVD LUNGS: Breath sounds equal, Diffuse wheezing, crackles at b/l bases HEART: Regular rate, Regular rhythm, normal S1 and S2 ABDOMEN: Soft, nontender, moderately distended, normoactive bowel sounds, no guarding, no rebound, no masses. No hepatomegaly or splenomegaly. MUSCULOSKELETAL: No CVA tenderness. UPPER EXTREMITIES: 2+ pulses, warm, well-perfused. No cyanosis. No clubbing. No peripheral edema. LOWER EXTREMITIES: 2+ pulses, warm, well-perfused. No calf tenderness. L ankle cellulitis -- improving. Mild pitting edema, appears dry R ankle-Nontender stasis dermatitis, mild pitting edema NEUROLOGICAL: Cranial nerves II-XII intact. Normal speech. strength 4+/5 in all extremities, sensation intact b/l PSYCHIATRIC: Cooperative. Good eye contact. Appropriate mood and affect, forgetful, confused SKIN: Warm, dry Laboratory Results - last 24 hr 01/21/17 01/22/17 01/22/17 20:25 05:48 05:48 WBC 8.6 RBC 3.62 L Hgb 11.2 L Hct 33.7 L MCV 93.2 MCH 31.0 MCHC 33.3 RDW 15.5 Plt Count 63 L MPV 8.7 Neutrophils % 73.1 Lymphocytes % 16.5 Monocytes % 8.3 Eosinophils % 1.7 Basophils % 0.4 PTT (Actin FS) 28.9 55.0 H D Puncture Site ABG pH ABG pCO2 at Pt Temp ABG pO2 at Pt Temp ABG HCO3 ABG O2 Sat (Measured) ABG O2 Content ABG Base Excess Sanket Test O2 Delivery Device Oxygen Flow Rate Sodium Potassium Chloride Carbon Dioxide Anion Gap BUN Creatinine Random Glucose Calcium Phosphorus Magnesium HIV 1&2 Antibody Screen HIV P24 Antigen 01/22/17 01/22/17 01/22/17 06:00 08:40 10:25 WBC RBC Hgb Hct MCV MCH MCHC RDW Plt Count MPV Neutrophils % Lymphocytes % Monocytes % Eosinophils % Basophils % PTT (Actin FS) Puncture Site Right brachial ABG pH 7.44 ABG pCO2 at Pt Temp 31.5 L ABG pO2 at Pt Temp 67.7 L ABG HCO3 21.3 L ABG O2 Sat (Measured) 93.8 ABG O2 Content 13.9 L ABG Base Excess -1.7 Sanket Test Positive O2 Delivery Device Nasal o2 Oxygen Flow Rate 3 1/2l Sodium 135 L Potassium 3.9 Chloride 101 Carbon Dioxide 23 Anion Gap 11 BUN 64 H D Creatinine 2.6 H D Random Glucose 115 H Calcium 8.3 L Phosphorus 4.6 D Magnesium 2.1 HIV 1&2 Antibody Screen Negative HIV P24 Antigen Negative Active Medications Generic Name Dose Route Start Last Admin Trade Name Freq PRN Reason Stop Dose Admin Acetaminophen 650 mg 01/10/17 17:51 Tylenol - PO Q4H PRN FEVER OR PAIN Albuterol/Ipratropium 1 amp 01/22/17 14:00 Duoneb - NEB Q4HWA MAURIZIO Bacitracin/Polymyxin B Sulfate 1 applic 01/14/17 10:00 01/22/17 11:11 Polysporin Ointment - TP 1 applic BID MAURIZIO Administration Guaifenesin 10 ml 01/16/17 08:43 01/20/17 10:25 Robitussin - PO 10 ml Q6H PRN Administration COUGH Argatroban 250,000 mcg/ Sodium 250 mls @ 11.97 mls/hr 01/22/17 12:00 01/22/17 12:07 Chloride IVPB 11.97 mls/hr TITR MAURIZIO Administration Protocol 2 MCG/KG/MIN Methylprednisolone Sodium Succinate 40 mg 01/22/17 11:30 01/22/17 12:13 Solu-Medrol - IVPB 40 mg Q6H-IV MAURIZIO Administration Metoprolol Tartrate 25 mg 01/22/17 14:00 01/22/17 13:49 Lopressor - PO Not Given TID MAURIZIO Multivitamins/Minerals/Vitamin C 1 tab 01/12/17 15:00 01/22/17 11:11 Tab-A-Vit - PO 1 tab DAILY MAURIZIO Administration Tamsulosin HCl 0.4 mg 01/14/17 09:15 01/22/17 11:11 Flomax - PO 0.4 mg BID@0830,2200 MAURIZIO Administration ASSESSMENT/PLAN: 86 yo M with PMH of b/l severe hydronephrosis L>R seen on CT 10/31/15, otherwise unknown PNH (poor historian/no records), who presented with confusion, groin and back pain. #Metabolic encephalopathy in the setting of AMS possibly due to UTI being tx w/ abx, RESOLVED -A&Ox3 -completed course of unasyn #New onset Atrial Fibrillation -Cardizem drip discontinued -Continue metoprolol 25mg TID -Heparin drip discontinued -Argatroban drip started per hematology. Will check PTT @1600 and titrate appropriately. Spoke with RN and she is aware #Thrombocytopenia -Likely 2/2 to heparin, 4T score of 6 -HIT antibody sent -Heparin d/c, Started on argatroban drip per hematology -Will check PTT @1600 and titrate appropriately. Spoke with RN and she is aware #Acute hypoxic respiratory distress likely 2/2 to pleural effusion vs PE -Patient satting in the upper 80's to lower 90's on 3L. -Left pleural effusion, left basilar atelectasis vs consolidation. will consider thoracentesis if needed. -Incentive spirometer -Guanifensen 10 ml Q6 PRN -Continue duonebs Q4hr maurizio -Star Solumederol IV 40 mg Q6h per -Venous duplex to r/o DVT ordered -ABG results reviewd- pH 7.44, pCO2- 31.5, HCO3- 21.3 -Pulmonary on board, Dr. Mariscal -No need to follow up on pulmonary nodule due to fleischner society recommendations #LLE cellulitis, improving -Afebrile -Wound cx - no growth to date -Unasyn completed #Flank Pain: -CT- hydroureteralonephrosis -Urology recs- Flomax 0.4 mg BID, f/u outpatient -Patient refuses davis #CKD -Stable -Appears baseline from prior Cr levels #FEN: -No fluids -lytes stable -Na restricted diet #PPx -DVT: heparin 5000 units sq BID -GI: not indicated at this time Visit type - Emergency Visit Emergency Visit: No - New Patient This patient is new to me today: No - Critical Care Critical Care patient: No
--- NOTE | 2017-01-22 14:40 | CONSULT ---
Consult Consult Specialty:: Hematology/Oncology Reason for Consultation:: Thrombocytopenia - History of Present Illness History of Present Illness: HPI and Hospital Course: is a 86-year-old man who was admitted with acute metabolic encephalopathy in the setting of a UTI, also has history of hydronephrosis, and developed new onset Afib. During the hospitalization , overnight he also developed SOB, hypoxia and hypotension. During the course from 01/20, platelets noted to trend down, for which hematology is consulted. Patient seen and examined. 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 denies: Swollen Glands Physical Exam Vital Signs: Vital Signs Temperature 98 F 01/22/17 14:07 Pulse Rate 121 H 01/22/17 14:07 Respiratory Rate 18 01/22/17 14:07 Blood Pressure 88/49 01/22/17 14:07 O2 Sat by Pulse Oximetry (%) 93 L 01/21/17 21:00 Constitutional: Yes: Mild Distress HENT: Yes: Atraumatic, Normocephalic Neck: Yes: Trachea Midline Cardiovascular: Yes: Tachycardia Respiratory: Yes: Regular Gastrointestinal: Yes: Soft, Abdomen, Obese Edema: (LLE>RLE) Labs: CBC, BMP 01/22/17 05:48 01/22/17 06:00 Problem List - Problems (1) Thrombocytopenia Code(s): D69.6 - THROMBOCYTOPENIA, UNSPECIFIED (2) Altered mental status Code(s): R41.82 - ALTERED MENTAL STATUS, UNSPECIFIED (3) Atrial fibrillation with RVR Code(s): I48.91 - UNSPECIFIED ATRIAL FIBRILLATION (4) UTI (urinary tract infection) Code(s): N39.0 - URINARY TRACT INFECTION, SITE NOT SPECIFIED (5) Kidney injury Code(s): S37.009A - UNSPECIFIED INJURY OF UNSPECIFIED KIDNEY, INITIAL ENCOUNTER (6) Hypoxemia Code(s): R09.02 - HYPOXEMIA Assessment/Plan New onset Thrombocytopenia JUNG New Onset Afib Acute Hypoxic respiratory distress Hypotension UTI. 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 He is at risk for Thrombosis. He would need to be anticoagulated with non-heparinoid product and argatroban is the choice in the setting of JUNG. Less likely other causes. -extreme careful monitoring of aPTT is needed. Protocol given to the team resident. Would aim at a goal of 45-70 (therapeutic), if low , increase by 0.5mcg, if higher increase by 0.5mcg. if PTT >100 , hold for one hour and restart drip. Also discussed with the RN of the patient. Spoke to pharmacy prior to initiation of the drip. -send off serotonin release assay , await HIT ab,if HIT ab negative, would await ASA prior to changing anti-coagulation. -r/o DVT of the Lower extremity, high risk for PE geovany in the setting of the overnight episode. -cardiology/Pulm following -JUNG ,?hypotension/lasix use/Obstruction -will follow.
--- NOTE | 2017-01-22 16:50 | HOSP ---
Subjective - Review of Symptoms Subjective: Notified doppler +DVT. pt remains tachycardic and hypotensive. High concern for large PE causing R heart strain may be cause of sudden onset of hypotension after pt being normotensive during hospital stay. (other possibility is over diuresis) Called for stat bedside echo Will transfer pt to MICU for closer monitoring in setting. Spoke with cardio and pulm Will place consult for vascular surgery for possible need for thrombectomy as IR unavailable at this time Physical Examination Vital Signs: Vital Signs Temperature 98 F 01/22/17 14:07 Pulse Rate 121 H 01/22/17 14:07 Respiratory Rate 18 01/22/17 14:07 Blood Pressure 88/49 01/22/17 14:07 O2 Sat by Pulse Oximetry (%) 93 L 01/21/17 21:00 Labs: CBC, BMP 01/22/17 05:48 01/22/17 06:00
[2017-01-22] MEDS ORDERED: SODIUM CHLORIDE 1,000 ML IV SCH (17:00)
[2017-01-22] MEDS ORDERED: ALBUTEROL SO4 2.5/IPRATROPIUM 0.5 INH SOL 3 ML VIAL.NEB. NEB PRN (17:07)
[2017-01-22] MEDS ORDERED: SODIUM CHLORIDE 500 ML IV STA (17:15)
--- NOTE | 2017-01-22 17:21 | PN ---
Progress Note (short form) - Note Progress Note: asked to re-evaluate for hypoxia- ?pneumonia duplex with DVT resting comfortably cxray unchanged from prior no fever alert Vital Signs Period Temp Pulse Resp BP Sys/Locke Pulse Ox Last 24 Hr 98 F-99.2 F 92-121 16-20 81-92/45-58 90-93 cor-rrr lungs scattered rhonchi abd soft,nt ext no edema CBC, BMP 01/22/17 05:48 01/22/17 06:00 Microbiology 01/10/17 20:30 Blood - Peripheral Venous Blood Culture - Final NO GROWTH AFTER 5 DAYS INCUBATION 01/10/17 20:30 Blood - Peripheral Venous Blood Culture - Final NO GROWTH AFTER 5 DAYS INCUBATION 01/13/17 14:45 Calf - Left Anterior Gram Stain - Final 01/13/17 14:45 Calf - Left Anterior Wound Culture - Final NO GROWTH AFTER 48 HOURS INCUBATION 01/10/17 14:41 Urine - Urine Clean Catch Urine Culture - Final a/p hypoxia, new DVT- ?PE- plan per primary service-for transfer to ICU doubt pneumonia no antibiotics for now inna- refuses davis gentle hydration thrombocytopenia- ?HIT, would also obtain blood cultures d/w resident Problem List - Problems (1) COPD (chronic obstructive pulmonary disease) Code(s): J44.9 - CHRONIC OBSTRUCTIVE PULMONARY DISEASE, UNSPECIFIED (2) CHF (congestive heart failure) Code(s): I50.9 - HEART FAILURE, UNSPECIFIED Qualifiers: Congestive heart failure type: unspecified congestive heart failure type Congestive heart failure chronicity: unspecified congestive heart failure chronicity Qualified Code(s): I50.9 - Heart failure, unspecified
--- NOTE | 2017-01-22 19:01 | PN ---
Progress Note (short form) - Note Progress Note: Patient remains hypotensive and tachycardic. Off cardizem, bp meds held, lasix held due to concern for over diuresis. Heparin d/c'cd due to thrombocytopenia most likely HIT. Argatroban started. -Follow PTT. -Duplex ordered, found to have right popliteal DVT. -Need to rule out large pulmonary embolus/saddle. Echo unavailable to look for right heart strain. Rise in creatinine today from 1.7 to 2.6 therefore cannot do CTA. -V/Q scan in am -echo -Vascular consulted; I spoke with Dr. Cullen regarding concern for saddle embolus. Thrombectomy/IVC filter not indicated. Patient on AC. f/u consult. -Transfer to ICU. -Cardio/PULM/ID on case -establish if there is health care proxy
--- NOTE | 2017-01-22 20:15 | CONSULT ---
Consult Consult Specialty:: Pulm/CCM Reason for Consultation:: Hypotension and tachycardia c/f PE - History of Present Illness Chief Complaint: HYpotension and tachycardia History of Present Illness: 86 yo M with PMH of b/l severe hydronephrosis '16 who was brought in by family with c/o back and groin pain found to have dementia, hydronephrosis, UTI and LLE cellulitis. Recently developed A-fib with RVR and started on heparin c/ b thrombocytopenia and switched to Argatroban d/t c/f HIT. Today found to have a DVT in Lt popliteal. He was transferred to ICU with hypotension and tachycardia with c/f saddle PE. Unable to confirm with CTA re JUNG. Plan for V-Q scan in am In ICU remains with A-fib with RVR to 100's to 120's, BP stable 90's/50's alert and oriented x2, confused. Continued on O2 support and argatroban drip. 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 Cardio/Vascular: Yes: AFIB - Alcohol/Substance Use Hx Alcohol Use: No - Smoking History Smoking history: Never smoked Have you smoked in the past 12 months: No Home Medications - Allergies Allergies/Adverse Reactions: Allergies Allergy/AdvReac Type Severity Reaction Status Date / Time No Known Allergies Allergy Verified 01/10/17 13:53 - Home Medications Home Medications: Ambulatory Orders Tamsulosin HCl [Flomax -] 0.4 mg PO BID@0830,2200 #30 cap 01/15/17 Family Disease History - Family Disease History Family History: Unremarkable Review of Systems Unable to obtain ROS, reason: Poor historian, confused Physical Exam Vital Signs: Vital Signs Temperature 98.4 F 01/22/17 18:40 Pulse Rate 150 H 01/22/17 18:40 Respiratory Rate 26 H 01/22/17 18:40 Blood Pressure 89/66 01/22/17 18:40 O2 Sat by Pulse Oximetry (%) 92 L 01/22/17 18:40 Constitutional: Yes: Well Nourished, No Distress Eyes: Yes: Conjunctiva Clear, PERRL HENT: Yes: Normocephalic Neck: Yes: Supple, Trachea Midline Cardiovascular: Yes: Tachycardia, Pulse Irregular Respiratory: Yes: Regular, CTA Bilaterally Gastrointestinal: Yes: Soft, Abdomen, Obese, Other (non tender) Renal/: Yes: Segura Present Extremities: Yes: Erythema, Other Edema: Yes Edema: LLE: Trace, RLE: Trace Peripheral Pulses WNL: Yes Integumentary: Yes: Venous Stasis Changes (BLE; LLE erythema) Neurological: Yes: Alert, Confusion Psychiatric: Yes: Alert Labs: CBC, BMP 01/22/17 05:48 01/22/17 06:00 CBC,CMP WBC 8.6 K/mm3 (4.0-10.0) 01/22/17 05:48 RBC 3.62 M/mm3 (4.00-5.60) L 01/22/17 05:48 Hgb 11.2 GM/dL (11.7-16.9) L 01/22/17 05:48 Hct 33.7 % (35.4-49) L 01/22/17 05:48 MCV 93.2 fl (80-96) 01/22/17 05:48 MCH 31.0 pg (25.7-33.7) 01/22/17 05:48 MCHC 33.3 g/dl (32.0-35.9) 01/22/17 05:48 RDW 15.5 % (11.9-15.9) 01/22/17 05:48 Plt Count 63 K/MM3 (134-434) L 01/22/17 05:48 MPV 8.7 fl (7.5-11.1) 01/22/17 05:48 Neutrophils % 73.1 % (42.8-82.8) 01/22/17 05:48 Lymphocytes % 16.5 % (8-40) 01/22/17 05:48 Monocytes % 8.3 % (3.8-10.2) 01/22/17 05:48 Eosinophils % 1.7 % (0-4.5) 01/22/17 05:48 Basophils % 0.4 % (0-2.0) 01/22/17 05:48 Band Neutrophils 0.0 % (0-10) 01/14/17 06:25 Differential Comment Manual diff done 01/14/17 06:25 Reactive Lymphocytes 2 % (0-80) D 01/14/17 06:25 Platelet Estimate Adequate (NORMAL) 01/14/17 06:25 Sodium 135 mmol/L (136-145) L 01/22/17 06:00 Potassium 3.9 mmol/L (3.5-5.1) 01/22/17 06:00 Chloride 101 mmol/L (98-107) 01/22/17 06:00 Carbon Dioxide 23 mmol/L (21-32) 01/22/17 06:00 Anion Gap 11 (8-16) 01/22/17 06:00 BUN 64 mg/dL (7-18) H D 01/22/17 06:00 Creatinine 2.6 mg/dL (0.7-1.3) H D 01/22/17 06:00 Creat Clearance w eGFR 44.59 (>60) 01/12/17 06:30 Random Glucose 115 mg/dL (74-106) H 01/22/17 06:00 Hemoglobin A1c % 5.8 % (4.8-6.0) 01/21/17 05:35 Lactic Acid 1.4 mmol/L (0.4-2.0) 01/22/17 17:55 Calcium 8.3 mg/dL (8.5-10.1) L 01/22/17 06:00 Phosphorus 4.6 mg/dL (2.5-4.9) D 01/22/17 06:00 Magnesium 2.1 mg/dL (1.8-2.4) 01/22/17 06:00 Total Bilirubin 0.9 mg/dL (0.2-1.0) D 01/12/17 06:30 AST 18 U/L (15-37) 01/12/17 06:30 ALT 24 U/L (12-78) 01/12/17 06:30 Alkaline Phosphatase 104 U/L (45-117) 01/12/17 06:30 Troponin I 0.13 ng/ml (0.00-0.05) H 01/20/17 10:40 B-Natriuretic Peptide 8953.77 pg/ml (5-450) H 01/22/17 17:30 Total Protein 6.0 g/dl (6.4-8.2) L 01/12/17 06:30 Albumin 3.0 g/dl (3.4-5.0) L 01/12/17 06:30 Triglycerides 55 mg/dL (35-160) 01/21/17 05:35 Cholesterol 152 mg/dL (50-200) 01/21/17 05:35 Total LDL Cholesterol 98 mg/dL (5-100) 01/21/17 05:35 HDL Cholesterol 46 mg/dL (40-60) 01/21/17 05:35 Vitamin B12 1255 pg/ml (180-914) H 01/11/17 06:35 TSH 0.56 uIU/ml (0.358-3.74) 01/11/17 06:35 Active Medications Acetaminophen (Tylenol -) 650 mg PO Q4H PRN PRN Reason: FEVER OR PAIN Albuterol/Ipratropium (Duoneb -) 1 amp NEB Q4HWA PRN PRN Reason: SHORT OF BREATH/WHEEZING Last Admin: 01/22/17 17:15 Dose: 1 amp Bacitracin/Polymyxin B Sulfate (Polysporin Ointment -) 1 applic TP BID ROBERTO Chlorhexidine Gluconate (Hibiclens For Decolonization -) 1 applic TP HS ROBERTO Guaifenesin (Robitussin -) 10 ml PO Q6H PRN PRN Reason: COUGH Argatroban 250,000 mcg/ Sodium (Chloride) 250 mls @ 11.97 mls/hr IVPB TITR ROBERTO ; 2 MCG/KG/MIN PRN Reason: Protocol Methylprednisolone Sodium Succinate (Solu-Medrol -) 40 mg IVPB Q6H-IV ROBERTO Metoprolol Tartrate (Lopressor -) 25 mg PO TID [facility] Multivitamins/Minerals/Vitamin C (Tab-A-Vit -) 1 tab PO DAILY ROBERTO Mupirocin (Bactroban Ointment (For Decolonization) -) 1 applic NS BID [facility] Stop: 01/27/17 21:59 Tamsulosin HCl (Flomax -) 0.4 mg PO BID@0830,2200 [facility] Imaging - Results Chest X-ray: Image Reviewed Problem List - Problems (1) Atrial fibrillation with RVR Code(s): I48.91 - UNSPECIFIED ATRIAL FIBRILLATION (2) CHF (congestive heart failure) Code(s): I50.9 - HEART FAILURE, UNSPECIFIED Qualifiers: Congestive heart failure type: unspecified congestive heart failure type Congestive heart failure chronicity: unspecified congestive heart failure chronicity Qualified Code(s): I50.9 - Heart failure, unspecified (3) Dementia Code(s): F03.90 - UNSPECIFIED DEMENTIA WITHOUT BEHAVIORAL DISTURBANCE (4) Hydronephrosis Code(s): N13.30 - UNSPECIFIED HYDRONEPHROSIS (5) Hypotension Code(s): I95.9 - HYPOTENSION, UNSPECIFIED Assessment/Plan 86 yo M with PMH hydronephrosis, dementia, recent A-fib with RVR on Argatroban, found to have a LE DVT admitted to ICU with hypotension and tachycardia with c/ f PE. Plan for VQ scan in am re JUNG. Plan: Pulm/CV:Hypotension and tachycardia with c/f submassive PE -Cardiothoracic consult -O2 support as needed for O2sat>92%- -Fluid bolus +/-vasopressors as needed for MAP>60 -Continue Argatroban for therapeutic PTT -Consider amiodarone for A-fib -Hold antiHypertensives -Strict I+O -Monitor BMP and UOP
[2017-01-22] MEDS ORDERED: guaiFENesin 200 MG/10 ML 10 ML UNIT-DOSE CUPS PO PRN (20:36)
[2017-01-22] MEDS ORDERED: ACETAMINOPHEN 325 MG TABLET (FP) PO PRN (20:36)
[2017-01-22] MEDS: ARGATROBAN - 250,000 MCG in SODIUM CHLORIDE 247.5 ML IVPB SCH (22:17)
[2017-01-22] MEDS: CHLORHEXIDINE GLUCONATE 4% CLEANSER FOR DECOLONIZATION TP SCH (22:17)
[2017-01-22] MEDS: MUPIROCIN 2% TOPICAL OINTMENT FOR DECOLONIZATION NS SCH (22:18)
[2017-01-23] MEDS ORDERED: PHENYLEPHRINE HCL 10 MG/1 ML SINGLE DOSE VIAL ONE ×4 (01:04→23:39)
[2017-01-23] MEDS ORDERED: PHENYLEPHRINE HCL 20,000 MCG in SODIUM CHLORIDE 248 ML IVPB SCH (01:15)
[2017-01-23] MEDS: PHENYLEPHRINE HCL 20,000 MCG in SODIUM CHLORIDE 248 ML IVPB SCH ×3 (01:30→14:58)
[2017-01-23] MEDS: methylPREDNISolone NA SUCC 40 MG/1 ML VIAL IVPB SCH ×4 (03:04→21:30)
[2017-01-23] MEDS ORDERED: VANCOMYCIN 1,250 MG in DEXTROSE 5%-WATER - 250 ML IVPB ONE (03:15)
[2017-01-23] MEDS: PIPERACILLIN/TAZOB 3.375 GM/50 ML PRE-DOCKED IVPB SCH ×3 (03:15→17:35)
[2017-01-23 03:35] LABS: URINE APPEARANCE CLOUDY; URINE BILIRUBIN NEGATIVE (NEGATIVE); URINE BLOOD 3+ (NEGATIVE); URINE COLOR DKYELLOW; URINE GLUCOSE (UA) 1+ (NEGATIVE); URINE KETONE NEGATIVE (NEGATIVE); URINE LEUK ESTERASE TRACE (NEGATIVE); URINE NITRITE NEGATIVE (NEGATIVE); URINE UROBILINOGEN NEGATIVE mg/dL (0.2-1.0)
[2017-01-23 03:51] LABS: URINE PROTEIN 2+ (NEGATIVE)
[2017-01-23 04:10] LABS: URINE BACTERIA MODERATE /hpf (NONE SEEN); URINE HYALINE CAST 12 /lpf; URINE MUCUS RARE; URINE RBC 600 /hpf (0-3); URINE WBC 338 /hpf (3-5)
[2017-01-23] MEDS: METOPROLOL TARTRATE 25 MG TABLET (FP) PO SCH ×3 (06:11→22:24)
[2017-01-23 06:34] LABS: BASOPHIL 0.1 % (0-2.0); MCH 32.1 pg (25.7-33.7); MEAN CELL VOLUME 91.9 fl (80-96); MEAN PLT VOLUME 9.3 fl (7.5-11.1); NEUTROPHILS 85.2 % (42.8-82.8); PLATELET COUNT 82 K/MM3 (134-434); RDW 15.2 % (11.9-15.9); WHITE BLOOD COUNT 7.8 K/mm3 (4.0-10.0)
[2017-01-23 06:42] LABS: INR 3.15 (0.82-1.09)
[2017-01-23 06:59] LABS: ANION GAP 12 (8-16); CALCIUM 8.2 mg/dL (8.5-10.1); CO2 22 mmol/L (21-32); GLUCOSE,RANDOM 191 mg/dL (74-106); MAGNESIUM 2.2 mg/dL (1.8-2.4); PHOSPHOROUS 5.1 mg/dL (2.5-4.9)
[2017-01-23 07:00] LABS: CREATININE 2.5 mg/dL (0.7-1.3)
[2017-01-23 07:01] LABS: FIBRINOGEN < 100.0 mg/dL (238-498)
[2017-01-23] MEDS ORDERED: METOPROLOL TARTRATE 5 MG/5 ML VIAL IVPUSH ONE (08:34)
[2017-01-23] MEDS ORDERED: METOPROLOL TARTRATE 5 MG/5 ML VIAL IVPUSH PRN (08:35)
--- NOTE | 2017-01-23 08:41 | PN ---
Progress Note, Physician Chief Complaint: Events noted Currently transferred to ICU with multiple issues (+) DVT, atrial fibrillation with RVR and periods of hypotension and to rule out PE Underlying acute on chronic kidney failure with elevated creatinine History of Present Illness: Patient was seen and examined. Awake, but hard of hearing. Chart was reviewed Atrial fibrillation with RVR Await V/Q scan instead of CTA due to elevated creatinine level Does not appear to have chest pain or shortness of breath - Current Medication List Current Medications: Active Medications Acetaminophen (Tylenol -) 650 mg PO Q4H PRN PRN Reason: FEVER OR PAIN Albuterol/Ipratropium (Duoneb -) 1 amp NEB Q4HWA PRN PRN Reason: SHORT OF BREATH/WHEEZING Last Admin: 01/22/17 17:15 Dose: 1 amp Bacitracin/Polymyxin B Sulfate (Polysporin Ointment -) 1 applic TP BID ROBERTO Last Admin: 01/22/17 22:19 Dose: 1 applic Chlorhexidine Gluconate (Hibiclens For Decolonization -) 1 applic TP HS ROBERTO Last Admin: 01/22/17 22:17 Dose: 1 applic Guaifenesin (Robitussin -) 10 ml PO Q6H PRN PRN Reason: COUGH Argatroban 250,000 mcg/ Sodium (Chloride) 250 mls @ 11.97 mls/hr IVPB TITR ROBERTO ; 2 MCG/KG/MIN PRN Reason: Protocol Last Admin: 01/22/17 22:17 Dose: 11.97 mls/hr Phenylephrine HCl 20,000 mcg/ (Sodium Chloride) 250 mls @ 75 mls/hr IVPB TITR ROBERTO; 100 MCG/MIN PRN Reason: Protocol Last Admin: 01/23/17 07:45 Dose: 37.5 mls/hr Methylprednisolone Sodium Succinate (Solu-Medrol -) 40 mg IVPB Q6H-IV ROBERTO Last Admin: 01/23/17 03:04 Dose: 40 mg Metoprolol Tartrate (Lopressor -) 25 mg PO TID [facility] Last Admin: 01/23/17 06:11 Dose: Not Given Multivitamins/Minerals/Vitamin C (Tab-A-Vit -) 1 tab PO DAILY [facility] Mupirocin (Bactroban Ointment (For Decolonization) -) 1 applic NS BID [facility] Stop: 01/27/17 21:59 Last Admin: 01/22/17 22:18 Dose: 1 applic Piperacillin Sod/Tazobactam Sod (Zosyn 3.375gm Ivpb (Pre-Docked)) 3.375 gm IVPB Q8H-IV ROBERTO PRN Reason: Protocol Last Admin: 01/23/17 03:15 Dose: 3.375 gm Tamsulosin HCl (Flomax -) 0.4 mg PO BID@0830,2200 ROBERTO Last Admin: 01/22/17 22:17 Dose: 0.4 mg - Objective Vital Signs: Vital Signs Temperature 97.9 F 01/23/17 06:00 Pulse Rate 122 H 01/23/17 07:45 Respiratory Rate 18 01/23/17 06:00 Blood Pressure 93/62 01/23/17 07:45 O2 Sat by Pulse Oximetry (%) 92 L 01/22/17 20:51 Cardiovascular: Yes: Tachycardia, Pulse Irregular, Murmur (Soft SM), S1, S2 Respiratory: Yes: Diminished Gastrointestinal: Yes: Normal Bowel Sounds, Soft. No: Tenderness Edema: No Additional Findings/Remarks: - Review of Systems Constitutional: denies: Chills, Fever Cardiovascular: As noted above Respiratory: reports: Cough or Sputum Production Gastrointestinal: denies: Nausea, Vomiting, Diarrhea, Constipation or Abdominal Pain Genitourinary: No symptoms reported Musculoskeletal: reports: Persistent Back Pain Labs: CBC, BMP 01/23/17 05:15 01/23/17 05:15 INR, PTT INR 3.15 (0.82-1.09) H D 01/23/17 05:15 Fibrinogen < 100.0 mg/dL (238-498) L* 01/23/17 05:15 Problem List - Problems (1) Altered mental status Code(s): R41.82 - ALTERED MENTAL STATUS, UNSPECIFIED (2) CHF (congestive heart failure) Code(s): I50.9 - HEART FAILURE, UNSPECIFIED Qualifiers: Congestive heart failure type: unspecified congestive heart failure type Congestive heart failure chronicity: unspecified congestive heart failure chronicity Qualified Code(s): I50.9 - Heart failure, unspecified (3) COPD (chronic obstructive pulmonary disease) Code(s): J44.9 - CHRONIC OBSTRUCTIVE PULMONARY DISEASE, UNSPECIFIED (4) Cellulitis Code(s): L03.90 - CELLULITIS, UNSPECIFIED (5) Lung nodule Code(s): R91.1 - SOLITARY PULMONARY NODULE (6) Hydronephrosis Code(s): N13.30 - UNSPECIFIED HYDRONEPHROSIS (7) Atrial fibrillation with RVR Code(s): I48.91 - UNSPECIFIED ATRIAL FIBRILLATION (8) Dementia Code(s): F03.90 - UNSPECIFIED DEMENTIA WITHOUT BEHAVIORAL DISTURBANCE (9) Metabolic encephalopathy Code(s): G93.41 - METABOLIC ENCEPHALOPATHY Assessment/Plan 1. Hypotension - asymptomatic most likely multifactorial 2. 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 Encephalopathy, Probable toxic Metabolic and probable underlying dementia 6. Acute on chronic kidney disease, Progressive with increase in creatinine 7. Bilateral hydronephrosis 8. 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 DVT of right popliteal vein PLAN: 1. Currently on Argatroban 2. Cardizem IV or Lopressor IVP as needed - give a dose of Lopressor 5 mg IVP now and then Q4 hr PRN for rate control. 3. PO cardiac meds stopped due to hypotension 4. Lasix is held in view of the above-noted progressive renal insufficiency 5. Await V/Q scan 6. ID input noted Further plans are to follow Mac Cueto MD
[2017-01-23] MEDS: TAMSULOSIN HCL 0.4 MG CAP.ER.24H (FP) PO SCH ×2 (09:01→22:23)
[2017-01-23] MEDS: MULTIVITAMINS (DAILY MVI) TABLET (FP) PO SCH (09:32)
--- NOTE | 2017-01-23 10:25 | CONSULT ---
Admitting History and Physical - Primary Care Physician PCP: Esmer Lopez - Admission Chief Complaint: Coughing while eating History of Present Illness: Per EMR: "86 yo M with PMH hydronephrosis, dementia, recent A-fib with RVR on Argatroban, found to have a LE DVT admitted to ICU with hypotension and tachycardia with c/f PE." Selected Entries 01/22/17 01/22/17 01/22/17 02:00 06:00 10:00 Breakfast Lunch Temperature 98.6 F 98.9 F 98.2 F 01/22/17 01/22/17 01/22/17 11:50 14:07 18:00 Breakfast 100% Lunch 100% Temperature 98 F 98.4 F 01/22/17 01/22/17 01/23/17 18:40 22:00 02:00 Breakfast Lunch Temperature 98.4 F 97.6 F 98 F 01/23/17 06:00 Breakfast Lunch Temperature 97.9 F Laboratory Tests 01/22/17 01/23/17 05:48 05:15 WBC 8.6 7.8 This is my first consultation with Mr. Escudero. History Source: Patient, Medical Record Limitations to Obtaining History: No Limitations (Good historian,o x 3. Quite [place]. Lives alone.) - Past Medical History Cardiovascular: Yes: AFIB - Smoking History Smoking history: Never smoked Have you smoked in the past 12 months: No - Alcohol/Substance Use Hx Alcohol Use: No - Social History Usual Living Arrangement: Yes: Alone History - Admission Reason For Visit: UTI,HYDRONEPHROSIS - Diagnostics X-ray: Report Reviewed - General Mental Status: Alert and Oriented, Awake and Alert, Able to Follow Commands Attention: Intact Ability to Follow Directions: Excellent Head/Neck Control: WFL - Hearing Hearing: Impaired, Both (suspected. No hearing aids. Pt is a .) Speech Evaluation - Communication Primary Language: MAURITIAN Communication: Yes: Within Normal Limits Oral Expression Ability: Yes: No Impairment - Speech Production Able to Make Needs Known: Yes: WNL Intelligibility: Yes: WNL - Speech Characteristics Voice Loudness: Mildly Soft/Quiet Voice Pitch: Yes: Normal Voice Phonatory-based Quality: Yes: Dysphonia Speech Pattern: Normal Speech Clarity: < 100% Nasal Resonance: Normal Articulation: Yes: Precise - Language/Auditory Comprehension Follows: Yes: 1 Stage Simple Commands Observation: Able to respond to yes/no queries: Yes, Comprehends Conversational Speech: Yes (when he hears you), Benefits from Slow Speech: Yes, Benefits from Repetiton: Yes, Benefits from Increased Volume of Speech: Yes - Language/Verbal Expression Able to Respond to Simple Queries: Yes: WNL Able to Communicate Wants and Needs: Yes: WNL Functional Communication Status: Yes: WNL - Swallow Evaluation/Bedside Assessment Current Nutritional Intake: Regular, Thin Liquids Oral Secretions: Yes: WFL Dentition: Yes: Missing Teeth (several. Has partial loose dentures at home, but does not use them.) Facial Symmetry at Rest: Symmetrical Facial Symmetry on Retraction: Symmetrical Facial Movement: Controlled Sensation: Normal Against Resistance Opening: Normal Against Resistance Closing: Normal Pucker Lips: Normal Lingual Movement: Normal, Symmetric Lingual Speed of Movement: Normal Lingual Movement Strgth Against Opposition: Normal Lingual Movement Characteristics: Normal Velopharyngeal Movement: Normal Laryngeal Movement: Able to Palpate Bolus Size: WFL Labial Seal: WFL Chewing: WFL (quite efficient overtly.) Oral Prep Time: WFL A-P Transit: WFL Pocketing: None Timing of Swallow: WFL Coughing/Throat Clear: Yes (1 instant of brief cough.) Change in Voice: No Recommendations - Speech Evaluation, Impression/Plan Impression: Verbal.Dysphonia. Good hisatorian.Significant hearing loss suspected. No hearing aids. Pt is a [place]. Good mastication. Swallow seems quite brisk.One instance of brief strong cough with cracker. Possibly residue in pharynx/. 3 oz water test (-) . Doubt aspirating but can not r/o at bedside. - Dysphagia Impressions/Plan Dysphagia Impressions: Ongoing Evaluation *Silent aspiration: cannot be R/O at bedside Recommendations: Modified Barium Swallow (if cough persists with meals), Other ( Remind pt to alternate solids with liquids to clear pharynx. Pt would benefit from audiological[facility] aid [facility] - Recommendations Diet Consistency: Regular (if cough noted, downgrade to dys whole and order mbs) Medication Administration: Whole with water Liquids: Thin Liquids
[2017-01-23] MEDS: MUPIROCIN 2% TOPICAL OINTMENT FOR DECOLONIZATION NS SCH ×2 (11:12→22:23)
[2017-01-23] MEDS: BACITRACIN/POLYMYXIN B SULFATE 15 GM TUBE TP SCH ×2 (11:12→22:25)
[2017-01-23] MEDS: ARGATROBAN - 250,000 MCG in SODIUM CHLORIDE 247.5 ML IVPB SCH ×2 (13:19→22:23)
--- NOTE | 2017-01-23 14:10 | PN ---
Teaching Attending Note Name of Resident: Eliazar Ramirez ATTENDING PHYSICIAN STATEMENT I saw and evaluated the patient. I reviewed the resident's note and discussed the case with the resident. I agree with the resident's findings and plan as documented. SUBJECTIVE: Patient seen and examined in the ICU. Awake and alert. Mildly confused. Denies CP or SOB. ECHO being performed at the bedside. Argatroban infusing. Intake & Output 01/20/17 01/21/17 01/22/17 01/23/17 23:59 23:59 23:59 23:59 Intake Total 160 1190 320 644 Output Total 1350 2600 600 Balance 160 -160 -2280 44 Weight 218 lb 0.595 oz Last Vital Signs Temp Pulse Resp BP Pulse Ox 97.5 F L 143 H 31 H 106/78 94 L 01/23/17 14:00 01/23/17 14:00 01/23/17 14:00 01/23/17 14:00 01/23/17 09:00 Active Medications Acetaminophen (Tylenol -) 650 mg PO Q4H PRN PRN Reason: FEVER OR PAIN Albuterol/Ipratropium (Duoneb -) 1 amp NEB Q4HWA PRN PRN Reason: SHORT OF BREATH/WHEEZING Last Admin: 01/22/17 17:15 Dose: 1 amp Bacitracin/Polymyxin B Sulfate (Polysporin Ointment -) 1 applic TP BID ROBERTO Last Admin: 01/23/17 11:12 Dose: 1 applic Chlorhexidine Gluconate (Hibiclens For Decolonization -) 1 applic TP HS ROBERTO Last Admin: 01/22/17 22:17 Dose: 1 applic Guaifenesin (Robitussin -) 10 ml PO Q6H PRN PRN Reason: COUGH Argatroban 250,000 mcg/ Sodium (Chloride) 250 mls @ 11.97 mls/hr IVPB TITR ROBERTO ; 2 MCG/KG/MIN PRN Reason: Protocol Last Admin: 01/23/17 13:19 Dose: 11.97 mls/hr Phenylephrine HCl 20,000 mcg/ (Sodium Chloride) 250 mls @ 75 mls/hr IVPB TITR ROBERTO; 100 MCG/MIN PRN Reason: Protocol Last Admin: 01/23/17 07:45 Dose: 37.5 mls/hr Methylprednisolone Sodium Succinate (Solu-Medrol -) 40 mg IVPB Q6H-IV [facility] Last Admin: 01/23/17 09:52 Dose: 40 mg Metoprolol Tartrate (Lopressor -) 25 mg PO TID [facility] Last Admin: 01/23/17 06:11 Dose: Not Given Metoprolol Tartrate (Lopressor Injection -) 5 mg IVPUSH Q4H PRN PRN Reason: HYPERTENSION Multivitamins/Minerals/Vitamin C (Tab-A-Vit -) 1 tab PO DAILY [facility] Last Admin: 01/23/17 09:32 Dose: 1 tab Mupirocin (Bactroban Ointment (For Decolonization) -) 1 applic NS BID [facility] Stop: 01/27/17 21:59 Last Admin: 01/23/17 11:12 Dose: 1 applic Piperacillin Sod/Tazobactam Sod (Zosyn 3.375gm Ivpb (Pre-Docked)) 3.375 gm IVPB Q8H-IV [facility] PRN Reason: Protocol Last Admin: 01/23/17 10:52 Dose: 3.375 gm Tamsulosin HCl (Flomax -) 0.4 mg PO BID@0830,2200 [facility] Last Admin: 01/23/17 09:01 Dose: 0.4 mg Constitutional: Yes: Awake and alert, No Distress Eyes: Yes: Conjunctiva Clear, PERRL HENT: Yes: Normocephalic Neck: Yes: Supple, Trachea Midline Cardiovascular: Yes: Tachycardia, Pulse Irregular Respiratory: Yes: Scattered rhonchi Gastrointestinal: Yes: Soft, Abdomen, Obese, NT Renal/: Yes: Segura Present Extremities: Yes: Erythema, Other Edema: Yes Edema: LLE: Trace, RLE: Trace Peripheral Pulses WNL: Yes Integumentary: Yes: Venous Stasis Changes (BLE; LLE erythema) Neurological: Yes: Alert, Confusion Psychiatric: Yes: Alert Labs: Laboratory Results - last 24 hr 01/22/17 01/22/17 01/22/17 15:55 17:30 17:55 WBC RBC Hgb Hct MCV MCH MCHC RDW Plt Count MPV Neutrophils % Lymphocytes % Monocytes % Eosinophils % Basophils % INR PTT (Actin FS) 58.3 H Fibrinogen Sodium Potassium Chloride Carbon Dioxide Anion Gap BUN Creatinine Random Glucose Lactic Acid 1.4 Calcium Phosphorus Magnesium B-Natriuretic Peptide 8953.77 H Urine Color Urine Appearance Urine pH Urine Protein Urine Glucose (UA) Urine Ketones Urine Blood Urine Nitrite Urine Bilirubin Urine Urobilinogen Ur Leukocyte Esterase Urine RBC Urine WBC Urine Bacteria Hyaline Casts Urine Mucus 01/22/17 01/23/17 01/23/17 22:00 03:00 05:15 WBC RBC Hgb Hct MCV MCH MCHC RDW Plt Count MPV Neutrophils % Lymphocytes % Monocytes % Eosinophils % Basophils % INR PTT (Actin FS) 66.1 H 65.4 H Fibrinogen Sodium Potassium Chloride Carbon Dioxide Anion Gap BUN Creatinine Random Glucose Lactic Acid Calcium Phosphorus Magnesium B-Natriuretic Peptide Urine Color Dkyellow Urine Appearance Cloudy Urine pH 5.0 Urine Protein 2+ H Urine Glucose (UA) 1+ H Urine Ketones Negative Urine Blood 3+ H Urine Nitrite Negative Urine Bilirubin Negative Urine Urobilinogen Negative Ur Leukocyte Esterase Trace Urine RBC 600 Urine WBC 338 Urine Bacteria Moderate Hyaline Casts 12 Urine Mucus Rare 01/23/17 01/23/17 01/23/17 05:15 05:15 05:15 WBC 7.8 RBC 3.35 L Hgb 10.8 L Hct 30.8 L MCV 91.9 MCH 32.1 MCHC 35.0 RDW 15.2 Plt Count 82 L D MPV 9.3 Neutrophils % 85.2 H Lymphocytes % 12.5 D Monocytes % 2.2 L Eosinophils % 0.0 D Basophils % 0.1 INR 3.15 H D PTT (Actin FS) Fibrinogen < 100.0 L* Sodium 134 L Potassium 4.1 Chloride 100 Carbon Dioxide 22 Anion Gap 12 BUN 75 H Creatinine 2.5 H Random Glucose 191 H D Lactic Acid Calcium 8.2 L Phosphorus 5.1 H Magnesium 2.2 B-Natriuretic Peptide Urine Color Urine Appearance Urine pH Urine Protein Urine Glucose (UA) Urine Ketones Urine Blood Urine Nitrite Urine Bilirubin Urine Urobilinogen Ur Leukocyte Esterase Urine RBC Urine WBC Urine Bacteria Hyaline Casts Urine Mucus Problem List - Problems (1) Atrial fibrillation with RVR Code(s): I48.91 - UNSPECIFIED ATRIAL FIBRILLATION (2) CHF (congestive heart failure) Code(s): I50.9 - HEART FAILURE, UNSPECIFIED Qualifiers: Congestive heart failure type: unspecified congestive heart failure type Congestive heart failure chronicity: unspecified congestive heart failure chronicity Qualified Code(s): I50.9 - Heart failure, unspecified (3) Dementia Code(s): F03.90 - UNSPECIFIED DEMENTIA WITHOUT BEHAVIORAL DISTURBANCE (4) Hydronephrosis Code(s): N13.30 - UNSPECIFIED HYDRONEPHROSIS (5) Hypotension Code(s): I95.9 - HYPOTENSION, UNSPECIFIED Assessment/Plan Suspected HIT DVT (?) PE Hydronephrosis JUNG Mild dementia A-fib with RVR Hypotension PLAN: Argatroban O2 as needed Check ECHO IVF Rate control for AFib Hold antiHypertensives Strict I+O Monitor UOP Dr Clark Critical care time spent in reviewing chart, evaluating patient and formulating plan - 35 minutes.
--- NOTE | 2017-01-23 15:30 | PN ---
Progress Note (short form) - Note Progress Note: remains on pressors feels better Vital Signs Period Temp Pulse Resp BP Sys/Locke Pulse Ox Last 24 Hr 97.3 F-98.4 F 72-168 18-32 84-110/53-85 90-94 cor-rrr lungs decreased bs at bases abd soft,nt ext no edema davis CBC, BMP 01/23/17 05:15 01/23/17 05:15 Microbiology 01/10/17 20:30 Blood - Peripheral Venous Blood Culture - Final NO GROWTH AFTER 5 DAYS INCUBATION 01/10/17 20:30 Blood - Peripheral Venous Blood Culture - Final NO GROWTH AFTER 5 DAYS INCUBATION 01/13/17 14:45 Calf - Left Anterior Gram Stain - Final 01/13/17 14:45 Calf - Left Anterior Wound Culture - Final NO GROWTH AFTER 48 HOURS INCUBATION 01/10/17 14:41 Urine - Urine Clean Catch Urine Culture - Final blood/urine cultures pending ua with 338 WBCs a/p hypotension requiring pressors hypoxia, new DVT- ?PE- cannot r/o left lower lobe infiltrate possible UTI- pyuria on ua continue zosyn f/u cultures thrombocytopenia- ?HIT rapid afib urinary retention- now with davis in place Problem List - Problems (1) COPD (chronic obstructive pulmonary disease) Code(s): J44.9 - CHRONIC OBSTRUCTIVE PULMONARY DISEASE, UNSPECIFIED (2) CHF (congestive heart failure) Code(s): I50.9 - HEART FAILURE, UNSPECIFIED Qualifiers: Congestive heart failure type: unspecified congestive heart failure type Congestive heart failure chronicity: unspecified congestive heart failure chronicity Qualified Code(s): I50.9 - Heart failure, unspecified
--- NOTE | 2017-01-23 15:49 | PN ---
Physical Exam: SUBJECTIVE: Patient seen and examined. he has no complaints, found eating breakfast in NAD. Patient denies chest pain, SOB. Patient is hard of hearing. OBJECTIVE: Vital Signs Period Temp Pulse Resp BP Sys/Locke Pulse Ox Last 24 Hr 97.3 F-98.4 F 72-168 18-32 84-110/53-85 90-94 GENERAL: The patient is awake, alert, and fully oriented, in no acute distress. HEAD: Normal with no signs of trauma. EYES: PERRL, extraocular movements intact, sclera anicteric, conjunctiva clear. No ptosis. NECK: Trachea midline, full range of motion, supple. LUNGS: Breath sounds equal, clear to auscultation bilaterally, no wheezes, no crackles, no accessory muscle use. HEART: Regular rate and rhythm, S1, S2 without murmur, rub or gallop. ABDOMEN: Soft, nontender, nondistended, normoactive bowel sounds, no guarding, no rebound. EXTREMITIES: 2+ pulses, warm, well-perfused, no edema. NEUROLOGICAL: Cranial nerves II through X grossly intact. Normal speech, gait not observed. PSYCH: Normal mood, normal affect. SKIN: Warm, dry, normal turgor, no rashes or lesions noted Laboratory Results - last 24 hr 01/22/17 01/22/17 01/22/17 15:55 17:30 17:55 WBC RBC Hgb Hct MCV MCH MCHC RDW Plt Count MPV Neutrophils % Lymphocytes % Monocytes % Eosinophils % Basophils % INR PTT (Actin FS) 58.3 H Fibrinogen Sodium Potassium Chloride Carbon Dioxide Anion Gap BUN Creatinine Random Glucose Lactic Acid 1.4 Calcium Phosphorus Magnesium B-Natriuretic Peptide 8953.77 H Urine Color Urine Appearance Urine pH Ur Specific [place] Urine Protein Urine Glucose (UA) Urine Ketones Urine Blood Urine Nitrite Urine Bilirubin Urine Urobilinogen Ur Leukocyte Esterase Urine RBC Urine WBC Urine Bacteria Hyaline Casts Urine Mucus 01/22/17 01/23/17 01/23/17 22:00 03:00 05:15 WBC RBC Hgb Hct MCV MCH MCHC RDW Plt Count MPV Neutrophils % Lymphocytes % Monocytes % Eosinophils % Basophils % INR PTT (Actin FS) 66.1 H 65.4 H Fibrinogen Sodium Potassium Chloride Carbon Dioxide Anion Gap BUN Creatinine Random Glucose Lactic Acid Calcium Phosphorus Magnesium B-Natriuretic Peptide Urine Color Dkyellow Urine Appearance Cloudy Urine pH 5.0 Ur Specific [place] 1.020 Urine Protein 2+ H Urine Glucose (UA) 1+ H Urine Ketones Negative Urine Blood 3+ H Urine Nitrite Negative Urine Bilirubin Negative Urine Urobilinogen Negative Ur Leukocyte Esterase Trace Urine RBC 600 Urine WBC 338 Urine Bacteria Moderate Hyaline Casts 12 Urine Mucus Rare 01/23/17 01/23/17 01/23/17 05:15 05:15 05:15 WBC 7.8 RBC 3.35 L Hgb 10.8 L Hct 30.8 L MCV 91.9 MCH 32.1 MCHC 35.0 RDW 15.2 Plt Count 82 L D MPV 9.3 Neutrophils % 85.2 H Lymphocytes % 12.5 D Monocytes % 2.2 L Eosinophils % 0.0 D Basophils % 0.1 INR 3.15 H D PTT (Actin FS) Fibrinogen < 100.0 L* Sodium 134 L Potassium 4.1 Chloride 100 Carbon Dioxide 22 Anion Gap 12 BUN 75 H Creatinine 2.5 H Random Glucose 191 H D Lactic Acid Calcium 8.2 L Phosphorus 5.1 H Magnesium 2.2 B-Natriuretic Peptide Urine Color Urine Appearance Urine pH Ur Specific [place] Urine Protein Urine Glucose (UA) Urine Ketones Urine Blood Urine Nitrite Urine Bilirubin Urine Urobilinogen Ur Leukocyte Esterase Urine RBC Urine WBC Urine Bacteria Hyaline Casts Urine Mucus Active Medications Generic Name Dose Route Start Last Admin Trade Name Ervinq PRN Reason Stop Dose Admin Acetaminophen 650 mg 01/22/17 20:36 Tylenol - PO Q4H PRN FEVER OR PAIN Albuterol/Ipratropium 1 amp 01/22/17 17:07 01/22/17 17:15 Duoneb - NEB 1 amp Q4HWA PRN Administration SHORT OF BREATH/WHEEZING Bacitracin/Polymyxin B Sulfate 1 applic 01/22/17 22:00 01/23/17 11:12 Polysporin Ointment - TP 1 applic BID ROBERTO Administration Chlorhexidine Gluconate 1 applic 01/22/17 22:00 01/22/17 22:17 Hibiclens For Decolonization - TP 1 applic HS ROBERTO Administration Docusate Sodium 100 mg 01/24/17 10:00 Colace - PO DAILY ROBERTO Guaifenesin 10 ml 01/22/17 20:36 Robitussin - PO Q6H PRN COUGH Argatroban 250,000 mcg/ Sodium 250 mls @ 11.97 mls/hr 01/22/17 20:36 01/23/17 13:19 Chloride IVPB 11.97 mls/hr TITR ROBERTO Administration Protocol 2 MCG/KG/MIN Phenylephrine HCl 20,000 mcg/ 250 mls @ 75 mls/hr 01/23/17 02:01 01/23/17 15:02 Sodium Chloride IVPB 40 mcg/min TITR ROBERTO Titration Protocol 100 MCG/MIN Methylprednisolone Sodium Succinate 40 mg 01/22/17 21:00 01/23/17 09:52 Solu-Medrol - IVPB 40 mg Q6H-IV ROBERTO Administration Metoprolol Tartrate 25 mg 01/22/17 22:00 01/23/17 14:56 Lopressor - PO 25 mg TID ROBERTO Administration Metoprolol Tartrate 5 mg 01/23/17 08:35 Lopressor Injection - IVPUSH Q4H PRN HYPERTENSION Multivitamins/Minerals/Vitamin C 1 tab 01/23/17 10:00 01/23/17 09:32 Tab-A-Vit - PO 1 tab DAILY ROBERTO Administration Mupirocin 1 applic 01/22/17 22:00 01/23/17 11:12 Bactroban Ointment (For Decolonization) - NS 01/27/17 21:59 1 applic BID ROBERTO Administration Piperacillin Sod/Tazobactam Sod 3.375 gm 01/23/17 03:15 01/23/17 10:52 Zosyn 3.375gm Ivpb (Pre-Docked) IVPB 3.375 gm Q8H-IV ROBERTO Administration Protocol Tamsulosin HCl 0.4 mg 01/22/17 22:00 01/23/17 09:01 Flomax - PO 0.4 mg BID@0830,2200 ROBERTO Administration ASSESSMENT/PLAN: Neuro: -A&Ox3 Pulmonary: -patient with DVT with acute desaturation and tachycardia; suspicious for PE -Doppler shows DVT in left popliteal artery -argatroban at 2mcg/kg/min -solumetrol 40 mg IV Q6H Cardio: -new onset afib w/ RVR -lopressor 25 PO TID -lopressor 5mg IV push PRN tachycardia -hypotension -phenylephrine at 40mcg/min -titrate according to patient's requirements Urology: -patient was being treated for UTI -c/w zosyn 3.375gm q8h FEN: -no fluids indicated at this time -will monitor electrolytes -sodium controlled diet Prophy: -no GI prophylaxsis indicated at this time. -patient on AC, no need for DVT prophy Dispo: -continue to monitor in ICU. Visit type - Emergency Visit Emergency Visit: Yes ED Registration Date: 01/10/17 Care time: The patient presented to the Emergency Department on the above date and was hospitalized for further evaluation of their emergent condition. - New Patient This patient is new to me today: Yes Date on this admission: 01/23/17 - Critical Care Critical Care patient: Yes Total Critical Care Time (in minutes): 45 Critical Care Statement: The care of this patient involved high complexity decision making to prevent further life threatening deterioration of the patient 's condition and/or to evaluate & treat vital organ system(s) failure or risk of failure.
--- NOTE | 2017-01-23 16:25 | PN ---
Teaching Attending Note Name of Resident: Palmer Rios ATTENDING PHYSICIAN STATEMENT I saw and evaluated the patient. I reviewed the resident's note and discussed the case with the resident. I agree with the resident's findings and plan as documented. SUBJECTIVE:asymptomatic. states he is not short of breath. denies CP, fever, chills, cough OBJECTIVE: Last Vital Signs Temp Pulse Resp BP Pulse Ox 97.5 F L 131 H 31 H 106/78 94 L 01/23/17 14:00 01/23/17 14:58 01/23/17 14:00 01/23/17 14:58 01/23/17 09:00 Intake & Output 01/20/17 01/21/17 01/22/17 01/23/17 23:59 23:59 23:59 23:59 Intake Total 160 5843 047 6617 Output Total 1350 2600 1400 Balance 160 -160 -2280 -256 Weight 218 lb 0.595 oz General NAD, [place], tachypnic CV S1 S2 tachycardic Lungs Crackles +L base >R base Extremities chronic venous changes B/L LE trace pitting edema ASSESSMENT AND PLAN: 86-year-old man with a history of bilateral hydronephrosis who presented to the ER with groin pain. 1. Acute metabolic encephalopathy secondary to UTI and LLE cellulitis- resolved. completed abx course 2. Acute Hypoxic respiratory distress- likely due to pleural effusion vs concern for PE (pt is tachycardic, hypoxic). VQ scan pending. echo to evaluate for R heart strain pending. if both are negative will repeat CXR to evaluate effusion if worsening will need to consider thoracentesis. has been on hold due to thrombocytopenia and currently waiting as on pressors. cont supplemental oxygen to mantain spO2 > 90%. pulmonary on [place]ord 3. Hypotension- large PE vs over-diuresis vs sepsis. stable on pressors. titrate as needed. davis placed for accurate I&O. monitor UOP. started on empiric vanco/zosyn for suspected HCAP (cannot r/o LLL infiltrate) and pyuria. ID on board. no lactic acidosis 4. New onset Afib- uncontrolled. lopressor prn HR >120. on argatroban for a/c. 5. Thrombocytopenia- slowly improving. no signs of bleeding. hematology consulted. HIT ab sent. monitor plt function 6. Pulmonary nodule- resolved. as per pulmonary no need to monitor pulmonary nodule. 7. Acute on CKD- likely due to medication induced vs hypoperfusion. hold lasix. avoid nephrotoxic agents. davis placed. monitor I&O. 8. Bilateral hydroureteronephrosis secondary to BPH- refusing davis. cont flomax. urology outpatient follow up 9. Possible hepatic cysts- Oupatient US 10. MICU monitoring CC TIME 40 minutes. The care of this patient involved high complexity decision making to prevent further life threatening deterioration of the patient's condition and/or to evalute & treat vital organ system(s) failure or risk of failure.
--- NOTE | 2017-01-23 16:42 | PN ---
Physical Exam: SUBJECTIVE: Patient seen and examined No acute events overnight. Patient has no complaints this morning. OBJECTIVE: Vital Signs Period Temp Pulse Resp BP Sys/Locke Pulse Ox Last 24 Hr 97.3 F-98.4 F 72-168 18-32 84-110/53-85 90-94 GENERAL: Awake, alert, in no acute distress. HEAD: Normal with no signs of trauma. EYES: Pupils equal, round and reactive to light, extraocular movements intact, sclera anicteric, conjunctiva clear. No lid lag. EARS, NOSE, THROAT: Moist mucous membranes. Poor hearing b/l NECK: supple without JVD LUNGS: Breath sounds equal, Diffuse expiratory wheezing, crackles at b/l bases, Tachypnic HEART: Tachycardic, Regular rhythm, normal S1 and S2 ABDOMEN: Soft, nontender, moderately distended, normoactive bowel sounds, no guarding, no rebound, no masses. No hepatomegaly or splenomegaly. MUSCULOSKELETAL: No CVA tenderness. UPPER EXTREMITIES: 2+ pulses, warm, well-perfused. No cyanosis. No clubbing. No peripheral edema. LOWER EXTREMITIES: 2+ pulses, warm, well-perfused. No calf tenderness. L ankle cellulitis -- improving. Mild pitting edema, appears dry R ankle-Nontender stasis dermatitis, mild pitting edema NEUROLOGICAL: Cranial nerves II-XII intact. Normal speech. strength 4+/5 in all extremities, sensation intact b/l PSYCHIATRIC: Cooperative. Good eye contact. Appropriate mood and affect, forgetful, confused SKIN: Warm, dry Laboratory Results - last 24 hr 01/22/17 01/22/17 01/22/17 15:55 17:30 17:55 WBC RBC Hgb Hct MCV MCH MCHC RDW Plt Count MPV Neutrophils % Lymphocytes % Monocytes % Eosinophils % Basophils % INR PTT (Actin FS) 58.3 H Fibrinogen Sodium Potassium Chloride Carbon Dioxide Anion Gap BUN Creatinine Random Glucose Lactic Acid 1.4 Calcium Phosphorus Magnesium B-Natriuretic Peptide 8953.77 H Urine Color Urine Appearance Urine pH Ur Specific [place] Urine Protein Urine Glucose (UA) Urine Ketones Urine Blood Urine Nitrite Urine Bilirubin Urine Urobilinogen Ur Leukocyte Esterase Urine RBC Urine WBC Urine Bacteria Hyaline Casts Urine Mucus 01/22/17 01/23/17 01/23/17 22:00 03:00 05:15 WBC RBC Hgb Hct MCV MCH MCHC RDW Plt Count MPV Neutrophils % Lymphocytes % Monocytes % Eosinophils % Basophils % INR PTT (Actin FS) 66.1 H 65.4 H Fibrinogen Sodium Potassium Chloride Carbon Dioxide Anion Gap BUN Creatinine Random Glucose Lactic Acid Calcium Phosphorus Magnesium B-Natriuretic Peptide Urine Color Dkyellow Urine Appearance Cloudy Urine pH 5.0 Ur Specific [place] 1.020 Urine Protein 2+ H Urine Glucose (UA) 1+ H Urine Ketones Negative Urine Blood 3+ H Urine Nitrite Negative Urine Bilirubin Negative Urine Urobilinogen Negative Ur Leukocyte Esterase Trace Urine RBC 600 Urine WBC 338 Urine Bacteria Moderate Hyaline Casts 12 Urine Mucus Rare 01/23/17 01/23/17 01/23/17 05:15 05:15 05:15 WBC 7.8 RBC 3.35 L Hgb 10.8 L Hct 30.8 L MCV 91.9 MCH 32.1 MCHC 35.0 RDW 15.2 Plt Count 82 L D MPV 9.3 Neutrophils % 85.2 H Lymphocytes % 12.5 D Monocytes % 2.2 L Eosinophils % 0.0 D Basophils % 0.1 INR 3.15 H D PTT (Actin FS) Fibrinogen < 100.0 L* Sodium 134 L Potassium 4.1 Chloride 100 Carbon Dioxide 22 Anion Gap 12 BUN 75 H Creatinine 2.5 H Random Glucose 191 H D Lactic Acid Calcium 8.2 L Phosphorus 5.1 H Magnesium 2.2 B-Natriuretic Peptide Urine Color Urine Appearance Urine pH Ur Specific [place] Urine Protein Urine Glucose (UA) Urine Ketones Urine Blood Urine Nitrite Urine Bilirubin Urine Urobilinogen Ur Leukocyte Esterase Urine RBC Urine WBC Urine Bacteria Hyaline Casts Urine Mucus Active Medications Generic Name Dose Route Start Last Admin Trade Name Bret PRN Reason Stop Dose Admin Acetaminophen 650 mg 01/22/17 20:36 Tylenol - PO Q4H PRN FEVER OR PAIN Albuterol/Ipratropium 1 amp 01/22/17 17:07 01/22/17 17:15 Duoneb - NEB 1 amp Q4HWA PRN Administration SHORT OF BREATH/WHEEZING Bacitracin/Polymyxin B Sulfate 1 applic 01/22/17 22:00 01/23/17 11:12 Polysporin Ointment - TP 1 applic BID MAURIZIO Administration Chlorhexidine Gluconate 1 applic 01/22/17 22:00 01/22/17 22:17 Hibiclens For Decolonization - TP 1 applic HS MAURIZIO Administration Docusate Sodium 100 mg 01/24/17 10:00 Colace - PO DAILY MAURIZIO Guaifenesin 10 ml 01/22/17 20:36 Robitussin - PO Q6H PRN COUGH Argatroban 250,000 mcg/ Sodium 250 mls @ 11.97 mls/hr 01/22/17 20:36 01/23/17 13:19 Chloride IVPB 11.97 mls/hr TITR MAURIZIO Administration Protocol 2 MCG/KG/MIN Phenylephrine HCl 20,000 mcg/ 250 mls @ 75 mls/hr 01/23/17 02:01 01/23/17 15:02 Sodium Chloride IVPB 40 mcg/min TITR MAURIZIO Titration Protocol 100 MCG/MIN Methylprednisolone Sodium Succinate 40 mg 01/22/17 21:00 01/23/17 09:52 Solu-Medrol - IVPB 40 mg Q6H-IV MAURIZIO Administration Metoprolol Tartrate 25 mg 01/22/17 22:00 01/23/17 14:56 Lopressor - PO 25 mg TID MAURIZIO Administration Metoprolol Tartrate 5 mg 01/23/17 08:35 Lopressor Injection - IVPUSH Q4H PRN HYPERTENSION Multivitamins/Minerals/Vitamin C 1 tab 01/23/17 10:00 01/23/17 09:32 Tab-A-Vit - PO 1 tab DAILY MAURIZIO Administration Mupirocin 1 applic 01/22/17 22:00 01/23/17 11:12 Bactroban Ointment (For Decolonization) - NS 01/27/17 21:59 1 applic BID MAURIZIO Administration Piperacillin Sod/Tazobactam Sod 3.375 gm 01/23/17 03:15 01/23/17 10:52 Zosyn 3.375gm Ivpb (Pre-Docked) IVPB 3.375 gm Q8H-IV MAURIZIO Administration Protocol Tamsulosin HCl 0.4 mg 01/22/17 22:00 01/23/17 09:01 Flomax - PO 0.4 mg BID@0830,2200 MAURIZIO Administration ASSESSMENT/PLAN: 86 yo M with PMH of b/l severe hydronephrosis L>R seen on CT 10/31/15, otherwise unknown [facility] (poor historian/no records), who presented with confusion, groin and back pain. #Metabolic encephalopathy in the setting of AMS possibly due to UTI being tx w/ abx, RESOLVED -A&Ox3 -completed course of unasyn #New onset Atrial Fibrillation -Cardizem drip discontinued -Hold metoprolol 25mg TID -Heparin drip discontinued -IV lopressor 5 mg IVpush q4h PRN -Argatroban drip started per hematology. Will check PTT @1600 and titrate appropriately. Spoke with RN and she is aware #Thrombocytopenia -Likely 2/2 to heparin, 4T score of 6 -HIT antibody sent -Heparin d/c, Started on argatroban drip per hematology #Acute hypoxic respiratory distress likely 2/2 to pleural effusion vs PE -Patient satting in the upper 80's to lower 90's on 3L. -Left pleural effusion, left basilar atelectasis vs consolidation. will consider thoracentesis if needed. -Incentive spirometer -Guanifensen 10 ml Q6 PRN -Continue duonebs Q4hr maurizio -Continue Solumederol IV 40 mg Q6h per -Pt has Right popliteal DVT -Pulmonary on board, Dr. Mariscal -No need to follow up on pulmonary nodule due to fleischner society recommendations #LLE cellulitis, improving -Afebrile -Wound cx - no growth to date -Unasyn completed #Flank Pain: -CT- hydroureteralonephrosis -Urology recs- Flomax 0.4 mg BID, f/u outpatient -Patient refuses davis #JUNG on CKD 2/2 to hypoperfusion after episode of hypotension vs. lasix use -Patient has davis in place -Monitor UOP -Avoid nephrotoxic agents #FEN: -No fluids -lytes stable -Na restricted diet #PPx -DVT: Argatroban drip -GI: not indicated at this time Visit type - Emergency Visit Emergency Visit: No - New Patient This patient is new to me today: No - Critical Care Critical Care patient: Yes Total Critical Care Time (in minutes): 40 Critical Care Statement: The care of this patient involved high complexity decision making to prevent further life threatening deterioration of the patient 's condition and/or to evaluate & treat vital organ system(s) failure or risk of failure.
[2017-01-23] MEDS ORDERED: dilTIAZem HCL 50 MG/10 ML - 10 ML VIAL IVPUSH ONE (17:17)
[2017-01-23] MEDS ORDERED: dilTIAZem HCL 50 MG/10 ML - 10 ML VIAL IVPUSH PRN (18:47)
--- NOTE | 2017-01-23 20:24 | CONSULT ---
Consult Consult Specialty:: Vascular Surgery - History of Present Illness History of Present Illness: 86 year old male admitted 01/10 with dementia, hydronephrosis, UTI and LLE cellulitis. He recently developed A-fib was started on heparin but then switched to Argatroban due to possible HIT. A Duplex of the leg was done and read as showing a DVT in left popliteal vein. Yesterday he became hypotensive and was transferred to ICU. There is no documentation of prior DVT. 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 Cardio/Vascular: Yes: AFIB - Alcohol/Substance Use Hx Alcohol Use: No - Smoking History Smoking history: Never smoked Have you smoked in the past 12 months: No Home Medications - Allergies Allergies/Adverse Reactions: Allergies Allergy/AdvReac Type Severity Reaction Status Date / Time No Known Allergies Allergy Verified 01/10/17 13:53 - Home Medications Home Medications: Ambulatory Orders Tamsulosin HCl [Flomax -] 0.4 mg PO BID@0830,2200 #30 cap 01/15/17 Physical Exam Vital Signs: Vital Signs Temperature 97.6 F 01/23/17 18:00 Pulse Rate 119 H 01/23/17 20:00 Respiratory Rate 30 H 01/23/17 20:00 Blood Pressure 110/89 01/23/17 20:00 O2 Sat by Pulse Oximetry (%) 94 L 01/23/17 19:41 Constitutional: Yes: No Distress Eyes: Yes: WNL HENT: Yes: WNL Neck: Yes: Supple Cardiovascular: Yes: Pulse Irregular Respiratory: Yes: Regular Gastrointestinal: Yes: Soft Edema: LLE: 1+, RLE: 1+ Labs: CBC, BMP 01/23/17 05:15 01/23/17 05:15 Imaging - Results Ultrasound: Image Reviewed (Venous Duplex shows highly echogenic clot in left popliteal vein suggestive of chronic thrombus.) Problem List - Problems (1) DVT (deep venous thrombosis) Assessment/Plan: It is unclear if the popliteal thrombus is old or new as there is no old study to compare. It looks consistent with olf thrombus due to echogenicity. At this point there is no contraindication to anticoagulation and no indication for placement of an IVC filter. If new clots form while on adequate anticoagulation, or bleeding develops, a filter may be indicated. Code(s): I82.409 - ACUTE EMBOLISM AND THOMBOS UNSP DEEP VN UNSP LOWER EXTREMITY Qualifiers: DVT location: lower extremity Affected thrombotic vein of extremity: popliteal Chronicity: unspecified Laterality: left Qualified Code (s): I82.432 - Acute embolism and thrombosis of left popliteal vein
--- NOTE | 2017-01-23 21:51 | PN ---
Progress Note (short form) - Note Progress Note: Patient seen and examined this am. feels less SOB. family at bedside. Constitutional: Yes: no Distress HENT: Yes: Atraumatic, Normocephalic Neck: Yes: Trachea Midline Cardiovascular: Yes: Tachycardia Respiratory: Yes: Regular, breath sounds Gastrointestinal: Yes: Soft, Abdomen, Obese Current Medications Generic Name Dose Route Start Last Admin Trade Name Freq PRN Reason Stop Dose Admin Acetaminophen 650 mg 01/22/17 20:36 Tylenol - PO Q4H PRN FEVER OR PAIN Albuterol/Ipratropium 1 amp 01/22/17 17:07 01/22/17 17:15 Duoneb - NEB 1 amp Q4HWA PRN Administration SHORT OF BREATH/WHEEZING Bacitracin/Polymyxin B Sulfate 1 applic 01/22/17 22:00 01/23/17 11:12 Polysporin Ointment - TP 1 applic BID ROBERTO Administration Chlorhexidine Gluconate 1 applic 01/22/17 22:00 01/22/17 22:17 Hibiclens For Decolonization - TP 1 applic HS ROBERTO Administration Diltiazem HCl 10 mg 01/23/17 18:47 Cardizem Injection - IVPUSH Q4H PRN TACHYCARDIA Docusate Sodium 100 mg 01/24/17 10:00 Colace - PO DAILY ROBERTO Guaifenesin 10 ml 01/22/17 20:36 Robitussin - PO Q6H PRN COUGH Argatroban 250,000 mcg/ Sodium 250 mls @ 11.97 mls/hr 01/22/17 20:36 01/23/17 13:19 Chloride IVPB 11.97 mls/hr TITR ROBERTO Administration Protocol 2 MCG/KG/MIN Phenylephrine HCl 20,000 mcg/ 250 mls @ 75 mls/hr 01/23/17 02:01 01/23/17 15:02 Sodium Chloride IVPB 40 mcg/min TITR ROBERTO Titration Protocol 100 MCG/MIN Methylprednisolone Sodium Succinate 40 mg 01/22/17 21:00 01/23/17 17:19 Solu-Medrol - IVPB 40 mg Q6H-IV ROBERTO Administration Metoprolol Tartrate 25 mg 01/22/17 22:00 01/23/17 14:56 Lopressor - PO 25 mg TID ROBERTO Administration Metoprolol Tartrate 5 mg 01/23/17 08:35 Lopressor Injection - IVPUSH Q4H PRN HYPERTENSION Multivitamins/Minerals/Vitamin C 1 tab 01/23/17 10:00 01/23/17 09:32 Tab-A-Vit - PO 1 tab DAILY ROBERTO Administration Mupirocin 1 applic 01/22/17 22:00 01/23/17 11:12 Bactroban Ointment (For Decolonization) - NS 01/27/17 21:59 1 applic BID ROBERTO Administration Piperacillin Sod/Tazobactam Sod 3.375 gm 01/23/17 03:15 01/23/17 17:35 Zosyn 3.375gm Ivpb (Pre-Docked) IVPB 3.375 gm Q8H-IV ROBERTO Administration Protocol Tamsulosin HCl 0.4 mg 01/22/17 22:00 01/23/17 09:01 Flomax - PO 0.4 mg BID@0830,2200 ROBERTO Administration Last Vital Signs Temp Pulse Resp BP Pulse Ox 97.6 F 119 H 30 H 110/89 94 L 01/23/17 18:00 01/23/17 20:00 01/23/17 20:00 01/23/17 20:00 01/23/17 19:41 CBC, BMP 01/23/17 05:15 01/23/17 05:15 INR, PTT INR 3.15 (0.82-1.09) H D 01/23/17 05:15 Fibrinogen < 100.0 mg/dL (238-498) L* 01/23/17 05:15 Assessment/Plan: New onset Thrombocytopenia JUNG New Onset Afib Acute Hypoxic respiratory distress sepsis due to PNA UTI. Bilateral hydroureteronephrosis secondary to BPH Plan: -suspicious for HIT, HIT ab pending, platelet count improving -on argatroban, with 2 therapeutic PTT, Would aim at a goal of 45-70 ( therapeutic), if low , increase by 0.5mcg, if higher increase by 0.5mcg. if PTT >100 , hold for one hour and restart drip, repeat PTT in 4hrs with any change in the rate of the drip. (aim for two therapeutic ptt at any time prior to changing to q12hr ptt monitoring.) -will await hit ab prior to changing any AC -on emperic abx -will follow. -discussed with resident and RN Problem List - Problems (1) Thrombocytopenia Code(s): D69.6 - THROMBOCYTOPENIA, UNSPECIFIED (2) Altered mental status Code(s): R41.82 - ALTERED MENTAL STATUS, UNSPECIFIED (3) Atrial fibrillation with RVR Code(s): I48.91 - UNSPECIFIED ATRIAL FIBRILLATION (4) UTI (urinary tract infection) Code(s): N39.0 - URINARY TRACT INFECTION, SITE NOT SPECIFIED (5) Kidney injury Code(s): S37.009A - UNSPECIFIED INJURY OF UNSPECIFIED KIDNEY, INITIAL ENCOUNTER (6) Hypoxemia Code(s): R09.02 - HYPOXEMIA
[2017-01-23] MEDS: CHLORHEXIDINE GLUCONATE 4% CLEANSER FOR DECOLONIZATION TP SCH (22:24)
[2017-01-24] MEDS: methylPREDNISolone NA SUCC 40 MG/1 ML VIAL IVPB SCH ×4 (02:31→21:20)
[2017-01-24] MEDS: PHENYLEPHRINE HCL 20,000 MCG in SODIUM CHLORIDE 248 ML IVPB SCH ×2 (02:31→08:11)
[2017-01-24] MEDS: PIPERACILLIN/TAZOB 3.375 GM/50 ML PRE-DOCKED IVPB SCH ×3 (02:34→17:21)
[2017-01-24 06:03] LABS: BASOPHIL 0.3 % (0-2.0); EOSINOPHIL 0.1 % (0-4.5); MCH 31.1 pg (25.7-33.7); MCHC 33.7 g/dl (32.0-35.9); MEAN CELL VOLUME 92.3 fl (80-96); MEAN PLT VOLUME 9.5 fl (7.5-11.1); NEUTROPHILS 87.1 % (42.8-82.8); PLATELET COUNT 120 K/MM3 (134-434); RDW 15.6 % (11.9-15.9); WHITE BLOOD COUNT 11.7 K/mm3 (4.0-10.0)
[2017-01-24] MEDS: METOPROLOL TARTRATE 25 MG TABLET (FP) PO SCH ×3 (06:20→21:22)
[2017-01-24 06:57] LABS: ALBUMIN 2.6 g/dl (3.4-5.0); ALK PHOS 80 U/L (45-117); ANION GAP 10 (8-16); BILIRUBIN,TOTAL 0.6 mg/dL (0.2-1.0); CALCIUM 7.9 mg/dL (8.5-10.1); CO2 22 mmol/L (21-32); CREATININE 2.5 mg/dL (0.7-1.3); GLUCOSE,RANDOM 158 mg/dL (74-106); MAGNESIUM 2.3 mg/dL (1.8-2.4); SGOT/AST 13 U/L (15-37); SGPT/ALT 40 U/L (12-78)
--- NOTE | 2017-01-24 07:04 | PN ---
Progress Note (short form) - Note Progress Note: Chief Complaint: Events noted, notes reviewed. Patient reports persistent dyspnea, denies any chest discomfort, atrial fibrillation Persists with rapid ventricular response, hypotension on pressors History of Present Illness: Seen and examined in the ICU. Events noted, notes reviewed. Patient reports persistent dyspnea, denies any chest discomfort, atrial fibrillation Persists with rapid ventricular response, hypotension on pressors V/Q scan cancelled unclear reason, repeat echocardiography report noted normal LV and RV function with RVSP between 30-40 mmHg Transthoracic echocardiography dated 01/17/17 Revealed normal LV Systolic function with pulmonary HTN (RVSP between 40-50 Millimeters mercury), mild MR and TR Medications: Current Medications Acetaminophen (Tylenol -) 650 mg PO Q4H PRN PRN Reason: FEVER OR PAIN Albuterol/Ipratropium (Duoneb -) 1 amp NEB Q4HWA PRN PRN Reason: SHORT OF BREATH/WHEEZING Last Admin: 01/22/17 17:15 Dose: 1 amp Bacitracin/Polymyxin B Sulfate (Polysporin Ointment -) 1 applic TP BID ROBERTO Last Admin: 01/23/17 22:25 Dose: 1 applic Chlorhexidine Gluconate (Hibiclens For Decolonization -) 1 applic TP HS ROBERTO Last Admin: 01/23/17 22:24 Dose: 1 applic Diltiazem HCl (Cardizem Injection -) 10 mg IVPUSH Q4H PRN PRN Reason: TACHYCARDIA Docusate Sodium (Colace -) 100 mg PO DAILY ROBERTO Guaifenesin (Robitussin -) 10 ml PO Q6H PRN PRN Reason: COUGH Argatroban 250,000 mcg/ Sodium (Chloride) 250 mls @ 11.97 mls/hr IVPB TITR ROBERTO ; 2 MCG/KG/MIN PRN Reason: Protocol Last Admin: 01/23/17 22:23 Dose: 11.97 mls/hr Phenylephrine HCl 20,000 mcg/ (Sodium Chloride) 250 mls @ 75 mls/hr IVPB TITR ROBERTO; 100 MCG/MIN PRN Reason: Protocol Last Admin: 01/24/17 02:31 Dose: 30 mls/hr Methylprednisolone Sodium Succinate (Solu-Medrol -) 40 mg IVPB Q6H-IV ROBERTO Last Admin: 01/24/17 02:31 Dose: 40 mg Metoprolol Tartrate (Lopressor -) 25 mg PO TID [facility] Last Admin: 01/24/17 06:20 Dose: 25 mg Metoprolol Tartrate (Lopressor Injection -) 5 mg IVPUSH Q4H PRN PRN Reason: HYPERTENSION Multivitamins/Minerals/Vitamin C (Tab-A-Vit -) 1 tab PO DAILY [facility] Last Admin: 01/23/17 09:32 Dose: 1 tab Mupirocin (Bactroban Ointment (For Decolonization) -) 1 applic NS BID [facility] Stop: 01/27/17 21:59 Last Admin: 01/23/17 22:23 Dose: 1 applic Piperacillin Sod/Tazobactam Sod (Zosyn 3.375gm Ivpb (Pre-Docked)) 3.375 gm IVPB Q8H-IV ROBERTO PRN Reason: Protocol Last Admin: 01/24/17 02:34 Dose: 3.375 gm Tamsulosin HCl (Flomax -) 0.4 mg PO BID@0830,2200 [facility] Last Admin: 01/23/17 22:23 Dose: 0.4 mg Review of Systems - Review of Systems Constitutional: denies: Chills, Fever Cardiovascular: As noted above Respiratory: reports: Cough or Sputum Production Gastrointestinal: denies: Nausea, Vomiting, Diarrhea, Constipation or Abdominal Pain Genitourinary: No symptoms reported Musculoskeletal: No symptoms reported Vital Signs: Last Vital Signs Temp Pulse Resp BP Pulse Ox 97.6 F 135 H 31 H 109/68 94 L 01/24/17 06:00 01/24/17 06:00 01/24/17 06:00 01/24/17 06:00 01/23/17 19:41 Intake & Output 01/21/17 01/22/17 01/23/17 01/24/17 23:59 23:59 23:59 23:59 Intake Total 1275 605 1371 554 Output Total 1350 2600 2300 800 Balance -160 -2280 48 -246 Weight 218 lb 0.595 oz 223 lb 1.725 oz Neck: Supple Negative JVD no bruit appreciated Respiratory: Diminished Breath sounds at the bases Cardiovascular: S1 and S2 Irregularly Irregular Gastrointestinal: Soft benign Normal Bowel Sounds Extremities: Trace bilateral edema Labs: CBC, BMP 01/24/17 05:10 BMP from this AM pending Assessment/Plan ASSESSMENT: 1. Hypotension, asymptomatic most likely multifactorial, over-diuresis/ hypovolemia, PTE to be excluded 2. New onset paroxysmal atrial fibrillation [id number] score of 3-4 with rapid ventricular response currently on Argatroban therapy (HIT) 3. 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 CAD angina pectoris 5. Encephalopathy, Probable toxic Metabolic and probable underlying dementia 6. Acute on chronic kidney disease, Progressive 7. Bilateral hydronephrosis 8. 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 Continue Argatroban drip for now, shelter anticoagulation therapy is recommended considering the Above-noted [id number] score of 3-4, limiting factor is patient compliance with therapy administration 2. Continue IV Cardizem prn, hemodynamics permitting 3. Continue Metoprolol PO and prn IV and titrate dosage as tolerated, Hemodynamics permitting 4. Initiate Amiodarone to assist with cardioversion 5. Follow BMP from this AM 6. Continue to hold IV Lasix in view of progressive renal insufficiency 7. Recommend V/Q scan to R/O PTE 8. If atrial fibrillation persists may consider ZACARIAS guided cardioversion, pending hemodynamic improvement Carl Jara MD
[2017-01-24] MEDS ORDERED: AMIODARONE HCL 150 MG/3 ML VIAL IVPUSH ONE (07:13)
[2017-01-24] MEDS ORDERED: PHENYLEPHRINE HCL 10 MG/1 ML SINGLE DOSE VIAL ONE (07:35)
[2017-01-24] MEDS ORDERED: AMIODARONE HCL INJECTION 450 MG in DEXTROSE 5%-WATER - 250 ML IVPB SCH (07:45)
[2017-01-24] MEDS: TAMSULOSIN HCL 0.4 MG CAP.ER.24H (FP) PO SCH ×2 (08:13→21:20)
[2017-01-24] MEDS: DOCUSATE SODIUM 100 MG CAPSULE (FP) PO SCH (09:08)
[2017-01-24] MEDS: MUPIROCIN 2% TOPICAL OINTMENT FOR DECOLONIZATION NS SCH ×2 (09:08→22:34)
[2017-01-24] MEDS: BACITRACIN/POLYMYXIN B SULFATE 15 GM TUBE TP SCH ×2 (09:40→23:35)
[2017-01-24] MEDS: MULTIVITAMINS (DAILY MVI) TABLET (FP) PO SCH (09:40)
--- NOTE | 2017-01-24 11:15 | PN ---
Progress Note (short form) - Note Progress Note: remains on pressors-being tapered remains in rapid afib amiodarone started feels better Vital Signs Period Temp Pulse Resp BP Sys/Locke Pulse Ox Last 24 Hr 97.3 F-98 F 111-168 18-36 80-110/52-92 94 cor-rrr lungs few crackles both bases abd soft,nt ext eccymoses both arms davis CBC, BMP 01/24/17 05:10 01/24/17 05:10 Laboratory Tests 01/21/17 01/22/17 18:27 08:40 Hep-Induced Plt Ab Rapid 2.208 H HIV 1&2 Antibody Screen Negative HIV P24 Antigen Negative Microbiology 01/23/17 03:00 Urine - Urine Davis Urine Culture - Final NO GROWTH OBTAINED 01/22/17 18:00 Blood - Peripheral Venous Blood Culture - Preliminary NO GROWTH OBTAINED AFTER 24 HOURS, INCUBATION TO CONTINUE FOR 4 DAYS. 01/22/17 17:55 Blood - Peripheral Venous Blood Culture - Preliminary NO GROWTH OBTAINED AFTER 24 HOURS, INCUBATION TO CONTINUE FOR 4 DAYS. 01/10/17 20:30 Blood - Peripheral Venous Blood Culture - Final NO GROWTH AFTER 5 DAYS INCUBATION 01/10/17 20:30 Blood - Peripheral Venous Blood Culture - Final NO GROWTH AFTER 5 DAYS INCUBATION 01/13/17 14:45 Calf - Left Anterior Gram Stain - Final 01/13/17 14:45 Calf - Left Anterior Wound Culture - Final NO GROWTH AFTER 48 HOURS INCUBATION 01/10/17 14:41 Urine - Urine Clean Catch Urine Culture - Final a/p hypotension requiring pressors hypoxia, new DVT- ?PE- cultures negative cannot r/o pneumonia d/w ICU team continue zosyn for now thrombocytopenia-+HIT, improving rapid afib-now on amiodarone urinary retention- now with davis in place Problem List - Problems (1) COPD (chronic obstructive pulmonary disease) Code(s): J44.9 - CHRONIC OBSTRUCTIVE PULMONARY DISEASE, UNSPECIFIED (2) CHF (congestive heart failure) Code(s): I50.9 - HEART FAILURE, UNSPECIFIED Qualifiers: Congestive heart failure type: unspecified congestive heart failure type Congestive heart failure chronicity: unspecified congestive heart failure chronicity Qualified Code(s): I50.9 - Heart failure, unspecified
--- NOTE | 2017-01-24 11:46 | PN ---
Physical Exam: SUBJECTIVE: Patient seen and examined No acute events overnight. Patient has no new complaints. OBJECTIVE: Vital Signs Period Temp Pulse Resp BP Sys/Locke Pulse Ox Last 24 Hr 97.3 F-98 F 111-168 18-36 80-110/52-92 94 GENERAL: Awake, alert, in no acute distress. HEAD: Normal with no signs of trauma. EYES: Pupils equal, round and reactive to light, extraocular movements intact, sclera anicteric, conjunctiva clear. No lid lag. EARS, NOSE, THROAT: Moist mucous membranes. Poor hearing b/l NECK: supple without JVD LUNGS: Breath sounds equal, Diffuse expiratory wheezing, crackles at b/l bases, Tachypnic HEART: Tachycardic, Regular rhythm, normal S1 and S2 ABDOMEN: Soft, nontender, moderately distended, normoactive bowel sounds, no guarding, no rebound, no masses. No hepatomegaly or splenomegaly. MUSCULOSKELETAL: No CVA tenderness. UPPER EXTREMITIES: 2+ pulses, warm, well-perfused. No cyanosis. No clubbing. No peripheral edema. LOWER EXTREMITIES: 2+ pulses, warm, well-perfused. No calf tenderness. L ankle cellulitis -- improving. Mild pitting edema, appears dry R ankle-Nontender stasis dermatitis, mild pitting edema NEUROLOGICAL: Cranial nerves II-XII intact. Normal speech. strength 4+/5 in all extremities, sensation intact b/l PSYCHIATRIC: Cooperative. Good eye contact. Appropriate mood and affect, forgetful, confused SKIN: Warm, dry Laboratory Results - last 24 hr 01/21/17 01/23/17 01/23/17 18:27 03:00 21:50 WBC RBC Hgb Hct MCV MCH MCHC RDW Plt Count MPV Neutrophils % Lymphocytes % Monocytes % Eosinophils % Basophils % PTT (Actin FS) 70.6 H Sodium Potassium Chloride Carbon Dioxide Anion Gap BUN Creatinine Creat Clearance w eGFR Random Glucose Calcium Phosphorus Magnesium Total Bilirubin AST ALT Alkaline Phosphatase Total Protein Albumin Urine Color Dkyellow Urine Appearance Cloudy Urine pH 5.0 Ur Specific [place] 1.020 Urine Protein 2+ H Urine Glucose (UA) 1+ H Urine Ketones Negative Urine Blood 3+ H Urine Nitrite Negative Urine Bilirubin Negative Urine Urobilinogen Negative Ur Leukocyte Esterase Trace Urine RBC 600 Urine WBC 338 Urine Bacteria Moderate Hyaline Casts 12 Urine Mucus Rare Hep-Induced Plt Ab Rapid 2.208 H 01/24/17 01/24/17 01/24/17 05:10 05:10 05:10 WBC 11.7 H D RBC 3.63 L Hgb 11.3 L Hct 33.5 L MCV 92.3 MCH 31.1 MCHC 33.7 RDW 15.6 Plt Count 120 L D MPV 9.5 Neutrophils % 87.1 H Lymphocytes % 9.8 D Monocytes % 2.7 L Eosinophils % 0.1 D Basophils % 0.3 PTT (Actin FS) 66.5 H Sodium 136 Potassium 4.2 Chloride 104 Carbon Dioxide 22 Anion Gap 10 BUN 75 H Creatinine 2.5 H Creat Clearance w eGFR 24.73 Random Glucose 158 H Calcium 7.9 L Phosphorus 4.0 D Magnesium 2.3 Total Bilirubin 0.6 D AST 13 L D ALT 40 D Alkaline Phosphatase 80 D Total Protein 6.0 L Albumin 2.6 L Urine Color Urine Appearance Urine pH Ur Specific [place] Urine Protein Urine Glucose (UA) Urine Ketones Urine Blood Urine Nitrite Urine Bilirubin Urine Urobilinogen Ur Leukocyte Esterase Urine RBC Urine WBC Urine Bacteria Hyaline Casts Urine Mucus Hep-Induced Plt Ab Rapid Active Medications Generic Name Dose Route Start Last Admin Trade Name Freq PRN Reason Stop Dose Admin Acetaminophen 650 mg 01/22/17 20:36 Tylenol - PO Q4H PRN FEVER OR PAIN Albuterol/Ipratropium 1 amp 01/22/17 17:07 01/22/17 17:15 Duoneb - NEB 1 amp Q4HWA PRN Administration SHORT OF BREATH/WHEEZING Bacitracin/Polymyxin B Sulfate 1 applic 01/22/17 22:00 01/24/17 09:40 Polysporin Ointment - TP 1 applic BID MAURIZIO Administration Chlorhexidine Gluconate 1 applic 01/22/17 22:00 01/23/17 22:24 Hibiclens For Decolonization - TP 1 applic HS MAURIZIO Administration Diltiazem HCl 10 mg 01/23/17 18:47 Cardizem Injection - IVPUSH Q4H PRN TACHYCARDIA Docusate Sodium 100 mg 01/24/17 10:00 01/24/17 09:08 Colace - PO 100 mg DAILY MAURIZIO Administration Guaifenesin 10 ml 01/22/17 20:36 Robitussin - PO Q6H PRN COUGH Argatroban 250,000 mcg/ Sodium 250 mls @ 11.97 mls/hr 01/22/17 20:36 01/23/17 22:23 Chloride IVPB 11.97 mls/hr TITR MAURIZIO Administration Protocol 2 MCG/KG/MIN Phenylephrine HCl 20,000 mcg/ 250 mls @ 75 mls/hr 01/23/17 02:01 01/24/17 11:37 Sodium Chloride IVPB 30 mcg/min TITR MAURIZIO Titration Protocol 100 MCG/MIN Amiodarone HCl 450 mg/ 259 mls @ 17.26 mls/hr 01/24/17 07:45 01/24/17 08:19 Dextrose IVPB 17.26 mls/hr TITR MAURIZIO Administration Protocol 0.5 MG/MIN Methylprednisolone Sodium Succinate 40 mg 01/22/17 21:00 01/24/17 08:13 Solu-Medrol - IVPB 40 mg Q6H-IV MAURIZIO Administration Metoprolol Tartrate 25 mg 01/22/17 22:00 01/24/17 06:20 Lopressor - PO 25 mg TID MAURIZIO Administration Metoprolol Tartrate 5 mg 01/23/17 08:35 Lopressor Injection - IVPUSH Q4H PRN HYPERTENSION Multivitamins/Minerals/Vitamin C 1 tab 01/23/17 10:00 01/24/17 09:40 Tab-A-Vit - PO 1 tab DAILY MAURIZIO Administration Mupirocin 1 applic 01/22/17 22:00 01/24/17 09:08 Bactroban Ointment (For Decolonization) - NS 01/27/17 21:59 1 applic BID MAURIZIO Administration Piperacillin Sod/Tazobactam Sod 3.375 gm 01/23/17 03:15 01/24/17 09:08 Zosyn 3.375gm Ivpb (Pre-Docked) IVPB 3.375 gm Q8H-IV MAURIZIO Administration Protocol Tamsulosin HCl 0.4 mg 01/22/17 22:00 01/24/17 08:13 Flomax - PO 0.4 mg BID@0830,2200 MAURIZIO Administration ASSESSMENT/PLAN: 86 yo M with PMH of b/l severe hydronephrosis L>R seen on CT 10/31/15, otherwise unknown [facility] (poor historian/no records), who presented with confusion, groin and back pain. #Metabolic encephalopathy in the setting of AMS possibly due to UTI being tx w/ abx, RESOLVED -A&Ox3 -completed course of unasyn #New onset Atrial Fibrillation -Patient started on amiodarone IVPB 450 mg today -IV lopressor 5 mg IVpush q4h PRN for HR -Argatroban drip started per hematology #Thrombocytopenia, Improvng -Likely 2/2 to heparin, 4T score of 6 -HIT antibody + -Heparin d/c, Started on argatroban drip per hematology -Hematology on board #Acute hypoxic respiratory distress with hypotension likely 2/2 to pleural effusion vs saddle PE vs. HCAP pneumonia -Patient appears to be less tachypnic this morning -No V/Q scan done due to negative echocardiogram -CXR reviewed- pleural effusion -Currently on Vancomycin and Zosyn 3.35gm ivpb q8h -Continue phenylephrine 100 mcg/min -Incentive spirometer -Guanifensen 10 ml Q6 PRN -Continue duonebs Q4hr maurizio -Continue Solumederol IV 30 mg Q6h per -O2 NC as needed for O2 saturation -Pulmonary on board, Dr. Mariscal -No need to follow up on pulmonary nodule due to fleischner society recommendations #LLE cellulitis, improving -Afebrile -Wound cx - no growth to date -Unasyn completed #Flank Pain: -CT- hydroureteralonephrosis -Urology recs- Flomax 0.4 mg BID, f/u outpatient -Patient refuses davis #JUNG on CKD 2/2 to hypoperfusion after episode of hypotension vs. lasix use -Patient has davis in place -Monitor UOP -Avoid nephrotoxic agents #FEN: -No fluids -lytes stable -Na restricted diet #PPx -DVT: Argatroban drip -GI: not indicated at this time Visit type - Emergency Visit Emergency Visit: No - New Patient This patient is new to me today: No - Critical Care Critical Care patient: Yes Total Critical Care Time (in minutes): 45 Critical Care Statement: The care of this patient involved high complexity decision making to prevent further life threatening deterioration of the patient 's condition and/or to evaluate & treat vital organ system(s) failure or risk of failure.
--- NOTE | 2017-01-24 12:09 | PN ---
Teaching Attending Note Name of Resident: Eliazar Ramirez ATTENDING PHYSICIAN STATEMENT I saw and evaluated the patient. I reviewed the resident's note and discussed the case with the resident. I agree with the resident's findings and plan as documented. SUBJECTIVE: Patient seen and examined in the ICU. Awake and alert. Remains mildly confused. Denies CP or SOB. Remains on Phenylephrine for hemodynamic support. Argatroban infusing. Intake & Output 01/21/17 01/22/17 01/23/17 01/24/17 23:59 23:59 23:59 23:59 Intake Total 9157 874 7594 554 Output Total 1350 2600 2300 800 Balance -160 -2280 48 -246 Weight 218 lb 0.595 oz 223 lb 1.725 oz Last Vital Signs Temp Pulse Resp BP Pulse Ox 97.9 F 113 H 20 91/66 94 L 01/24/17 09:40 01/24/17 11:47 01/24/17 11:47 01/24/17 11:47 01/23/17 19:41 Active Medications Acetaminophen (Tylenol -) 650 mg PO Q4H PRN PRN Reason: FEVER OR PAIN Albuterol/Ipratropium (Duoneb -) 1 amp NEB Q4HWA PRN PRN Reason: SHORT OF BREATH/WHEEZING Last Admin: 01/22/17 17:15 Dose: 1 amp Bacitracin/Polymyxin B Sulfate (Polysporin Ointment -) 1 applic TP BID ROBERTO Last Admin: 01/24/17 09:40 Dose: 1 applic Chlorhexidine Gluconate (Hibiclens For Decolonization -) 1 applic TP HS ROBERTO Last Admin: 01/23/17 22:24 Dose: 1 applic Diltiazem HCl (Cardizem Injection -) 10 mg IVPUSH Q4H PRN PRN Reason: TACHYCARDIA Docusate Sodium (Colace -) 100 mg PO DAILY ROBERTO Last Admin: 01/24/17 09:08 Dose: 100 mg Guaifenesin (Robitussin -) 10 ml PO Q6H PRN PRN Reason: COUGH Argatroban 250,000 mcg/ Sodium (Chloride) 250 mls @ 11.97 mls/hr IVPB TITR ROBERTO ; 2 MCG/KG/MIN PRN Reason: Protocol Last Admin: 01/23/17 22:23 Dose: 11.97 mls/hr Phenylephrine HCl 20,000 mcg/ (Sodium Chloride) 250 mls @ 75 mls/hr IVPB TITR ROBERTO; 100 MCG/MIN PRN Reason: Protocol Last Titration: 01/24/17 11:37 Dose: 30 mcg/min Amiodarone HCl 450 mg/ (Dextrose) 259 mls @ 17.26 mls/hr IVPB TITR ROBERTO; 0.5 MG/ MIN PRN Reason: Protocol Last Admin: 01/24/17 08:19 Dose: 17.26 mls/hr Methylprednisolone Sodium Succinate (Solu-Medrol -) 40 mg IVPB Q6H-IV ROBERTO Last Admin: 01/24/17 08:13 Dose: 40 mg Metoprolol Tartrate (Lopressor -) 25 mg PO TID [facility] Last Admin: 01/24/17 06:20 Dose: 25 mg Metoprolol Tartrate (Lopressor Injection -) 5 mg IVPUSH Q4H PRN PRN Reason: HYPERTENSION Multivitamins/Minerals/Vitamin C (Tab-A-Vit -) 1 tab PO DAILY [facility] Last Admin: 01/24/17 09:40 Dose: 1 tab Mupirocin (Bactroban Ointment (For Decolonization) -) 1 applic NS BID [facility] Stop: 01/27/17 21:59 Last Admin: 01/24/17 09:08 Dose: 1 applic Piperacillin Sod/Tazobactam Sod (Zosyn 3.375gm Ivpb (Pre-Docked)) 3.375 gm IVPB Q8H-IV ROBERTO PRN Reason: Protocol Last Admin: 01/24/17 09:08 Dose: 3.375 gm Tamsulosin HCl (Flomax -) 0.4 mg PO BID@0830,2200 [facility] Last Admin: 01/24/17 08:13 Dose: 0.4 mg Constitutional: Yes: Awake and alert, No Distress Eyes: Yes: Conjunctiva Clear, PERRL HENT: Yes: Normocephalic Neck: Yes: Supple, Trachea Midline Cardiovascular: Yes: Tachycardia, Pulse Irregular Respiratory: Yes: Scattered rhonchi Gastrointestinal: Yes: Soft, Abdomen, Obese, NT Renal/: Yes: Segura Present Extremities: Yes: Erythema, Other Edema: Yes Edema: LLE: Trace, RLE: Trace Peripheral Pulses WNL: Yes Integumentary: Yes: Venous Stasis Changes (BLE; LLE erythema) Neurological: Yes: Alert, Confusion Psychiatric: Yes: Alert Labs: Laboratory Results - last 24 hr 01/21/17 01/23/17 01/23/17 18:27 03:00 21:50 WBC RBC Hgb Hct MCV MCH MCHC RDW Plt Count MPV Neutrophils % Lymphocytes % Monocytes % Eosinophils % Basophils % PTT (Actin FS) 70.6 H Sodium Potassium Chloride Carbon Dioxide Anion Gap BUN Creatinine Creat Clearance w eGFR Random Glucose Calcium Phosphorus Magnesium Total Bilirubin AST ALT Alkaline Phosphatase Total Protein Albumin Urine Color Dkyellow Urine Appearance Cloudy Urine pH 5.0 Ur Specific [place] 1.020 Urine Protein 2+ H Urine Glucose (UA) 1+ H Urine Ketones Negative Urine Blood 3+ H Urine Nitrite Negative Urine Bilirubin Negative Urine Urobilinogen Negative Ur Leukocyte Esterase Trace Urine RBC 600 Urine WBC 338 Urine Bacteria Moderate Hyaline Casts 12 Urine Mucus Rare Hep-Induced Plt Ab Rapid 2.208 H 01/24/17 01/24/17 01/24/17 05:10 05:10 05:10 WBC 11.7 H D RBC 3.63 L Hgb 11.3 L Hct 33.5 L MCV 92.3 MCH 31.1 MCHC 33.7 RDW 15.6 Plt Count 120 L D MPV 9.5 Neutrophils % 87.1 H Lymphocytes % 9.8 D Monocytes % 2.7 L Eosinophils % 0.1 D Basophils % 0.3 PTT (Actin FS) 66.5 H Sodium 136 Potassium 4.2 Chloride 104 Carbon Dioxide 22 Anion Gap 10 BUN 75 H Creatinine 2.5 H Creat Clearance w eGFR 24.73 Random Glucose 158 H Calcium 7.9 L Phosphorus 4.0 D Magnesium 2.3 Total Bilirubin 0.6 D AST 13 L D ALT 40 D Alkaline Phosphatase 80 D Total Protein 6.0 L Albumin 2.6 L Urine Color Urine Appearance Urine pH Ur Specific [place] Urine Protein Urine Glucose (UA) Urine Ketones Urine Blood Urine Nitrite Urine Bilirubin Urine Urobilinogen Ur Leukocyte Esterase Urine RBC Urine WBC Urine Bacteria Hyaline Casts Urine Mucus Hep-Induced Plt Ab Rapid Problem List - Problems (1) Atrial fibrillation with RVR Code(s): I48.91 - UNSPECIFIED ATRIAL FIBRILLATION (2) CHF (congestive heart failure) Code(s): I50.9 - HEART FAILURE, UNSPECIFIED Qualifiers: Congestive heart failure type: unspecified congestive heart failure type Congestive heart failure chronicity: unspecified congestive heart failure chronicity Qualified Code(s): I50.9 - Heart failure, unspecified (3) Dementia Code(s): F03.90 - UNSPECIFIED DEMENTIA WITHOUT BEHAVIORAL DISTURBANCE (4) Hydronephrosis Code(s): N13.30 - UNSPECIFIED HYDRONEPHROSIS (5) Hypotension Code(s): I95.9 - HYPOTENSION, UNSPECIFIED Assessment/Plan Suspected HIT DVT (?) PE (?)LLL PNA +/- small effusion/atelectasis Hydronephrosis JUNG Mild dementia A-fib with RVR Hypotension/Shock PLAN: Argatroban per protocol Wean Pressors O2 as needed Would not perform V/Q scan at this time -> will not change our management Would not perform thoracentesis : effusion is small and acute in nature : Risk likely outweighs any Benefit Rate control for AFib Hold antiHypertensives Strict I+O Monitor UOP Wean steroids Dr Clark Critical care time spent in reviewing chart, evaluating patient and formulating plan - 35 minutes.
[2017-01-24] MEDS: ARGATROBAN - 250,000 MCG in SODIUM CHLORIDE 247.5 ML IVPB SCH ×3 (13:33→20:36)
--- NOTE | 2017-01-24 13:56 | PN ---
Teaching Attending Note Name of Resident: Palmer Rios ATTENDING PHYSICIAN STATEMENT I saw and evaluated the patient. I reviewed the resident's note and discussed the case with the resident. I agree with the resident's findings and plan as documented. SUBJECTIVE:asymptomatic. denies CP, SOB, fever, chills, N/V/C/D OBJECTIVE: Last Vital Signs Temp Pulse Resp BP Pulse Ox 97.9 F 118 H 18 105/74 94 L 01/24/17 09:40 01/24/17 13:23 01/24/17 13:19 01/24/17 13:23 01/23/17 19:41 Intake & Output 01/21/17 01/22/17 01/23/17 01/24/17 23:59 23:59 23:59 23:59 Intake Total 8624 632 6754 554 Output Total 1350 2600 2300 800 Balance -160 -2280 48 -246 Weight 218 lb 0.595 oz 223 lb 1.725 oz General NAD, [place], CV S1 S2 tachycardic Lungs Crackles +L base >R base Extremities chronic venous changes B/L LE trace pitting edema ASSESSMENT AND PLAN: 86-year-old man with a history of bilateral hydronephrosis who presented to the ER with groin pain. 1. Acute metabolic encephalopathy secondary to UTI and LLE cellulitis- resolved. completed abx course 2. Acute Hypoxic respiratory distress- likely due to pleural effusion vs PNA. pt appears less tachypnic today. VQ scan cancelled since echo negative for Heart strain and already anticoagulated. cont to have pleural effusion that were unable to diuresis due to JUNG and hypotension. other option is thoracentesis which pt is not hemodynamically stable for at this time. (remains on pressors). will cont to monitor respiratory status closely. on vanco by level /zosyn. cont supplemental oxygen to mantain spO2 > 90%. pulmonary on board 3. Hypotension- large PE vs over-diuresis vs sepsis. stable on pressors. titrate as needed. davis placed for accurate I&O. monitor UOP. started on empiric vanco/zosyn for suspected HCAP (cannot r/o LLL infiltrate) and pyuria. ID on board. 4. New onset Afib- uncontrolled. amiodarone started this morning. will monitor LFT and TFT. lopressor prn HR >120. on argatroban for a/c. 5. 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 slowly improving. no signs of bleeding. hematology consulted. . monitor plt function 6. Pulmonary nodule- resolved. as per pulmonary no need to monitor pulmonary nodule. 7. Acute on CKD- likely due to medication induced vs hypoperfusion. hold lasix. avoid nephrotoxic agents. davis placed. monitor I&O. 8. Bilateral hydroureteronephrosis secondary to BPH-cont flomax. urology outpatient follow up 9. Possible hepatic cysts- Outpatient U/S 10. MICU monitoring CC TIME 38 minutes. The care of this patient involved high complexity decision making to prevent further life threatening deterioration of the patient's condition and/or to evalute & treat vital organ system(s) failure or risk of failure.
--- NOTE | 2017-01-24 14:30 | PN ---
Physical Exam: SUBJECTIVE: Patient seen and examined. no new complaints. patient denies SOB, chest pain, abdominal pain or diarrhea OBJECTIVE: Vital Signs Period Temp Pulse Resp BP Sys/Locke Pulse Ox Last 24 Hr 97.3 F-98 F 111-135 18-36 80-110/52-92 94 GENERAL: The patient is awake, alert, and fully oriented, in no acute distress. HEAD: Normal with no signs of trauma. EYES: PERRL, extraocular movements intact, sclera anicteric, conjunctiva clear. No ptosis. NECK: Trachea midline, full range of motion, supple. LUNGS: Breath sounds equal, clear to auscultation bilaterally, no wheezes, no crackles, no accessory muscle use. HEART: Regular rate and rhythm, S1, S2 without murmur, rub or gallop. ABDOMEN: Soft, nontender, nondistended, normoactive bowel sounds, no guarding, no rebound. EXTREMITIES: 2+ pulses, warm, well-perfused, no edema. NEUROLOGICAL: Cranial nerves II through X grossly intact. Normal speech, gait not observed. PSYCH: Normal mood, normal affect. SKIN: Warm, dry, normal turgor, no rashes or lesions noted Laboratory Results - last 24 hr 01/21/17 01/23/17 01/23/17 18:27 03:00 21:50 WBC RBC Hgb Hct MCV MCH MCHC RDW Plt Count MPV Neutrophils % Lymphocytes % Monocytes % Eosinophils % Basophils % PTT (Actin FS) 70.6 H Sodium Potassium Chloride Carbon Dioxide Anion Gap BUN Creatinine Creat Clearance w eGFR POC Glucometer Random Glucose Calcium Phosphorus Magnesium Total Bilirubin AST ALT Alkaline Phosphatase Total Protein Albumin Urine Color Dkyellow Urine Appearance Cloudy Urine pH 5.0 Ur Specific [place] 1.020 Urine Protein 2+ H Urine Glucose (UA) 1+ H Urine Ketones Negative Urine Blood 3+ H Urine Nitrite Negative Urine Bilirubin Negative Urine Urobilinogen Negative Ur Leukocyte Esterase Trace Urine RBC 600 Urine WBC 338 Urine Bacteria Moderate Hyaline Casts 12 Urine Mucus Rare Hep-Induced Plt Ab Rapid 2.208 H 01/24/17 01/24/17 01/24/17 05:10 05:10 05:10 WBC 11.7 H D RBC 3.63 L Hgb 11.3 L Hct 33.5 L MCV 92.3 MCH 31.1 MCHC 33.7 RDW 15.6 Plt Count 120 L D MPV 9.5 Neutrophils % 87.1 H Lymphocytes % 9.8 D Monocytes % 2.7 L Eosinophils % 0.1 D Basophils % 0.3 PTT (Actin FS) 66.5 H Sodium 136 Potassium 4.2 Chloride 104 Carbon Dioxide 22 Anion Gap 10 BUN 75 H Creatinine 2.5 H Creat Clearance w eGFR 24.73 POC Glucometer Random Glucose 158 H Calcium 7.9 L Phosphorus 4.0 D Magnesium 2.3 Total Bilirubin 0.6 D AST 13 L D ALT 40 D Alkaline Phosphatase 80 D Total Protein 6.0 L Albumin 2.6 L Urine Color Urine Appearance Urine pH Ur Specific [place] Urine Protein Urine Glucose (UA) Urine Ketones Urine Blood Urine Nitrite Urine Bilirubin Urine Urobilinogen Ur Leukocyte Esterase Urine RBC Urine WBC Urine Bacteria Hyaline Casts Urine Mucus Hep-Induced Plt Ab Rapid 01/24/17 12:17 WBC RBC Hgb Hct MCV MCH MCHC RDW Plt Count MPV Neutrophils % Lymphocytes % Monocytes % Eosinophils % Basophils % PTT (Actin FS) Sodium Potassium Chloride Carbon Dioxide Anion Gap BUN Creatinine Creat Clearance w eGFR POC Glucometer [phone] Random Glucose Calcium Phosphorus Magnesium Total Bilirubin AST ALT Alkaline Phosphatase Total Protein Albumin Urine Color Urine Appearance Urine pH Ur Specific [place] Urine Protein Urine Glucose (UA) Urine Ketones Urine Blood Urine Nitrite Urine Bilirubin Urine Urobilinogen Ur Leukocyte Esterase Urine RBC Urine WBC Urine Bacteria Hyaline Casts Urine Mucus Hep-Induced Plt Ab Rapid Active Medications Generic Name Dose Route Start Last Admin Trade Name Freq PRN Reason Stop Dose Admin Acetaminophen 650 mg 01/22/17 20:36 Tylenol - PO Q4H PRN FEVER OR PAIN Albuterol/Ipratropium 1 amp 01/22/17 17:07 01/22/17 17:15 Duoneb - NEB 1 amp Q4HWA PRN Administration SHORT OF BREATH/WHEEZING Bacitracin/Polymyxin B Sulfate 1 applic 01/22/17 22:00 01/24/17 09:40 Polysporin Ointment - TP 1 applic BID ROBERTO Administration Chlorhexidine Gluconate 1 applic 01/22/17 22:00 01/23/17 22:24 Hibiclens For Decolonization - TP 1 applic HS ROBERTO Administration Diltiazem HCl 10 mg 01/23/17 18:47 Cardizem Injection - IVPUSH Q4H PRN TACHYCARDIA Docusate Sodium 100 mg 01/24/17 10:00 01/24/17 09:08 Colace - PO 100 mg DAILY ROBERTO Administration Guaifenesin 10 ml 01/22/17 20:36 Robitussin - PO Q6H PRN COUGH Argatroban 250,000 mcg/ Sodium 250 mls @ 11.97 mls/hr 01/22/17 20:36 01/24/17 13:33 Chloride IVPB 11.97 mls/hr TITR ROBERTO Administration Protocol 2 MCG/KG/MIN Phenylephrine HCl 20,000 mcg/ 250 mls @ 75 mls/hr 01/23/17 02:01 01/24/17 13:23 Sodium Chloride IVPB 0 mcg/min TITR ROBERTO Titration Protocol 100 MCG/MIN Amiodarone HCl 450 mg/ 259 mls @ 17.26 mls/hr 01/24/17 07:45 01/24/17 08:19 Dextrose IVPB 17.26 mls/hr TITR ROBERTO Administration Protocol 0.5 MG/MIN Methylprednisolone Sodium Succinate 40 mg 01/22/17 21:00 01/24/17 08:13 Solu-Medrol - IVPB 40 mg Q6H-IV ROBERTO Administration Metoprolol Tartrate 25 mg 01/22/17 22:00 01/24/17 13:33 Lopressor - PO 25 mg TID ROBERTO Administration Metoprolol Tartrate 5 mg 01/23/17 08:35 Lopressor Injection - IVPUSH Q4H PRN HYPERTENSION Multivitamins/Minerals/Vitamin C 1 tab 01/23/17 10:00 01/24/17 09:40 Tab-A-Vit - PO 1 tab DAILY ROBERTO Administration Mupirocin 1 applic 01/22/17 22:00 01/24/17 09:08 Bactroban Ointment (For Decolonization) - NS 01/27/17 21:59 1 applic BID ROBERTO Administration Piperacillin Sod/Tazobactam Sod 3.375 gm 01/23/17 03:15 01/24/17 09:08 Zosyn 3.375gm Ivpb (Pre-Docked) IVPB 3.375 gm Q8H-IV ROBERTO Administration Protocol Tamsulosin HCl 0.4 mg 01/22/17 22:00 01/24/17 08:13 Flomax - PO 0.4 mg BID@0830,2200 ROBERTO Administration ASSESSMENT/PLAN: 86 yo M with PMH of b/l severe hydronephrosis 'admitted for, UTI and LLE cellulitis. Recently developed A-fib with RVR and started on heparin c/b thrombocytopenia and switched to Argatroban d/t c/f HIT. Today found to have a DVT in Lt popliteal. He was transferred to ICU with hypotension and tachycardia 2/2 to possible PE. Neuro: -A&Ox3 Pulmonary: -patient with DVT with acute desaturation and tachycardia; suspicious for PE -Doppler shows DVT in left popliteal artery -argatroban at 2mcg/kg/min -solumetrol 40 mg IV Q6H -> will taper to 30mg Cardio: -new onset afib w/ RVR -lopressor 25 PO TID -lopressor 5mg IV push PRN tachycardia -hypotension -phenylephrine at 40mcg/min -titrate according to patient's requirements Urology: -patient was being treated for UTI -c/w zosyn 3.375gm q8h FEN: -no fluids indicated at this time -will monitor electrolytes -sodium controlled diet Prophy: -no GI prophylaxsis indicated at this time. -patient on AC, no need for DVT prophy Dispo: -continue to monitor in ICU. Problem List - Problems (1) Atrial fibrillation with RVR Code(s): I48.91 - UNSPECIFIED ATRIAL FIBRILLATION (2) CHF (congestive heart failure) Code(s): I50.9 - HEART FAILURE, UNSPECIFIED Qualifiers: Congestive heart failure type: unspecified congestive heart failure type Congestive heart failure chronicity: unspecified congestive heart failure chronicity Qualified Code(s): I50.9 - Heart failure, unspecified (3) COPD (chronic obstructive pulmonary disease) Code(s): J44.9 - CHRONIC OBSTRUCTIVE PULMONARY DISEASE, UNSPECIFIED (4) DVT (deep venous thrombosis) Code(s): I82.409 - ACUTE EMBOLISM AND THOMBOS UNSP DEEP VN UNSP LOWER EXTREMITY Qualifiers: DVT location: lower extremity Affected thrombotic vein of extremity: popliteal Chronicity: unspecified Laterality: left Qualified Code (s): I82.432 - Acute embolism and thrombosis of left popliteal vein Visit type - Emergency Visit Emergency Visit: Yes ED Registration Date: 01/10/17 Care time: The patient presented to the Emergency Department on the above date and was hospitalized for further evaluation of their emergent condition. - New Patient This patient is new to me today: No - Critical Care Critical Care patient: Yes Total Critical Care Time (in minutes): 35 Critical Care Statement: The care of this patient involved high complexity decision making to prevent further life threatening deterioration of the patient 's condition and/or to evaluate & treat vital organ system(s) failure or risk of failure.
--- NOTE | 2017-01-24 15:31 | CONSULT ---
Consult - text type - Consultation Consultation Note: Podiatry Consultation: 86 year old M, poor historian, accompanied by his sister at bedside, presented to hospital and placed in ICU for severe hydronephrosis and AFib. Podiatry consultation requested for elongated, discolored, thickened toe nails. Patient lives at home alone, seems a bit confused. Afebrile, VSS. JUDY: Bilateral pedal pulses palpable, TG wnl, CFT brisk to all toes. On bilateral feet, nails are elongated, discolored, thickened, tender x 10. There is extensive subungual debris and poor hygiene of feet. There are no open wounds, no nail bed ulcerations, no signs of infection. Imp: 86 year old M with onychomycosis 1. Manual debridement of mycotic nails x 10 with nail nipper. 2. Appropriate foot hygiene discussed with patient and his sister. 3. Upon discharge, can f/u for routine care at [facility]. 4. Thanks for the consult. Fabi Davis DPM
--- NOTE | 2017-01-24 17:31 | PN ---
Progress Note (short form) - Note Progress Note: Patient seen and examined this am. Having lunch. Continues to be tachycardic. less dyspneic Last Vital Signs Temp Pulse Resp BP Pulse Ox 97.7 F 119 H 20 104/73 94 L 01/24/17 14:20 01/24/17 15:36 01/24/17 15:36 01/24/17 15:36 01/23/17 19:41 Constitutional: Yes: no Distress HENT: Yes: Atraumatic, Normocephalic Neck: Yes: Trachea Midline Cardiovascular: Yes: Tachycardia Respiratory: Yes: Regular, breath sounds Gastrointestinal: Yes: Soft, Abdomen, Obese Current Medications Generic Name Dose Route Start Last Admin Trade Name Freq PRN Reason Stop Dose Admin Acetaminophen 650 mg 01/22/17 20:36 Tylenol - PO Q4H PRN FEVER OR PAIN Albuterol/Ipratropium 1 amp 01/22/17 17:07 01/22/17 17:15 Duoneb - NEB 1 amp Q4HWA PRN Administration SHORT OF BREATH/WHEEZING Bacitracin/Polymyxin B Sulfate 1 applic 01/22/17 22:00 01/23/17 11:12 Polysporin Ointment - TP 1 applic BID ROBERTO Administration Chlorhexidine Gluconate 1 applic 01/22/17 22:00 01/22/17 22:17 Hibiclens For Decolonization - TP 1 applic HS ROBERTO Administration Diltiazem HCl 10 mg 01/23/17 18:47 Cardizem Injection - IVPUSH Q4H PRN TACHYCARDIA Docusate Sodium 100 mg 01/24/17 10:00 Colace - PO DAILY ROBERTO Guaifenesin 10 ml 01/22/17 20:36 Robitussin - PO Q6H PRN COUGH Argatroban 250,000 mcg/ Sodium 250 mls @ 11.97 mls/hr 01/22/17 20:36 01/23/17 13:19 Chloride IVPB 11.97 mls/hr TITR ROBERTO Administration Protocol 2 MCG/KG/MIN Phenylephrine HCl 20,000 mcg/ 250 mls @ 75 mls/hr 01/23/17 02:01 01/23/17 15:02 Sodium Chloride IVPB 40 mcg/min TITR ROBERTO Titration Protocol 100 MCG/MIN Methylprednisolone Sodium Succinate 40 mg 01/22/17 21:00 01/23/17 17:19 Solu-Medrol - IVPB 40 mg Q6H-IV ROBERTO Administration Metoprolol Tartrate 25 mg 01/22/17 22:00 01/23/17 14:56 Lopressor - PO 25 mg TID ROBERTO Administration Metoprolol Tartrate 5 mg 01/23/17 08:35 Lopressor Injection - IVPUSH Q4H PRN HYPERTENSION Multivitamins/Minerals/Vitamin C 1 tab 01/23/17 10:00 01/23/17 09:32 Tab-A-Vit - PO 1 tab DAILY ROBERTO Administration Mupirocin 1 applic 01/22/17 22:00 01/23/17 11:12 Bactroban Ointment (For Decolonization) - NS 01/27/17 21:59 1 applic BID ROBERTO Administration Piperacillin Sod/Tazobactam Sod 3.375 gm 01/23/17 03:15 01/23/17 17:35 Zosyn 3.375gm Ivpb (Pre-Docked) IVPB 3.375 gm Q8H-IV ROBERTO Administration Protocol Tamsulosin HCl 0.4 mg 01/22/17 22:00 01/23/17 09:01 Flomax - PO 0.4 mg BID@0830,2200 ROBERTO Administration CBC, BMP 01/24/17 05:10 01/24/17 05:10 INR, PTT INR 3.15 (0.82-1.09) H D 01/23/17 05:15 Fibrinogen < 100.0 mg/dL (238-498) L* 01/23/17 05:15 Assessment/Plan: 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 Bilateral hydroureteronephrosis secondary to BPH Plan: -Patient with HIT ab Positive, high optical density, pending Serotonin release assay. -continue aragtroban and monitor PTT as mentioned prior, presently Stable, will continue with PTT q12h -Platelet count improving. If NO invasive procedures are planned, coumadin is the recommended anti-coagulant in HIT once platelets >150K and needed to be bridged for about 2-4days -NOACs not approved in HIT thus far -fibrinogen likely falsely low -continue to be on Phenyl Ephrine -on emperic abx -JUNG persistant -cardiology f/u -will follow. Problem List - Problems (1) Thrombocytopenia Code(s): D69.6 - THROMBOCYTOPENIA, UNSPECIFIED (2) Altered mental status Code(s): R41.82 - ALTERED MENTAL STATUS, UNSPECIFIED (3) Atrial fibrillation with RVR Code(s): I48.91 - UNSPECIFIED ATRIAL FIBRILLATION (4) UTI (urinary tract infection) Code(s): N39.0 - URINARY TRACT INFECTION, SITE NOT SPECIFIED (5) Kidney injury Code(s): S37.009A - UNSPECIFIED INJURY OF UNSPECIFIED KIDNEY, INITIAL ENCOUNTER (6) Hypoxemia Code(s): R09.02 - HYPOXEMIA
[2017-01-24] MEDS ORDERED: VASOPRESSIN 20 UNITS/ML VIAL IV ONE (20:08)
[2017-01-24] MEDS: CHLORHEXIDINE GLUCONATE 4% CLEANSER FOR DECOLONIZATION TP SCH (21:20)
[2017-01-24] MEDS: NYSTATIN 100,000 UNIT/GM TOPICAL CREAM 15 GM TUBE TP SCH (23:35)
[2017-01-25] MEDS: PIPERACILLIN/TAZOB 3.375 GM/50 ML PRE-DOCKED IVPB SCH ×3 (02:16→17:23)
[2017-01-25] MEDS: PHENYLEPHRINE HCL 20,000 MCG in SODIUM CHLORIDE 248 ML IVPB SCH (02:16)
[2017-01-25] MEDS: methylPREDNISolone NA SUCC 40 MG/1 ML VIAL IVPB SCH ×4 (02:16→22:30)
[2017-01-25 06:21] LABS: MCH 31.4 pg (25.7-33.7); MCHC 33.8 g/dl (32.0-35.9); MEAN CELL VOLUME 92.8 fl (80-96); MEAN PLT VOLUME 9.5 fl (7.5-11.1); NEUTROPHILS 80.1 % (42.8-82.8); PLATELET COUNT 116 K/MM3 (134-434); RDW 15.2 % (11.9-15.9); WHITE BLOOD COUNT 7.8 K/mm3 (4.0-10.0)
[2017-01-25 06:35] LABS: INR 3.24 (0.82-1.09); PROTHROMBIN TIME (PATIENT) 36.5 SEC (9.98-11.88)
[2017-01-25 06:55] LABS: ANION GAP 9 (8-16); CALCIUM 8.1 mg/dL (8.5-10.1); CO2 22 mmol/L (21-32); CREATININE 2.2 mg/dL (0.7-1.3); GLUCOSE,RANDOM 154 mg/dL (74-106); MAGNESIUM 2.3 mg/dL (1.8-2.4); PHOSPHOROUS 3.6 mg/dL (2.5-4.9)
[2017-01-25] MEDS: METOPROLOL TARTRATE 25 MG TABLET (FP) PO SCH ×3 (07:27→22:22)
--- NOTE | 2017-01-25 07:33 | PN ---
Progress Note (short form) - Note Progress Note: Chief Complaint: Events noted, notes reviewed. Patient denies any chest discomfort, dyspnea improved, converted to sinus rhythm, off of pressors History of Present Illness: Seen and examined in the ICU. Events noted, notes reviewed. Patient denies any chest discomfort, dyspnea improved, converted to sinus rhythm, off of pressors Remains on IV Amiodarone and Argatroban V/Q scan was deferred Transthoracic echocardiography dated 01/17/17 Revealed normal LV Systolic function with pulmonary HTN (RVSP between 40-50 Millimeters mercury), mild MR and TR Medications: Current Medications Acetaminophen (Tylenol -) 650 mg PO Q4H PRN PRN Reason: FEVER OR PAIN Albuterol/Ipratropium (Duoneb -) 1 amp NEB Q4HWA PRN PRN Reason: SHORT OF BREATH/WHEEZING Last Admin: 01/22/17 17:15 Dose: 1 amp Bacitracin/Polymyxin B Sulfate (Polysporin Ointment -) 1 applic TP BID ROBERTO Last Admin: 01/24/17 23:35 Dose: 1 applic Chlorhexidine Gluconate (Hibiclens For Decolonization -) 1 applic TP HS ROBERTO Last Admin: 01/24/17 21:20 Dose: 1 applic Diltiazem HCl (Cardizem Injection -) 10 mg IVPUSH Q4H PRN PRN Reason: TACHYCARDIA Docusate Sodium (Colace -) 100 mg PO DAILY [facility] Last Admin: 01/24/17 09:08 Dose: 100 mg Guaifenesin (Robitussin -) 10 ml PO Q6H PRN PRN Reason: COUGH Argatroban 250,000 mcg/ Sodium (Chloride) 250 mls @ 11.97 mls/hr IVPB TITR ROBERTO ; 2 MCG/KG/MIN PRN Reason: Protocol Last Admin: 01/24/17 20:36 Dose: Not Given Phenylephrine HCl 20,000 mcg/ (Sodium Chloride) 250 mls @ 75 mls/hr IVPB TITR ROBERTO; 100 MCG/MIN PRN Reason: Protocol Last Admin: 01/25/17 02:16 Dose: Not Given Amiodarone HCl 450 mg/ (Dextrose) 259 mls @ 17.26 mls/hr IVPB TITR ROBERTO; 0.5 MG/ MIN PRN Reason: Protocol Last Admin: 01/24/17 08:19 Dose: 17.26 mls/hr Methylprednisolone Sodium Succinate (Solu-Medrol -) 30 mg IVPB Q6H-IV [facility] Last Admin: 01/25/17 02:16 Dose: 30 mg Metoprolol Tartrate (Lopressor -) 25 mg PO TID [facility] Last Admin: 01/24/17 21:22 Dose: Not Given Metoprolol Tartrate (Lopressor Injection -) 5 mg IVPUSH Q4H PRN PRN Reason: HYPERTENSION Multivitamins/Minerals/Vitamin C (Tab-A-Vit -) 1 tab PO DAILY [facility] Last Admin: 01/24/17 09:40 Dose: 1 tab Mupirocin (Bactroban Ointment (For Decolonization) -) 1 applic NS BID [facility] Stop: 01/27/17 21:59 Last Admin: 01/24/17 22:34 Dose: 1 applic Nystatin (Mycostatin Cream -) 1 applic TP BID [facility] Last Admin: 01/24/17 23:35 Dose: 1 applic Piperacillin Sod/Tazobactam Sod (Zosyn 3.375gm Ivpb (Pre-Docked)) 3.375 gm IVPB Q8H-IV ROBERTO PRN Reason: Protocol Last Admin: 01/25/17 02:16 Dose: 3.375 gm Tamsulosin HCl (Flomax -) 0.4 mg PO BID@0830,2200 [facility] Last Admin: 01/24/17 21:20 Dose: 0.4 mg Review of Systems - Review of Systems Constitutional: denies: Chills, Fever Cardiovascular: As noted above Respiratory: denies: Cough or Sputum Production Gastrointestinal: denies: Nausea, Vomiting, Diarrhea, Constipation or Abdominal Pain Genitourinary: No symptoms reported Musculoskeletal: No symptoms reported Vital Signs: Last Vital Signs Temp Pulse Resp BP Pulse Ox 97.8 F 73 26 H 100/68 97 01/25/17 06:00 01/25/17 06:00 01/25/17 06:00 01/25/17 06:00 01/24/17 22:00 Intake & Output 01/22/17 01/23/17 01/24/17 01/25/17 23:59 23:59 23:59 23:59 Intake Total 320 2348 2666 398 Output Total 2600 2300 2000 700 Balance -2280 48 666 -302 Weight 218 lb 0.595 oz 223 lb 1.725 oz 223 lb 1.725 oz Neck: Supple Negative JVD no bruit appreciated Respiratory: Diminished Breath sounds at the bases Cardiovascular: S1 and S2 Regular Rate Rhythm Gastrointestinal: Soft benign Normal Bowel Sounds Extremities: Trace bilateral edema Labs: CBC, BMP 01/25/17 05:35 01/25/17 05:35 Assessment/Plan ASSESSMENT: 1. Resolved hypotension, most likely multifactorial, over-diuresis/hypovolemia 2. Paroxysmal atrial fibrillation [id number] score of 3-4 currently in sinus rhythm on Argatroban therapy (HIT) 3. 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 CAD angina pectoris 5. Encephalopathy, Probable toxic Metabolic and probable underlying dementia, improved 6. Acute on chronic kidney disease, Progressive 7. Bilateral hydronephrosis 8. 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 Continue Argatroban drip for now, fci anticoagulation therapy is recommended considering the above-noted [id number] score of 3-4, if no additional intervention is planned recommend Eliquis 2.5 twice daily (age > 80 and Creatinine > 1.5) 2. D/C IV Cardizem prn order 3. Continue PO Metoprolol, Hemodynamics permitting 4. Initiate PO Amiodarone and D/C IV Amiodarone 5. Continue to hold IV Lasix in view of progressive renal insufficiency Carl Jara MD
--- NOTE | 2017-01-25 08:29 | PN ---
Progress Note (short form) - Note Progress Note: asymptomatic. denies CP, SOB, fever, chills, N/V/C/D Last Vital Signs Temp Pulse Resp BP Pulse Ox 97.8 F 73 26 H 100/68 97 01/25/17 06:00 01/25/17 06:00 01/25/17 06:00 01/25/17 06:00 01/24/17 22:00 Intake & Output 01/22/17 01/23/17 01/24/17 01/25/17 23:59 23:59 23:59 23:59 Intake Total 320 2348 2666 398 Output Total 2600 2300 2000 700 Balance -2280 48 666 -302 Weight 218 lb 0.595 oz 223 lb 1.725 oz 223 lb 1.725 oz General NAD, CHALKYITSIK, CV S1 S2 RRR no murmur/rub/gallop Lungs Crackles +L base >R base. poor inspiratory effort Extremities chronic venous changes B/L LE trace pitting edema CBCD WBC 7.8 K/mm3 (4.0-10.0) D 01/25/17 05:35 RBC 3.60 M/mm3 (4.00-5.60) L 01/25/17 05:35 Hgb 11.3 GM/dL (11.7-16.9) L 01/25/17 05:35 Hct 33.4 % (35.4-49) L 01/25/17 05:35 MCV 92.8 fl (80-96) 01/25/17 05:35 MCHC 33.8 g/dl (32.0-35.9) 01/25/17 05:35 RDW 15.2 % (11.9-15.9) 01/25/17 05:35 Plt Count 116 K/MM3 (134-434) L 01/25/17 05:35 MPV 9.5 fl (7.5-11.1) 01/25/17 05:35 CMP Sodium 139 mmol/L (136-145) 01/25/17 05:35 Potassium 4.2 mmol/L (3.5-5.1) 01/25/17 05:35 Chloride 108 mmol/L (98-107) H 01/25/17 05:35 Carbon Dioxide 22 mmol/L (21-32) 01/25/17 05:35 Anion Gap 9 (8-16) 01/25/17 05:35 BUN 77 mg/dL (7-18) H 01/25/17 05:35 Creatinine 2.2 mg/dL (0.7-1.3) H 01/25/17 05:35 Creat Clearance w eGFR 24.73 (>60) 01/24/17 05:10 Calcium 8.1 mg/dL (8.5-10.1) L 01/25/17 05:35 Total Bilirubin 0.6 mg/dL (0.2-1.0) D 01/24/17 05:10 AST 13 U/L (15-37) L D 01/24/17 05:10 ALT 40 U/L (12-78) D 01/24/17 05:10 Alkaline Phosphatase 80 U/L (45-117) D 01/24/17 05:10 Total Protein 6.0 g/dl (6.4-8.2) L 01/24/17 05:10 Albumin 2.6 g/dl (3.4-5.0) L 01/24/17 05:10 Microbiology 01/22/17 18:00 Blood Culture - Preliminary Blood - Peripheral Venous NO GROWTH OBTAINED AFTER 48 HOURS, INCUBATION TO CONTINUE FOR 3 DAYS. 01/22/17 17:55 Blood Culture - Preliminary Blood - Peripheral Venous NO GROWTH OBTAINED AFTER 48 HOURS, INCUBATION TO CONTINUE FOR 3 DAYS. 01/23/17 03:00 Urine Culture - Final Urine - Urine Davis NO GROWTH OBTAINED ASSESSMENT AND PLAN: 86-year-old man with a history of bilateral hydronephrosis who presented to the ER with groin pain. 1. Acute metabolic encephalopathy secondary to UTI and LLE cellulitis- resolved. completed abx course 2. Acute Hypoxic respiratory distress- likely due to pleural effusion vs PNA. no longer tachypnic, requiring less oxygen requirements. saturing 96% on 2L NC. will cont empriric coverage for pna with Zosyn. will hold diuresis at this time. cont supplemental oxygen to mantain spO2 > 90%. pulmonary on board 3. Hypotension- large PE vs over-diuresis vs sepsis. off pressors since 1500 yesterday. hemodynamically stable. good UOP. cont to monitor. 4. New onset Afib-converted to NSR. on amio ggt. d/w Cardio and will transition to po at this time. cont to monitor. will monitor LFT and TFT. lopressor prn HR >120. on argatroban for a/c. 5. 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 plt count slowly improving. will initiate coumadin once plt >150. cont argatroban 6. Pulmonary nodule- resolved. as per pulmonary no need to monitor pulmonary nodule. 7. Acute on CKD- likely due to medication induced vs hypoperfusion. stable. hold lasix. avoid nephrotoxic agents. davis placed. monitor I&O. 8. Bilateral hydroureteronephrosis secondary to BPH-cont flomax. urology outpatient follow up 9. Possible hepatic cysts- Outpatient U/S 10. MICU monitoring. can transfer to tele once off ggt for 14H. CC TIME 40 minutes. The care of this patient involved high complexity decision making to prevent further life threatening deterioration of the patient's condition and/or to evalute & treat vital organ system(s) failure or risk of failure. Visit type - Emergency Visit Emergency Visit: Yes ED Registration Date: 01/10/17 Care time: The patient presented to the Emergency Department on the above date and was hospitalized for further evaluation of their emergent condition. - New Patient This patient is new to me today: No - Critical Care Critical Care patient: Yes Total Critical Care Time (in minutes): 40 Critical Care Statement: The care of this patient involved high complexity decision making to prevent further life threatening deterioration of the patient 's condition and/or to evaluate & treat vital organ system(s) failure or risk of failure. - Discharge Referral Referred to [facility] No
--- NOTE | 2017-01-25 09:20 | PN ---
Progress Note (short form) - Note Progress Note: Patient seen and examined in the ICU. Awake and alert. Clinically appears better. Less SOB. Remains mildly confused. Denies CP or SOB. Remains on IV Amiodarone. Argatroban infusing. Intake & Output 01/22/17 01/23/17 01/24/17 01/25/17 23:59 23:59 23:59 23:59 Intake Total 320 2348 2666 398 Output Total 2600 2300 2000 700 Balance -2280 48 666 -302 Weight 218 lb 0.595 oz 223 lb 1.725 oz 223 lb 1.725 oz Last Vital Signs Temp Pulse Resp BP Pulse Ox 97.8 F 73 20 108/75 97 01/25/17 06:00 01/25/17 08:00 01/25/17 08:00 01/25/17 08:00 01/24/17 22:00 Active Medications Acetaminophen (Tylenol -) 650 mg PO Q4H PRN PRN Reason: FEVER OR PAIN Albuterol/Ipratropium (Duoneb -) 1 amp NEB Q4HWA PRN PRN Reason: SHORT OF BREATH/WHEEZING Last Admin: 01/22/17 17:15 Dose: 1 amp Amiodarone HCl (Cordarone -) 200 mg PO BID ROBERTO Bacitracin/Polymyxin B Sulfate (Polysporin Ointment -) 1 applic TP BID ROBERTO Last Admin: 01/24/17 23:35 Dose: 1 applic Chlorhexidine Gluconate (Hibiclens For Decolonization -) 1 applic TP HS [facility] Last Admin: 01/24/17 21:20 Dose: 1 applic Docusate Sodium (Colace -) 100 mg PO DAILY ROBERTO Last Admin: 01/24/17 09:08 Dose: 100 mg Guaifenesin (Robitussin -) 10 ml PO Q6H PRN PRN Reason: COUGH Argatroban 250,000 mcg/ Sodium (Chloride) 250 mls @ 11.97 mls/hr IVPB TITR ROBERTO ; 2 MCG/KG/MIN PRN Reason: Protocol Last Admin: 01/24/17 20:36 Dose: Not Given Methylprednisolone Sodium Succinate (Solu-Medrol -) 30 mg IVPB Q6H-IV ROBERTO Last Admin: 01/25/17 02:16 Dose: 30 mg Metoprolol Tartrate (Lopressor -) 25 mg PO TID [facility] Last Admin: 01/25/17 07:27 Dose: Not Given Multivitamins/Minerals/Vitamin C (Tab-A-Vit -) 1 tab PO DAILY [facility] Last Admin: 01/24/17 09:40 Dose: 1 tab Mupirocin (Bactroban Ointment (For Decolonization) -) 1 applic NS BID [facility] Stop: 01/27/17 21:59 Last Admin: 01/24/17 22:34 Dose: 1 applic Nystatin (Mycostatin Cream -) 1 applic TP BID [facility] Last Admin: 01/24/17 23:35 Dose: 1 applic Piperacillin Sod/Tazobactam Sod (Zosyn 3.375gm Ivpb (Pre-Docked)) 3.375 gm IVPB Q8H-IV [facility] PRN Reason: Protocol Last Admin: 01/25/17 02:16 Dose: 3.375 gm Tamsulosin HCl (Flomax -) 0.4 mg PO BID@0830,2200 [facility] Last Admin: 01/24/17 21:20 Dose: 0.4 mg Constitutional: Yes: Awake and alert, No Distress Eyes: Yes: Conjunctiva Clear, PERRL HENT: Yes: Normocephalic Neck: Yes: Supple, Trachea Midline Cardiovascular: Yes: Tachycardia, Pulse Irregular Respiratory: Yes: Scattered rhonchi Gastrointestinal: Yes: Soft, Abdomen, Obese, NT Renal/: Yes: Segura Present Extremities: Yes: Erythema, Other Edema: Yes Edema: LLE: Trace, RLE: Trace Peripheral Pulses WNL: Yes Integumentary: Yes: Venous Stasis Changes (BLE; LLE erythema) Neurological: Yes: Alert, Confusion Psychiatric: Yes: Alert Labs: Laboratory Results - last 24 hr 01/24/17 01/24/17 01/24/17 12:17 14:15 18:18 WBC RBC Hgb Hct MCV MCH MCHC RDW Plt Count MPV Neutrophils % Lymphocytes % Monocytes % Eosinophils % Basophils % INR PTT (Actin FS) 72.5 H Sodium Potassium Chloride Carbon Dioxide Anion Gap BUN Creatinine POC Glucometer [phone] Random Glucose Calcium Phosphorus Magnesium Stool Occult Blood Negative 01/25/17 01/25/17 01/25/17 05:35 05:35 05:35 WBC 7.8 D RBC 3.60 L Hgb 11.3 L Hct 33.4 L MCV 92.8 MCH 31.4 MCHC 33.8 RDW 15.2 Plt Count 116 L MPV 9.5 Neutrophils % 80.1 Lymphocytes % 17.6 D Monocytes % 2.3 L Eosinophils % 0.0 D Basophils % 0.0 INR PTT (Actin FS) 64.3 H Sodium 139 Potassium 4.2 Chloride 108 H Carbon Dioxide 22 Anion Gap 9 BUN 77 H Creatinine 2.2 H POC Glucometer Random Glucose 154 H Calcium 8.1 L Phosphorus 3.6 Magnesium 2.3 Stool Occult Blood 01/25/17 05:35 WBC RBC Hgb Hct MCV MCH MCHC RDW Plt Count MPV Neutrophils % Lymphocytes % Monocytes % Eosinophils % Basophils % INR 3.24 H PTT (Actin FS) Sodium Potassium Chloride Carbon Dioxide Anion Gap BUN Creatinine POC Glucometer Random Glucose Calcium Phosphorus Magnesium Stool Occult Blood Problem List - Problems (1) Atrial fibrillation with RVR Code(s): I48.91 - UNSPECIFIED ATRIAL FIBRILLATION (2) CHF (congestive heart failure) Code(s): I50.9 - HEART FAILURE, UNSPECIFIED Qualifiers: Congestive heart failure type: unspecified congestive heart failure type Congestive heart failure chronicity: unspecified congestive heart failure chronicity Qualified Code(s): I50.9 - Heart failure, unspecified (3) Dementia Code(s): F03.90 - UNSPECIFIED DEMENTIA WITHOUT BEHAVIORAL DISTURBANCE (4) Hydronephrosis Code(s): N13.30 - UNSPECIFIED HYDRONEPHROSIS (5) Hypotension Code(s): I95.9 - HYPOTENSION, UNSPECIFIED Assessment/Plan HIT (+) DVT (?) PE Suspected LLL PNA / small effusion/atelectasis -> clinically improving on Zosyn Hydronephrosis JUNG Mild dementia A-fib with RVR Hypotension/Shock PLAN: Argatroban per protocol Amiodarone to be transitioned to PO O2 as needed Would not perform V/Q scan at this time -> will not change our management Would not perform thoracentesis : effusion is small and acute in nature : Risk likely outweighs any Benefit Rate control for AFib Strict I+O Continue to wean steroids Cardiac Telemetry monitoring Dr Clark Critical care time spent in reviewing chart, evaluating patient and formulating plan - 35 minutes.
[2017-01-25] MEDS: MULTIVITAMINS (DAILY MVI) TABLET (FP) PO SCH (09:48)
[2017-01-25] MEDS: TAMSULOSIN HCL 0.4 MG CAP.ER.24H (FP) PO SCH ×2 (09:48→22:30)
[2017-01-25] MEDS: DOCUSATE SODIUM 100 MG CAPSULE (FP) PO SCH (09:49)
[2017-01-25] MEDS ORDERED: AMIODARONE HCL 200 MG TABLET (FP) PO SCH (10:00)
--- NOTE | 2017-01-25 10:21 | PN ---
Progress Note, Physician History of Present Illness: Awake, alert Offers no complaints Appears comfortable at rest on nasal cannula Off pressors Afebrile - Current Medication List Current Medications: Active Medications Acetaminophen (Tylenol -) 650 mg PO Q4H PRN PRN Reason: FEVER OR PAIN Albuterol/Ipratropium (Duoneb -) 1 amp NEB Q4HWA PRN PRN Reason: SHORT OF BREATH/WHEEZING Last Admin: 01/22/17 17:15 Dose: 1 amp Amiodarone HCl (Cordarone -) 200 mg PO BID [facility] Last Admin: 01/25/17 09:48 Dose: 200 mg Bacitracin/Polymyxin B Sulfate (Polysporin Ointment -) 1 applic TP BID [facility] Last Admin: 01/24/17 23:35 Dose: 1 applic Chlorhexidine Gluconate (Hibiclens For Decolonization -) 1 applic TP HS [facility] Last Admin: 01/24/17 21:20 Dose: 1 applic Docusate Sodium (Colace -) 100 mg PO DAILY [facility] Last Admin: 01/25/17 09:49 Dose: 100 mg Guaifenesin (Robitussin -) 10 ml PO Q6H PRN PRN Reason: COUGH Argatroban 250,000 mcg/ Sodium (Chloride) 250 mls @ 11.97 mls/hr IVPB TITR ROBERTO ; 2 MCG/KG/MIN PRN Reason: Protocol Last Admin: 01/24/17 20:36 Dose: Not Given Methylprednisolone Sodium Succinate (Solu-Medrol -) 30 mg IVPB Q6H-IV [facility]ERT[facility] Last Admin: 01/25/17 09:48 Dose: 30 mg Metoprolol Tartrate (Lopressor -) 25 mg PO TID [facility] Last Admin: 01/25/17 07:27 Dose: Not Given Multivitamins/Minerals/Vitamin C (Tab-A-Vit -) 1 tab PO DAILY [facility] Last Admin: 01/25/17 09:48 Dose: 1 tab Mupirocin (Bactroban Ointment (For Decolonization) -) 1 applic NS BID [facility] Stop: 01/27/17 21:59 Last Admin: 01/24/17 22:34 Dose: 1 applic Nystatin (Mycostatin Cream -) 1 applic TP BID [facility] Last Admin: 01/24/17 23:35 Dose: 1 applic Piperacillin Sod/Tazobactam Sod (Zosyn 3.375gm Ivpb (Pre-Docked)) 3.375 gm IVPB Q8H-IV [facility]ERTO PRN Reason: Protocol Last Admin: 01/25/17 09:47 Dose: 3.375 gm Tamsulosin HCl (Flomax -) 0.4 mg PO BID@0830,2200 [facility] Last Admin: 01/25/17 09:48 Dose: 0.4 mg - Objective Vital Signs: Vital Signs Temperature 97.8 F 01/25/17 06:00 Pulse Rate 73 01/25/17 08:00 Respiratory Rate 20 01/25/17 08:00 Blood Pressure 108/75 01/25/17 08:00 O2 Sat by Pulse Oximetry (%) 97 01/24/17 22:00 Constitutional: Yes: No Distress Eyes: Yes: Conjunctiva Clear Cardiovascular: Yes: Regular Rate and Rhythm, S1, S2 Respiratory: Yes: Diminished Gastrointestinal: Yes: Normal Bowel Sounds, Soft. No: Tenderness Extremities: Yes: Other (erythema distal LE improved) Edema: Yes Edema: LLE: 1+, RLE: 1+ Labs: CBC, BMP 01/25/17 05:35 01/25/17 05:35 INR, PTT INR 3.24 (0.82-1.09) H 01/25/17 05:35 Fibrinogen < 100.0 mg/dL (238-498) L* 01/23/17 05:15 Assessment/Plan Hypoxemia/ hypotension- improved Possible L pneumonia HIT Continue empiric zosyn
[2017-01-25] MEDS ORDERED: PT OWN MED DRAWER 7, Y5N ONE (10:25)
[2017-01-25] MEDS: MUPIROCIN 2% TOPICAL OINTMENT FOR DECOLONIZATION NS SCH (10:31)
--- NOTE | 2017-01-25 13:15 | EKG ---
Test Reason : Blood Pressure : / mmHG Vent. Rate : 078 BPM Atrial Rate : 078 BPM P-R Int : 174 ms QRS Dur : 100 ms QT Int : 370 ms P-R-T Axes : 050 019 -04 degrees QTc Int : 421 ms NORMAL SINUS RHYTHM NONSPECIFIC T WAVE ABNORMALITY ABNORMAL ECG WHEN COMPARED WITH ECG OF 24-JAN-2017 09:48, SINUS RHYTHM HAS REPLACED ATRIAL FIBRILLATION NONSPECIFIC T WAVE ABNORMALITY NOW EVIDENT IN ANTERIOR LEADS CLINICAL CORRELATION IS RECOMMENDED Confirmed by BARBARA PEPPER MD ([id number]) on 01/25/2017 1:15:20 PM Referred By: BARBARA PEPPER Confirmed By:BARBARA PEPPER MD
--- NOTE | 2017-01-25 13:34 | EKG ---
Test Reason : Blood Pressure : / mmHG Vent. Rate : 115 BPM Atrial Rate : 375 BPM P-R Int : 000 ms QRS Dur : 102 ms QT Int : 318 ms P-R-T Axes : 000 064 -19 degrees QTc Int : 439 ms ATRIAL FIBRILLATION WITH RAPID VENTRICULAR RESPONSE ABNORMAL QRS-T ANGLE, CONSIDER PRIMARY T WAVE ABNORMALITY ABNORMAL ECG WHEN COMPARED WITH ECG OF 20-JAN-2017 03:44, QRS DURATION HAS INCREASED CLINICAL CORRELATION IS RECOMMENDED Confirmed by BARBARA PEPPER MD ([id number]) on 01/25/2017 1:33:49 PM Referred By: JETT PEPPER Confirmed By:BARBARA PEPPER MD
[2017-01-25] MEDS: NYSTATIN 100,000 UNIT/GM TOPICAL CREAM 15 GM TUBE TP SCH ×2 (14:26→22:37)
[2017-01-25] MEDS: BACITRACIN/POLYMYXIN B SULFATE 15 GM TUBE TP SCH ×2 (14:26→22:37)
--- NOTE | 2017-01-25 14:36 | PN ---
Progress Note (short form) - Note Progress Note: Patient seen and examined this am. All notes reviewed. Looks better. Appears comfortable. HR decreased L Last Vital Signs Temp Pulse Resp BP Pulse Ox 97.8 F 84 20 113/74 98 01/25/17 06:00 01/25/17 13:58 01/25/17 13:58 01/25/17 13:58 01/25/17 11:37 Constitutional: Yes: no Distress HENT: Yes: Atraumatic, Normocephalic Neck: Yes: Trachea Midline Cardiovascular: Yes: Tachycardia Respiratory: Yes: Regular, breath sounds Gastrointestinal: Yes: Soft, Abdomen, Obese Current Medications Generic Name Dose Route Start Last Admin Trade Name Freq PRN Reason Stop Dose Admin Acetaminophen 650 mg 01/22/17 20:36 Tylenol - PO Q4H PRN FEVER OR PAIN Albuterol/Ipratropium 1 amp 01/22/17 17:07 01/22/17 17:15 Duoneb - NEB 1 amp Q4HWA PRN Administration SHORT OF BREATH/WHEEZING Amiodarone HCl 200 mg 01/25/17 10:00 01/25/17 09:48 Cordarone - PO 200 mg BID ROBERTO Administration Bacitracin/Polymyxin B Sulfate 1 applic 01/22/17 22:00 01/25/17 14:26 Polysporin Ointment - TP 1 applic BID ROBERTO Administration Chlorhexidine Gluconate 1 applic 01/22/17 22:00 01/24/17 21:20 Hibiclens For Decolonization - TP 1 applic HS ROBERTO Administration Docusate Sodium 100 mg 01/24/17 10:00 01/25/17 09:49 Colace - PO 100 mg DAILY ROBERTO Administration Guaifenesin 10 ml 01/22/17 20:36 Robitussin - PO Q6H PRN COUGH Argatroban 250,000 mcg/ Sodium 250 mls @ 11.97 mls/hr 01/22/17 20:36 01/24/17 20:36 Chloride IVPB Not Given TITR ROBERTO Protocol 2 MCG/KG/MIN Methylprednisolone Sodium Succinate 30 mg 01/24/17 15:00 01/25/17 14:27 Solu-Medrol - IVPB 30 mg Q6H-IV ROBERTO Administration Metoprolol Tartrate 25 mg 01/22/17 22:00 01/25/17 14:26 Lopressor - PO 25 mg TID ROBERTO Administration Multivitamins/Minerals/Vitamin C 1 tab 01/23/17 10:00 01/25/17 09:48 Tab-A-Vit - PO 1 tab DAILY ROBERTO Administration Mupirocin 1 applic 01/22/17 22:00 01/25/17 10:31 Bactroban Ointment (For Decolonization) - NS 01/27/17 21:59 1 applic BID ROBERTO Administration Nystatin 1 applic 01/24/17 22:45 01/25/17 14:26 Mycostatin Cream - TP 1 applic BID ROBERTO Administration Piperacillin Sod/Tazobactam Sod 3.375 gm 01/23/17 03:15 01/25/17 09:47 Zosyn 3.375gm Ivpb (Pre-Docked) IVPB 3.375 gm Q8H-IV ROBERTO Administration Protocol Tamsulosin HCl 0.4 mg 01/22/17 22:00 01/25/17 09:48 Flomax - PO 0.4 mg BID@0830,2200 ROBERTO Administration INR, PTT INR 3.24 (0.82-1.09) H 01/25/17 05:35 Fibrinogen < 100.0 mg/dL (238-498) L* 01/23/17 05:15 CBC, BMP 01/25/17 05:35 01/25/17 05:35 Assessment/Plan: 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 Bilateral hydroureteronephrosis secondary to BPH Plan: -Patient with HIT ab Positive, high optical density, pending Serotonin release assay. -continue aragtroban and monitor PTT as mentioned prior, presently Stable, will continue with PTT q12h -Platelet count stable. If NO invasive procedures are planned, coumadin is the recommended anti-coagulant in HIT once platelets >150K and needed to be bridged for about 2-4days -INR , false elevation from the argatroban -NOACs not approved in HIT thus far -now off pressors and plan to be changed to amio PO -on emperic abx -JUNG improving -will follow. Problem List - Problems (1) Thrombocytopenia Code(s): D69.6 - THROMBOCYTOPENIA, UNSPECIFIED (2) Altered mental status Code(s): R41.82 - ALTERED MENTAL STATUS, UNSPECIFIED (3) Atrial fibrillation with RVR Code(s): I48.91 - UNSPECIFIED ATRIAL FIBRILLATION (4) UTI (urinary tract infection) Code(s): N39.0 - URINARY TRACT INFECTION, SITE NOT SPECIFIED (5) Kidney injury Code(s): S37.009A - UNSPECIFIED INJURY OF UNSPECIFIED KIDNEY, INITIAL ENCOUNTER (6) Hypoxemia Code(s): R09.02 - HYPOXEMIA
[2017-01-25] MEDS ORDERED: ACETAMINOPHEN 325 MG TABLET (FP) PO PRN (18:25)
[2017-01-25] MEDS ORDERED: guaiFENesin 200 MG/10 ML 10 ML UNIT-DOSE CUPS PO PRN (18:25)
[2017-01-25] MEDS ORDERED: ALBUTEROL SO4 2.5/IPRATROPIUM 0.5 INH SOL 3 ML VIAL.NEB. NEB PRN (18:25)
[2017-01-25] MEDS: ARGATROBAN - 250,000 MCG in SODIUM CHLORIDE 247.5 ML IVPB SCH ×2 (18:26→19:43)
[2017-01-25] MEDS ORDERED: CHLORHEXIDINE GLUCONATE 4% CLEANSER FOR DECOLONIZATION TP SCH (22:00)
[2017-01-25] MEDS ORDERED: MUPIROCIN 2% TOPICAL OINTMENT FOR DECOLONIZATION NS SCH (22:00)
[2017-01-25] MEDS: AMIODARONE HCL 200 MG TABLET (FP) PO SCH (22:30)
[2017-01-26] MEDS: PIPERACILLIN/TAZOB 3.375 GM/50 ML PRE-DOCKED IVPB SCH ×3 (01:48→17:35)
[2017-01-26] MEDS: methylPREDNISolone NA SUCC 40 MG/1 ML VIAL IVPB SCH ×3 (02:54→22:23)
[2017-01-26] MEDS: METOPROLOL TARTRATE 25 MG TABLET (FP) PO SCH ×3 (06:38→21:16)
[2017-01-26 07:26] LABS: BASOPHIL 0.1 % (0-2.0); MCH 31.2 pg (25.7-33.7); MCHC 33.9 g/dl (32.0-35.9); MEAN PLT VOLUME 8.8 fl (7.5-11.1); NEUTROPHILS 80.6 % (42.8-82.8); PLATELET COUNT 123 K/MM3 (134-434); RDW 15.6 % (11.9-15.9); WHITE BLOOD COUNT 10.2 K/mm3 (4.0-10.0)
[2017-01-26 07:49] LABS: ALBUMIN 2.5 g/dl (3.4-5.0); ANION GAP 11 (8-16); CALCIUM 8.1 mg/dL (8.5-10.1); CO2 24 mmol/L (21-32); GLUCOSE,RANDOM 144 mg/dL (74-106); MAGNESIUM 2.5 mg/dL (1.8-2.4)
[2017-01-26 07:53] LABS: ALK PHOS 66 U/L (45-117); BILIRUBIN,TOTAL 1.7 mg/dL (0.2-1.0); SGOT/AST 9 U/L (15-37); SGPT/ALT 40 U/L (12-78); TOT PROT 5.7 g/dl (6.4-8.2)
[2017-01-26] MEDS: MULTIVITAMINS (DAILY MVI) TABLET (FP) PO SCH (09:13)
[2017-01-26] MEDS: TAMSULOSIN HCL 0.4 MG CAP.ER.24H (FP) PO SCH ×2 (09:13→21:16)
[2017-01-26] MEDS: DOCUSATE SODIUM 100 MG CAPSULE (FP) PO SCH (09:14)
[2017-01-26] MEDS: AMIODARONE HCL 200 MG TABLET (FP) PO SCH ×2 (09:14→21:16)
[2017-01-26] MEDS: BACITRACIN/POLYMYXIN B SULFATE 15 GM TUBE TP SCH ×2 (09:18→21:20)
[2017-01-26] MEDS: NYSTATIN 100,000 UNIT/GM TOPICAL CREAM 15 GM TUBE TP SCH ×2 (09:18→21:20)
--- NOTE | 2017-01-26 11:06 | PN ---
Progress Note (short form) - Note Progress Note: Chief Complaint: Events noted, notes reviewed. Patient denies any chest discomfort, dyspnea continues to improve, remains in sinus rhythm, transferred to telemetry History of Present Illness: Seen and examined on telemetry. Events noted, notes reviewed. Patient denies any chest discomfort, dyspnea continues to improve, remains in sinus rhythm, transferred to telemetry Remains on Argatroban, to initiate oral A/C as per Hematology with Coumadin, since there is no data with NOAC's Transthoracic echocardiography dated 01/17/17 Revealed normal LV Systolic function with pulmonary HTN (RVSP between 40-50 Millimeters mercury), mild MR and TR Medications: Current Medications Acetaminophen (Tylenol -) 650 mg PO Q4H PRN PRN Reason: FEVER OR PAIN Albuterol/Ipratropium (Duoneb -) 1 amp NEB Q4HWA PRN PRN Reason: SHORT OF BREATH/WHEEZING Amiodarone HCl (Cordarone -) 200 mg PO BID [facility] Last Admin: 01/26/17 09:14 Dose: 200 mg Bacitracin/Polymyxin B Sulfate (Polysporin Ointment -) 1 applic TP BID [facility] Last Admin: 01/26/17 09:18 Dose: 1 applic Docusate Sodium (Colace -) 100 mg PO DAILY [facility] Last Admin: 01/26/17 09:14 Dose: 100 mg Guaifenesin (Robitussin -) 10 ml PO Q6H PRN PRN Reason: COUGH Argatroban 250,000 mcg/ Sodium (Chloride) 250 mls @ 11.97 mls/hr IVPB TITR ROBERTO ; 2 MCG/KG/MIN PRN Reason: Protocol Last Admin: 01/25/17 19:43 Dose: Not Given Methylprednisolone Sodium Succinate (Solu-Medrol -) 40 mg IVPB BID [facility] Metoprolol Tartrate (Lopressor -) 25 mg PO TID [facility] Last Admin: 01/26/17 06:38 Dose: 25 mg Multivitamins/Minerals/Vitamin C (Tab-A-Vit -) 1 tab PO DAILY [facility] Last Admin: 01/26/17 09:13 Dose: 1 tab Nystatin (Mycostatin Cream -) 1 applic TP BID [facility] Last Admin: 01/26/17 09:18 Dose: 1 applic Piperacillin Sod/Tazobactam Sod (Zosyn 3.375gm Ivpb (Pre-Docked)) 3.375 gm IVPB Q8H-IV ROBERTO PRN Reason: Protocol Last Admin: 01/26/17 09:16 Dose: 3.375 gm Tamsulosin HCl (Flomax -) 0.4 mg PO BID@0830,2200 [facility] Last Admin: 01/26/17 09:13 Dose: 0.4 mg Review of Systems - Review of Systems Constitutional: denies: Chills, Fever Cardiovascular: As noted above Respiratory: denies: Cough or Sputum Production Gastrointestinal: denies: Nausea, Vomiting, Diarrhea, Constipation or Abdominal Pain Genitourinary: No symptoms reported Musculoskeletal: No symptoms reported Vital Signs: Last Vital Signs Temp Pulse Resp BP Pulse Ox 98.1 F 69 20 132/72 96 01/26/17 07:47 01/26/17 07:47 01/26/17 07:51 01/26/17 07:47 01/26/17 07:51 Intake & Output 01/23/17 01/24/17 01/25/17 01/26/17 23:59 23:59 23:59 23:59 Intake Total 2348 2666 1658 266 Output Total 2300 1999 1999 Balance 48 666 -342 266 Weight 218 lb 0.595 oz 223 lb 1.725 oz 223 lb 1.725 oz 229 lb Neck: Supple Negative JVD no bruit appreciated Respiratory: Diminished Breath sounds at the bases Cardiovascular: S1 and S2 Regular Rate Rhythm Gastrointestinal: Soft benign Normal Bowel Sounds Extremities: Trace bilateral edema Labs: CBC, BMP 01/26/17 05:35 01/26/17 05:35 Assessment/Plan ASSESSMENT: 1. Resolved hypotension, most likely multifactorial, over-diuresis/hypovolemia 2. Paroxysmal atrial fibrillation [id number] score of 3-4 currently in sinus rhythm on Argatroban therapy (HIT) 3. 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 CAD angina pectoris 5. Encephalopathy, Probable toxic Metabolic and probable underlying dementia, improved 6. Acute on chronic kidney disease 7. Bilateral hydronephrosis 8. 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 Continue PO Metoprolol, Hemodynamics permitting 3. Continue PO Amiodarone 4. Ideally should be on ACEI or ARBS once renal function stabilized 5. Continue to hold IV Lasix in view of renal insufficiency Carl Jara MD
--- NOTE | 2017-01-26 11:51 | PN ---
Teaching Attending Note Name of Resident: Palmer Rios ATTENDING PHYSICIAN STATEMENT I saw and evaluated the patient. I reviewed the resident's note and discussed the case with the resident. I agree with the resident's findings and plan as documented. SUBJECTIVE:currently asymptomatic. denies CP, SOB, cough, fever, chills, N/V/C/D OBJECTIVE: Last Vital Signs Temp Pulse Resp BP Pulse Ox 98.1 F 69 20 132/72 96 01/26/17 07:47 01/26/17 07:47 01/26/17 07:51 01/26/17 07:47 01/26/17 07:51 Intake & Output 01/23/17 01/24/17 01/25/17 01/26/17 23:59 23:59 23:59 23:59 Intake Total 2348 2666 1658 266 Output Total 2300 1999 1999 Balance 48 666 -342 266 Weight 218 lb 0.595 oz 223 lb 1.725 oz 223 lb 1.725 oz 229 lb General NAD CV S1 S2 RRR no murmur/rub/gallop Lungs decreased breath sounds L lung base. no crackles or wheezing Extremities 2+ pitting edema B/L LE ASSESSMENT AND PLAN: 86-year-old man with a history of bilateral hydronephrosis who presented to the ER with groin pain. 1. Acute metabolic encephalopathy secondary to UTI and LLE cellulitis- resolved. completed abx course 2. Acute Hypoxic respiratory distress- likely due to pleural effusion vs PNA. clinically improved. not on supplemental oxygen and not tachynpic. will cont to hold lasix as renal function recovers. cont empiric abx with zosyn. cont supplemental oxygen to mantain spO2 > 90%. pulmonary on board 3. Hypotension- large PE vs over-diuresis vs sepsis. off pressors >24H. BP stable. good UOP. 4. New onset Afib-converted to NSR. on amio. HR controlled. will monitor LFT and TFT. lopressor prn HR >120. on argatroban for a/c. 5. 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 plt count slowly improving. will initiate coumadin once plt >150. cont argatroban 6. Pulmonary nodule- resolved. as per pulmonary no need to monitor pulmonary nodule. 7. Acute on CKD- likely due to medication induced vs hypoperfusion. stable. hold lasix. avoid nephrotoxic agents. davis placed. monitor I&O. 8. Bilateral hydroureteronephrosis secondary to BPH-cont flomax. urology outpatient follow up 9. Possible hepatic cysts- Outpatient U/S
--- NOTE | 2017-01-26 12:28 | PN ---
Progress Note, Physician History of Present Illness: Awake, alert Hard of hearing No c/o chest pain/ dyspnea/cough No fever/ chills - Current Medication List Current Medications: Active Medications Acetaminophen (Tylenol -) 650 mg PO Q4H PRN PRN Reason: FEVER OR PAIN Albuterol/Ipratropium (Duoneb -) 1 amp NEB Q4HWA PRN PRN Reason: SHORT OF BREATH/WHEEZING Amiodarone HCl (Cordarone -) 200 mg PO BID [facility] Last Admin: 01/26/17 09:14 Dose: 200 mg Bacitracin/Polymyxin B Sulfate (Polysporin Ointment -) 1 applic TP BID [facility] Last Admin: 01/26/17 09:18 Dose: 1 applic Docusate Sodium (Colace -) 100 mg PO DAILY [facility] Last Admin: 01/26/17 09:14 Dose: 100 mg Guaifenesin (Robitussin -) 10 ml PO Q6H PRN PRN Reason: COUGH Argatroban 250,000 mcg/ Sodium (Chloride) 250 mls @ 11.97 mls/hr IVPB TITR ROBERTO ; 2 MCG/KG/MIN PRN Reason: Protocol Last Admin: 01/25/17 19:43 Dose: Not Given Methylprednisolone Sodium Succinate (Solu-Medrol -) 40 mg IVPB BID [facility] Metoprolol Tartrate (Lopressor -) 25 mg PO TID [facility] Last Admin: 01/26/17 06:38 Dose: 25 mg Multivitamins/Minerals/Vitamin C (Tab-A-Vit -) 1 tab PO DAILY [facility] Last Admin: 01/26/17 09:13 Dose: 1 tab Nystatin (Mycostatin Cream -) 1 applic TP BID [facility] Last Admin: 01/26/17 09:18 Dose: 1 applic Piperacillin Sod/Tazobactam Sod (Zosyn 3.375gm Ivpb (Pre-Docked)) 3.375 gm IVPB Q8H-IV [facility]ERTO PRN Reason: Protocol Last Admin: 01/26/17 09:16 Dose: 3.375 gm Tamsulosin HCl (Flomax -) 0.4 mg PO BID@0830,2200 [facility] Last Admin: 01/26/17 09:13 Dose: 0.4 mg - Objective Vital Signs: Vital Signs Temperature 98.1 F 01/26/17 07:47 Pulse Rate 69 01/26/17 07:47 Respiratory Rate 20 01/26/17 07:51 Blood Pressure 132/72 01/26/17 07:47 O2 Sat by Pulse Oximetry (%) 96 01/26/17 07:51 Constitutional: Yes: No Distress Eyes: Yes: Conjunctiva Clear Cardiovascular: Yes: Regular Rate and Rhythm, S1, S2 Respiratory: Yes: Other (crepitations at bases) Gastrointestinal: Yes: Normal Bowel Sounds, Soft. No: Tenderness Extremities: Yes: Other (residual erythema L LE no warmth or tenderness) Edema: Yes Labs: CBC, BMP 01/26/17 05:35 01/26/17 05:35 INR, PTT INR 3.24 (0.82-1.09) H 01/25/17 05:35 Fibrinogen < 100.0 mg/dL (238-498) L* 01/23/17 05:15 Assessment/Plan Hypoxemia/ hypotension- improved Possible L pneumonia HIT Continue empiric zosyn
--- NOTE | 2017-01-26 13:14 | PN ---
Physical Exam: SUBJECTIVE: Patient seen and examined Patient transferred from ICU to telemetry. Denies any symptoms today. OBJECTIVE: Vital Signs Period Temp Pulse Resp BP Sys/Locke Pulse Ox Last 24 Hr 97.8 F-98.6 F 63-84 18-24 93-153/62-75 94-98 GENERAL: The patient is awake, alert, and fully oriented, in no acute distress. HEAD: Normal with no signs of trauma. EYES: PERRL, extraocular movements intact, sclera anicteric, conjunctiva clear. No ptosis. ENT: Ears normal, nares patent, oropharynx clear without exudates, moist mucous membranes. NECK: Trachea midline, full range of motion, supple. LUNGS: Breath sounds equal, decreased breath sounds at bases, lungs clear to auscultation otherwise. Mild wheezing scattered HEART: Regular rate and rhythm, S1, S2 without murmur, rub or gallop. ABDOMEN: Soft, nontender, nondistended, normoactive bowel sounds, no guarding, no rebound, no hepatosplenomegaly, no masses. EXTREMITIES: 2+ pulses, warm, well-perfused, 2+ pitting edema NEUROLOGICAL: Cranial nerves II through XII grossly intact. Normal speech, gait not observed. PSYCH: Normal mood, normal affect. SKIN: Warm, dry, normal turgor, no rashes or lesions noted Laboratory Results - last 24 hr 01/25/17 01/26/17 01/26/17 16:30 05:35 05:35 WBC 10.2 H D RBC 3.89 L Hgb 12.1 Hct 35.8 MCV 92.0 MCH 31.2 MCHC 33.9 RDW 15.6 Plt Count 123 L MPV 8.8 Neutrophils % 80.6 Lymphocytes % 17.1 Monocytes % 2.2 L Eosinophils % 0.0 Basophils % 0.1 D PTT (Actin FS) 59.2 H 60.8 H Sodium Potassium Chloride Carbon Dioxide Anion Gap BUN Creatinine Creat Clearance w eGFR Random Glucose Calcium Magnesium Total Bilirubin AST ALT Alkaline Phosphatase Total Protein Albumin 01/26/17 05:35 WBC RBC Hgb Hct MCV MCH MCHC RDW Plt Count MPV Neutrophils % Lymphocytes % Monocytes % Eosinophils % Basophils % PTT (Actin FS) Sodium 140 Potassium 4.4 Chloride 105 Carbon Dioxide 24 Anion Gap 11 BUN 67 H Creatinine 2.0 H Creat Clearance w eGFR 31.99 Random Glucose 144 H Calcium 8.1 L Magnesium 2.5 H Total Bilirubin 1.7 H D AST 9 L D ALT 40 Alkaline Phosphatase 66 Total Protein 5.7 L Albumin 2.5 L Active Medications Generic Name Dose Route Start Last Admin Trade Name Freq PRN Reason Stop Dose Admin Acetaminophen 650 mg 01/25/17 18:25 Tylenol - PO Q4H PRN FEVER OR PAIN Albuterol/Ipratropium 1 amp 01/25/17 18:25 Duoneb - NEB Q4HWA PRN SHORT OF BREATH/WHEEZING Amiodarone HCl 200 mg 01/25/17 22:00 01/26/17 09:14 Cordarone - PO 200 mg BID ROBERTO Administration Bacitracin/Polymyxin B Sulfate 1 applic 01/25/17 22:00 01/26/17 09:18 Polysporin Ointment - TP 1 applic BID ROBERTO Administration Docusate Sodium 100 mg 01/26/17 10:00 01/26/17 09:14 Colace - PO 100 mg DAILY ROBERTO Administration Guaifenesin 10 ml 01/25/17 18:25 Robitussin - PO Q6H PRN COUGH Argatroban 250,000 mcg/ Sodium 250 mls @ 11.97 mls/hr 01/25/17 18:25 01/25/17 19:43 Chloride IVPB Not Given TITR ROBERTO Protocol 2 MCG/KG/MIN Methylprednisolone Sodium Succinate 40 mg 01/26/17 22:00 Solu-Medrol - IVPB BID ROBERTO Metoprolol Tartrate 25 mg 01/25/17 22:00 01/26/17 06:38 Lopressor - PO 25 mg TID ROBERTO Administration Multivitamins/Minerals/Vitamin C 1 tab 01/26/17 10:00 01/26/17 09:13 Tab-A-Vit - PO 1 tab DAILY ROBERTO Administration Nystatin 1 applic 01/25/17 22:00 01/26/17 09:18 Mycostatin Cream - TP 1 applic BID ROBERTO Administration Piperacillin Sod/Tazobactam Sod 3.375 gm 01/26/17 02:00 01/26/17 09:16 Zosyn 3.375gm Ivpb (Pre-Docked) IVPB 3.375 gm Q8H-IV ROBERTO Administration Protocol Tamsulosin HCl 0.4 mg 01/25/17 22:00 01/26/17 09:13 Flomax - PO 0.4 mg BID@0830,2200 [facility] Administration ASSESSMENT/PLAN: 86 yo M with PMH of b/l severe hydronephrosis L>R seen on CT 10/31/15, otherwise unknown [facility] (poor historian/no records), who presented with confusion, groin and back pain. #Metabolic encephalopathy in the setting of AMS possibly due to UTI being tx w/ abx, RESOLVED -A&Ox3 -completed course of unasyn #New onset Atrial Fibrillation, converted to NSR -Amiodarone 200 mg po bid -metoprolol 25 mg po tid -Continue to monitor #Thrombocytopenia, Improvng -Likely 2/2 to heparin, 4T score of 6 -HIT antibody + -Heparin d/c, Started on argatroban drip per hematology -Once patient's platelets >150, will bridge patient to coumadin. NOAC's not preferred due to lack of data in patient's with HIT. -Hematology on board #Acute hypoxic respiratory distress with hypotension likely 2/2 to pleural effusion vs saddle PE vs. HCAP pneumonia -tachypnea resolved -Satting 96% on 2L -Currently on Zosyn 3.35gm ivpb q8h -Incentive spirometer -Guanifensen 10 ml Q6 PRN -Continue duonebs Q4hr community health -Taper patient to Solumederol IV 40 mg bid -O2 NC as needed for O2 saturation -Pulmonary on board, Dr. Mariscal -No need to follow up on pulmonary nodule due to fleischner society recommendations #LLE cellulitis, improving -Afebrile -Wound cx - no growth to date -Unasyn completed #Flank Pain: -CT- hydroureteralonephrosis -Urology recs- Flomax 0.4 mg BID, f/u outpatient -Patient refuses davis #JUNG on CKD 2/2 to hypoperfusion after episode of hypotension vs. lasix use, improving -Patient has davis in place -Monitor UOP -Avoid nephrotoxic agents #FEN: -No fluids -lytes stable -Na restricted diet #PPx -DVT: Argatroban drip -GI: not indicated at this time Visit type - Emergency Visit Emergency Visit: No - New Patient This patient is new to me today: No - Critical Care Critical Care patient: No
--- NOTE | 2017-01-26 14:53 | PN ---
Progress Note (short form) - Note Progress Note: Patient seen and examined this am. All notes reviewed. Looks better. transferred to the floor. In the chair having lunch, denies any complains. L Last Vital Signs Temp Pulse Resp BP Pulse Ox 97.8 F 84 20 113/74 98 01/25/17 06:00 01/25/17 13:58 01/25/17 13:58 01/25/17 13:58 01/25/17 11:37 Constitutional: Yes: no Distress HENT: Yes: Atraumatic, Normocephalic Neck: Yes: Trachea Midline Cardiovascular: Yes: Tachycardia Respiratory: Yes: Regular, breath sounds Gastrointestinal: Yes: Soft, Abdomen, Obese Last Vital Signs Temp Pulse Resp BP Pulse Ox 98.1 F 69 20 132/72 96 01/26/17 07:47 01/26/17 07:47 01/26/17 07:51 01/26/17 07:47 01/26/17 07:51 CBC, BMP 01/26/17 05:35 01/26/17 05:35 Current Medications Generic Name Dose Route Start Last Admin Trade Name Freq PRN Reason Stop Dose Admin Acetaminophen 650 mg 01/25/17 18:25 Tylenol - PO Q4H PRN FEVER OR PAIN Albuterol/Ipratropium 1 amp 01/25/17 18:25 Duoneb - NEB Q4HWA PRN SHORT OF BREATH/WHEEZING Amiodarone HCl 200 mg 01/25/17 22:00 01/26/17 09:14 Cordarone - PO 200 mg BID ROBERTO Administration Bacitracin/Polymyxin B Sulfate 1 applic 01/25/17 22:00 01/26/17 09:18 Polysporin Ointment - TP 1 applic BID ROBERTO Administration Docusate Sodium 100 mg 01/26/17 10:00 01/26/17 09:14 Colace - PO 100 mg DAILY ROBERTO Administration Guaifenesin 10 ml 01/25/17 18:25 Robitussin - PO Q6H PRN COUGH Argatroban 250,000 mcg/ Sodium 250 mls @ 11.97 mls/hr 01/25/17 18:25 01/25/17 19:43 Chloride IVPB Not Given TITR ROBERTO Protocol 2 MCG/KG/MIN Methylprednisolone Sodium Succinate 40 mg 01/26/17 22:00 Solu-Medrol - IVPB BID ROBERTO Metoprolol Tartrate 25 mg 01/25/17 22:00 01/26/17 13:44 Lopressor - PO 25 mg TID ROBERTO Administration Multivitamins/Minerals/Vitamin C 1 tab 01/26/17 10:00 01/26/17 09:13 Tab-A-Vit - PO 1 tab DAILY ROBERTO Administration Nystatin 1 applic 01/25/17 22:00 01/26/17 09:18 Mycostatin Cream - TP 1 applic BID ROBERTO Administration Piperacillin Sod/Tazobactam Sod 3.375 gm 01/26/17 02:00 01/26/17 09:16 Zosyn 3.375gm Ivpb (Pre-Docked) IVPB 3.375 gm Q8H-IV ROBERTO Administration Protocol Tamsulosin HCl 0.4 mg 01/25/17 22:00 01/26/17 09:13 Flomax - PO 0.4 mg BID@0830,2200 [facility] Administration Assessment/Plan: 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 Bilateral hydroureteronephrosis secondary to BPH Plan: -Patient with HIT ab Positive, high optical density, pending Serotonin release assay. -continue aragtroban and monitor PTT , presently Stable -Platelet count stable. If NO invasive procedures are planned, coumadin is the recommended anti-coagulant in HIT once platelets >150K and needed to be bridged for about 4days -Cr improving -on emperic abx -will follow. Problem List - Problems (1) Thrombocytopenia Code(s): D69.6 - THROMBOCYTOPENIA, UNSPECIFIED (2) Altered mental status Code(s): R41.82 - ALTERED MENTAL STATUS, UNSPECIFIED (3) Atrial fibrillation with RVR Code(s): I48.91 - UNSPECIFIED ATRIAL FIBRILLATION (4) UTI (urinary tract infection) Code(s): N39.0 - URINARY TRACT INFECTION, SITE NOT SPECIFIED (5) Kidney injury Code(s): S37.009A - UNSPECIFIED INJURY OF UNSPECIFIED KIDNEY, INITIAL ENCOUNTER (6) Hypoxemia Code(s): R09.02 - HYPOXEMIA
--- NOTE | 2017-01-26 15:07 | PN ---
Progress Note (short form) - Note Progress Note: Feels overall better. Clinically improving. Denies CP or SOB. IV Argatroban. Intake & Output 01/23/17 01/24/17 01/25/17 01/26/17 23:59 23:59 23:59 23:59 Intake Total 2348 2666 1658 516 Output Total 2300 1999 1999 Balance 48 666 -342 516 Weight 218 lb 0.595 oz 223 lb 1.725 oz 223 lb 1.725 oz 229 lb Last Vital Signs Temp Pulse Resp BP Pulse Ox 98.1 F 69 20 132/72 96 01/26/17 07:47 01/26/17 07:47 01/26/17 07:51 01/26/17 07:47 01/26/17 07:51 Active Medications Acetaminophen (Tylenol -) 650 mg PO Q4H PRN PRN Reason: FEVER OR PAIN Albuterol/Ipratropium (Duoneb -) 1 amp NEB Q4HWA PRN PRN Reason: SHORT OF BREATH/WHEEZING Amiodarone HCl (Cordarone -) 200 mg PO BID [facility] Last Admin: 01/26/17 09:14 Dose: 200 mg Bacitracin/Polymyxin B Sulfate (Polysporin Ointment -) 1 applic TP BID [facility] Last Admin: 01/26/17 09:18 Dose: 1 applic Docusate Sodium (Colace -) 100 mg PO DAILY [facility] Last Admin: 01/26/17 09:14 Dose: 100 mg Guaifenesin (Robitussin -) 10 ml PO Q6H PRN PRN Reason: COUGH Argatroban 250,000 mcg/ Sodium (Chloride) 250 mls @ 11.97 mls/hr IVPB TITR ROBERTO ; 2 MCG/KG/MIN PRN Reason: Protocol Last Admin: 01/25/17 19:43 Dose: Not Given Methylprednisolone Sodium Succinate (Solu-Medrol -) 40 mg IVPB BID [facility] Metoprolol Tartrate (Lopressor -) 25 mg PO TID [facility] Last Admin: 01/26/17 13:44 Dose: 25 mg Multivitamins/Minerals/Vitamin C (Tab-A-Vit -) 1 tab PO DAILY [facility] Last Admin: 01/26/17 09:13 Dose: 1 tab Nystatin (Mycostatin Cream -) 1 applic TP BID [facility] Last Admin: 01/26/17 09:18 Dose: 1 applic Piperacillin Sod/Tazobactam Sod (Zosyn 3.375gm Ivpb (Pre-Docked)) 3.375 gm IVPB Q8H-IV ROBERTO PRN Reason: Protocol Last Admin: 01/26/17 09:16 Dose: 3.375 gm Tamsulosin HCl (Flomax -) 0.4 mg PO BID@0830,2200 [facility] Last Admin: 01/26/17 09:13 Dose: 0.4 mg Constitutional: Yes: Awake and alert, No Distress Eyes: Yes: Conjunctiva Clear, PERRL HENT: Yes: Normocephalic Neck: Yes: Supple, Trachea Midline Cardiovascular: Yes: Tachycardia, Pulse Irregular Respiratory: Yes: Scattered rhonchi Gastrointestinal: Yes: Soft, Abdomen, Obese, NT Renal/: Yes: Segura Present Extremities: Yes: Erythema, Other Edema: Yes Edema: LLE: Trace, RLE: Trace Peripheral Pulses WNL: Yes Integumentary: Yes: Venous Stasis Changes (BLE; LLE erythema) Neurological: Yes: Alert, Confusion Psychiatric: Yes: Alert Labs: Laboratory Results - last 24 hr 01/25/17 01/26/17 01/26/17 16:30 05:35 05:35 WBC 10.2 H D RBC 3.89 L Hgb 12.1 Hct 35.8 MCV 92.0 MCH 31.2 MCHC 33.9 RDW 15.6 Plt Count 123 L MPV 8.8 Neutrophils % 80.6 Lymphocytes % 17.1 Monocytes % 2.2 L Eosinophils % 0.0 Basophils % 0.1 D PTT (Actin FS) 59.2 H 60.8 H Sodium Potassium Chloride Carbon Dioxide Anion Gap BUN Creatinine Creat Clearance w eGFR Random Glucose Calcium Magnesium Total Bilirubin AST ALT Alkaline Phosphatase Total Protein Albumin 01/26/17 05:35 WBC RBC Hgb Hct MCV MCH MCHC RDW Plt Count MPV Neutrophils % Lymphocytes % Monocytes % Eosinophils % Basophils % PTT (Actin FS) Sodium 140 Potassium 4.4 Chloride 105 Carbon Dioxide 24 Anion Gap 11 BUN 67 H Creatinine 2.0 H Creat Clearance w eGFR 31.99 Random Glucose 144 H Calcium 8.1 L Magnesium 2.5 H Total Bilirubin 1.7 H D AST 9 L D ALT 40 Alkaline Phosphatase 66 Total Protein 5.7 L Albumin 2.5 L Problem List - Problems (1) Atrial fibrillation with RVR Code(s): I48.91 - UNSPECIFIED ATRIAL FIBRILLATION (2) CHF (congestive heart failure) Code(s): I50.9 - HEART FAILURE, UNSPECIFIED Qualifiers: Congestive heart failure type: unspecified congestive heart failure type Congestive heart failure chronicity: unspecified congestive heart failure chronicity Qualified Code(s): I50.9 - Heart failure, unspecified (3) Dementia Code(s): F03.90 - UNSPECIFIED DEMENTIA WITHOUT BEHAVIORAL DISTURBANCE (4) Hydronephrosis Code(s): N13.30 - UNSPECIFIED HYDRONEPHROSIS (5) Hypotension Code(s): I95.9 - HYPOTENSION, UNSPECIFIED Assessment/Plan HIT (+) DVT (?) PE Suspected LLL PNA / small effusion/atelectasis -> clinically improving on Zosyn Hydronephrosis JUNG Mild dementia A-fib with RVR Hypotension/Shock PLAN: Argatroban per protocol Amiodarone PO O2 as needed Would hold on thoracentesis : effusion is small and acute in nature : Risk likely outweighs any Benefit Rate control for AFib Strict I+O Continue to wean steroids Cardiac Telemetry monitoring Dr Clark
[2017-01-26] MEDS: ARGATROBAN - 250,000 MCG in SODIUM CHLORIDE 247.5 ML IVPB SCH (17:39)
[2017-01-27] MEDS ORDERED: PT OWN MED DRAWER 7, Y5N ONE (02:27)
[2017-01-27] MEDS: ARGATROBAN - 250,000 MCG in SODIUM CHLORIDE 247.5 ML IVPB SCH ×2 (03:02→18:46)
[2017-01-27] MEDS: PIPERACILLIN/TAZOB 3.375 GM/50 ML PRE-DOCKED IVPB SCH ×3 (03:14→17:08)
[2017-01-27] MEDS: METOPROLOL TARTRATE 25 MG TABLET (FP) PO SCH ×3 (05:53→21:01)
--- NOTE | 2017-01-27 07:40 | PN ---
Progress Note (short form) - Note Progress Note: Chief Complaint: Events noted, notes reviewed. Patient denies any chest discomfort or dyspnea, remains in sinus rhythm History of Present Illness: Seen and examined on telemetry. Events noted, notes reviewed. Patient denies any chest discomfort or dyspnea, remains in sinus rhythm Remains on Argatroban, to initiate oral A/C as per Hematology with Coumadin, since there is no data with NOAC's Transthoracic echocardiography dated 01/17/17 Revealed normal LV Systolic function with pulmonary HTN (RVSP between 40-50 Millimeters mercury), mild MR and TR Medications: Current Medications Acetaminophen (Tylenol -) 650 mg PO Q4H PRN PRN Reason: FEVER OR PAIN Albuterol/Ipratropium (Duoneb -) 1 amp NEB Q4HWA PRN PRN Reason: SHORT OF BREATH/WHEEZING Amiodarone HCl (Cordarone -) 200 mg PO BID [facility] Last Admin: 01/26/17 21:16 Dose: 200 mg Bacitracin/Polymyxin B Sulfate (Polysporin Ointment -) 1 applic TP BID [facility] Last Admin: 01/26/17 21:20 Dose: 1 applic Docusate Sodium (Colace -) 100 mg PO DAILY [facility] Last Admin: 01/26/17 09:14 Dose: 100 mg Guaifenesin (Robitussin -) 10 ml PO Q6H PRN PRN Reason: COUGH Argatroban 250,000 mcg/ Sodium (Chloride) 250 mls @ 11.97 mls/hr IVPB TITR ROBERTO ; 2 MCG/KG/MIN PRN Reason: Protocol Last Admin: 01/27/17 03:02 Dose: 11.97 mls/hr Methylprednisolone Sodium Succinate (Solu-Medrol -) 40 mg IVPB BID [facility] Last Admin: 01/26/17 22:23 Dose: 40 mg Metoprolol Tartrate (Lopressor -) 25 mg PO TID [facility] Last Admin: 01/27/17 05:53 Dose: 25 mg Multivitamins/Minerals/Vitamin C (Tab-A-Vit -) 1 tab PO DAILY [facility] Last Admin: 01/26/17 09:13 Dose: 1 tab Nystatin (Mycostatin Cream -) 1 applic TP BID [facility] Last Admin: 01/26/17 21:20 Dose: 1 applic Piperacillin Sod/Tazobactam Sod (Zosyn 3.375gm Ivpb (Pre-Docked)) 3.375 gm IVPB Q8H-IV ROBERTO PRN Reason: Protocol Last Admin: 01/27/17 03:14 Dose: 3.375 gm Tamsulosin HCl (Flomax -) 0.4 mg PO BID@0830,2200 [facility] Last Admin: 01/26/17 21:16 Dose: 0.4 mg Review of Systems - Review of Systems Constitutional: denies: Chills, Fever Cardiovascular: As noted above Respiratory: denies: Cough or Sputum Production Gastrointestinal: denies: Nausea, Vomiting, Diarrhea, Constipation or Abdominal Pain Genitourinary: No symptoms reported Musculoskeletal: No symptoms reported Vital Signs: Last Vital Signs Temp Pulse Resp BP Pulse Ox 97.7 F 62 20 139/65 95 01/27/17 05:57 01/27/17 05:57 01/27/17 05:57 01/27/17 05:57 01/26/17 21:00 Intake & Output 01/24/17 01/25/17 01/26/17 01/27/17 23:59 23:59 23:59 23:59 Intake Total 2666 1658 966 108 Output Total 1999 1999 800 Balance 666 -342 166 108 Weight 223 lb 1.725 oz 223 lb 1.725 oz 229 lb 228 lb 12.8 oz Neck: Supple Negative JVD no bruit appreciated Respiratory: Diminished Breath sounds at the bases Cardiovascular: S1 and S2 Regular Rate Rhythm Gastrointestinal: Soft benign Normal Bowel Sounds Extremities: Trace bilateral edema Labs: Blood test from this AM pending Assessment/Plan ASSESSMENT: 1. Resolved hypotension, most likely multifactorial, over-diuresis/hypovolemia 2. Paroxysmal atrial fibrillation [id number] score of 3-4 currently in sinus rhythm on Argatroban therapy (HIT), to initiate Coumadin if no further intervention is planned 3. Acute on chronic Class II-III [place] [employer] classification LV diastolic congestive heart failure, resolved/euvolemic 4. CAD angina pectoris 5. Encephalopathy, Probable toxic Metabolic and probable underlying dementia, improved 6. Acute on chronic kidney disease 7. Bilateral hydronephrosis 8. 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 Continue Argatroban drip for now, long-term anticoagulation therapy is recommended considering the above-noted [id number] score of 3-4, if no additional intervention is planned, to initiate Coumadin as per Hematology recommendations 2. Continue PO Metoprolol, Hemodynamics permitting 3. Continue PO Amiodarone 4. Ideally should be on ACEI or ARBS once renal function stabilized 5. Continue to hold IV Radha Jaar MD
[2017-01-27 07:51] LABS: BASOPHIL 0.2 % (0-2.0); MCH 30.4 pg (25.7-33.7); MCHC 32.8 g/dl (32.0-35.9); MEAN CELL VOLUME 92.8 fl (80-96); MEAN PLT VOLUME 8.6 fl (7.5-11.1); NEUTROPHILS 80.5 % (42.8-82.8); PLATELET COUNT 150 K/MM3 (134-434); RDW 15.9 % (11.9-15.9); WHITE BLOOD COUNT 11.4 K/mm3 (4.0-10.0)
[2017-01-27 07:59] LABS: ALBUMIN 2.7 g/dl (3.4-5.0); ALK PHOS 66 U/L (45-117); ANION GAP 8 (8-16); BILIRUBIN,TOTAL 0.8 mg/dL (0.2-1.0); CO2 25 mmol/L (21-32); CREATININE 1.9 mg/dL (0.7-1.3); GLUCOSE,RANDOM 132 mg/dL (74-106); MAGNESIUM 2.2 mg/dL (1.8-2.4); PHOSPHOROUS 3.2 mg/dL (2.5-4.9); SGOT/AST 7 U/L (15-37); SGPT/ALT 36 U/L (12-78); TOT PROT 6.1 g/dl (6.4-8.2)
--- NOTE | 2017-01-27 08:46 | PN ---
Progress Note (short form) - Note Progress Note: transferred to telemetry off pressors awake and alert Vital Signs Period Temp Pulse Resp BP Sys/Locke Pulse Ox Last 24 Hr 97.3 F-98.3 F 61-78 18-20 111-141/44-76 95 cor-rrr lungs crackles at bases abd soft nt ext +venous stasis, trace pedal edema +davis CBC, BMP 01/27/17 05:35 01/27/17 05:35 Microbiology 01/22/17 18:00 Blood - Peripheral Venous Blood Culture - Preliminary NO GROWTH OBTAINED AFTER 96 HOURS, INCUBATION TO CONTINUE FOR 1 DAYS. 01/22/17 17:55 Blood - Peripheral Venous Blood Culture - Preliminary NO GROWTH OBTAINED AFTER 96 HOURS, INCUBATION TO CONTINUE FOR 1 DAYS. 01/23/17 03:00 Urine - Urine Davis Urine Culture - Final NO GROWTH OBTAINED 01/10/17 20:30 Blood - Peripheral Venous Blood Culture - Final NO GROWTH AFTER 5 DAYS INCUBATION 01/10/17 20:30 Blood - Peripheral Venous Blood Culture - Final NO GROWTH AFTER 5 DAYS INCUBATION 01/13/17 14:45 Calf - Left Anterior Gram Stain - Final 01/13/17 14:45 Calf - Left Anterior Wound Culture - Final NO GROWTH AFTER 48 HOURS INCUBATION 01/10/17 14:41 Urine - Urine Clean Catch Urine Culture - Final Laboratory Tests 01/21/17 01/22/17 18:27 08:40 Hep-Induced Plt Ab Rapid 2.208 H HIV 1&2 Antibody Screen Negative HIV P24 Antigen Negative Current Medications Acetaminophen (Tylenol -) 650 mg PO Q4H PRN PRN Reason: FEVER OR PAIN Albuterol/Ipratropium (Duoneb -) 1 amp NEB Q4HWA PRN PRN Reason: SHORT OF BREATH/WHEEZING Amiodarone HCl (Cordarone -) 200 mg PO BID [facility] Last Admin: 01/26/17 21:16 Dose: 200 mg Bacitracin/Polymyxin B Sulfate (Polysporin Ointment -) 1 applic TP BID [facility] Last Admin: 01/26/17 21:20 Dose: 1 applic Docusate Sodium (Colace -) 100 mg PO DAILY [facility] Last Admin: 01/26/17 09:14 Dose: 100 mg Guaifenesin (Robitussin -) 10 ml PO Q6H PRN PRN Reason: COUGH Argatroban 250,000 mcg/ Sodium (Chloride) 250 mls @ 11.97 mls/hr IVPB TITR ROBERTO ; 2 MCG/KG/MIN PRN Reason: Protocol Last Admin: 01/27/17 03:02 Dose: 11.97 mls/hr Methylprednisolone Sodium Succinate (Solu-Medrol -) 40 mg IVPB BID [facility] Last Admin: 01/26/17 22:23 Dose: 40 mg Metoprolol Tartrate (Lopressor -) 25 mg PO TID [facility] Last Admin: 01/27/17 05:53 Dose: 25 mg Multivitamins/Minerals/Vitamin C (Tab-A-Vit -) 1 tab PO DAILY [facility] Last Admin: 01/26/17 09:13 Dose: 1 tab Nystatin (Mycostatin Cream -) 1 applic TP BID [facility] Last Admin: 01/26/17 21:20 Dose: 1 applic Piperacillin Sod/Tazobactam Sod (Zosyn 3.375gm Ivpb (Pre-Docked)) 3.375 gm IVPB Q8H-IV ROBERTO PRN Reason: Protocol Last Admin: 01/27/17 03:14 Dose: 3.375 gm Tamsulosin HCl (Flomax -) 0.4 mg PO BID@0830,2200 [facility] Last Admin: 01/26/17 21:16 Dose: 0.4 mg a/p hypotension resolved possible LLL pneumonia- day #5 zosyn-complete 7 days thrombocytopenia-+HIT, improving dvt- afib-better rate control urinary retention- now with davis in place Problem List - Problems (1) COPD (chronic obstructive pulmonary disease) Code(s): J44.9 - CHRONIC OBSTRUCTIVE PULMONARY DISEASE, UNSPECIFIED (2) CHF (congestive heart failure) Code(s): I50.9 - HEART FAILURE, UNSPECIFIED Qualifiers: Congestive heart failure type: unspecified congestive heart failure type Congestive heart failure chronicity: unspecified congestive heart failure chronicity Qualified Code(s): I50.9 - Heart failure, unspecified
[2017-01-27] MEDS: TAMSULOSIN HCL 0.4 MG CAP.ER.24H (FP) PO SCH ×2 (09:07→21:01)
[2017-01-27] MEDS: methylPREDNISolone NA SUCC 40 MG/1 ML VIAL IVPB SCH ×2 (09:08→21:01)
[2017-01-27] MEDS: AMIODARONE HCL 200 MG TABLET (FP) PO SCH ×2 (09:08→21:01)
[2017-01-27] MEDS: MULTIVITAMINS (DAILY MVI) TABLET (FP) PO SCH (09:08)
[2017-01-27] MEDS: NYSTATIN 100,000 UNIT/GM TOPICAL CREAM 15 GM TUBE TP SCH ×2 (09:08→21:08)
[2017-01-27] MEDS: BACITRACIN/POLYMYXIN B SULFATE 15 GM TUBE TP SCH ×2 (09:09→21:08)
[2017-01-27] MEDS: DOCUSATE SODIUM 100 MG CAPSULE (FP) PO SCH (09:37)
--- NOTE | 2017-01-27 12:03 | PN ---
Teaching Attending Note Name of Resident: Palmer Rios ATTENDING PHYSICIAN STATEMENT I saw and evaluated the patient. I reviewed the resident's note and discussed the case with the resident. I agree with the resident's findings and plan as documented. SUBJECTIVE:resting comfortable. denies CP, SOB, fever, chills, N/V/C/D OBJECTIVE: Last Vital Signs Temp Pulse Resp BP Pulse Ox 97.5 F L 65 18 115/75 97 01/27/17 10:00 01/27/17 10:00 01/27/17 10:00 01/27/17 10:00 01/27/17 09:00 General NAD CV S1 S2 RRR no murmur/rub/gallop Lungs decreased breath sounds L lung base. LLL crackles. Extremities 2+ pitting edema B/L LE ASSESSMENT AND PLAN: 86-year-old man with a history of bilateral hydronephrosis who presented to the ER with groin pain. 1. Acute metabolic encephalopathy secondary to UTI and LLE cellulitis- resolved. completed abx course 2. Acute Hypoxic respiratory distress- likely due to pleural effusion vs PNA. clinically improved. not on supplemental oxygen and not tachynpic. will cont to hold lasix as renal function recovers. cont empiric abx with zosyn day 5. will complete 7 day course titrate down steroids switch to daily dosing tomorrow. cont supplemental oxygen to mantain spO2 > 90%. pulmonary on board 3. Hypotension- large PE vs over-diuresis vs sepsis. now normotensive now off pressors. good UOP. 4. New onset Afib-converted to NSR. on amio. HR controlled. will monitor LFT and TFT. lopressor prn HR >120. on argatroban for a/c. now that plt >150 will initiate coumadin tonight. trend INR 5. 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 plt count slowly improving. today coumadin day #1. cont argatroban 6. Pulmonary nodule- resolved. as per pulmonary no need to monitor pulmonary nodule. 7. Acute on CKD- likely due to medication induced vs hypoperfusion. stable. hold lasix. avoid nephrotoxic agents. davis placed. monitor I&O. 8. Bilateral hydroureteronephrosis secondary to BPH-cont flomax. urology outpatient follow up 9. Possible hepatic cysts- Outpatient U/S 10. PT assessment. OOB to chair
--- NOTE | 2017-01-27 13:20 | PN ---
Progress Note (short form) - Note Progress Note: PULMONARY Denies shortness of breath. +cough mostly nonproductive. No fevers or chills. Last Vital Signs Temp Pulse Resp BP Pulse Ox 97.5 F L 65 18 115/75 97 01/27/17 10:00 01/27/17 10:00 01/27/17 10:00 01/27/17 10:00 01/27/17 09:00 Gen: NAD in chair Heart: RRR Lung: scattered bilateral rhonchi Abd: soft, nontender Ext: +erythema CBC, BMP 01/27/17 05:35 01/27/17 05:35 Active Medications Acetaminophen (Tylenol -) 650 mg PO Q4H PRN PRN Reason: FEVER OR PAIN Albuterol/Ipratropium (Duoneb -) 1 amp NEB Q4HWA PRN PRN Reason: SHORT OF BREATH/WHEEZING Amiodarone HCl (Cordarone -) 200 mg PO BID [facility] Last Admin: 01/27/17 09:08 Dose: 200 mg Bacitracin/Polymyxin B Sulfate (Polysporin Ointment -) 1 applic TP BID [facility] Last Admin: 01/27/17 09:09 Dose: 1 applic Docusate Sodium (Colace -) 100 mg PO DAILY [facility] Last Admin: 01/27/17 09:37 Dose: 100 mg Guaifenesin (Robitussin -) 10 ml PO Q6H PRN PRN Reason: COUGH Argatroban 250,000 mcg/ Sodium (Chloride) 250 mls @ 11.97 mls/hr IVPB TITR ROBERTO ; 2 MCG/KG/MIN PRN Reason: Protocol Last Admin: 01/27/17 03:02 Dose: 11.97 mls/hr Methylprednisolone Sodium Succinate (Solu-Medrol -) 40 mg IVPB BID [facility] Last Admin: 01/27/17 09:08 Dose: 40 mg Metoprolol Tartrate (Lopressor -) 25 mg PO TID [facility] Last Admin: 01/27/17 05:53 Dose: 25 mg Multivitamins/Minerals/Vitamin C (Tab-A-Vit -) 1 tab PO DAILY [facility] Last Admin: 01/27/17 09:08 Dose: 1 tab Nystatin (Mycostatin Cream -) 1 applic TP BID [facility] Last Admin: 01/27/17 09:08 Dose: 1 applic Piperacillin Sod/Tazobactam Sod (Zosyn 3.375gm Ivpb (Pre-Docked)) 3.375 gm IVPB Q8H-IV ROBERTO PRN Reason: Protocol Last Admin: 01/27/17 09:08 Dose: 3.375 gm Tamsulosin HCl (Flomax -) 0.4 mg PO BID@0830,2200 ROBERTO Last Admin: 01/27/17 09:07 Dose: 0.4 mg Warfarin Sodium (Coumadin -) 5 mg PO DAILY@1800 ROBERTO A/P Pneumonia Cellulitis Acute Kidney Injury Paroxysmal Atrial Fibrillation Thrombocytopenia - r/o HIT Lung Nodule - continue antibiotics - continue anticoagulation with argatroban, transition to coumadin - rate controlled - taper off medrol - inhaled bronchodilators
[2017-01-27] MEDS ORDERED: METOPROLOL TARTRATE 25 MG TABLET (FP) ONE (14:10)
--- NOTE | 2017-01-27 14:35 | PN ---
Physical Exam: SUBJECTIVE: Patient seen and examined No acute events overnight. Patient sitting in bed comfortably eating this morning. OBJECTIVE: Vital Signs Period Temp Pulse Resp BP Sys/Locke Pulse Ox Last 24 Hr 97.3 F-98.3 F 61-78 18-20 111-141/44-76 95-97 GENERAL: The patient is awake, alert, and fully oriented, in no acute distress. HEAD: Normal with no signs of trauma. EYES: PERRL, extraocular movements intact, sclera anicteric, conjunctiva clear. No ptosis. ENT: Ears normal, nares patent, oropharynx clear without exudates, moist mucous membranes. NECK: Trachea midline, full range of motion, supple. LUNGS: Breath sounds equal, decreased breath sounds at bases, lungs clear to auscultation otherwise. HEART: Regular rate and rhythm, S1, S2 without murmur, rub or gallop. ABDOMEN: Soft, nontender, nondistended, normoactive bowel sounds, no guarding, no rebound, no hepatosplenomegaly, no masses. EXTREMITIES: 2+ pulses, warm, well-perfused, 2+ pitting edema NEUROLOGICAL: Cranial nerves II through XII grossly intact. Normal speech, gait not observed. PSYCH: Normal mood, normal affect. SKIN: Warm, dry, normal turgor, no rashes or lesions noted Laboratory Results - last 24 hr 01/27/17 01/27/17 01/27/17 05:35 05:35 05:35 WBC 11.4 H RBC 4.21 Hgb 12.8 Hct 39.1 MCV 92.8 MCH 30.4 MCHC 32.8 RDW 15.9 Plt Count 150 D MPV 8.6 Neutrophils % 80.5 Lymphocytes % 17.0 Monocytes % 2.3 L Eosinophils % 0.0 Basophils % 0.2 PTT (Actin FS) 65.7 H Sodium 140 Potassium 4.7 Chloride 107 Carbon Dioxide 25 Anion Gap 8 BUN 57 H Creatinine 1.9 H Creat Clearance w eGFR 33.94 Random Glucose 132 H Calcium 8.0 L Phosphorus 3.2 Magnesium 2.2 Total Bilirubin 0.8 D AST 7 L D ALT 36 Alkaline Phosphatase 66 Total Protein 6.1 L Albumin 2.7 L Active Medications Generic Name Dose Route Start Last Admin Trade Name Freq PRN Reason Stop Dose Admin Acetaminophen 650 mg 01/25/17 18:25 Tylenol - PO Q4H PRN FEVER OR PAIN Albuterol/Ipratropium 1 amp 01/25/17 18:25 Duoneb - NEB Q4HWA PRN SHORT OF BREATH/WHEEZING Amiodarone HCl 200 mg 01/25/17 22:00 01/27/17 09:08 Cordarone - PO 200 mg BID MAURIZIO Administration Bacitracin/Polymyxin B Sulfate 1 applic 01/25/17 22:00 01/27/17 09:09 Polysporin Ointment - TP 1 applic BID MAURIZIO Administration Docusate Sodium 100 mg 01/26/17 10:00 01/27/17 09:37 Colace - PO 100 mg DAILY MAURIZIO Administration Guaifenesin 10 ml 01/25/17 18:25 Robitussin - PO Q6H PRN COUGH Argatroban 250,000 mcg/ Sodium 250 mls @ 11.97 mls/hr 01/25/17 18:25 01/27/17 03:02 Chloride IVPB 11.97 mls/hr TITR MAURIZIO Administration Protocol 2 MCG/KG/MIN Methylprednisolone Sodium Succinate 40 mg 01/26/17 22:00 01/27/17 09:08 Solu-Medrol - IVPB 40 mg BID MAURIZIO Administration Metoprolol Tartrate 25 mg 01/25/17 22:00 01/27/17 14:07 Lopressor - PO 25 mg TID MAURIZIO Administration Multivitamins/Minerals/Vitamin C 1 tab 01/26/17 10:00 01/27/17 09:08 Tab-A-Vit - PO 1 tab DAILY MAURIZIO Administration Nystatin 1 applic 01/25/17 22:00 01/27/17 09:08 Mycostatin Cream - TP 1 applic BID MAURIZIO Administration Piperacillin Sod/Tazobactam Sod 3.375 gm 01/26/17 02:00 01/27/17 09:08 Zosyn 3.375gm Ivpb (Pre-Docked) IVPB 3.375 gm Q8H-IV MAURIZIO Administration Protocol Tamsulosin HCl 0.4 mg 01/25/17 22:00 01/27/17 09:07 Flomax - PO 0.4 mg BID@0830,2200 MAURIZIO Administration Warfarin Sodium 5 mg 01/27/17 18:00 Coumadin - PO DAILY@1800 [facility] [place] ASSESSMENT/PLAN: 86 yo M with PMH of b/l severe hydronephrosis L>R seen on CT 10/31/15, otherwise unknown PNH (poor historian/no records), who presented with confusion, groin and back pain. #Metabolic encephalopathy in the setting of AMS possibly due to UTI being tx w/ abx, RESOLVED -A&Ox3 -completed course of unasyn #Acute hypoxic respiratory distress with hypotension likely 2/2 to pleural effusion vs. pneumonia -tachypnea resolved -Satting 96% on 2L -Currently on Zosyn 3.35gm ivpb q8h day 5, will complete 7 day course -Incentive spirometer -Guanifensen 10 ml Q6 PRN -Continue duonebs Q4hr maurizio -Continue Solumederol IV 40 mg bid, taper tomorrow -O2 NC as needed for O2 saturation -Pulmonary on board, Dr. Mariscal -No need to follow up on pulmonary nodule due to fleischner society recommendations #New onset Atrial Fibrillation, converted to NSR -Amiodarone 200 mg po bid -metoprolol 25 mg po tid, keep HR < 120 -Coumadin 5 mg po started due to plt > 150. -Continue to monitor LFT/TFT #Thrombocytopenia, Improvng -Likely 2/2 to heparin, 4T score of 6 -HIT antibody + -Heparin d/c, Started on argatroban drip per hematology -Coumadin 5 mg po daily, patient's platelets >150. NOAC's not preferred due to lack of data in patient's with HIT. -Monitor INR -Hematology on board #LLE cellulitis, improving -Afebrile -Wound cx - no growth to date -Unasyn completed #Flank Pain: -CT- hydroureteralonephrosis -Urology recs- Flomax 0.4 mg BID, f/u outpatient -Davis in place #JUNG on CKD 2/2 to hypoperfusion after episode of hypotension vs. lasix use, improving -Patient has davis in place -Monitor UOP -Avoid nephrotoxic agents #FEN: -No fluids -lytes stable -Na restricted diet #PPx -DVT: Argatroban drip -GI: not indicated at this time PT eval and patient ambulate to chair Visit type - Emergency Visit Emergency Visit: No - New Patient This patient is new to me today: No - Critical Care Critical Care patient: No
[2017-01-27] MEDS ORDERED: WARFARIN NA 5 MG TABLET (UD) PO SCH (18:00)
[2017-01-28] MEDS: PIPERACILLIN/TAZOB 3.375 GM/50 ML PRE-DOCKED IVPB SCH ×3 (01:46→17:24)
[2017-01-28] MEDS: METOPROLOL TARTRATE 25 MG TABLET (FP) PO SCH ×3 (06:21→21:26)
--- NOTE | 2017-01-28 06:48 | PN ---
Progress Note (short form) - Note Progress Note: Patient seen and examined 01/27/17 Denies any complaints comfortable Seated in chair AFVSS Cor: RSR, No murmurs, No gallops Lungs: Clear to P&A Abd: Soft, Normal bowel sounds, No organomegaly Ext:b/llower ext. 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 would consider maintenance doses coumadin and not loading doses. coumadin dose not to exceed 5mg. Given interaction with antibiotics would start coumadin at low doses and bridge with argatroban. Since HIT is a very hypercoagulable state will need to bridge with argatroban and monitor for initial hypercoagulable state induced by coumadin. argatroban could falsely elevate INR , hence needs close monitoring/bridging and adjustments will follow
[2017-01-28 08:07] LABS: HIGH DOSE HEPARIN SRA 7 % (0-20); LOW DOSE HEPARIN SRA 89 % (0-20)
[2017-01-28 08:10] LABS: INR 3.36 (0.82-1.09); PROTHROMBIN TIME (PATIENT) 37.9 SEC (9.98-11.88)
--- NOTE | 2017-01-28 08:15 | PN ---
Progress Note (short form) - Note Progress Note: Chief Complaint: Events noted, notes reviewed. Patient denies any chest discomfort or dyspnea, sinus rhythm is maintained, to initiate Coumadin with Argatroban bridging History of Present Illness: Seen and examined on telemetry. Events noted, notes reviewed. Patient denies any chest discomfort or dyspnea, sinus rhythm is maintained, to initiate Coumadin with Argatroban bridging Coumadin to be utilized since there is no data with NOAC's and HIT Transthoracic echocardiography dated 01/17/17 Revealed normal LV Systolic function with pulmonary HTN (RVSP between 40-50 Millimeters mercury), mild MR and TR Medications: Current Medications Acetaminophen (Tylenol -) 650 mg PO Q4H PRN PRN Reason: FEVER OR PAIN Albuterol/Ipratropium (Duoneb -) 1 amp NEB Q4HWA PRN PRN Reason: SHORT OF BREATH/WHEEZING Last Admin: 01/27/17 22:20 Dose: 1 amp Amiodarone HCl (Cordarone -) 200 mg PO BID [facility] Last Admin: 01/27/17 21:01 Dose: 200 mg Bacitracin/Polymyxin B Sulfate (Polysporin Ointment -) 1 applic TP BID [facility] Last Admin: 01/27/17 21:08 Dose: 1 applic Docusate Sodium (Colace -) 100 mg PO DAILY [facility] Last Admin: 01/27/17 09:37 Dose: 100 mg Guaifenesin (Robitussin -) 10 ml PO Q6H PRN PRN Reason: COUGH Argatroban 250,000 mcg/ Sodium (Chloride) 250 mls @ 11.97 mls/hr IVPB TITR ROBERTO ; 2 MCG/KG/MIN PRN Reason: Protocol Last Admin: 01/27/17 18:46 Dose: 11.97 mls/hr Methylprednisolone Sodium Succinate (Solu-Medrol -) 40 mg IVPB BID [facility] Last Admin: 01/27/17 21:01 Dose: 40 mg Metoprolol Tartrate (Lopressor -) 25 mg PO TID [facility] Last Admin: 01/28/17 06:21 Dose: 25 mg Multivitamins/Minerals/Vitamin C (Tab-A-Vit -) 1 tab PO DAILY [facility] Last Admin: 01/27/17 09:08 Dose: 1 tab Nystatin (Mycostatin Cream -) 1 applic TP BID [facility] Last Admin: 01/27/17 21:08 Dose: 1 applic Piperacillin Sod/Tazobactam Sod (Zosyn 3.375gm Ivpb (Pre-Docked)) 3.375 gm IVPB Q8H-IV [facility] PRN Reason: Protocol Last Admin: 01/28/17 01:46 Dose: 3.375 gm Tamsulosin HCl (Flomax -) 0.4 mg PO BID@0830,2200 [facility] Last Admin: 01/27/17 21:01 Dose: 0.4 mg Warfarin Sodium (Coumadin -) 5 mg PO DAILY@1800 [facility] Last Admin: 01/27/17 17:08 Dose: 5 mg Review of Systems - Review of Systems Constitutional: denies: Chills, Fever Cardiovascular: As noted above Respiratory: denies: Cough or Sputum Production Gastrointestinal: denies: Nausea, Vomiting, Diarrhea, Constipation or Abdominal Pain Genitourinary: No symptoms reported Musculoskeletal: No symptoms reported Vital Signs: Last Vital Signs Temp Pulse Resp BP Pulse Ox 97.7 F 68 18 118/76 97 01/28/17 05:52 01/28/17 05:52 01/28/17 05:52 01/28/17 05:52 01/27/17 22:00 Intake & Output 01/25/17 01/26/17 01/27/17 01/28/17 23:59 23:59 23:59 23:59 Intake Total 8543 987 8319 181 Output Total 2000 800 1300 500 Balance -342 991 -292 -459 Weight 223 lb 1.725 oz 229 lb 228 lb 12.8 oz 222 lb 12.8 oz Neck: Supple Negative JVD no bruit appreciated Respiratory: Diminished Breath sounds at the bases Cardiovascular: S1 and S2 Regular Rate Rhythm Gastrointestinal: Soft benign Normal Bowel Sounds Extremities: Bilateral edema Labs: CBC, BMP 01/28/17 05:35 BMP from this AM pending (timed at 5:35) Assessment/Plan ASSESSMENT: 1. Resolved hypotension, most likely multifactorial, over-diuresis/hypovolemia 2. Paroxysmal atrial fibrillation [id number] score of 3-4 currently in sinus rhythm on Argatroban therapy (HIT), initiated on Coumadin 3. 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 CAD angina pectoris 5. Encephalopathy, Probable toxic Metabolic and probable underlying dementia, improved 6. Acute on chronic kidney disease 7. Bilateral hydronephrosis 8. 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 Continue Argatroban drip, retirement anticoagulation therapy is recommended considering the above-noted [id number] score of 3-4, Coumadin initiated as per Hematology recommendations 2. Continue PO Metoprolol, Hemodynamics permitting 3. Continue PO Amiodarone but decrease dosage 4. Ideally should be on ACEI or ARBS once renal function stabilized 5. Resume PO Lasix with caution Carl Jara MD
[2017-01-28 08:17] LABS: BASOPHIL 0.1 % (0-2.0); MCH 30.4 pg (25.7-33.7); MCHC 32.8 g/dl (32.0-35.9); MEAN CELL VOLUME 92.7 fl (80-96); MEAN PLT VOLUME 8.3 fl (7.5-11.1); NEUTROPHILS 82.2 % (42.8-82.8); PLATELET COUNT 168 K/MM3 (134-434); RDW 15.4 % (11.9-15.9); WHITE BLOOD COUNT 12.6 K/mm3 (4.0-10.0)
[2017-01-28 08:41] LABS: ALBUMIN 2.5 g/dl (3.4-5.0); ALK PHOS 60 U/L (45-117); ANION GAP 10 (8-16); CO2 24 mmol/L (21-32); CREATININE 1.8 mg/dL (0.7-1.3); GLUCOSE,RANDOM 165 mg/dL (74-106); MAGNESIUM 2.1 mg/dL (1.8-2.4); PHOSPHOROUS 3.9 mg/dL (2.5-4.9); SGOT/AST 7 U/L (15-37); SGPT/ALT 31 U/L (12-78); TOT PROT 5.5 g/dl (6.4-8.2)
[2017-01-28 08:42] LABS: BILIRUBIN,TOTAL 0.6 mg/dL (0.2-1.0)
[2017-01-28] MEDS: TAMSULOSIN HCL 0.4 MG CAP.ER.24H (FP) PO SCH ×2 (09:13→21:25)
[2017-01-28] MEDS: FUROSEMIDE 40 MG TABLET (FP) PO SCH (09:14)
[2017-01-28] MEDS: MULTIVITAMINS (DAILY MVI) TABLET (FP) PO SCH (09:14)
[2017-01-28] MEDS: AMIODARONE HCL 200 MG TABLET (FP) PO SCH (09:14)
[2017-01-28] MEDS: methylPREDNISolone NA SUCC 40 MG/1 ML VIAL IVPB SCH (09:15)
[2017-01-28] MEDS: BACITRACIN/POLYMYXIN B SULFATE 15 GM TUBE TP SCH ×2 (09:15→21:47)
[2017-01-28] MEDS: NYSTATIN 100,000 UNIT/GM TOPICAL CREAM 15 GM TUBE TP SCH ×2 (09:15→21:46)
[2017-01-28] MEDS: DOCUSATE SODIUM 100 MG CAPSULE (FP) PO SCH (09:16)
--- NOTE | 2017-01-28 10:03 | PN ---
Progress Note (short form) - Note Progress Note: doing well well oob to chair alert Vital Signs Period Temp Pulse Resp BP Sys/Locke Pulse Ox Last 24 Hr 97.4 F-98.4 F 66-71 18-18 104-129/60-76 97-97 crackles left lung base right lung clear cor-rrr abd soft,nt ext venous stasis davis CBC, BMP 01/28/17 05:35 01/28/17 05:35 Microbiology 01/22/17 18:00 Blood - Peripheral Venous Blood Culture - Final NO GROWTH AFTER 5 DAYS INCUBATION 01/22/17 17:55 Blood - Peripheral Venous Blood Culture - Final NO GROWTH AFTER 5 DAYS INCUBATION 01/23/17 03:00 Urine - Urine Davis Urine Culture - Final NO GROWTH OBTAINED 01/10/17 20:30 Blood - Peripheral Venous Blood Culture - Final NO GROWTH AFTER 5 DAYS INCUBATION 01/10/17 20:30 Blood - Peripheral Venous Blood Culture - Final NO GROWTH AFTER 5 DAYS INCUBATION 01/13/17 14:45 Calf - Left Anterior Gram Stain - Final 01/13/17 14:45 Calf - Left Anterior Wound Culture - Final NO GROWTH AFTER 48 HOURS INCUBATION 01/10/17 14:41 Urine - Urine Clean Catch Urine Culture - Final a/p hypotension resolved possible LLL pneumonia- day #6 zosyn-complete 7 days thrombocytopenia-+HIT, improving dvt- afib-better rate control urinary retention- now with davis in place d/w housestaff will sign off please call back if needed Problem List - Problems (1) COPD (chronic obstructive pulmonary disease) Code(s): J44.9 - CHRONIC OBSTRUCTIVE PULMONARY DISEASE, UNSPECIFIED (2) CHF (congestive heart failure) Code(s): I50.9 - HEART FAILURE, UNSPECIFIED Qualifiers: Congestive heart failure type: unspecified congestive heart failure type Congestive heart failure chronicity: unspecified congestive heart failure chronicity Qualified Code(s): I50.9 - Heart failure, unspecified
--- NOTE | 2017-01-28 10:59 | PN ---
<Palmer Rios - Last Filed: 01/28/17 10:44> Physical Exam: SUBJECTIVE: Patient seen and examined No acute events overnight. Patient appears comfortable in his chair. Patient denies any complaints OBJECTIVE: Vital Signs Period Temp Pulse Resp BP Sys/Locke Pulse Ox Last 24 Hr 97.4 F-98.4 F 66-71 18-18 104-129/60-76 97-97 GENERAL: The patient is awake, alert, and fully oriented, in no acute distress. HEAD: Normal with no signs of trauma. EYES: PERRL, extraocular movements intact, sclera anicteric, conjunctiva clear. No ptosis. ENT: Ears normal, nares patent, oropharynx clear without exudates, moist mucous membranes. NECK: Trachea midline, full range of motion, supple. LUNGS: Breath sounds equal, Crackles at the bases bilaterally, No accessory muscle use HEART: Regular rate and rhythm, S1, S2 without murmur, rub or gallop. ABDOMEN: Soft, nontender, nondistended, normoactive bowel sounds, no guarding, no rebound, no hepatosplenomegaly, no masses. EXTREMITIES: 2+ pulses, warm, well-perfused, 3-4+ pitting edema bilaterally NEUROLOGICAL: Cranial nerves II through XII grossly intact. Normal speech, gait not observed. PSYCH: Normal mood, normal affect. SKIN: Warm, dry, normal turgor, LLE cellulitis and erythema Laboratory Results - last 24 hr 01/28/17 01/28/17 01/28/17 05:35 05:35 05:35 WBC 12.6 H RBC 4.04 Hgb 12.3 Hct 37.4 MCV 92.7 MCH 30.4 MCHC 32.8 RDW 15.4 Plt Count 168 MPV 8.3 Neutrophils % 82.2 Lymphocytes % 15.2 Monocytes % 2.5 L Eosinophils % 0.0 Basophils % 0.1 INR 3.36 H PTT (Actin FS) Sodium 140 Potassium 4.7 Chloride 106 Carbon Dioxide 24 Anion Gap 10 BUN 55 H Creatinine 1.8 H Creat Clearance w eGFR 36.13 Random Glucose 165 H D Calcium 8.0 L Phosphorus 3.9 D Magnesium 2.1 Total Bilirubin 0.6 D AST 7 L ALT 31 Alkaline Phosphatase 60 Total Protein 5.5 L Albumin 2.5 L 01/28/17 05:35 WBC RBC Hgb Hct MCV MCH MCHC RDW Plt Count MPV Neutrophils % Lymphocytes % Monocytes % Eosinophils % Basophils % INR PTT (Actin FS) 60.3 H Sodium Potassium Chloride Carbon Dioxide Anion Gap BUN Creatinine Creat Clearance w eGFR Random Glucose Calcium Phosphorus Magnesium Total Bilirubin AST ALT Alkaline Phosphatase Total Protein Albumin Active Medications Generic Name Dose Route Start Last Admin Trade Name Freq PRN Reason Stop Dose Admin Acetaminophen 650 mg 01/25/17 18:25 Tylenol - PO Q4H PRN FEVER OR PAIN Albuterol/Ipratropium 1 amp 01/25/17 18:25 01/27/17 22:20 Duoneb - NEB 1 amp Q4HWA PRN Administration SHORT OF BREATH/WHEEZING Amiodarone HCl 200 mg 01/28/17 10:00 01/28/17 09:14 Cordarone - PO 200 mg DAILY ROBERTO Administration Bacitracin/Polymyxin B Sulfate 1 applic 01/25/17 22:00 01/28/17 09:15 Polysporin Ointment - TP 1 applic BID ROBERTO Administration Docusate Sodium 100 mg 01/26/17 10:00 01/28/17 09:16 Colace - PO 100 mg DAILY ROBERTO Administration Furosemide 40 mg 01/28/17 10:00 01/28/17 09:14 Lasix - PO 40 mg DAILY ROBERTO Administration Guaifenesin 10 ml 01/25/17 18:25 Robitussin - PO Q6H PRN COUGH Argatroban 250,000 mcg/ Sodium 250 mls @ 11.97 mls/hr 01/25/17 18:25 01/27/17 18:46 Chloride IVPB 11.97 mls/hr TITR ROBERTO Administration Protocol 2 MCG/KG/MIN Methylprednisolone Sodium Succinate 40 mg 01/29/17 10:00 Solu-Medrol - IVPB DAILY [facility]ERTO Metoprolol Tartrate 25 mg 01/25/17 22:00 01/28/17 06:21 Lopressor - PO 25 mg TID ROBERTO Administration Multivitamins/Minerals/Vitamin C 1 tab 01/26/17 10:00 01/28/17 09:14 Tab-A-Vit - PO 1 tab DAILY ROBERTO Administration Nystatin 1 applic 01/25/17 22:00 01/28/17 09:15 Mycostatin Cream - TP 1 applic BID ROBERTO Administration Piperacillin Sod/Tazobactam Sod 3.375 gm 01/26/17 02:00 08/15/17 09:16 Zosyn 3.375gm Ivpb (Pre-Docked) IVPB 3.375 gm Q8H-IV ROBERTO Administration Protocol Tamsulosin HCl 0.4 mg 01/25/17 22:00 01/28/17 09:13 Flomax - PO 0.4 mg BID@0830,2200 ROBERTO Administration Warfarin Sodium 5 mg 01/27/17 18:00 01/27/17 17:08 Coumadin - PO 5 mg DAILY@1800 ROBERTO Administration ASSESSMENT/PLAN: 86 yo M with PMH of b/l severe hydronephrosis L>R seen on CT 10/31/15, otherwise unknown [facility] (poor historian/no records), who presented with confusion, groin and back pain. #Metabolic encephalopathy in the setting of AMS possibly 2/2 to UTI, Resolved -A&Ox3 -completed course of unasyn (7 days) #Acute hypoxic respiratory distress with hypotension likely 2/2 to pleural effusion vs. pneumonia -Tachypnea resolved -Satting 97% on 2L -Currently on Zosyn 3.35gm ivpb q8h day 6, will complete 7 day course [ Tomorrow is last day of abx] -Continiue Incentive spirometer -Guanifensen 10 ml Q6 PRN -Continue duonebs Q4hr PRN -Decrease Solumederol to IV 40 mg daily, will slowly taper -Resume PO Lasix 40 mg po daily with caution -O2 NC as needed for O2 saturation -Pulmonary on board, Dr. Mariscal -No need to follow up on pulmonary nodule due to fleischner society recommendations #New onset Atrial Fibrillation, converted to NSR -Continue Argatroban drip -Decrease Amiodarone to 200 mg daily -Metoprolol 25 mg po tid, keep HR < 120 -Continue Coumadin 5 mg po, monitor INR and bridge with argatroban -Continue to monitor LFTs #Thrombocytopenia, Improvng -Likely 2/2 to heparin, 4T score of 6 -HIT antibody + -Heparin d/c, Started on argatroban drip per hematology -Continue Coumadin 5 mg po, monitor INR and bridge with argatroban. NOAC's not preferred due to lack of data in patient's with HIT. -Hematology on board #LLE cellulitis, improving -Afebrile -Wound cx - no growth -Unasyn completed (7 day course) #Flank Pain: -CT- hydroureteralonephrosis -Urology recs- Flomax 0.4 mg BID, f/u outpatient -Davis in place #JUNG on CKD 2/2 to hypoperfusion after episode of hypotension vs. lasix use, improving -Patient has davis in place -Monitor UOP -Avoid nephrotoxic agents #FEN: -No fluids -lytes stable -Na restricted diet #PPx -DVT: Argatroban drip -GI: not indicated at this time PT eval- 12 feet 3 times w/ rolling walker #Dispo: Patient will complete zosyn tomorrow and will bridge coumadin with argatroban. Plan for D/c later this week. <David Hendrickson - Last Filed: 01/28/17 14:57> Physical Exam: SUBJECTIVE: Patient seen and examined Patient is a hard of hearing, feeling better . No fever or chills. OBJECTIVE: Vital Signs Temperature 98 F 01/28/17 10:00 Pulse Rate 64 01/28/17 10:00 Respiratory Rate 18 01/28/17 10:00 Blood Pressure 123/78 01/28/17 10:00 O2 Sat by Pulse Oximetry (%) 98 01/28/17 09:00 CBCD WBC 12.6 K/mm3 (4.0-10.0) H 01/28/17 05:35 RBC 4.04 M/mm3 (4.00-5.60) 01/28/17 05:35 Hgb 12.3 GM/dL (11.7-16.9) 01/28/17 05:35 Hct 37.4 % (35.4-49) 01/28/17 05:35 MCV 92.7 fl (80-96) 01/28/17 05:35 MCHC 32.8 g/dl (32.0-35.9) 01/28/17 05:35 RDW 15.4 % (11.9-15.9) 01/28/17 05:35 Plt Count 168 K/MM3 (134-434) 01/28/17 05:35 MPV 8.3 fl (7.5-11.1) 01/28/17 05:35 CMP Sodium 140 mmol/L (136-145) 01/28/17 05:35 Potassium 4.7 mmol/L (3.5-5.1) 01/28/17 05:35 Chloride 106 mmol/L (98-107) 01/28/17 05:35 Carbon Dioxide 24 mmol/L (21-32) 01/28/17 05:35 Anion Gap 10 (8-16) 01/28/17 05:35 BUN 55 mg/dL (7-18) H 01/28/17 05:35 Creatinine 1.8 mg/dL (0.7-1.3) H 01/28/17 05:35 Creat Clearance w eGFR 36.13 (>60) 01/28/17 05:35 Random Glucose 165 mg/dL (74-106) H D 01/28/17 05:35 Calcium 8.0 mg/dL (8.5-10.1) L 01/28/17 05:35 Total Bilirubin 0.6 mg/dL (0.2-1.0) D 01/28/17 05:35 AST 7 U/L (15-37) L 01/28/17 05:35 ALT 31 U/L (12-78) 01/28/17 05:35 Alkaline Phosphatase 60 U/L (45-117) 01/28/17 05:35 Total Protein 5.5 g/dl (6.4-8.2) L 01/28/17 05:35 Albumin 2.5 g/dl (3.4-5.0) L 01/28/17 05:35 CARDIAC ENZYMES Troponin I 0.13 ng/ml (0.00-0.05) H 01/20/17 10:40 Active Medications Generic Name Dose Route Start Last Admin Trade Name Freq PRN Reason Stop Dose Admin Acetaminophen 650 mg 01/25/17 18:25 Tylenol - PO Q4H PRN FEVER OR PAIN Albuterol/Ipratropium 1 amp 01/25/17 18:25 01/27/17 22:20 Duoneb - NEB 1 amp Q4HWA PRN Administration SHORT OF BREATH/WHEEZING Amiodarone HCl 200 mg 01/28/17 10:00 01/28/17 09:14 Cordarone - PO 200 mg DAILY ROBERTO Administration Bacitracin/Polymyxin B Sulfate 1 applic 01/25/17 22:00 01/28/17 09:15 Polysporin Ointment - TP 1 applic BID ROBERTO Administration Docusate Sodium 100 mg 01/26/17 10:00 01/28/17 09:16 Colace - PO 100 mg DAILY ROBERTO Administration Furosemide 40 mg 01/28/17 10:00 01/28/17 09:14 Lasix - PO 40 mg DAILY ROBERTO Administration Guaifenesin 10 ml 01/25/17 18:25 Robitussin - PO Q6H PRN COUGH Argatroban 250,000 mcg/ Sodium 250 mls @ 11.97 mls/hr 01/25/17 18:25 01/27/17 18:46 Chloride IVPB 11.97 mls/hr TITR ROBERTO Administration Protocol 2 MCG/KG/MIN Methylprednisolone Sodium Succinate 40 mg 01/29/17 10:00 Solu-Medrol - IVPB DAILY [facility] Metoprolol Tartrate 25 mg 01/25/17 22:00 01/28/17 06:21 Lopressor - PO 25 mg TID ROBERTO Administration Multivitamins/Minerals/Vitamin C 1 tab 01/26/17 10:00 01/28/17 09:14 Tab-A-Vit - PO 1 tab DAILY ROBERTO Administration Nystatin 1 applic 01/25/17 22:00 01/28/17 09:15 Mycostatin Cream - TP 1 applic BID ROBERTO Administration Piperacillin Sod/Tazobactam Sod 3.375 gm 01/26/17 02:00 01/28/17 09:16 Zosyn 3.375gm Ivpb (Pre-Docked) IVPB 3.375 gm Q8H-IV [facility] Administration Protocol Tamsulosin HCl 0.4 mg 01/25/17 22:00 01/28/17 09:13 Flomax - PO 0.4 mg BID@0830,2200 [facility] Administration Warfarin Sodium 3 mg 01/28/17 12:08 Coumadin - PO DAILY@1800 [facility] Home Medications Medication Instructions Recorded Tamsulosin HCl [Flomax -] 0.4 mg PO BID@0830,2200 #30 cap 01/15/17 ASSESSMENT/PLAN: 86-year-old man with a history of bilateral hydronephrosis who presented to the ER with groin pain. # New onset Afib, back to NSR. 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 to give 3mg today , Follow INR daily. 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 improving on coumadin day #2 follow PT/INR ., continue argatroban. Hem/onc is on the case # s/p Acute metabolic encephalopathy secondary to UTI and LLE cellulitis- resolved. completed abx course # Acute Hypoxic respiratory distress- likely due to LLL PNA. On Zosyn IV day 11/20 improving. # Hypotension- improved off pressors now. #. Pulmonary nodule- resolved. as per pulmonary no need to monitor pulmonary nodule. follow pulmonary as an outpatient. # Acute on CKD- improving, avoid nephrotoxic agents. davis placed. monitor I&O. Patient can follow up with as an outpatient # Acute urinary retention- now with davis in place , with Bilateral hydroureteronephrosis secondary to BPH continue Flomax. urology outpatient follow up # Possible hepatic cysts- Outpatient U/S PT assessment. OOB to chair dvt Px: coumadin/argotroban Visit type - Emergency Visit Emergency Visit: Yes ED Registration Date: 01/10/17 Care time: The patient presented to the Emergency Department on the above date and was hospitalized for further evaluation of their emergent condition. - New Patient This patient is new to me today: Yes Date on this admission: 01/28/17 - Critical Care Critical Care patient: No
--- NOTE | 2017-01-28 13:00 | PN ---
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
--- NOTE | 2017-01-28 13:56 | PN ---
Progress Note (short form) - Note Progress Note: PULMONARY Denies shortness of breath. No fevers or chills. Last Vital Signs Temp Pulse Resp BP Pulse Ox 98 F 64 18 123/78 98 01/28/17 10:00 01/28/17 10:00 01/28/17 10:00 01/28/17 10:00 01/28/17 09:00 Gen: NAD in chair Heart: RRR Lung: left base rales Abd: soft, nontender Ext: +erythema CBC, BMP 01/28/17 05:35 01/28/17 05:35 Active Medications Acetaminophen (Tylenol -) 650 mg PO Q4H PRN PRN Reason: FEVER OR PAIN Albuterol/Ipratropium (Duoneb -) 1 amp NEB Q4HWA PRN PRN Reason: SHORT OF BREATH/WHEEZING Last Admin: 01/27/17 22:20 Dose: 1 amp Amiodarone HCl (Cordarone -) 200 mg PO DAILY [facility] Last Admin: 01/28/17 09:14 Dose: 200 mg Bacitracin/Polymyxin B Sulfate (Polysporin Ointment -) 1 applic TP BID [facility] Last Admin: 01/28/17 09:15 Dose: 1 applic Docusate Sodium (Colace -) 100 mg PO DAILY [facility] Last Admin: 01/28/17 09:16 Dose: 100 mg Furosemide (Lasix -) 40 mg PO DAILY [facility] Last Admin: 01/28/17 09:14 Dose: 40 mg Guaifenesin (Robitussin -) 10 ml PO Q6H PRN PRN Reason: COUGH Argatroban 250,000 mcg/ Sodium (Chloride) 250 mls @ 11.97 mls/hr IVPB TITR ROBERTO ; 2 MCG/KG/MIN PRN Reason: Protocol Last Admin: 01/27/17 18:46 Dose: 11.97 mls/hr Methylprednisolone Sodium Succinate (Solu-Medrol -) 40 mg IVPB DAILY [facility] Metoprolol Tartrate (Lopressor -) 25 mg PO TID [facility] Last Admin: 01/28/17 13:55 Dose: 25 mg Multivitamins/Minerals/Vitamin C (Tab-A-Vit -) 1 tab PO DAILY [facility] Last Admin: 01/28/17 09:14 Dose: 1 tab Nystatin (Mycostatin Cream -) 1 applic TP BID [facility] Last Admin: 01/28/17 09:15 Dose: 1 applic Piperacillin Sod/Tazobactam Sod (Zosyn 3.375gm Ivpb (Pre-Docked)) 3.375 gm IVPB Q8H-IV ROBERTO PRN Reason: Protocol Last Admin: 01/28/17 09:16 Dose: 3.375 gm Tamsulosin HCl (Flomax -) 0.4 mg PO BID@0830,2200 [facility] Last Admin: 01/28/17 09:13 Dose: 0.4 mg Warfarin Sodium (Coumadin -) 3 mg PO DAILY@1800 [facility] A/P Pneumonia Cellulitis Acute Kidney Injury Paroxysmal Atrial Fibrillation Thrombocytopenia - r/o HIT Lung Nodule - complete antibiotics - continue anticoagulation with argatroban, transition to coumadin - rate controlled - taper off medrol - inhaled bronchodilators
[2017-01-28] MEDS ORDERED: WARFARIN NA 3 MG TABLET PO SCH (18:00)
[2017-01-28] MEDS: ARGATROBAN - 250,000 MCG in SODIUM CHLORIDE 247.5 ML IVPB SCH (21:25)
[2017-01-29] MEDS: PIPERACILLIN/TAZOB 3.375 GM/50 ML PRE-DOCKED IVPB SCH ×3 (02:00→17:49)
[2017-01-29] MEDS: METOPROLOL TARTRATE 25 MG TABLET (FP) PO SCH (06:27)
[2017-01-29 08:01] LABS: BASOPHIL 0.1 % (0-2.0); EOSINOPHIL 0.1 % (0-4.5); MCH 30.3 pg (25.7-33.7); MCHC 32.7 g/dl (32.0-35.9); MEAN CELL VOLUME 92.6 fl (80-96); MEAN PLT VOLUME 8.3 fl (7.5-11.1); NEUTROPHILS 77.2 % (42.8-82.8); PLATELET COUNT 194 K/MM3 (134-434); RDW 15.8 % (11.9-15.9); WHITE BLOOD COUNT 15.7 K/mm3 (4.0-10.0)
[2017-01-29 08:22] LABS: PROTHROMBIN TIME (PATIENT) 52.9 SEC (9.98-11.88)
[2017-01-29 08:28] LABS: ALBUMIN 2.6 g/dl (3.4-5.0); ANION GAP 7 (8-16); CALCIUM 8.1 mg/dL (8.5-10.1); CO2 27 mmol/L (21-32); GLUCOSE,RANDOM 96 mg/dL (74-106); MAGNESIUM 2.1 mg/dL (1.8-2.4)
[2017-01-29 08:31] LABS: ALK PHOS 59 U/L (45-117); BILIRUBIN,TOTAL 0.8 mg/dL (0.2-1.0); CREATININE 1.6 mg/dL (0.7-1.3); PHOSPHOROUS 2.9 mg/dL (2.5-4.9); SGOT/AST 9 U/L (15-37); SGPT/ALT 30 U/L (12-78); TOT PROT 5.5 g/dl (6.4-8.2)
--- NOTE | 2017-01-29 08:59 | PN ---
Progress Note, Physician History of Present Illness: Denies dyspnea, remains in sinus rhythm. - Current Medication List Current Medications: Active Medications Acetaminophen (Tylenol -) 650 mg PO Q4H PRN PRN Reason: FEVER OR PAIN Albuterol/Ipratropium (Duoneb -) 1 amp NEB Q4HWA PRN PRN Reason: SHORT OF BREATH/WHEEZING Last Admin: 01/27/17 22:20 Dose: 1 amp Amiodarone HCl (Cordarone -) 200 mg PO DAILY [facility] Last Admin: 01/28/17 09:14 Dose: 200 mg Bacitracin/Polymyxin B Sulfate (Polysporin Ointment -) 1 applic TP BID [facility] Last Admin: 01/28/17 21:47 Dose: 1 applic Docusate Sodium (Colace -) 100 mg PO DAILY [facility] Last Admin: 01/28/17 09:16 Dose: 100 mg Furosemide (Lasix -) 40 mg PO DAILY [facility] Last Admin: 01/28/17 09:14 Dose: 40 mg Guaifenesin (Robitussin -) 10 ml PO Q6H PRN PRN Reason: COUGH Argatroban 250,000 mcg/ Sodium (Chloride) 250 mls @ 11.97 mls/hr IVPB TITR ROBERTO PRN Reason: Protocol Last Admin: 01/28/17 21:25 Dose: 11.97 mls/hr Methylprednisolone Sodium Succinate (Solu-Medrol -) 40 mg IVPB DAILY [facility] Metoprolol Tartrate (Lopressor -) 25 mg PO TID [facility] Last Admin: 01/29/17 06:27 Dose: 25 mg Multivitamins/Minerals/Vitamin C (Tab-A-Vit -) 1 tab PO DAILY [facility] Last Admin: 01/28/17 09:14 Dose: 1 tab Nystatin (Mycostatin Cream -) 1 applic TP BID [facility] Last Admin: 01/28/17 21:46 Dose: 1 applic Piperacillin Sod/Tazobactam Sod (Zosyn 3.375gm Ivpb (Pre-Docked)) 3.375 gm IVPB Q8H-IV ROBERTO PRN Reason: Protocol Last Admin: 01/29/17 02:00 Dose: 3.375 gm Tamsulosin HCl (Flomax -) 0.4 mg PO BID@0830,2200 [facility] Last Admin: 01/28/17 21:25 Dose: 0.4 mg Warfarin Sodium (Coumadin -) 3 mg PO DAILY@1800 [facility]ERTO Last Admin: 01/28/17 17:24 Dose: 3 mg - Objective Vital Signs: Vital Signs Temperature 97.7 F 01/29/17 06:00 Pulse Rate 57 L 01/29/17 06:00 Respiratory Rate 20 01/29/17 06:00 Blood Pressure 132/76 01/29/17 06:00 O2 Sat by Pulse Oximetry (%) 95 01/29/17 06:00 Constitutional: Yes: No Distress, Calm, Thin Neck: Yes: Supple Cardiovascular: Yes: Regular Rate and Rhythm Respiratory: Yes: Regular, Diminished, On Nasal O2 Gastrointestinal: Yes: Normal Bowel Sounds, Soft Edema: Yes Edema: LLE: 2+, RLE: 2+ Labs: CBC, BMP 01/29/17 06:00 01/29/17 06:00 INR, PTT INR 3.36 (0.82-1.09) H 01/28/17 05:35 Fibrinogen < 100.0 mg/dL (238-498) L* 01/23/17 05:15 - ....Imaging EKG: Report Reviewed (Tele: SR) Problem List - Problems (1) Altered mental status Code(s): R41.82 - ALTERED MENTAL STATUS, UNSPECIFIED Qualifiers: Altered mental status type: delirium Qualified Code(s): R41.0 - Disorientation, unspecified (2) Metabolic encephalopathy Code(s): G93.41 - METABOLIC ENCEPHALOPATHY (3) Hydronephrosis Code(s): N13.30 - UNSPECIFIED HYDRONEPHROSIS (4) [id number] kidney injury Code(s): N17.9 - ACUTE KIDNEY FAILURE, UNSPECIFIED N18.9 - CHRONIC KIDNEY DISEASE, UNSPECIFIED (5) Diastolic dysfunction, left ventricle Code(s): I51.9 - HEART DISEASE, UNSPECIFIED (6) Heparin induced thrombocytopenia Code(s): D75.82 - HEPARIN INDUCED THROMBOCYTOPENIA (HIT) (7) Paroxysmal atrial fibrillation Code(s): I48.0 - PAROXYSMAL ATRIAL FIBRILLATION (8) Cellulitis Code(s): L03.90 - CELLULITIS, UNSPECIFIED (9) Lung nodule Code(s): R91.1 - SOLITARY PULMONARY NODULE (10) Pneumonia Code(s): J18.9 - PNEUMONIA, UNSPECIFIED ORGANISM Qualifiers: Pneumonia type: due to unspecified organism Assessment/Plan Transthoracic echocardiography dated 01/17/17 Revealed normal LV Systolic function with pulmonary HTN (RVSP between 40-50 Millimeters mercury), mild MR and TR 1. Resolved hypotension, most likely multifactorial, over-diuresis/hypovolemia 2. Paroxysmal atrial fibrillation [id number] score of 3-4 currently in sinus rhythm on Argatroban therapy (HIT), initiated on Coumadin 3. 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 CAD angina pectoris 5. Encephalopathy, Probable toxic Metabolic and probable underlying dementia, improved 6. Acute on chronic kidney disease improving 7. Bilateral hydronephrosis 8. 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 Pneumonia, cellulitis PLAN: 1. 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 Change Toprol XL 50 qd 3. Continue Amiodarone 200 qd 4. Ideally should be on ACEI or ARBS once renal function stabilized 5. Continue Lasix 40 qd with monitor diuretic response, renal fxn and electrolytes 6. Complete abx course per ID, steroid taper, BD, O2, OOB to chair
[2017-01-29 09:23] LABS: INR 4.66 (0.82-1.09)
[2017-01-29] MEDS: DOCUSATE SODIUM 100 MG CAPSULE (FP) PO SCH (09:39)
[2017-01-29] MEDS: TAMSULOSIN HCL 0.4 MG CAP.ER.24H (FP) PO SCH ×2 (09:40→21:07)
[2017-01-29] MEDS: NYSTATIN 100,000 UNIT/GM TOPICAL CREAM 15 GM TUBE TP SCH ×2 (09:40→21:07)
[2017-01-29] MEDS: MULTIVITAMINS (DAILY MVI) TABLET (FP) PO SCH (09:40)
[2017-01-29] MEDS: BACITRACIN/POLYMYXIN B SULFATE 15 GM TUBE TP SCH ×2 (09:40→21:07)
[2017-01-29] MEDS: FUROSEMIDE 40 MG TABLET (FP) PO SCH (09:40)
[2017-01-29] MEDS: AMIODARONE HCL 200 MG TABLET (FP) PO SCH (09:40)
[2017-01-29] MEDS ORDERED: methylPREDNISolone NA SUCC 40 MG/1 ML VIAL IVPB SCH (10:00)
[2017-01-29] MEDS ORDERED: METOPROLOL SUCCINATE 50 MG TAB.SR.24H (FP) PO SCH (10:00)
--- NOTE | 2017-01-29 10:23 | PN ---
Physical Exam: SUBJECTIVE: Patient seen and examined No acute events overnight. Patient appears comfortable in bed. Patient denies any complaints OBJECTIVE: Vital Signs Period Temp Pulse Resp BP Sys/Locke Pulse Ox Last 24 Hr 97.3 F-98.8 F 57-63 18-20 101-144/54-77 95-96 GENERAL: The patient is awake, alert, and fully oriented, in no acute distress. HEAD: Normal with no signs of trauma. EYES: PERRL, extraocular movements intact, sclera anicteric, conjunctiva clear. No ptosis. ENT: Ears normal, nares patent, oropharynx clear without exudates, moist mucous membranes. NECK: Trachea midline, full range of motion, supple. LUNGS: Breath sounds equal and decreased, Crackles at the bases bilaterally (L>R ), No accessory muscle use HEART: Regular rate and rhythm, S1, S2 without murmur, rub or gallop. ABDOMEN: Soft, nontender, nondistended, normoactive bowel sounds, no guarding, no rebound, no hepatosplenomegaly, no masses. EXTREMITIES: 2+ pulses, warm, well-perfused, 2-3+ pitting edema bilaterally NEUROLOGICAL: Cranial nerves II through XII grossly intact. Normal speech, gait not observed. PSYCH: Normal mood, normal affect. SKIN: Warm, dry, normal turgor, LLE cellulitis and erythema Laboratory Results - last 24 hr 01/29/17 01/29/17 01/29/17 06:00 06:00 06:00 WBC 15.7 H RBC 4.15 Hgb 12.6 Hct 38.5 MCV 92.6 MCH 30.3 MCHC 32.7 RDW 15.8 Plt Count 194 MPV 8.3 Neutrophils % 77.2 Lymphocytes % 18.7 D Monocytes % 3.9 Eosinophils % 0.1 D Basophils % 0.1 INR 4.66 H* D Sodium 140 Potassium 4.9 Chloride 106 Carbon Dioxide 27 Anion Gap 7 L BUN 51 H Creatinine 1.6 H Creat Clearance w eGFR 41.39 Random Glucose 96 D Calcium 8.1 L Phosphorus 2.9 D Magnesium 2.1 Total Bilirubin 0.8 D AST 9 L D ALT 30 Alkaline Phosphatase 59 Total Protein 5.5 L Albumin 2.6 L Active Medications Generic Name Dose Route Start Last Admin Trade Name Freq PRN Reason Stop Dose Admin Acetaminophen 650 mg 01/25/17 18:25 Tylenol - PO Q4H PRN FEVER OR PAIN Albuterol/Ipratropium 1 amp 01/25/17 18:25 01/27/17 22:20 Duoneb - NEB 1 amp Q4HWA PRN Administration SHORT OF BREATH/WHEEZING Amiodarone HCl 200 mg 01/28/17 10:00 01/29/17 09:40 Cordarone - PO 200 mg DAILY ROBERTO Administration Bacitracin/Polymyxin B Sulfate 1 applic 01/25/17 22:00 01/29/17 09:40 Polysporin Ointment - TP 1 applic BID ROBERTO Administration Docusate Sodium 100 mg 01/26/17 10:00 01/29/17 09:39 Colace - PO 100 mg DAILY ROBERTO Administration Furosemide 40 mg 01/28/17 10:00 01/29/17 09:40 Lasix - PO 40 mg DAILY ROBERTO Administration Guaifenesin 10 ml 01/25/17 18:25 Robitussin - PO Q6H PRN COUGH Argatroban 250,000 mcg/ Sodium 250 mls @ 11.97 mls/hr 01/28/17 15:45 01/28/17 21:25 Chloride IVPB 11.97 mls/hr TITR ROBERTO Administration Protocol Methylprednisolone Sodium Succinate 40 mg 01/29/17 10:00 01/29/17 09:40 Solu-Medrol - IVPB 40 mg DAILY ROBERTO Administration Metoprolol Succinate 50 mg 01/29/17 10:00 Toprol Xl - PO DAILY [facility] Multivitamins/Minerals/Vitamin C 1 tab 01/26/17 10:00 01/29/17 09:40 Tab-A-Vit - PO 1 tab DAILY ROBERTO Administration Nystatin 1 applic 01/25/17 22:00 01/29/17 09:40 Mycostatin Cream - TP 1 applic BID ROBERTO Administration Piperacillin Sod/Tazobactam Sod 3.375 gm 01/26/17 02:00 01/29/17 09:40 Zosyn 3.375gm Ivpb (Pre-Docked) IVPB 3.375 gm Q8H-IV ROBERTO Administration Protocol Tamsulosin HCl 0.4 mg 01/25/17 22:00 01/29/17 09:40 Flomax - PO 0.4 mg BID@0830,2200 ROBERTO Administration Warfarin Sodium 3 mg 01/28/17 18:00 01/28/17 17:24 Coumadin - PO 3 mg DAILY@1800 [facility] Administration ASSESSMENT/PLAN: 86 yo M with PMH of b/l severe hydronephrosis L>R seen on CT 10/31/15, otherwise unknown [facility] (poor historian/no records), who presented with confusion, groin and back pain. #Metabolic encephalopathy in the setting of AMS likely 2/2 to UTI, Resolved -A&Ox3 -completed course of unasyn (7 days) #Acute hypoxic respiratory distress with hypotension likely 2/2 to pleural effusion vs. pneumonia -Tachypnea resolved -Satting 95-97% on 2L -Currently on Zosyn 3.35gm ivpb q8h day 7, Last day of course -Continiue Incentive spirometer -Guanifensen 10 ml Q6 PRN -Continue duonebs Q4hr PRN -Continue Solumederol IV 40 mg daily, will slowly taper -Continue PO Lasix 40 mg po daily with caution -O2 NC as needed for O2 saturation -Pulmonary on board, Dr. Mariscal -No need to follow up on pulmonary nodule due to fleischner society recommendations #New onset Atrial Fibrillation, converted to NSR -Continue Argatroban drip -Continue Amiodarone to 200 mg daily -Changed Metoprolol to 50 mg po daily, keep HR < 120 -Switch Coumadin to 2.5 mg po tonight, monitor INR and bridge with argatroban -PER HEMATOLOGY, "if tomorrow INR continues to be >4 , stop argatroban and check INR in after 4hrs OFF argatroban.If the repeat INR is 2-3, discontinue argatroban in complete. if INR is <2, restart argatroban at the same rate when it was discontinued. if the repeat INR is >3, continue to stop argatroban and increase the coumadin dose. 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 lasix use, improving -Patient has davis in place -Monitor UOP -Avoid nephrotoxic agents #FEN: -No fluids -lytes stable -Na restricted diet #PPx -DVT: Argatroban drip -GI: not indicated at this time PT eval- 12 feet 3 times w/ rolling walker #Dispo: Plan for D/c later this week. Bridging Coumadin with Argatroban Visit type - Emergency Visit Emergency Visit: No - New Patient This patient is new to me today: No - Critical Care Critical Care patient: No
--- NOTE | 2017-01-29 12:09 | PN ---
Teaching Attending Note Name of Resident: Palmer Rios ATTENDING PHYSICIAN STATEMENT I saw and evaluated the patient. I reviewed the resident's note and discussed the case with the resident. I agree with the resident's findings and plan as documented. SUBJECTIVE:resting comfortable. denies Cp, SOB, fever, chills, N/V/C/D OBJECTIVE: Last Vital Signs Temp Pulse Resp BP Pulse Ox 97.7 F 63 20 132/76 94 L 01/29/17 06:00 01/29/17 11:50 01/29/17 06:00 01/29/17 06:00 01/29/17 11:50 Intake & Output 01/26/17 01/27/17 01/28/17 01/29/17 23:59 23:59 23:59 23:59 Intake Total 966 1008 562.9 743.6 Output Total 800 1300 3100 1900 Balance 166 -292 -2537.1 -1156.4 Weight 229 lb 228 lb 12.8 oz 222 lb 12.8 oz 201 lb General NAD CV S1 S2 RRR no murmur/rub/gallop Lungs decreased breath sounds L lung base. LLL crackles. Extremities 3+ pitting edema B/L LE ASSESSMENT AND PLAN: 86-year-old man with a history of bilateral hydronephrosis who presented to the ER with groin pain. 1. Acute metabolic encephalopathy secondary to UTI and LLE cellulitis- resolved. completed abx course 2. Acute Hypoxic respiratory distress- likely due to pleural effusion vs PNA. clinically improved.on lasix po. 21 pound weight loss? will re-check weight today. on medrol 40mg IV will switch to po steroids tomorrow. on zosyn day 6. will complete 7 days course. cont supplemental oxygen to mantain spO2 > 90%. pulmonary on board 3. Hypotension- large PE vs over-diuresis vs sepsis. now normotensive now off pressors. good UOP. 4. New onset Afib-converted to NSR. on amio. HR controlled. will monitor LFT and TFT. lopressor prn HR >120. on argatroban and coumadin bridge. as per hematology goal INR >4. will need to repeat INR 2H after drip is stopped will need 2 day overlap of INR >4. trend INR 5. 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 serrotonin assay pending. plt count slowly improving.on argabatron/coumadin bridge. hematology on board. cont coumadin per hamatology. 6. Pulmonary nodule- resolved. as per pulmonary no need to monitor pulmonary nodule. 7. Acute on CKD- likely due to medication induced vs hypoperfusion. stable.avoid nephrotoxic agents. davis placed. monitor I&O. 8. Bilateral hydroureteronephrosis secondary to BPH-cont flomax. davis in place. urology outpatient follow up 9. Possible hepatic cysts- Outpatient U/S 10. PT assessment. OOB to chair 11. coordination with Sw about placement for discharge planning
--- NOTE | 2017-01-29 12:37 | PN ---
Progress Note (short form) - Note Progress Note: PULMONARY Breathing continues to improve. Denies shortness of breath. No fevers or chills. Last Vital Signs Temp Pulse Resp BP Pulse Ox 97.7 F 63 20 132/76 94 L 01/29/17 06:00 01/29/17 11:50 01/29/17 06:00 01/29/17 06:00 01/29/17 11:50 Gen: NAD in chair Heart: RRR Lung: left base rales Abd: soft, nontender Ext: +erythema improving CBC, BMP 01/29/17 06:00 01/29/17 06:00 Active Medications Acetaminophen (Tylenol -) 650 mg PO Q4H PRN PRN Reason: FEVER OR PAIN Albuterol/Ipratropium (Duoneb -) 1 amp NEB Q4HWA PRN PRN Reason: SHORT OF BREATH/WHEEZING Last Admin: 01/27/17 22:20 Dose: 1 amp Amiodarone HCl (Cordarone -) 200 mg PO DAILY [facility] Last Admin: 01/29/17 09:40 Dose: 200 mg Bacitracin/Polymyxin B Sulfate (Polysporin Ointment -) 1 applic TP BID [facility] Last Admin: 01/29/17 09:40 Dose: 1 applic Docusate Sodium (Colace -) 100 mg PO DAILY [facility] Last Admin: 01/29/17 09:39 Dose: 100 mg Furosemide (Lasix -) 40 mg PO DAILY [facility] Last Admin: 01/29/17 09:40 Dose: 40 mg Guaifenesin (Robitussin -) 10 ml PO Q6H PRN PRN Reason: COUGH Argatroban 250,000 mcg/ Sodium (Chloride) 250 mls @ 11.97 mls/hr IVPB TITR ROBERTO PRN Reason: Protocol Last Admin: 01/28/17 21:25 Dose: 11.97 mls/hr Methylprednisolone Sodium Succinate (Solu-Medrol -) 40 mg IVPB DAILY [facility] Last Admin: 01/29/17 09:40 Dose: 40 mg Metoprolol Succinate (Toprol Xl -) 50 mg PO DAILY [facility] Multivitamins/Minerals/Vitamin C (Tab-A-Vit -) 1 tab PO DAILY [facility] Last Admin: 01/29/17 09:40 Dose: 1 tab Nystatin (Mycostatin Cream -) 1 applic TP BID [facility] Last Admin: 01/29/17 09:40 Dose: 1 applic Piperacillin Sod/Tazobactam Sod (Zosyn 3.375gm Ivpb (Pre-Docked)) 3.375 gm IVPB Q8H-IV ROBERTO PRN Reason: Protocol Stop: 01/29/17 23:59 Last Admin: 01/29/17 09:40 Dose: 3.375 gm Tamsulosin HCl (Flomax -) 0.4 mg PO BID@0830,2200 [facility] Last Admin: 01/29/17 09:40 Dose: 0.4 mg Warfarin Sodium (Coumadin -) 3 mg PO DAILY@1800 [facility] Last Admin: 01/28/17 17:24 Dose: 3 mg A/P Pneumonia Cellulitis Acute Kidney Injury Paroxysmal Atrial Fibrillation Thrombocytopenia - r/o HIT Lung Nodule - complete antibiotics - continue anticoagulation with argatroban, transition to coumadin - rate controlled - taper off medrol - inhaled bronchodilators
--- NOTE | 2017-01-29 13:14 | PN ---
Progress Note (short form) - Note Progress Note: Patient seen and examined this am. All notes reviewed. Looks better. denies any SOB, no CP. Last Vital Signs Temp Pulse Resp BP Pulse Ox 97.7 F 63 20 132/76 94 L 01/29/17 06:00 01/29/17 11:50 01/29/17 06:00 01/29/17 06:00 01/29/17 11:50 Constitutional: Yes: no Distress HENT: Yes: Atraumatic, Normocephalic Neck: Yes: Trachea Midline Cardiovascular: Yes: Tachycardia Respiratory: Yes: Regular, breath sounds Gastrointestinal: Yes: Soft, Abdomen, Obese CBC, BMP 01/29/17 06:00 01/29/17 06:00 Current Medications Generic Name Dose Route Start Last Admin Trade Name Freq PRN Reason Stop Dose Admin Acetaminophen 650 mg 01/25/17 18:25 Tylenol - PO Q4H PRN FEVER OR PAIN Albuterol/Ipratropium 1 amp 01/25/17 18:25 01/27/17 22:20 Duoneb - NEB 1 amp Q4HWA PRN Administration SHORT OF BREATH/WHEEZING Amiodarone HCl 200 mg 01/28/17 10:00 01/29/17 09:40 Cordarone - PO 200 mg DAILY ROBERTO Administration Bacitracin/Polymyxin B Sulfate 1 applic 01/25/17 22:00 01/29/17 09:40 Polysporin Ointment - TP 1 applic BID ROBERTO Administration Docusate Sodium 100 mg 01/26/17 10:00 01/29/17 09:39 Colace - PO 100 mg DAILY ROBERTO Administration Furosemide 40 mg 01/28/17 10:00 01/29/17 09:40 Lasix - PO 40 mg DAILY ROBERTO Administration Guaifenesin 10 ml 01/25/17 18:25 Robitussin - PO Q6H PRN COUGH Argatroban 250,000 mcg/ Sodium 250 mls @ 11.97 mls/hr 01/28/17 15:45 01/28/17 21:25 Chloride IVPB 11.97 mls/hr TITR ROBERTO Administration Protocol Methylprednisolone Sodium Succinate 40 mg 01/29/17 10:00 01/29/17 09:40 Solu-Medrol - IVPB 40 mg DAILY ROBERTO Administration Metoprolol Succinate 50 mg 01/29/17 10:00 Toprol Xl - PO DAILY [facility] Multivitamins/Minerals/Vitamin C 1 tab 01/26/17 10:00 01/29/17 09:40 Tab-A-Vit - PO 1 tab DAILY ROBERTO Administration Nystatin 1 applic 01/25/17 22:00 01/29/17 09:40 Mycostatin Cream - TP 1 applic BID ROBERTO Administration Piperacillin Sod/Tazobactam Sod 3.375 gm 01/26/17 02:00 01/29/17 09:40 Zosyn 3.375gm Ivpb (Pre-Docked) IVPB 01/29/17 23:59 3.375 gm Q8H-IV ROBERTO Administration Protocol Tamsulosin HCl 0.4 mg 01/25/17 22:00 01/29/17 09:40 Flomax - PO 0.4 mg BID@0830,2200 ROBERTO Administration Warfarin Sodium 3 mg 01/28/17 18:00 01/28/17 17:24 Coumadin - PO 3 mg DAILY@1800 [facility] Administration Assessment/Plan: 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 Bilateral hydroureteronephrosis secondary to BPH Plan: -on coumadin -as mentioned, argatroban must overlap with warfarin for at least 4-5days and Today would be day3 of overlap. Give 2.5mg coumading tonight. check INR tomorrow. if tomorrow INR continues to be >4 , stop argatroban and check INR in after 4hrs OFF argatroban.If the repeat INR is 2-3, discontinue argatroban in complete. if INR is <2, restart argatroban at the same rate when it was discontinued. if the repeat INR is >3, continue to stop argatroban and increase the coumadin dose. -JUNG improving. -PNA on abx -will follow. Problem List - Problems (1) Thrombocytopenia Code(s): D69.6 - THROMBOCYTOPENIA, UNSPECIFIED (2) Altered mental status Code(s): R41.82 - ALTERED MENTAL STATUS, UNSPECIFIED Qualifiers: Altered mental status type: delirium Qualified Code(s): R41.0 - Disorientation, unspecified (3) Atrial fibrillation with RVR Code(s): I48.91 - UNSPECIFIED ATRIAL FIBRILLATION (4) UTI (urinary tract infection) Code(s): N39.0 - URINARY TRACT INFECTION, SITE NOT SPECIFIED (5) Kidney injury Code(s): S37.009A - UNSPECIFIED INJURY OF UNSPECIFIED KIDNEY, INITIAL ENCOUNTER (6) Hypoxemia Code(s): R09.02 - HYPOXEMIA
[2017-01-29] MEDS ORDERED: PT OWN MED DRAWER 7, Y5N ONE (17:40)
[2017-01-29] MEDS: WARFARIN NA 2.5 MG TABLET (FP) PO SCH (17:48)
[2017-01-29] MEDS: ARGATROBAN - 250,000 MCG in SODIUM CHLORIDE 247.5 ML IVPB SCH (17:48)
[2017-01-30] MEDS ORDERED: METOPROLOL TARTRATE 5 MG/5 ML VIAL IVPUSH ONE ×3 (00:50→02:19)
--- NOTE | 2017-01-30 02:25 | HOSP ---
Subjective - Review of Symptoms Subjective: Page received about pt returning to rapid A fib with rate in 133's. Pt was dx'd with paroxysmal a fib on this hospital course and was well controlled with Toprol XL and amiodarone with HR in the 60's. Pt remains asymptomatic and is resting comfortably in bed watching tv. Denies any pain, palpitations. BP 116/78 on initial page (00:45h) --Lopressor 5mg IVPush given Vital check 01:20h --BP 128/84 --HR 125-133 --Lopressor 5mg IVPush given (second dose) Vital check 02:15: --BP 124/68 --HR 120-128 --Lopressor 5mg IVPush given (third dose) --Pt remains Asymptomatic again resting in bed comfortably 03:00h --pt remains in A fib rate of 130-140s on monitor. Bp is stable from before --Discussed with attending and administered 10mg Cardizem IVPush Patient responded to Cardizem 10mg IVPush --BP stable --HR 90-105s on monitor --Pt sleeping comfortably in bed Physical Examination Vital Signs: Vital Signs Temperature 98.0 F 01/30/17 02:15 Pulse Rate 105 H 01/30/17 02:15 Respiratory Rate 20 01/30/17 02:15 Blood Pressure 128/84 01/30/17 02:15 O2 Sat by Pulse Oximetry (%) 95 01/29/17 22:00 Constitutional: Yes: No Distress, Calm Cardiovascular: Yes: Tachycardia, Pulse Irregular Respiratory: Yes: WNL Neurological: Yes: Alert, Oriented Psychiatric: Yes: Alert, Oriented Labs: CBC, BMP 01/29/17 06:00 01/29/17 06:00 Hospitalist Encounter Assessment: P. Atrial Fibrillation --Follow vitals --No more lopressor IVPush after 3rd dose for total of 15mg --Response to Cardizem 10mg IVPush with a resultant HR of 90-105 based on monitor --Patient already on maintenance medications for PAF --Pt anticoagulated at supratherapeutic levels already --Pt continues to be asymptomatic --HR goal 120 or less as long as patient is without symptoms and hemodynamically stable
[2017-01-30] MEDS ORDERED: dilTIAZem HCL 50 MG/10 ML - 10 ML VIAL IVPUSH ONE ×3 (03:12→10:30)
[2017-01-30 08:11] LABS: ALBUMIN 2.5 g/dl (3.4-5.0); ALK PHOS 59 U/L (45-117); ANION GAP 7 (8-16); BILIRUBIN,TOTAL 0.8 mg/dL (0.2-1.0); CALCIUM 8.1 mg/dL (8.5-10.1); CO2 26 mmol/L (21-32); CREATININE 1.6 mg/dL (0.7-1.3); GLUCOSE,RANDOM 137 mg/dL (74-106); PHOSPHOROUS 3.2 mg/dL (2.5-4.9); SGOT/AST 8 U/L (15-37); SGPT/ALT 27 U/L (12-78); TOT PROT 5.3 g/dl (6.4-8.2)
[2017-01-30 08:17] LABS: BASOPHIL 0.1 % (0-2.0); EOSINOPHIL 0.1 % (0-4.5); MCH 31.3 pg (25.7-33.7); MEAN CELL VOLUME 91.9 fl (80-96); MEAN PLT VOLUME 9.1 fl (7.5-11.1); NEUTROPHILS 81.1 % (42.8-82.8); PLATELET COUNT 238 K/MM3 (134-434); RDW 15.9 % (11.9-15.9); WHITE BLOOD COUNT 16.1 K/mm3 (4.0-10.0)
[2017-01-30 09:08] LABS: ACTIVATED PTT 69.2 SECONDS (26.9-34.4)
--- NOTE | 2017-01-30 09:35 | PN ---
Progress Note, Physician History of Present Illness: Denies dyspnea, back in rapid afib. - Current Medication List Current Medications: Active Medications Acetaminophen (Tylenol -) 650 mg PO Q4H PRN PRN Reason: FEVER OR PAIN Albuterol/Ipratropium (Duoneb -) 1 amp NEB Q4HWA PRN PRN Reason: SHORT OF BREATH/WHEEZING Last Admin: 01/27/17 22:20 Dose: 1 amp Amiodarone HCl (Cordarone -) 200 mg PO DAILY [facility] Last Admin: 01/29/17 09:40 Dose: 200 mg Bacitracin/Polymyxin B Sulfate (Polysporin Ointment -) 1 applic TP BID [facility] Last Admin: 01/29/17 21:07 Dose: 1 applic Docusate Sodium (Colace -) 100 mg PO DAILY [facility] Last Admin: 01/29/17 09:39 Dose: 100 mg Furosemide (Lasix -) 40 mg PO DAILY [facility] Last Admin: 01/29/17 09:40 Dose: 40 mg Guaifenesin (Robitussin -) 10 ml PO Q6H PRN PRN Reason: COUGH Argatroban 250,000 mcg/ Sodium (Chloride) 250 mls @ 11.97 mls/hr IVPB TITR ROBERTO PRN Reason: Protocol Last Admin: 01/29/17 17:48 Dose: 11.97 mls/hr Metoprolol Succinate (Toprol Xl -) 50 mg PO DAILY [facility] Last Admin: 01/29/17 13:00 Dose: 50 mg Multivitamins/Minerals/Vitamin C (Tab-A-Vit -) 1 tab PO DAILY [facility] Last Admin: 01/29/17 09:40 Dose: 1 tab Nystatin (Mycostatin Cream -) 1 applic TP BID [facility] Last Admin: 01/29/17 21:07 Dose: 1 applic Prednisone (Deltasone -) 40 mg PO DAILY [facility] Tamsulosin HCl (Flomax -) 0.4 mg PO BID@0830,2200 [facility] Last Admin: 01/29/17 21:07 Dose: 0.4 mg Warfarin Sodium (Coumadin -) 2.5 mg PO DAILY@1800 [facility] Last Admin: 01/29/17 17:48 Dose: 2.5 mg - Objective Vital Signs: Vital Signs Temperature 97.8 F 01/30/17 06:07 Pulse Rate 107 H 01/30/17 06:07 Respiratory Rate 20 01/30/17 06:07 Blood Pressure 112/69 01/30/17 06:07 O2 Sat by Pulse Oximetry (%) 95 01/29/17 22:00 Constitutional: Yes: No Distress, Calm Neck: Yes: Supple Cardiovascular: Yes: Tachycardia, Pulse Irregular Respiratory: Yes: Regular, Diminished Gastrointestinal: Yes: Normal Bowel Sounds, Soft, Abdomen, Obese Edema: Yes Edema: LLE: 1+, RLE: 1+ Labs: CBC, BMP 01/30/17 05:35 01/30/17 05:35 INR, PTT INR 4.66 (0.82-1.09) H* D 01/29/17 06:00 Fibrinogen < 100.0 mg/dL (238-498) L* 01/23/17 05:15 Problem List - Problems (1) Hydronephrosis Code(s): N13.30 - UNSPECIFIED HYDRONEPHROSIS (2) [id number] kidney injury Code(s): N17.9 - ACUTE KIDNEY FAILURE, UNSPECIFIED N18.9 - CHRONIC KIDNEY DISEASE, UNSPECIFIED (3) Diastolic dysfunction, left ventricle Code(s): I51.9 - HEART DISEASE, UNSPECIFIED (4) Heparin induced thrombocytopenia Code(s): D75.82 - HEPARIN INDUCED THROMBOCYTOPENIA (HIT) (5) Paroxysmal atrial fibrillation Code(s): I48.0 - PAROXYSMAL ATRIAL FIBRILLATION (6) Cellulitis Code(s): L03.90 - CELLULITIS, UNSPECIFIED (7) Lung nodule Code(s): R91.1 - SOLITARY PULMONARY NODULE (8) Pneumonia Code(s): J18.9 - PNEUMONIA, UNSPECIFIED ORGANISM Qualifiers: Pneumonia type: due to unspecified organism Assessment/Plan Transthoracic echocardiography dated 01/17/17 Revealed normal LV Systolic function with pulmonary HTN (RVSP between 40-50 Millimeters mercury), mild MR and TR 1. Resolved hypotension, most likely multifactorial, over-diuresis/hypovolemia 2. Paroxysmal atrial fibrillation [id number] score of 3-4 currently in sinus rhythm on Argatroban therapy (HIT), initiated on Coumadin 3. 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 CAD angina pectoris 5. Encephalopathy, Probable toxic Metabolic and probable underlying dementia, improved 6. Acute on chronic kidney disease improving 7. Bilateral hydronephrosis 8. 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 Pneumonia, cellulitis PLAN: 1. Argatroban drip->Coumadin per INR and hematology recommendations 2. Increase Lopressor 50 bid, Cardizem IV as needed for rate-control 3. Continue Amiodarone 200 qd 4. Ideally should be on ACEI or ARBS once renal function stabilized 5. Continue Lasix 40 qd with monitor diuretic response, renal fxn and electrolytes 6. Complete abx course per ID, steroid taper, BD, O2, OOB to chair
[2017-01-30 09:38] LABS: PROTHROMBIN TIME (PATIENT) 64.2 SEC (9.98-11.88)
[2017-01-30] MEDS: FUROSEMIDE 40 MG TABLET (FP) PO SCH (10:19)
[2017-01-30] MEDS: NYSTATIN 100,000 UNIT/GM TOPICAL CREAM 15 GM TUBE TP SCH ×2 (10:19→22:43)
[2017-01-30] MEDS: MULTIVITAMINS (DAILY MVI) TABLET (FP) PO SCH (10:19)
[2017-01-30] MEDS: TAMSULOSIN HCL 0.4 MG CAP.ER.24H (FP) PO SCH ×2 (10:19→22:43)
[2017-01-30] MEDS: DOCUSATE SODIUM 100 MG CAPSULE (FP) PO SCH (10:19)
[2017-01-30] MEDS: AMIODARONE HCL 200 MG TABLET (FP) PO SCH (10:19)
[2017-01-30] MEDS: BACITRACIN/POLYMYXIN B SULFATE 15 GM TUBE TP SCH ×2 (10:20→22:43)
[2017-01-30 10:57] LABS: INR 5.63 (0.82-1.09)
--- NOTE | 2017-01-30 12:25 | PN ---
Teaching Attending Note Name of Resident: Palmer Rios ATTENDING PHYSICIAN STATEMENT I saw and evaluated the patient. I reviewed the resident's note and discussed the case with the resident. I agree with the resident's findings and plan as documented. SUBJECTIVE:asymptomatic. denies CP, SOB, fever, chills, N/V/C/D was noted to go in afib with RVR. received metoprolol IVP x3 and then improved after cardizem IVP OBJECTIVE: Last Vital Signs Temp Pulse Resp BP Pulse Ox 97.8 F 107 H 20 112/69 95 01/30/17 06:07 01/30/17 06:07 01/30/17 06:07 01/30/17 06:07 01/29/17 22:00 General NAD CV S1 S2 RRR no murmur/rub/gallop Lungs decreased breath sounds L lung base. LLL crackles. Extremities 3+ pitting edema B/L LE ASSESSMENT AND PLAN: 86-year-old man with a history of bilateral hydronephrosis who presented to the ER with groin pain. 1. Acute metabolic encephalopathy secondary to UTI and LLE cellulitis- resolved. completed abx course 2. Acute Hypoxic respiratory distress- likely due to pleural effusion vs PNA. clinically improved.on lasix po. weighed twice today with 10 pound weight gain. (yesterday likely inaccurate). will give additional lasix 20mg dose today for a total of 7. monitor for clinical improvement. completed 7 day course of zosyn yesterday. taper steroids to po today prednisone 40mg. cont supplemental oxygen to mantain spO2 > 90%. pulmonary on board 3. Hypotension- large PE vs over-diuresis vs sepsis. now normotensive now off pressors. good UOP. 4. New onset Afib-episode of RVR last night. now rate controlled. metoprolol increased to 50mg BID. cont cardizem prn HR >120. on argbatron-coumadin bridge 5. 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 serrotonin assay pending. plt count now in normal range. Bridge for 5 days now. INR > 4 for 2 days. will hold ggt and repeat INR in 4 Hours. will follow hematology protocol for continuing or stopping ggt. 6. Pulmonary nodule- resolved. as per pulmonary no need to monitor pulmonary nodule. 7. Acute on CKD- likely due to medication induced vs hypoperfusion. stable.avoid nephrotoxic agents. davis placed. monitor I&O. 8. Bilateral hydroureteronephrosis secondary to BPH-cont flomax. davis in place. urology outpatient follow up 9. Possible hepatic cysts- Outpatient U/S 10. PT assessment. OOB to chair 11. coordination with Sw about placement for discharge planning
[2017-01-30] MEDS ORDERED: FUROSEMIDE 40 MG/4 ML INJECTABLE VIAL IVPUSH ONE (12:30)
--- NOTE | 2017-01-30 12:50 | PN ---
Progress Note (short form) - Note Progress Note: PULMONARY Denies shortness of breath. No fevers or chills. Minimal cough. Last Vital Signs Temp Pulse Resp BP Pulse Ox 97.8 F 107 H 20 112/69 95 01/30/17 06:07 01/30/17 06:07 01/30/17 06:07 01/30/17 06:07 01/29/17 22:00 Gen: NAD in chair Heart: RRR Lung: less left base rales Abd: soft, nontender Ext: +erythema improving CBC, BMP 01/30/17 05:35 01/30/17 05:35 Active Medications Acetaminophen (Tylenol -) 650 mg PO Q4H PRN PRN Reason: FEVER OR PAIN Albuterol/Ipratropium (Duoneb -) 1 amp NEB Q4HWA PRN PRN Reason: SHORT OF BREATH/WHEEZING Last Admin: 01/27/17 22:20 Dose: 1 amp Amiodarone HCl (Cordarone -) 200 mg PO DAILY [facility] Last Admin: 01/30/17 10:19 Dose: 200 mg Bacitracin/Polymyxin B Sulfate (Polysporin Ointment -) 1 applic TP BID [facility] Last Admin: 01/30/17 10:20 Dose: 1 applic Docusate Sodium (Colace -) 100 mg PO DAILY [facility] Last Admin: 01/30/17 10:19 Dose: 100 mg Furosemide (Lasix -) 40 mg PO DAILY [facility] Last Admin: 01/30/17 10:19 Dose: 40 mg Guaifenesin (Robitussin -) 10 ml PO Q6H PRN PRN Reason: COUGH Argatroban 250,000 mcg/ Sodium (Chloride) 250 mls @ 11.97 mls/hr IVPB TITR [facility] PRN Reason: Protocol Last Admin: 01/29/17 17:48 Dose: 11.97 mls/hr Metoprolol Tartrate (Lopressor -) 50 mg PO BID [facility] Multivitamins/Minerals/Vitamin C (Tab-A-Vit -) 1 tab PO DAILY [facility] Last Admin: 01/30/17 10:19 Dose: 1 tab Nystatin (Mycostatin Cream -) 1 applic TP BID [facility] Last Admin: 01/30/17 10:19 Dose: 1 applic Prednisone (Deltasone -) 40 mg PO DAILY [facility] Tamsulosin HCl (Flomax -) 0.4 mg PO BID@0830,2200 [facility] Last Admin: 01/30/17 10:19 Dose: 0.4 mg Warfarin Sodium (Coumadin -) 2.5 mg PO DAILY@1800 [facility] Last Admin: 01/29/17 17:48 Dose: 2.5 mg A/P Pneumonia Cellulitis Acute Kidney Injury Paroxysmal Atrial Fibrillation Thrombocytopenia - r/o HIT Lung Nodule - completed antibiotics - continue anticoagulation with argatroban, transition to coumadin - rate controlled - taper off medrol - inhaled bronchodilators - d/c planning in progress
[2017-01-30] MEDS: METOPROLOL TARTRATE 50 MG TABLET (FP) PO SCH ×2 (12:51→22:43)
[2017-01-30] MEDS: predniSONE 20 MG TABLET (UD) PO SCH (12:52)
--- NOTE | 2017-01-30 14:16 | PN ---
Physical Exam: SUBJECTIVE: Patient seen and examined Patient went into Atrial Fibrillation with RVR overnight. Patient received lopressor 5 mg IVP x 3 with no improvement. Also received cardizem, which helped. Patient asymptomatic this morning. OBJECTIVE: Vital Signs Period Temp Pulse Resp BP Sys/Locke Pulse Ox Last 24 Hr 97.5 F-98.0 F 65-138 18-22 104-135/60-84 95-95 GENERAL: The patient is awake, alert, and fully oriented, in no acute distress. HEAD: Normal with no signs of trauma. EYES: PERRL, extraocular movements intact, sclera anicteric, conjunctiva clear. No ptosis. ENT: Ears normal, nares patent, oropharynx clear without exudates, moist mucous membranes. NECK: Trachea midline, full range of motion, supple. LUNGS: Breath sounds equal and decreased, Crackles at the bases bilaterally (L>R ), No accessory muscle use HEART: Irregulary irregular rhythm, S1, S2 without murmur, rub or gallop. ABDOMEN: Soft, nontender, nondistended, normoactive bowel sounds, no guarding, no rebound, no hepatosplenomegaly, no masses. EXTREMITIES: 2+ pulses, warm, well-perfused, 2-3+ pitting edema bilaterally NEUROLOGICAL: Cranial nerves II through XII grossly intact. Normal speech, gait not observed. PSYCH: Normal mood, normal affect. SKIN: Warm, dry, normal turgor, LLE cellulitis and erythema Laboratory Results - last 24 hr 01/30/17 01/30/17 01/30/17 05:35 05:35 05:35 WBC 16.1 H RBC 4.00 Hgb 12.5 Hct 36.8 MCV 91.9 MCH 31.3 MCHC 34.0 RDW 15.9 Plt Count 238 D MPV 9.1 Neutrophils % 81.1 Lymphocytes % 15.3 Monocytes % 3.4 L Eosinophils % 0.1 Basophils % 0.1 INR 5.63 H* PTT (Actin FS) 69.2 H Sodium 137 Potassium 4.7 Chloride 104 Carbon Dioxide 26 Anion Gap 7 L BUN 51 H Creatinine 1.6 H Creat Clearance w eGFR 41.39 Random Glucose 137 H D Calcium 8.1 L Phosphorus 3.2 Magnesium 2.0 Total Bilirubin 0.8 AST 8 L ALT 27 Alkaline Phosphatase 59 Total Protein 5.3 L Albumin 2.5 L Active Medications Generic Name Dose Route Start Last Admin Trade Name Freq PRN Reason Stop Dose Admin Acetaminophen 650 mg 01/25/17 18:25 Tylenol - PO Q4H PRN FEVER OR PAIN Albuterol/Ipratropium 1 amp 01/25/17 18:25 01/27/17 22:20 Duoneb - NEB 1 amp Q4HWA PRN Administration SHORT OF BREATH/WHEEZING Amiodarone HCl 200 mg 01/28/17 10:00 01/30/17 10:19 Cordarone - PO 200 mg DAILY [facility] Administration Bacitracin/Polymyxin B Sulfate 1 applic 01/25/17 22:00 01/30/17 10:20 Polysporin Ointment - TP 1 applic BID [facility] Administration Docusate Sodium 100 mg 01/26/17 10:00 01/30/17 10:19 Colace - PO 100 mg DAILY [facility] Administration Furosemide 40 mg 01/28/17 10:00 01/30/17 10:19 Lasix - PO 40 mg DAILY [facility] Administration Guaifenesin 10 ml 01/25/17 18:25 Robitussin - PO Q6H PRN COUGH Argatroban 250,000 mcg/ Sodium 250 mls @ 11.97 mls/hr 01/28/17 15:45 01/29/17 17:48 Chloride IVPB 11.97 mls/hr TITR [facility]ERTO Administration Protocol Metoprolol Tartrate 50 mg 01/30/17 10:00 01/30/17 12:51 Lopressor - PO 50 mg BID [facility] Administration Multivitamins/Minerals/Vitamin C 1 tab 01/26/17 10:00 01/30/17 10:19 Tab-A-Vit - PO 1 tab DAILY [facility] Administration Nystatin 1 applic 01/25/17 22:00 01/30/17 10:19 Mycostatin Cream - TP 1 applic BID [facility] Administration Prednisone 40 mg 01/30/17 10:00 01/30/17 12:52 Deltasone - PO 40 mg DAILY [facility] Administration Tamsulosin HCl 0.4 mg 01/25/17 22:00 01/30/17 10:19 Flomax - PO 0.4 mg BID@0830,2200 [facility] Administration Warfarin Sodium 2.5 mg 01/29/17 18:00 01/29/17 17:48 Coumadin - PO 2.5 mg DAILY@1800 [facility] Administration ASSESSMENT/PLAN: 86 yo M with PMH of b/l severe hydronephrosis L>R seen on CT 10/31/15, otherwise unknown [facility] (poor historian/no records), who presented with confusion, groin and back pain. #Metabolic encephalopathy in the setting of AMS likely 2/2 to UTI, Resolved -A&Ox3 -completed course of unasyn (7 days) #Acute hypoxic respiratory distress with hypotension likely 2/2 to pleural effusion vs. pneumonia -Tachypnea resolved -Satting 95-97% on 2L -Currently on Zosyn 3.35gm ivpb q8h day 7, Last day of course -Continiue Incentive spirometer -Guanifensen 10 ml Q6 PRN -Continue duonebs Q4hr PRN -Taper to Prednisone 40 mg -Continue PO Lasix 40 mg po daily with caution -Daily weights: pt gained 10 lbs from 2 days ago, will receive an additional dose of lasix -O2 NC as needed for O2 saturation -Pulmonary on board, Dr. Mariscal -No need to follow up on pulmonary nodule due to fleischner society recommendations #New onset Atrial Fibrillation, converted to NSR -Argatroban drip stoppped, will recheck INR at 1500. If the repeat INR is 2-3 , discontinue argatroban. if INR is <2, restart argatroban at the same rate when it was discontinued. if the repeat INR is >3, continue to stop argatroban and increase the coumadin dose. -Continue Amiodarone to 200 mg daily -Changed Metoprolol to 50 mg po BID, keep HR < 120 -Continue Coumadin to 2.5 mg po tonight, monitor INR and bridge with argatroban -Continue to monitor LFTs #Thrombocytopenia, Improvng -Likely 2/2 to heparin, 4T score of 6 -HIT antibody + -Heparin d/c, Started on argatroban drip per hematology -Hematology on board #LLE cellulitis, improving -Afebrile -Wound cx - no growth -Unasyn completed (7 day course) #Flank Pain: -CT- hydroureteralonephrosis -Urology recs- Flomax 0.4 mg BID, f/u outpatient -Davis in place #JUNG on CKD 2/2 to hypoperfusion after episode of hypotension vs. lasix use, improving -Patient has davis in place -Monitor UOP -Avoid nephrotoxic agents #FEN: -No fluids -lytes stable -Na restricted diet #PPx -DVT: Coumadin -GI: not indicated at this time Visit type - Emergency Visit Emergency Visit: Yes ED Registration Date: 01/10/17 Care time: The patient presented to the Emergency Department on the above date and was hospitalized for further evaluation of their emergent condition. - New Patient This patient is new to me today: No - Critical Care Critical Care patient: No
[2017-01-30 16:29] LABS: INR 3.42 (0.82-1.09); PROTHROMBIN TIME (PATIENT) 38.6 SEC (9.98-11.88)
[2017-01-30] MEDS ORDERED: dilTIAZem HCL 50 MG/10 ML - 10 ML VIAL IVPUSH PRN (17:35)
[2017-01-30] MEDS: WARFARIN NA 2.5 MG TABLET (FP) PO SCH (18:24)
--- NOTE | 2017-01-31 07:29 | PN ---
Progress Note, Physician History of Present Illness: Denies dyspnea, rapid afib spontaneously cardioverted to SR with rate-control. - Current Medication List Current Medications: Active Medications Acetaminophen (Tylenol -) 650 mg PO Q4H PRN PRN Reason: FEVER OR PAIN Albuterol/Ipratropium (Duoneb -) 1 amp NEB Q4HWA PRN PRN Reason: SHORT OF BREATH/WHEEZING Last Admin: 01/27/17 22:20 Dose: 1 amp Amiodarone HCl (Cordarone -) 200 mg PO DAILY [facility] Last Admin: 01/30/17 10:19 Dose: 200 mg Bacitracin/Polymyxin B Sulfate (Polysporin Ointment -) 1 applic TP BID [facility] Last Admin: 01/30/17 22:43 Dose: 1 applic Diltiazem HCl (Cardizem Injection -) 10 mg IVPUSH Q4H PRN PRN Reason: TACHYCARDIA Last Admin: 01/30/17 20:04 Dose: 10 mg Docusate Sodium (Colace -) 100 mg PO DAILY [facility] Last Admin: 01/30/17 10:19 Dose: 100 mg Furosemide (Lasix -) 40 mg PO DAILY [facility] Last Admin: 01/30/17 10:19 Dose: 40 mg Guaifenesin (Robitussin -) 10 ml PO Q6H PRN PRN Reason: COUGH Argatroban 250,000 mcg/ Sodium (Chloride) 250 mls @ 11.97 mls/hr IVPB TITR ROBERTO PRN Reason: Protocol Last Admin: 01/29/17 17:48 Dose: 11.97 mls/hr Metoprolol Tartrate (Lopressor -) 50 mg PO BID [facility] Last Admin: 01/30/17 22:43 Dose: 50 mg Multivitamins/Minerals/Vitamin C (Tab-A-Vit -) 1 tab PO DAILY [facility] Last Admin: 01/30/17 10:19 Dose: 1 tab Nystatin (Mycostatin Cream -) 1 applic TP BID [facility] Last Admin: 01/30/17 22:43 Dose: 1 applic Prednisone (Deltasone -) 40 mg PO DAILY [facility] Last Admin: 01/30/17 12:52 Dose: 40 mg Tamsulosin HCl (Flomax -) 0.4 mg PO BID@0830,2200 [facility] Last Admin: 01/30/17 22:43 Dose: 0.4 mg Warfarin Sodium (Coumadin -) 2.5 mg PO DAILY@1800 [facility] Last Admin: 01/30/17 18:24 Dose: 2.5 mg - Objective Vital Signs: Vital Signs Temperature 97.8 F 01/31/17 06:00 Pulse Rate 56 L 01/31/17 06:00 Respiratory Rate 20 01/31/17 06:00 Blood Pressure 108/62 01/31/17 06:00 O2 Sat by Pulse Oximetry (%) 93 L 01/30/17 20:28 Constitutional: Yes: No Distress, Calm Neck: Yes: Supple Cardiovascular: Yes: Regular Rate and Rhythm Respiratory: Yes: Regular, Diminished Gastrointestinal: Yes: Normal Bowel Sounds, Soft Edema: Yes Edema: LLE: 2+, RLE: 2+ Labs: CBC, BMP 01/30/17 05:35 01/30/17 05:35 INR, PTT INR 3.42 (0.82-1.09) H D 01/30/17 15:00 Fibrinogen < 100.0 mg/dL (238-498) L* 01/23/17 05:15 - ....Imaging EKG: Report Reviewed (Tele: PAF->SR) Problem List - Problems (1) Hydronephrosis Code(s): N13.30 - UNSPECIFIED HYDRONEPHROSIS (2) [id number] kidney injury Code(s): N17.9 - ACUTE KIDNEY FAILURE, UNSPECIFIED N18.9 - CHRONIC KIDNEY DISEASE, UNSPECIFIED (3) Diastolic dysfunction, left ventricle Code(s): I51.9 - HEART DISEASE, UNSPECIFIED (4) Heparin induced thrombocytopenia Code(s): D75.82 - HEPARIN INDUCED THROMBOCYTOPENIA (HIT) (5) Paroxysmal atrial fibrillation Code(s): I48.0 - PAROXYSMAL ATRIAL FIBRILLATION (6) Cellulitis Code(s): L03.90 - CELLULITIS, UNSPECIFIED (7) Lung nodule Code(s): R91.1 - SOLITARY PULMONARY NODULE (8) Pneumonia Code(s): J18.9 - PNEUMONIA, UNSPECIFIED ORGANISM Qualifiers: Pneumonia type: due to unspecified organism Assessment/Plan Transthoracic echocardiography dated 01/17/17 Revealed normal LV Systolic function with pulmonary HTN (RVSP between 40-50 Millimeters mercury), mild MR and TR 1. Resolved hypotension, most likely multifactorial, over-diuresis/hypovolemia 2. Paroxysmal atrial fibrillation [id number] score of 3-4 currently in sinus rhythm on Argatroban therapy (HIT), initiated on Coumadin with supratherapeutic INR 3. 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 CAD angina pectoris 5. Encephalopathy, Probable toxic Metabolic and probable underlying dementia, improved 6. Acute on chronic kidney disease improving 7. Bilateral hydronephrosis 8. 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 Pneumonia, cellulitis PLAN: 1. Argatroban gtt d/jojo, and continue Coumadin per INR 2. Continue Lopressor 50 bid, Cardizem IV as needed for rate-control 3. Continue Amiodarone 200 qd 4. Start losartan 25 qd now that renal function has stabilized as hemodynamics tolerate 5. Continue Lasix 40 qd with monitor diuretic response, renal fxn and electrolytes 6. Completed abx course per ID, oral steroid taper, BD, O2, d/c planning
--- NOTE | 2017-01-31 08:05 | PN ---
Teaching Attending Note Name of Resident: Palmer Rios ATTENDING PHYSICIAN STATEMENT I saw and evaluated the patient. I reviewed the resident's note and discussed the case with the resident. I agree with the resident's findings and plan as documented. SUBJECTIVE: No specific complaints OBJECTIVE: Vitals noted He was in rapid atrial fibrillation overnight and is in NSR now ASSESSMENT AND PLAN: Appreciate change management consultant input He is now rate controlled Argatroban gtt d/jojo, and continue Coumadin per INR Continue Lopressor 50 bid with IV cardizem prn for bouts of rapid atrial fibrillation Continue Amiodarone 200 daily for rhythm control Begin losartan 25 daily Continue Lasix 40 daily and follow response closely Afebrile off antibiotics Plan to taper Prednisone to 30mg daily tomorrow am See resident note for full details
[2017-01-31 08:17] LABS: BASOPHIL 0.1 % (0-2.0); EOSINOPHIL 0.3 % (0-4.5); MCH 30.1 pg (25.7-33.7); MCHC 32.4 g/dl (32.0-35.9); MEAN CELL VOLUME 92.9 fl (80-96); MEAN PLT VOLUME 8.1 fl (7.5-11.1); NEUTROPHILS 77.6 % (42.8-82.8); PLATELET COUNT 213 K/MM3 (134-434); RDW 15.9 % (11.9-15.9); WHITE BLOOD COUNT 14.9 K/mm3 (4.0-10.0)
[2017-01-31 08:54] LABS: ANION GAP 6 (8-16); CALCIUM 8.2 mg/dL (8.5-10.1); CO2 31 mmol/L (21-32); CREATININE 1.6 mg/dL (0.7-1.3); GLUCOSE,RANDOM 109 mg/dL (74-106); PHOSPHOROUS 3.8 mg/dL (2.5-4.9)
[2017-01-31 09:03] LABS: INR 3.14 (0.82-1.09); PROTHROMBIN TIME (PATIENT) 35.3 SEC (9.98-11.88)
[2017-01-31] MEDS: AMIODARONE HCL 200 MG TABLET (FP) PO SCH (09:03)
[2017-01-31] MEDS: METOPROLOL TARTRATE 50 MG TABLET (FP) PO SCH ×2 (09:03→21:39)
[2017-01-31] MEDS: TAMSULOSIN HCL 0.4 MG CAP.ER.24H (FP) PO SCH ×2 (09:03→21:39)
[2017-01-31] MEDS: DOCUSATE SODIUM 100 MG CAPSULE (FP) PO SCH (09:03)
[2017-01-31] MEDS: MULTIVITAMINS (DAILY MVI) TABLET (FP) PO SCH (09:03)
[2017-01-31] MEDS: FUROSEMIDE 40 MG TABLET (FP) PO SCH (09:03)
[2017-01-31] MEDS: predniSONE 20 MG TABLET (UD) PO SCH (09:03)
[2017-01-31] MEDS: NYSTATIN 100,000 UNIT/GM TOPICAL CREAM 15 GM TUBE TP SCH ×2 (09:04→21:39)
[2017-01-31] MEDS: BACITRACIN/POLYMYXIN B SULFATE 15 GM TUBE TP SCH ×2 (09:04→21:39)
[2017-01-31] MEDS: LOSARTAN POTASSIUM 25 MG TABLET PO SCH (09:07)
--- NOTE | 2017-01-31 12:57 | PN ---
Progress Note (short form) - Note Progress Note: PULMONARY Denies shortness of breath or chest pain. No fevers or chills. Last Vital Signs Temp Pulse Resp BP Pulse Ox 98.1 F 75 20 133/68 93 L 01/31/17 08:02 01/31/17 08:02 01/31/17 08:02 01/31/17 08:02 01/31/17 08:00 Gen: NAD in chair Heart: RRR Lung: less left base rales Abd: soft, nontender Ext: +erythema improving CBC, BMP 01/31/17 05:35 01/31/17 05:35 Active Medications Acetaminophen (Tylenol -) 650 mg PO Q4H PRN PRN Reason: FEVER OR PAIN Albuterol/Ipratropium (Duoneb -) 1 amp NEB Q4HWA PRN PRN Reason: SHORT OF BREATH/WHEEZING Last Admin: 01/27/17 22:20 Dose: 1 amp Amiodarone HCl (Cordarone -) 200 mg PO DAILY [facility] Last Admin: 01/31/17 09:03 Dose: 200 mg Bacitracin/Polymyxin B Sulfate (Polysporin Ointment -) 1 applic TP BID [facility] Last Admin: 01/31/17 09:04 Dose: 1 applic Diltiazem HCl (Cardizem Injection -) 10 mg IVPUSH Q4H PRN PRN Reason: TACHYCARDIA Last Admin: 01/30/17 20:04 Dose: 10 mg Docusate Sodium (Colace -) 100 mg PO DAILY [facility] Last Admin: 01/31/17 09:03 Dose: 100 mg Furosemide (Lasix -) 40 mg PO DAILY [facility] Last Admin: 01/31/17 09:03 Dose: 40 mg Guaifenesin (Robitussin -) 10 ml PO Q6H PRN PRN Reason: COUGH Losartan Potassium (Cozaar -) 25 mg PO DAILY [facility] Last Admin: 01/31/17 09:07 Dose: 25 mg Metoprolol Tartrate (Lopressor -) 50 mg PO BID [facility] Last Admin: 01/31/17 09:03 Dose: 50 mg Multivitamins/Minerals/Vitamin C (Tab-A-Vit -) 1 tab PO DAILY [facility] Last Admin: 01/31/17 09:03 Dose: 1 tab Nystatin (Mycostatin Cream -) 1 applic TP BID [facility] Last Admin: 01/31/17 09:04 Dose: 1 applic Prednisone (Deltasone -) 30 mg PO DAILY [facility] Tamsulosin HCl (Flomax -) 0.4 mg PO BID@0830,2200 [facility] Last Admin: 01/31/17 09:03 Dose: 0.4 mg Warfarin Sodium (Coumadin -) 2.5 mg PO DAILY@1800 [facility] Last Admin: 01/30/17 18:24 Dose: 2.5 mg A/P Pneumonia Cellulitis Acute Kidney Injury Paroxysmal Atrial Fibrillation Thrombocytopenia - r/o HIT Lung Nodule - completed antibiotics - continue anticoagulation - rate controlled - prednisone taper - inhaled bronchodilators - d/c planning in progress
--- NOTE | 2017-01-31 13:03 | PN ---
Physical Exam: SUBJECTIVE: Patient seen and examined Patient went into rapid atrial fibrillation last night. Patient in normal sinus rhythm this morning. No active complaints OBJECTIVE: Vital Signs Period Temp Pulse Resp BP Sys/Locke Pulse Ox Last 24 Hr 97.6 F-98.6 F 54-135 16-20 102-153/56-110 93-93 GENERAL: The patient is awake, alert, and fully oriented, in no acute distress. HEAD: Normal with no signs of trauma. EYES: PERRL, extraocular movements intact, sclera anicteric, conjunctiva clear. No ptosis. ENT: Ears normal, nares patent, oropharynx clear without exudates, moist mucous membranes. NECK: Trachea midline, full range of motion, supple. LUNGS: Breath sounds equal and decreased, Crackles at the bases bilaterally (L>R ), No accessory muscle use HEART: Regular rate and rhythm, S1, S2 without murmur, rub or gallop. ABDOMEN: Soft, nontender, nondistended, normoactive bowel sounds, no guarding, no rebound, no hepatosplenomegaly, no masses. EXTREMITIES: 2+ pulses, warm, well-perfused, 2-3+ pitting edema bilaterally NEUROLOGICAL: Cranial nerves II through XII grossly intact. Normal speech, gait not observed. PSYCH: Normal mood, normal affect. SKIN: Warm, dry, normal turgor, LLE cellulitis and erythema Laboratory Results - last 24 hr 01/30/17 01/31/17 01/31/17 15:00 05:35 05:35 WBC 14.9 H RBC 4.12 Hgb 12.4 Hct 38.3 MCV 92.9 MCH 30.1 MCHC 32.4 RDW 15.9 Plt Count 213 MPV 8.1 D Neutrophils % 77.6 Lymphocytes % 18.3 Monocytes % 3.7 L Eosinophils % 0.3 D Basophils % 0.1 INR 3.42 H D 3.14 H Sodium Potassium Chloride Carbon Dioxide Anion Gap BUN Creatinine Random Glucose Calcium Phosphorus Magnesium 01/31/17 05:35 WBC RBC Hgb Hct MCV MCH MCHC RDW Plt Count MPV Neutrophils % Lymphocytes % Monocytes % Eosinophils % Basophils % INR Sodium 137 Potassium 4.7 Chloride 100 Carbon Dioxide 31 Anion Gap 6 L BUN 54 H Creatinine 1.6 H Random Glucose 109 H D Calcium 8.2 L Phosphorus 3.8 Magnesium 2.0 Active Medications Generic Name Dose Route Start Last Admin Trade Name Freq PRN Reason Stop Dose Admin Acetaminophen 650 mg 01/25/17 18:25 Tylenol - PO Q4H PRN FEVER OR PAIN Albuterol/Ipratropium 1 amp 01/25/17 18:25 01/27/17 22:20 Duoneb - NEB 1 amp Q4HWA PRN Administration SHORT OF BREATH/WHEEZING Amiodarone HCl 200 mg 01/28/17 10:00 01/31/17 09:03 Cordarone - PO 200 mg DAILY [facility] Administration Bacitracin/Polymyxin B Sulfate 1 applic 01/25/17 22:00 01/31/17 09:04 Polysporin Ointment - TP 1 applic BID [facility] Administration Diltiazem HCl 10 mg 01/30/17 17:35 01/30/17 20:04 Cardizem Injection - IVPUSH 10 mg Q4H PRN Administration TACHYCARDIA Docusate Sodium 100 mg 01/26/17 10:00 01/31/17 09:03 Colace - PO 100 mg DAILY [facility] Administration Furosemide 40 mg 01/28/17 10:00 01/31/17 09:03 Lasix - PO 40 mg DAILY [facility] Administration Guaifenesin 10 ml 01/25/17 18:25 Robitussin - PO Q6H PRN COUGH Losartan Potassium 25 mg 01/31/17 10:00 01/31/17 09:07 Cozaar - PO 25 mg DAILY [facility] Administration Metoprolol Tartrate 50 mg 01/30/17 10:00 01/31/17 09:03 Lopressor - PO 50 mg BID [facility] Administration Multivitamins/Minerals/Vitamin C 1 tab 01/26/17 10:00 01/31/17 09:03 Tab-A-Vit - PO 1 tab DAILY [facility] Administration Nystatin 1 applic 01/25/17 22:00 01/31/17 09:04 Mycostatin Cream - TP 1 applic BID [facility] Administration Prednisone 30 mg 02/01/17 10:00 Deltasone - PO DAILY [facility] Tamsulosin HCl 0.4 mg 01/25/17 22:00 01/31/17 09:03 Flomax - PO 0.4 mg BID@0830,2200 [facility] Administration Warfarin Sodium 2.5 mg 01/29/17 18:00 01/30/17 18:24 Coumadin - PO 2.5 mg DAILY@1800 [facility] Administration ASSESSMENT/PLAN: 86 yo M with PMH of b/l severe hydronephrosis L>R seen on CT 10/31/15, otherwise unknown [facility] (poor historian/no records), who presented with confusion, groin and back pain. #Metabolic encephalopathy in the setting of AMS likely 2/2 to UTI, Resolved -A&Ox3 -completed course of unasyn (7 days) #Acute hypoxic respiratory distress with hypotension likely 2/2 to pleural effusion vs. pneumonia -Taper to Prednisone 30 mg tomorow -Zosyn 7 days completed -Continiue Incentive spirometer -Guanifensen 10 ml Q6 PRN -Continue duonebs Q4hr PRN -Continue PO Lasix 40 mg po daily with caution -Daily weights -O2 NC as needed for O2 saturation -Pulmonary on board, Dr. Mariscal -No need to follow up on pulmonary nodule due to fleischner society recommendations #New onset Atrial Fibrillation, converted to NSR -Argatroban drip d/c, Continue coumadin 2.5 mg po -Monitor INR -Continue metoprolol 50 mg bid with IV cardizem 10 mg prn for rapid Atrial Fibrillation -Continue Amiodarone to 200 mg daily -Start losartan 25 mg po daily, monitor renal fxn #Thrombocytopenia, Improvng -Likely 2/2 to heparin, 4T score of 6 -HIT antibody + -Hematology on board #LLE cellulitis, improving -Afebrile -Wound cx - no growth -Unasyn completed (7 day course) #Flank Pain: -CT- hydroureteralonephrosis -Urology recs- Flomax 0.4 mg BID, f/u outpatient -Davis in place #JUNG on CKD 2/2 to hypoperfusion after episode of hypotension vs. lasix use, stable -Patient has davis in place -Monitor UOP -Avoid nephrotoxic agents #FEN: -No fluids -lytes stable -Na restricted diet #PPx -DVT: Coumadin -GI: not indicated at this time Visit type - Emergency Visit Emergency Visit: Yes ED Registration Date: 01/10/17 Care time: The patient presented to the Emergency Department on the above date and was hospitalized for further evaluation of their emergent condition. - New Patient This patient is new to me today: No - Critical Care Critical Care patient: No
--- NOTE | 2017-01-31 16:47 | PN ---
Progress Note (short form) - Note Progress Note: Patient seen and examined this pm. eating lunch. All notes reviewed. Looks better. denies any SOB, no CP. Last Vital Signs Temp Pulse Resp BP Pulse Ox 98.5 F 67 20 96/50 93 L 01/31/17 14:00 01/31/17 14:00 01/31/17 14:00 01/31/17 14:00 01/31/17 08:00 Constitutional: Yes: no Distress HENT: Yes: Atraumatic, Normocephalic Neck: Yes: Trachea Midline Cardiovascular: Yes: Tachycardia Respiratory: Yes: Regular, breath sounds Gastrointestinal: Yes: Soft, Abdomen, Obese Current Medications Generic Name Dose Route Start Last Admin Trade Name Freq PRN Reason Stop Dose Admin Acetaminophen 650 mg 01/25/17 18:25 Tylenol - PO Q4H PRN FEVER OR PAIN Albuterol/Ipratropium 1 amp 01/25/17 18:25 01/27/17 22:20 Duoneb - NEB 1 amp Q4HWA PRN Administration SHORT OF BREATH/WHEEZING Amiodarone HCl 200 mg 01/28/17 10:00 01/31/17 09:03 Cordarone - PO 200 mg DAILY ROBERTO Administration Bacitracin/Polymyxin B Sulfate 1 applic 01/25/17 22:00 01/31/17 09:04 Polysporin Ointment - TP 1 applic BID ROBERTO Administration Diltiazem HCl 10 mg 01/30/17 17:35 01/30/17 20:04 Cardizem Injection - IVPUSH 10 mg Q4H PRN Administration TACHYCARDIA Docusate Sodium 100 mg 01/26/17 10:00 01/31/17 09:03 Colace - PO 100 mg DAILY ROBERTO Administration Furosemide 40 mg 01/28/17 10:00 01/31/17 09:03 Lasix - PO 40 mg DAILY ROBERTO Administration Guaifenesin 10 ml 01/25/17 18:25 Robitussin - PO Q6H PRN COUGH Losartan Potassium 25 mg 01/31/17 10:00 01/31/17 09:07 Cozaar - PO 25 mg DAILY ROBERTO Administration Metoprolol Tartrate 50 mg 01/30/17 10:00 01/31/17 09:03 Lopressor - PO 50 mg BID ROBERTO Administration Multivitamins/Minerals/Vitamin C 1 tab 01/26/17 10:00 08/18/17 09:03 Tab-A-Vit - PO 1 tab DAILY ROBERTO Administration Nystatin 1 applic 01/25/17 22:00 01/31/17 09:04 Mycostatin Cream - TP 1 applic BID ROBERTO Administration Prednisone 30 mg 02/01/17 10:00 Deltasone - PO DAILY ROBERTO Tamsulosin HCl 0.4 mg 01/25/17 22:00 01/31/17 09:03 Flomax - PO 0.4 mg BID@0830,2200 [facility]O Administration Warfarin Sodium 2.5 mg 01/29/17 18:00 01/30/17 18:24 Coumadin - PO 2.5 mg DAILY@1800 ROBERTO Administration INR, PTT INR 3.14 (0.82-1.09) H 01/31/17 05:35 Fibrinogen < 100.0 mg/dL (238-498) L* 01/23/17 05:15 CBC, BMP 01/31/17 05:35 01/31/17 05:35 Assessment/Plan: HIT ( confirmed) DVT ( likely GENNARO) JUNG- improving/stable New Onset Afib Leukocytosis Plan: -on coumadin , needs indefinite AC -presently off argatroban, INR therapeutic. -daily INR, regular protocol of coumadin-INR monitoring to be followed. -Heparin allergy updated prior -Leukocytosis,likely from steroids. -will follow. Problem List - Problems (1) Thrombocytopenia Code(s): D69.6 - THROMBOCYTOPENIA, UNSPECIFIED (2) Altered mental status Code(s): R41.82 - ALTERED MENTAL STATUS, UNSPECIFIED Qualifiers: Altered mental status type: delirium Qualified Code(s): R41.0 - Disorientation, unspecified (3) Atrial fibrillation with RVR Code(s): I48.91 - UNSPECIFIED ATRIAL FIBRILLATION (4) UTI (urinary tract infection) Code(s): N39.0 - URINARY TRACT INFECTION, SITE NOT SPECIFIED (5) Kidney injury Code(s): S37.009A - UNSPECIFIED INJURY OF UNSPECIFIED KIDNEY, INITIAL ENCOUNTER (6) Hypoxemia Code(s): R09.02 - HYPOXEMIA
[2017-01-31] MEDS: WARFARIN NA 2.5 MG TABLET (FP) PO SCH (18:23)
--- NOTE | 2017-02-01 07:53 | PN ---
Physical Exam: SUBJECTIVE: Patient seen and examined He does not have specific complaints OBJECTIVE: Vital Signs Period Temp Pulse Resp BP Sys/Locke Pulse Ox Last 24 Hr 98.0 F-98.6 F 65-75 18-20 92-133/50-68 93-95 GEN: Awake, alert, NAD PULM: scattered crackles CVS: RRR ABD: Soft, obese, NT/ND, NABS EXTREM: Warm, well perfused, LE edema unchanged Laboratory Results - last 24 hr 01/31/17 01/31/17 01/31/17 05:35 05:35 05:35 WBC 14.9 H RBC 4.12 Hgb 12.4 Hct 38.3 MCV 92.9 MCH 30.1 MCHC 32.4 RDW 15.9 Plt Count 213 MPV 8.1 D Neutrophils % 77.6 Lymphocytes % 18.3 Monocytes % 3.7 L Eosinophils % 0.3 D Basophils % 0.1 INR 3.14 H Sodium 137 Potassium 4.7 Chloride 100 Carbon Dioxide 31 Anion Gap 6 L BUN 54 H Creatinine 1.6 H Random Glucose 109 H D Calcium 8.2 L Phosphorus 3.8 Magnesium 2.0 Active Medications Generic Name Dose Route Start Last Admin Trade Name Freq PRN Reason Stop Dose Admin Acetaminophen 650 mg 01/25/17 18:25 Tylenol - PO Q4H PRN FEVER OR PAIN Albuterol/Ipratropium 1 amp 01/25/17 18:25 01/27/17 22:20 Duoneb - NEB 1 amp Q4HWA PRN Administration SHORT OF BREATH/WHEEZING Amiodarone HCl 200 mg 01/28/17 10:00 01/31/17 09:03 Cordarone - PO 200 mg DAILY ROBERTO Administration Bacitracin/Polymyxin B Sulfate 1 applic 01/25/17 22:00 01/31/17 21:39 Polysporin Ointment - TP 1 applic BID ROBERTO Administration Diltiazem HCl 10 mg 01/30/17 17:35 01/30/17 20:04 Cardizem Injection - IVPUSH 10 mg Q4H PRN Administration TACHYCARDIA Docusate Sodium 100 mg 01/26/17 10:00 01/31/17 09:03 Colace - PO 100 mg DAILY ROBERTO Administration Furosemide 40 mg 01/28/17 10:00 01/31/17 09:03 Lasix - PO 40 mg DAILY ROBERTO Administration Guaifenesin 10 ml 01/25/17 18:25 Robitussin - PO Q6H PRN COUGH Losartan Potassium 25 mg 01/31/17 10:00 01/31/17 09:07 Cozaar - PO 25 mg DAILY ROBERTO Administration Metoprolol Tartrate 50 mg 01/30/17 10:00 01/31/17 21:39 Lopressor - PO 50 mg BID ROBERTO Administration Multivitamins/Minerals/Vitamin C 1 tab 01/26/17 10:00 01/31/17 09:03 Tab-A-Vit - PO 1 tab DAILY ROBERTO Administration Nystatin 1 applic 01/25/17 22:00 01/31/17 21:39 Mycostatin Cream - TP 1 applic BID ROBERTO Administration Prednisone 30 mg 02/01/17 10:00 Deltasone - PO DAILY [facility]ERTO Tamsulosin HCl 0.4 mg 01/25/17 22:00 01/31/17 21:39 Flomax - PO 0.4 mg BID@0830,2200 ROBERTO Administration Warfarin Sodium 2.5 mg 01/29/17 18:00 01/31/17 18:23 Coumadin - PO 2.5 mg DAILY@1800 ROBERTO Administration ASSESSMENT/PLAN: The patient is an 86 year old male with a significant past medical history of PMH of diastolic CHF, CAD, b/l severe hydronephrosis, now HD#22 with new onset atrial fibrillation, pneumonia, reactive airway disease, acute kidney injury, HIT. #CVS CAD Paroxysmal atrial fibrillation [id number] score of 3-4 Acute on chronic Class II-III [place] [employer] classification LV diastolic congestive heart failure CHF much improved Continue Lasix Continue Coumadin. INR is theraputic Continue Amiodarone and Lopressor He had no runs of NATALIA overnight Continue Losartan #PULM Suspected pneumonia with RAD Pneumonia clinically resolved He completed 7 days of antibiotics and has been afebrile Continue Prednisone at 30mg today and tomorrow Anticipate taper Friday Continue nebs Contiue Robitussin Continue incentive spirometer #RENAL Acute on chronic kidney disease Chronic bilateral hydronephrosis JUNG resolved Creatinine improving Continue Flomax #HEME HIT, resolved #FEN: Na restricted diet #PROPHYLAXIS On Coumadin Eating PT consult #DISPO I anticipate that he will need STR Visit type - Emergency Visit Emergency Visit: Yes ED Registration Date: 01/10/17 Care time: The patient presented to the Emergency Department on the above date and was hospitalized for further evaluation of their emergent condition. - New Patient This patient is new to me today: No - Critical Care Critical Care patient: No
[2017-02-01 08:18] LABS: BASOPHIL 0.1 % (0-2.0); EOSINOPHIL 0.3 % (0-4.5); MCH 31.1 pg (25.7-33.7); MCHC 33.6 g/dl (32.0-35.9); MEAN CELL VOLUME 92.4 fl (80-96); MEAN PLT VOLUME 8.3 fl (7.5-11.1); NEUTROPHILS 75.8 % (42.8-82.8); PLATELET COUNT 226 K/MM3 (134-434); RDW 15.9 % (11.9-15.9)
[2017-02-01 08:29] LABS: INR 3.5 (0.82-1.09); PROTHROMBIN TIME (PATIENT) 39.5 SEC (9.98-11.88)
[2017-02-01 08:35] LABS: ANION GAP 7 (8-16); CALCIUM 8.3 mg/dL (8.5-10.1); CO2 31 mmol/L (21-32); GLUCOSE,RANDOM 91 mg/dL (74-106); MAGNESIUM 2.1 mg/dL (1.8-2.4)
[2017-02-01 08:37] LABS: CREATININE 1.5 mg/dL (0.7-1.3); PHOSPHOROUS 3.2 mg/dL (2.5-4.9)
[2017-02-01] MEDS: TAMSULOSIN HCL 0.4 MG CAP.ER.24H (FP) PO SCH ×2 (11:36→22:16)
[2017-02-01] MEDS: LOSARTAN POTASSIUM 25 MG TABLET PO SCH (11:37)
[2017-02-01] MEDS: FUROSEMIDE 40 MG TABLET (FP) PO SCH (11:37)
[2017-02-01] MEDS: DOCUSATE SODIUM 100 MG CAPSULE (FP) PO SCH (11:37)
[2017-02-01] MEDS: AMIODARONE HCL 200 MG TABLET (FP) PO SCH (11:37)
[2017-02-01] MEDS: predniSONE 10 MG TABLET (UD) PO SCH (11:38)
[2017-02-01] MEDS: METOPROLOL TARTRATE 50 MG TABLET (FP) PO SCH ×2 (11:39→22:16)
[2017-02-01] MEDS: BACITRACIN/POLYMYXIN B SULFATE 15 GM TUBE TP SCH ×2 (11:43→22:16)
[2017-02-01] MEDS: NYSTATIN 100,000 UNIT/GM TOPICAL CREAM 15 GM TUBE TP SCH ×2 (11:43→22:16)
[2017-02-01] MEDS: MULTIVITAMINS (DAILY MVI) TABLET (FP) PO SCH (11:43)
--- NOTE | 2017-02-01 15:07 | PN ---
Progress Note (short form) - Note Progress Note: PULMONARY Denies shortness of breath or chest pain. Minimal cough. Last Vital Signs Temp Pulse Resp BP Pulse Ox 98.7 F 74 20 128/58 95 02/01/17 10:00 02/01/17 10:00 02/01/17 10:00 02/01/17 10:00 02/01/17 10:00 Gen: NAD in chair Heart: RRR Lung: less left base rales Abd: soft, nontender Ext: +erythema improving CBC, BMP 02/01/17 06:05 02/01/17 06:05 Active Medications Acetaminophen (Tylenol -) 650 mg PO Q4H PRN PRN Reason: FEVER OR PAIN Albuterol/Ipratropium (Duoneb -) 1 amp NEB Q4HWA PRN PRN Reason: SHORT OF BREATH/WHEEZING Last Admin: 01/27/17 22:20 Dose: 1 amp Amiodarone HCl (Cordarone -) 200 mg PO DAILY [facility] Last Admin: 02/01/17 11:37 Dose: 200 mg Bacitracin/Polymyxin B Sulfate (Polysporin Ointment -) 1 applic TP BID [facility] Last Admin: 02/01/17 11:43 Dose: 1 applic Diltiazem HCl (Cardizem Injection -) 10 mg IVPUSH Q4H PRN PRN Reason: TACHYCARDIA Last Admin: 01/30/17 20:04 Dose: 10 mg Docusate Sodium (Colace -) 100 mg PO DAILY [facility] Last Admin: 02/01/17 11:37 Dose: 100 mg Furosemide (Lasix -) 40 mg PO DAILY [facility] Last Admin: 02/01/17 11:37 Dose: 40 mg Guaifenesin (Robitussin -) 10 ml PO Q6H PRN PRN Reason: COUGH Losartan Potassium (Cozaar -) 25 mg PO DAILY [facility] Last Admin: 02/01/17 11:37 Dose: 25 mg Metoprolol Tartrate (Lopressor -) 50 mg PO BID [facility] Last Admin: 02/01/17 11:39 Dose: 50 mg Multivitamins/Minerals/Vitamin C (Tab-A-Vit -) 1 tab PO DAILY [facility] Last Admin: 02/01/17 11:43 Dose: Not Given Nystatin (Mycostatin Cream -) 1 applic TP BID [facility] Last Admin: 02/01/17 11:43 Dose: 1 applic Prednisone (Deltasone -) 30 mg PO DAILY [facility] Last Admin: 02/01/17 11:38 Dose: 30 mg Tamsulosin HCl (Flomax -) 0.4 mg PO BID@0830,2200 [facility] Last Admin: 02/01/17 11:36 Dose: 0.4 mg Warfarin Sodium (Coumadin -) 2.5 mg PO DAILY@1800 [facility] Last Admin: 01/31/17 18:23 Dose: 2.5 mg A/P Pneumonia Cellulitis Acute Kidney Injury Paroxysmal Atrial Fibrillation Thrombocytopenia - r/o HIT Lung Nodule - completed antibiotics - continue anticoagulation - rate controlled - prednisone taper - inhaled bronchodilators - d/c planning in progress
--- NOTE | 2017-02-01 15:28 | PN ---
Progress Note (short form) - Note Progress Note: Patient seen and examined 01/27/17 Denies any complaints comfortable Seated in chair Last Vital Signs Temp Pulse Resp BP Pulse Ox 97.8 F 61 20 116/67 95 02/01/17 15:14 02/01/17 15:14 02/01/17 10:00 02/01/17 15:14 02/01/17 10:00 Cor: RSR, No murmurs, No gallops Lungs: Clear to P&A Abd: Soft, Normal bowel sounds, No organomegaly Ext:b/llower ext. edema Abnormal Lab Results 02/01/17 02/01/17 02/01/17 06:00 06:05 06:05 WBC 16.0 H INR 3.50 H Anion Gap 7 L BUN 54 H Creatinine 1.5 H Calcium 8.3 L Active Medications Generic Name Dose Route Start Last Admin Trade Name Freq PRN Reason Stop Dose Admin Acetaminophen 650 mg 01/25/17 18:25 Tylenol - PO Q4H PRN FEVER OR PAIN Albuterol/Ipratropium 1 amp 01/25/17 18:25 01/27/17 22:20 Duoneb - NEB 1 amp Q4HWA PRN Administration SHORT OF BREATH/WHEEZING Amiodarone HCl 200 mg 01/28/17 10:00 02/01/17 11:37 Cordarone - PO 200 mg DAILY ROBERTO Administration Bacitracin/Polymyxin B Sulfate 1 applic 01/25/17 22:00 02/01/17 22:16 Polysporin Ointment - TP 1 applic BID ROBERTO Administration Diltiazem HCl 10 mg 01/30/17 17:35 01/30/17 20:04 Cardizem Injection - IVPUSH 10 mg Q4H PRN Administration TACHYCARDIA Docusate Sodium 100 mg 01/26/17 10:00 02/01/17 11:37 Colace - PO 100 mg DAILY ROBERTO Administration Furosemide 40 mg 01/28/17 10:00 02/01/17 11:37 Lasix - PO 40 mg DAILY ROBERTO Administration Guaifenesin 10 ml 01/25/17 18:25 Robitussin - PO Q6H PRN COUGH Losartan Potassium 25 mg 01/31/17 10:00 02/01/17 11:37 Cozaar - PO 25 mg DAILY ROBERTO Administration Metoprolol Tartrate 50 mg 01/30/17 10:00 02/01/17 22:16 Lopressor - PO 50 mg BID ROBERTO Administration Multivitamins/Minerals/Vitamin C 1 tab 01/26/17 10:00 02/01/17 11:43 Tab-A-Vit - PO Not Given DAILY [facility] Nystatin 1 applic 01/25/17 22:00 02/01/17 22:16 Mycostatin Cream - TP 1 applic BID ROBERTO Administration Prednisone 30 mg 02/01/17 10:00 02/01/17 11:38 Deltasone - PO 30 mg DAILY [facility] Administration Tamsulosin HCl 0.4 mg 01/25/17 22:00 02/01/17 22:16 Flomax - PO 0.4 mg BID@0830,2200 [facility] Administration Warfarin Sodium 2.5 mg 01/29/17 18:00 02/01/17 17:15 Coumadin - PO Not Given DAILY@1800 ROBERTO A/P 86 y/o patient with HIT ( confirmed) /rleDVT JUNG--improving New Onset Afib Acute Hypoxic respiratory distress sepsis due to PNA UTI. Bilateral hydroureteronephrosis secondary to BPH Plan: HIT RLE DVT Bridged from argatroban to coumadin holding coumadin for INR 3.5 restart at lower dose when INR < 3
[2017-02-01] MEDS: WARFARIN NA 2.5 MG TABLET (FP) PO SCH (17:15)
[2017-02-02 08:08] LABS: EOSINOPHIL 0.7 % (0-4.5); MCHC 33.6 g/dl (32.0-35.9); MEAN CELL VOLUME 92.2 fl (80-96); MEAN PLT VOLUME 8.3 fl (7.5-11.1); NEUTROPHILS 73.7 % (42.8-82.8); PLATELET COUNT 205 K/MM3 (134-434); RDW 15.9 % (11.9-15.9); WHITE BLOOD COUNT 15.6 K/mm3 (4.0-10.0)
[2017-02-02 08:29] LABS: ALBUMIN 2.4 g/dl (3.4-5.0); ANION GAP 4 (8-16); BILIRUBIN,TOTAL 1.1 mg/dL (0.2-1.0); CALCIUM 8.1 mg/dL (8.5-10.1); CO2 32 mmol/L (21-32); CREATININE 1.7 mg/dL (0.7-1.3); GLUCOSE,RANDOM 85 mg/dL (74-106); MAGNESIUM 1.9 mg/dL (1.8-2.4); PHOSPHOROUS 3.1 mg/dL (2.5-4.9); SGOT/AST 10 U/L (15-37); SGPT/ALT 24 U/L (12-78); TOT PROT 5.1 g/dl (6.4-8.2)
[2017-02-02 08:30] LABS: ALK PHOS 61 U/L (45-117)
[2017-02-02] MEDS: TAMSULOSIN HCL 0.4 MG CAP.ER.24H (FP) PO SCH ×2 (08:56→21:44)
[2017-02-02] MEDS: METOPROLOL TARTRATE 50 MG TABLET (FP) PO SCH ×2 (09:15→21:44)
[2017-02-02] MEDS: FUROSEMIDE 40 MG TABLET (FP) PO SCH (09:15)
[2017-02-02] MEDS: AMIODARONE HCL 200 MG TABLET (FP) PO SCH (09:15)
[2017-02-02] MEDS: DOCUSATE SODIUM 100 MG CAPSULE (FP) PO SCH (09:15)
[2017-02-02] MEDS: predniSONE 10 MG TABLET (UD) PO SCH (09:15)
[2017-02-02] MEDS: MULTIVITAMINS (DAILY MVI) TABLET (FP) PO SCH (09:15)
[2017-02-02] MEDS: LOSARTAN POTASSIUM 25 MG TABLET PO SCH (09:15)
[2017-02-02] MEDS: NYSTATIN 100,000 UNIT/GM TOPICAL CREAM 15 GM TUBE TP SCH ×2 (09:19→21:44)
[2017-02-02] MEDS: BACITRACIN/POLYMYXIN B SULFATE 15 GM TUBE TP SCH ×2 (09:20→21:44)
--- NOTE | 2017-02-02 09:36 | PN ---
Physical Exam: SUBJECTIVE: Patient seen and examined Sleeping comfortably OBJECTIVE: Vital Signs Period Temp Pulse Resp BP Sys/Locke Pulse Ox Last 24 Hr 97.3 F-98.7 F 61-74 18-20 107-133/58-74 95-97 GEN: Awake, alert CVS: RRR PULM: bilasilar crackles ABD: soft, NT/ND, NABS EXTREM: warm ,well perfused, BLLE edema (unchanged) Selected Entries 01/30/17 01/30/17 01/31/17 06:00 11:07 06:00 Weight 105.868 kg 105.8 kg 104.871 kg 02/01/17 02/02/17 06:00 06:00 Weight 104.326 kg 100.698 kg Laboratory Results - last 24 hr 02/02/17 02/02/17 05:42 05:42 WBC 15.6 H RBC 4.09 Hgb 12.7 Hct 37.7 MCV 92.2 MCH 31.0 MCHC 33.6 RDW 15.9 Plt Count 205 MPV 8.3 Neutrophils % 73.7 Lymphocytes % 21.1 Monocytes % 4.5 Eosinophils % 0.7 D Basophils % 0.0 Sodium 138 Potassium 4.5 Chloride 102 Carbon Dioxide 32 Anion Gap 4 L BUN 49 H Creatinine 1.7 H Creat Clearance w eGFR 38.59 Random Glucose 85 Calcium 8.1 L Phosphorus 3.1 Magnesium 1.9 Total Bilirubin 1.1 H D AST 10 L D ALT 24 Alkaline Phosphatase 61 Total Protein 5.1 L Albumin 2.4 L Active Medications Generic Name Dose Route Start Last Admin Trade Name Freq PRN Reason Stop Dose Admin Acetaminophen 650 mg 01/25/17 18:25 Tylenol - PO Q4H PRN FEVER OR PAIN Albuterol/Ipratropium 1 amp 01/25/17 18:25 01/27/17 22:20 Duoneb - NEB 1 amp Q4HWA PRN Administration SHORT OF BREATH/WHEEZING Amiodarone HCl 200 mg 01/28/17 10:00 02/02/17 09:15 Cordarone - PO 200 mg DAILY ROBERTO Administration Bacitracin/Polymyxin B Sulfate 1 applic 01/25/17 22:00 02/02/17 09:20 Polysporin Ointment - TP 1 applic BID ROBERTO Administration Diltiazem HCl 10 mg 01/30/17 17:35 01/30/17 20:04 Cardizem Injection - IVPUSH 10 mg Q4H PRN Administration TACHYCARDIA Docusate Sodium 100 mg 01/26/17 10:00 02/02/17 09:15 Colace - PO 100 mg DAILY ROBERTO Administration Furosemide 40 mg 01/28/17 10:00 02/02/17 09:15 Lasix - PO 40 mg DAILY [facility]ERTO Administration Guaifenesin 10 ml 01/25/17 18:25 Robitussin - PO Q6H PRN COUGH Losartan Potassium 25 mg 01/31/17 10:00 02/02/17 09:15 Cozaar - PO 25 mg DAILY ROBERTO Administration Metoprolol Tartrate 50 mg 01/30/17 10:00 02/02/17 09:15 Lopressor - PO 50 mg BID ROBERTO Administration Multivitamins/Minerals/Vitamin C 1 tab 01/26/17 10:00 02/02/17 09:15 Tab-A-Vit - PO 1 tab DAILY [facility]ERTO Administration Nystatin 1 applic 01/25/17 22:00 02/02/17 09:19 Mycostatin Cream - TP 1 applic BID ROBERTO Administration Prednisone 30 mg 02/01/17 10:00 02/02/17 09:15 Deltasone - PO 30 mg DAILY [facility]ERTO Administration Tamsulosin HCl 0.4 mg 01/25/17 22:00 02/02/17 08:56 Flomax - PO 0.4 mg BID@0830,2200 ROBERTO Administration Warfarin Sodium 2.5 mg 01/29/17 18:00 02/01/17 17:15 Coumadin - PO Not Given DAILY@1800 [facility] ASSESSMENT/PLAN: The patient is an 86 year old male with a significant past medical history of PMH of diastolic CHF, CAD, b/l severe hydronephrosis, now HD#23 with new onset atrial fibrillation, acute CHF, pneumonia, reactive airway disease, acute kidney injury, HIT. #CVS CAD Paroxysmal atrial fibrillation [id number] score of 3-4 Acute on chronic Class II-III [place] [employer] classification LV diastolic congestive heart failure CHF much improved Creatinine now uptrending Weights have trened significantly down He may be getting overdiuresed Will follow creatinine very closely and if it increases tomorrow will decrease Lasix dose Await cardiology and nephrology input input Appreciate hematology input regarding INR and Coumadin Todays INR pending Continue Amiodarone and Lopressor Continue Losartan #PULM Suspected pneumonia with RAD Pneumonia clinically resolved He completed 7 days of antibiotics and has been afebrile Continue Prednisone at 30mg today and tomorrow Anticipate taper Friday Continue nebs Contiue Robitussin Continue incentive spirometer #RENAL Acute on chronic kidney disease Chronic bilateral hydronephrosis Creatinine uptrended today See above Will follow closely Continue Flomax #HEME HIT, resolved Appreciate hematology input regarding Coumadin and INR (see above) #FEN: Na restricted diet #PROPHYLAXIS On Coumadin Eating PT consult #DISPO I anticipate that he will need STR Visit type - Emergency Visit Emergency Visit: Yes ED Registration Date: 01/10/17 Care time: The patient presented to the Emergency Department on the above date and was hospitalized for further evaluation of their emergent condition. - New Patient This patient is new to me today: No - Critical Care Critical Care patient: No
--- NOTE | 2017-02-02 10:50 | PN ---
Progress Note, Physician History of Present Illness: Remains in sinus rhythm, resting comfortably. - Current Medication List Current Medications: Active Medications Acetaminophen (Tylenol -) 650 mg PO Q4H PRN PRN Reason: FEVER OR PAIN Albuterol/Ipratropium (Duoneb -) 1 amp NEB Q4HWA PRN PRN Reason: SHORT OF BREATH/WHEEZING Last Admin: 01/27/17 22:20 Dose: 1 amp Amiodarone HCl (Cordarone -) 200 mg PO DAILY [facility] Last Admin: 02/02/17 09:15 Dose: 200 mg Bacitracin/Polymyxin B Sulfate (Polysporin Ointment -) 1 applic TP BID [facility] Last Admin: 02/02/17 09:20 Dose: 1 applic Diltiazem HCl (Cardizem Injection -) 10 mg IVPUSH Q4H PRN PRN Reason: TACHYCARDIA Last Admin: 01/30/17 20:04 Dose: 10 mg Docusate Sodium (Colace -) 100 mg PO DAILY [facility] Last Admin: 02/02/17 09:15 Dose: 100 mg Furosemide (Lasix -) 40 mg PO DAILY [facility] Last Admin: 02/02/17 09:15 Dose: 40 mg Guaifenesin (Robitussin -) 10 ml PO Q6H PRN PRN Reason: COUGH Losartan Potassium (Cozaar -) 25 mg PO DAILY [facility] Last Admin: 02/02/17 09:15 Dose: 25 mg Metoprolol Tartrate (Lopressor -) 50 mg PO BID [facility] Last Admin: 02/02/17 09:15 Dose: 50 mg Multivitamins/Minerals/Vitamin C (Tab-A-Vit -) 1 tab PO DAILY [facility] Last Admin: 02/02/17 09:15 Dose: 1 tab Nystatin (Mycostatin Cream -) 1 applic TP BID [facility] Last Admin: 02/02/17 09:19 Dose: 1 applic Prednisone (Deltasone -) 30 mg PO DAILY [facility] Last Admin: 02/02/17 09:15 Dose: 30 mg Tamsulosin HCl (Flomax -) 0.4 mg PO BID@0830,2200 [facility] Last Admin: 02/02/17 08:56 Dose: 0.4 mg Warfarin Sodium (Coumadin -) 2.5 mg PO DAILY@1800 [facility] Last Admin: 02/01/17 17:15 Dose: Not Given - Objective Vital Signs: Vital Signs Temperature 98.6 F 02/02/17 08:02 Pulse Rate 64 02/02/17 08:02 Respiratory Rate 20 02/02/17 08:05 Blood Pressure 127/69 02/02/17 08:02 O2 Sat by Pulse Oximetry (%) 97 02/02/17 08:05 Constitutional: Yes: No Distress, Calm Neck: Yes: Supple Cardiovascular: Yes: Regular Rate and Rhythm Respiratory: Yes: Regular, Diminished, On Nasal O2 Gastrointestinal: Yes: Normal Bowel Sounds, Soft, Abdomen, Obese Edema: Yes Edema: LLE: 2+, RLE: 2+ Peripheral Pulses: Left Doralis Pedis: 0, Right Dorsalis Pedis: 0, Left Femoral : 0, Right Femoral: 0 Labs: CBC, BMP 02/02/17 05:42 02/02/17 05:42 INR, PTT INR 3.50 (0.82-1.09) H 02/01/17 06:00 Fibrinogen < 100.0 mg/dL (238-498) L* 01/23/17 05:15 Problem List - Problems (1) Hydronephrosis Code(s): N13.30 - UNSPECIFIED HYDRONEPHROSIS (2) [id number]-[id number] kidney injury Code(s): N17.9 - ACUTE KIDNEY FAILURE, UNSPECIFIED N18.9 - CHRONIC KIDNEY DISEASE, UNSPECIFIED (3) Diastolic dysfunction, left ventricle Code(s): I51.9 - HEART DISEASE, UNSPECIFIED (4) Heparin induced thrombocytopenia Code(s): D75.82 - HEPARIN INDUCED THROMBOCYTOPENIA (HIT) (5) Paroxysmal atrial fibrillation Code(s): I48.0 - PAROXYSMAL ATRIAL FIBRILLATION (6) Cellulitis Code(s): L03.90 - CELLULITIS, UNSPECIFIED (7) Lung nodule Code(s): R91.1 - SOLITARY PULMONARY NODULE (8) Pneumonia Code(s): J18.9 - PNEUMONIA, UNSPECIFIED ORGANISM Qualifiers: Pneumonia type: due to unspecified organism (9) DVT (deep venous thrombosis) Code(s): I82.409 - ACUTE EMBOLISM AND THOMBOS UNSP DEEP VN UNSP LOWER EXTREMITY Qualifiers: DVT location: lower extremity Affected thrombotic vein of extremity: popliteal Chronicity: unspecified Laterality: left Qualified Code (s): I82.432 - Acute embolism and thrombosis of left popliteal vein Assessment/Plan Transthoracic echocardiography dated 01/17/17 Revealed normal LV Systolic function with pulmonary HTN (RVSP between 40-50 Millimeters mercury), mild MR and TR 1. Paroxysmal atrial fibrillation [id number] score of 3-4 currently in sinus rhythm on Coumadin with supratherapeutic INR 2. Acute on chronic Class II-III [place] [employer] classification LV diastolic congestive heart failure, resolved/euvolemic 3. CAD angina pectoris 4. Encephalopathy, Probable toxic Metabolic and probable underlying dementia, improved 5. Acute on chronic kidney disease improving 6. Bilateral hydronephrosis 7. 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 Pneumonia, cellulitis PLAN: 1. Continue Coumadin per INR 2. Continue Lopressor 50 bid and Amiodarone 200 qd, Cardizem IV as needed for rate-control 3. Continue losartan 25 qd now that renal function has stabilized as hemodynamics tolerate 5. Continue Lasix 40 qd with monitor diuretic response, renal fxn and electrolytes 6. Completed abx course per ID, oral steroid taper, BD, O2, d/c planning
[2017-02-02 11:45] LABS: INR 2.79 (0.82-1.09); PROTHROMBIN TIME (PATIENT) 31.3 SEC (9.98-11.88)
--- NOTE | 2017-02-02 16:27 | PN ---
Progress Note (short form) - Note Progress Note: PULMONARY Feels better. Denies shortness of breath or chest pain. Last Vital Signs Temp Pulse Resp BP Pulse Ox 98.1 F 98 H 20 111/54 97 02/02/17 15:55 02/02/17 15:55 02/02/17 08:05 02/02/17 15:55 02/02/17 08:05 Gen: NAD in chair Heart: RRR Lung: less left base rales Abd: soft, nontender Ext: +erythema improving CBC, BMP 02/02/17 05:42 02/02/17 05:42 Active Medications Acetaminophen (Tylenol -) 650 mg PO Q4H PRN PRN Reason: FEVER OR PAIN Albuterol/Ipratropium (Duoneb -) 1 amp NEB Q4HWA PRN PRN Reason: SHORT OF BREATH/WHEEZING Last Admin: 01/27/17 22:20 Dose: 1 amp Amiodarone HCl (Cordarone -) 200 mg PO DAILY [facility] Last Admin: 02/02/17 09:15 Dose: 200 mg Bacitracin/Polymyxin B Sulfate (Polysporin Ointment -) 1 applic TP BID [facility] Last Admin: 02/02/17 09:20 Dose: 1 applic Diltiazem HCl (Cardizem Injection -) 10 mg IVPUSH Q4H PRN PRN Reason: TACHYCARDIA Last Admin: 01/30/17 20:04 Dose: 10 mg Docusate Sodium (Colace -) 100 mg PO DAILY [facility] Last Admin: 02/02/17 09:15 Dose: 100 mg Furosemide (Lasix -) 40 mg PO DAILY [facility] Last Admin: 02/02/17 09:15 Dose: 40 mg Guaifenesin (Robitussin -) 10 ml PO Q6H PRN PRN Reason: COUGH Losartan Potassium (Cozaar -) 25 mg PO DAILY [facility] Last Admin: 02/02/17 09:15 Dose: 25 mg Metoprolol Tartrate (Lopressor -) 50 mg PO BID [facility] Last Admin: 02/02/17 09:15 Dose: 50 mg Multivitamins/Minerals/Vitamin C (Tab-A-Vit -) 1 tab PO DAILY [facility] Last Admin: 02/02/17 09:15 Dose: 1 tab Nystatin (Mycostatin Cream -) 1 applic TP BID [facility] Last Admin: 02/02/17 09:19 Dose: 1 applic Prednisone (Deltasone -) 30 mg PO DAILY [facility] Last Admin: 02/02/17 09:15 Dose: 30 mg Tamsulosin HCl (Flomax -) 0.4 mg PO BID@0830,2200 [facility] Last Admin: 02/02/17 08:56 Dose: 0.4 mg Warfarin Sodium (Coumadin -) 2.5 mg PO DAILY@1800 [facility] Last Admin: 02/01/17 17:15 Dose: Not Given A/P Pneumonia Cellulitis Acute Kidney Injury Paroxysmal Atrial Fibrillation Thrombocytopenia - r/o HIT Lung Nodule - completed antibiotics - continue anticoagulation - rate controlled - prednisone taper - inhaled bronchodilators - d/c planning in progress
[2017-02-02] MEDS: WARFARIN NA 2.5 MG TABLET (FP) PO SCH (17:52)
[2017-02-03 06:11] VITALS: TEMP 97.9
[2017-02-03 07:05] VITALS: BP 116/71; PULSE 63
[2017-02-03 08:02] LABS: MCH 31.5 pg (25.7-33.7); MCHC 33.7 g/dl (32.0-35.9); MEAN CELL VOLUME 93.5 fl (80-96); MEAN PLT VOLUME 8.5 fl (7.5-11.1); PLATELET COUNT 202 K/MM3 (134-434); RDW 15.9 % (11.9-15.9); WHITE BLOOD COUNT 16.3 K/mm3 (4.0-10.0)
[2017-02-03 08:21] LABS: INR 2.87 (0.82-1.09); PROTHROMBIN TIME (PATIENT) 32.2 SEC (9.98-11.88)
[2017-02-03 08:52] LABS: ALBUMIN 2.4 g/dl (3.4-5.0); ALK PHOS 60 U/L (45-117); ANION GAP 7 (8-16); CO2 30 mmol/L (21-32); CREATININE 1.5 mg/dL (0.7-1.3); GLUCOSE,RANDOM 89 mg/dL (74-106); MAGNESIUM 1.9 mg/dL (1.8-2.4); PHOSPHOROUS 3.4 mg/dL (2.5-4.9); SGOT/AST 10 U/L (15-37); SGPT/ALT 25 U/L (12-78); TOT PROT 5.1 g/dl (6.4-8.2)
[2017-02-03] MEDS: MULTIVITAMINS (DAILY MVI) TABLET (FP) PO SCH (09:05)
[2017-02-03] MEDS: AMIODARONE HCL 200 MG TABLET (FP) PO SCH (09:05)
[2017-02-03] MEDS: METOPROLOL TARTRATE 50 MG TABLET (FP) PO SCH (09:05)
[2017-02-03] MEDS: TAMSULOSIN HCL 0.4 MG CAP.ER.24H (FP) PO SCH (09:05)
[2017-02-03] MEDS: predniSONE 10 MG TABLET (UD) PO SCH (09:05)
[2017-02-03] MEDS: LOSARTAN POTASSIUM 25 MG TABLET PO SCH (09:05)
[2017-02-03] MEDS: FUROSEMIDE 40 MG TABLET (FP) PO SCH (09:05)
[2017-02-03] MEDS: DOCUSATE SODIUM 100 MG CAPSULE (FP) PO SCH (09:06)
[2017-02-03] MEDS: NYSTATIN 100,000 UNIT/GM TOPICAL CREAM 15 GM TUBE TP SCH (09:07)
[2017-02-03] MEDS: BACITRACIN/POLYMYXIN B SULFATE 15 GM TUBE TP SCH (09:07)
--- NOTE | 2017-02-03 09:46 | PN ---
Progress Note, Physician Chief Complaint: Events noted Not in distress History of Present Illness: Patient was seen and examined. Awake, but hard of hearing. Chart was reviewed Atrial fibrillation (paroxysmal) now in sinus rhythm Does not appear to have chest pain or shortness of breath - Current Medication List Current Medications: Active Medications Acetaminophen (Tylenol -) 650 mg PO Q4H PRN PRN Reason: FEVER OR PAIN Albuterol/Ipratropium (Duoneb -) 1 amp NEB Q4HWA PRN PRN Reason: SHORT OF BREATH/WHEEZING Last Admin: 01/27/17 22:20 Dose: 1 amp Amiodarone HCl (Cordarone -) 200 mg PO DAILY [facility] Last Admin: 02/03/17 09:05 Dose: 200 mg Bacitracin/Polymyxin B Sulfate (Polysporin Ointment -) 1 applic TP BID [facility] Last Admin: 02/03/17 09:07 Dose: Not Given Diltiazem HCl (Cardizem Injection -) 10 mg IVPUSH Q4H PRN PRN Reason: TACHYCARDIA Last Admin: 01/30/17 20:04 Dose: 10 mg Docusate Sodium (Colace -) 100 mg PO DAILY [facility] Last Admin: 02/03/17 09:06 Dose: 100 mg Furosemide (Lasix -) 40 mg PO DAILY [facility] Last Admin: 02/03/17 09:05 Dose: 40 mg Guaifenesin (Robitussin -) 10 ml PO Q6H PRN PRN Reason: COUGH Losartan Potassium (Cozaar -) 25 mg PO DAILY [facility] Last Admin: 02/03/17 09:05 Dose: 25 mg Metoprolol Tartrate (Lopressor -) 50 mg PO BID [facility] Last Admin: 02/03/17 09:05 Dose: 50 mg Multivitamins/Minerals/Vitamin C (Tab-A-Vit -) 1 tab PO DAILY [facility] Last Admin: 02/03/17 09:05 Dose: 1 tab Nystatin (Mycostatin Cream -) 1 applic TP BID [facility] Last Admin: 02/03/17 09:07 Dose: Not Given Prednisone (Deltasone -) 30 mg PO DAILY [facility] Last Admin: 02/03/17 09:05 Dose: 30 mg Tamsulosin HCl (Flomax -) 0.4 mg PO BID@0830,2200 [facility] Last Admin: 02/03/17 09:05 Dose: 0.4 mg Warfarin Sodium (Coumadin -) 2.5 mg PO DAILY@1800 [facility] Last Admin: 02/02/17 17:52 Dose: 2.5 mg - Objective Vital Signs: Vital Signs Temperature 97.9 F 02/03/17 07:02 Pulse Rate 63 02/03/17 07:02 Respiratory Rate 20 02/03/17 07:05 Blood Pressure 116/71 02/03/17 07:02 O2 Sat by Pulse Oximetry (%) 98 02/03/17 07:05 Neck: Yes: Supple Cardiovascular: Yes: Regular Rate and Rhythm, S1, S2 Respiratory: Yes: Diminished Gastrointestinal: Yes: Normal Bowel Sounds, Soft. No: Tenderness Extremities: Yes: Erythema Edema: Yes Edema: LLE: 1+, RLE: 1+ Labs: CBC, BMP 02/03/17 05:48 02/03/17 05:48 INR, PTT INR 2.87 (0.82-1.09) H 02/03/17 05:48 Fibrinogen < 100.0 mg/dL (238-498) L* 01/23/17 05:15 Problem List - Problems (1) Altered mental status Code(s): R41.82 - ALTERED MENTAL STATUS, UNSPECIFIED Qualifiers: Altered mental status type: delirium Qualified Code(s): R41.0 - Disorientation, unspecified (2) CHF (congestive heart failure) Code(s): I50.9 - HEART FAILURE, UNSPECIFIED Qualifiers: Congestive heart failure type: unspecified congestive heart failure type Congestive heart failure chronicity: unspecified congestive heart failure chronicity Qualified Code(s): I50.9 - Heart failure, unspecified (3) COPD (chronic obstructive pulmonary disease) Code(s): J44.9 - CHRONIC OBSTRUCTIVE PULMONARY DISEASE, UNSPECIFIED Qualifiers : COPD type: unspecified COPD Qualified Code(s): J44.9 - Chronic obstructive pulmonary disease, unspecified (4) Cellulitis Code(s): L03.90 - CELLULITIS, UNSPECIFIED (5) Lung nodule Code(s): R91.1 - SOLITARY PULMONARY NODULE (6) Hydronephrosis Code(s): N13.30 - UNSPECIFIED HYDRONEPHROSIS (7) Atrial fibrillation with RVR Code(s): I48.91 - UNSPECIFIED ATRIAL FIBRILLATION (8) Dementia Code(s): F03.90 - UNSPECIFIED DEMENTIA WITHOUT BEHAVIORAL DISTURBANCE (9) Metabolic encephalopathy Code(s): G93.41 - METABOLIC ENCEPHALOPATHY Assessment/Plan 1. Paroxysmal atrial fibrillation [id number] score of 3-4 currently in sinus rhythm on Coumadin 2. 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 CAD angina pectoris 4. Encephalopathy - probable toxic metabolic and probable underlying organic brain/dementia, improved 5. Acute on chronic kidney disease improving 6. Bilateral hydronephrosis 7. 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 Pneumonia and cellulitis PLAN: 1. Continue Coumadin per INR 2. Continue Lopressor 50 bid and Amiodarone 200 qd. 3. Continue Losartan as tolerated 4. Continue Lasix with monitoring renal function and electrolytes 5. Completed antibiotic course per ID, oral steroid taper, bronchodilator and O2 Discharge planning and cleared cardiac standpoint Mac Cueto MD
--- NOTE | 2017-02-03 11:11 | PN ---
Progress Note, Physician History of Present Illness: PULMONARY ALERT,NAD,-RESP DISTRESS - Current Medication List Current Medications: Active Medications Acetaminophen (Tylenol -) 650 mg PO Q4H PRN PRN Reason: FEVER OR PAIN Amiodarone HCl (Cordarone -) 200 mg PO DAILY [facility] Last Admin: 02/03/17 09:05 Dose: 200 mg Bacitracin/Polymyxin B Sulfate (Polysporin Ointment -) 1 applic TP BID [facility] Last Admin: 02/03/17 09:07 Dose: Not Given Diltiazem HCl (Cardizem Injection -) 10 mg IVPUSH Q4H PRN PRN Reason: TACHYCARDIA Last Admin: 01/30/17 20:04 Dose: 10 mg Docusate Sodium (Colace -) 100 mg PO DAILY [facility] Last Admin: 02/03/17 09:06 Dose: 100 mg Furosemide (Lasix -) 40 mg PO DAILY [facility] Last Admin: 02/03/17 09:05 Dose: 40 mg Guaifenesin (Robitussin -) 10 ml PO Q6H PRN PRN Reason: COUGH Losartan Potassium (Cozaar -) 25 mg PO DAILY [facility] Last Admin: 02/03/17 09:05 Dose: 25 mg Metoprolol Tartrate (Lopressor -) 50 mg PO BID [facility] Last Admin: 02/03/17 09:05 Dose: 50 mg Multivitamins/Minerals/Vitamin C (Tab-A-Vit -) 1 tab PO DAILY [facility] Last Admin: 02/03/17 09:05 Dose: 1 tab Nystatin (Mycostatin Cream -) 1 applic TP BID [facility] Last Admin: 02/03/17 09:07 Dose: Not Given Prednisone (Deltasone -) 30 mg PO DAILY [facility] Last Admin: 02/03/17 09:05 Dose: 30 mg Tamsulosin HCl (Flomax -) 0.4 mg PO BID@0830,2200 [facility] Last Admin: 02/03/17 09:05 Dose: 0.4 mg Warfarin Sodium (Coumadin -) 2.5 mg PO DAILY@1800 [facility] Last Admin: 02/02/17 17:52 Dose: 2.5 mg - Objective Vital Signs: Vital Signs Temperature 97.9 F 02/03/17 07:02 Pulse Rate 63 02/03/17 07:02 Respiratory Rate 20 02/03/17 07:05 Blood Pressure 116/71 02/03/17 07:02 O2 Sat by Pulse Oximetry (%) 98 02/03/17 07:05 Constitutional: Yes: Well Nourished, Calm Eyes: Yes: WNL HENT: Yes: WNL Neck: Yes: WNL Cardiovascular: Yes: Pulse Irregular, S1, S2 Respiratory: Yes: Rales (BIBASILAR RALES) Gastrointestinal: Yes: Normal Bowel Sounds, Soft Extremities: Yes: Erythema Edema: Yes Labs: CBC, BMP 02/03/17 05:48 02/03/17 05:48 INR, PTT INR 2.87 (0.82-1.09) H 02/03/17 05:48 Fibrinogen < 100.0 mg/dL (238-498) L* 01/23/17 05:15 Problem List - Problems (1) Altered mental status Code(s): R41.82 - ALTERED MENTAL STATUS, UNSPECIFIED Qualifiers: Altered mental status type: delirium Qualified Code(s): R41.0 - Disorientation, unspecified (2) Cellulitis Code(s): L03.90 - CELLULITIS, UNSPECIFIED (3) UTI (urinary tract infection) Code(s): N39.0 - URINARY TRACT INFECTION, SITE NOT SPECIFIED (4) Hydronephrosis Code(s): N13.30 - UNSPECIFIED HYDRONEPHROSIS (5) Kidney injury Code(s): S37.009A - UNSPECIFIED INJURY OF UNSPECIFIED KIDNEY, INITIAL ENCOUNTER (6) Hypoxemia Code(s): R09.02 - HYPOXEMIA (7) Lung nodule Code(s): R91.1 - SOLITARY PULMONARY NODULE (8) Atrial fibrillation with RVR Code(s): I48.91 - UNSPECIFIED ATRIAL FIBRILLATION (9) DVT (deep venous thrombosis) Code(s): I82.409 - ACUTE EMBOLISM AND THOMBOS UNSP DEEP VN UNSP LOWER EXTREMITY Qualifiers: DVT location: lower extremity Affected thrombotic vein of extremity: popliteal Chronicity: unspecified Laterality: left Qualified Code (s): I82.432 - Acute embolism and thrombosis of left popliteal vein (10) Pneumonia Code(s): J18.9 - PNEUMONIA, UNSPECIFIED ORGANISM Qualifiers: Pneumonia type: due to unspecified organism (11) Thrombocytopenia Code(s): D69.6 - THROMBOCYTOPENIA, UNSPECIFIED Assessment/Plan A/P Pneumonia Cellulitis Acute Kidney Injury Paroxysmal Atrial Fibrillation Thrombocytopenia - r/o HIT Lung Nodule DVT - antibiotics - anticoagulation - rate controlled - prednisone taper - inhaled bronchodilators - d/c planning in progress DR CHAHAL
--- NOTE | 2017-02-03 14:21 | DS ---
Physical Exam: LABS Microbiology 01/23/17 03:00 Urine - Urine Davis Urine Culture - Final NO GROWTH OBTAINED 01/22/17 18:00 Blood - Peripheral Venous Blood Culture - Final NO GROWTH AFTER 5 DAYS INCUBATION 01/22/17 17:55 Blood - Peripheral Venous Blood Culture - Final NO GROWTH AFTER 5 DAYS INCUBATION 01/13/17 14:45 Calf - Left Anterior Gram Stain - Final 01/13/17 14:45 Calf - Left Anterior Wound Culture - Final NO GROWTH AFTER 48 HOURS INCUBATION 01/10/17 20:30 Blood - Peripheral Venous Blood Culture - Final NO GROWTH AFTER 5 DAYS INCUBATION 01/10/17 20:30 Blood - Peripheral Venous Blood Culture - Final NO GROWTH AFTER 5 DAYS INCUBATION 01/10/17 14:41 Urine - Urine Clean Catch Urine Culture - Final Selected Entries 01/10/17 01/10/17 01/10/17 13:38 17:26 21:26 Temperature Pulse Rate 110 H 86 Respiratory Rate Blood Pressure 154/88 O2 Sat by Pulse 92 L Oximetry (%) Weight 99.79 kg 99.79 kg 01/11/17 01/11/17 01/11/17 02:00 06:00 11:00 Temperature Pulse Rate 92 H 88 100 H Respiratory Rate Blood Pressure O2 Sat by Pulse Oximetry (%) Weight 01/11/17 01/11/17 01/12/17 15:50 19:00 14:46 Temperature Pulse Rate 96 H 112 H 94 H Respiratory Rate Blood Pressure O2 Sat by Pulse Oximetry (%) Weight 01/14/17 01/15/17 01/16/17 10:00 22:00 13:48 Temperature Pulse Rate 93 H 100 H 104 H Respiratory Rate Blood Pressure O2 Sat by Pulse Oximetry (%) Weight 01/16/17 01/17/17 01/17/17 18:10 06:00 10:00 Temperature Pulse Rate 101 H 101 H Respiratory Rate Blood Pressure 129/76 O2 Sat by Pulse Oximetry (%) Weight 01/17/17 01/17/17 01/18/17 14:28 22:00 02:00 Temperature Pulse Rate 105 H 104 H 98 H Respiratory Rate Blood Pressure O2 Sat by Pulse Oximetry (%) Weight 01/18/17 01/18/17 01/18/17 06:00 09:56 18:00 Temperature Pulse Rate 102 H 112 H 117 H Respiratory Rate Blood Pressure O2 Sat by Pulse Oximetry (%) Weight 01/18/17 01/19/17 01/19/17 21:00 01:49 10:00 Temperature Pulse Rate 111 H 102 H Respiratory Rate Blood Pressure O2 Sat by Pulse 94 L Oximetry (%) Weight 01/19/17 01/20/17 01/20/17 23:00 03:30 04:20 Temperature Pulse Rate 105 H 135 H 151 H Respiratory Rate Blood Pressure O2 Sat by Pulse Oximetry (%) Weight 01/20/17 01/20/17 01/20/17 05:19 05:32 11:00 Temperature Pulse Rate 155 H 144 H 122 H Respiratory Rate Blood Pressure O2 Sat by Pulse Oximetry (%) Weight 01/20/17 01/20/17 01/21/17 14:11 18:00 06:00 Temperature Pulse Rate 128 H 108 H 106 H Respiratory Rate Blood Pressure O2 Sat by Pulse Oximetry (%) Weight 01/21/17 01/21/17 01/21/17 16:52 17:00 22:00 Temperature Pulse Rate 115 H Respiratory Rate Blood Pressure 91/60 91/52 82/50 O2 Sat by Pulse Oximetry (%) Weight 01/22/17 01/22/17 01/22/17 02:00 02:46 06:00 Temperature Pulse Rate 107 H 92 H Respiratory Rate Blood Pressure 81/47 90/45 89/53 O2 Sat by Pulse Oximetry (%) Weight 01/22/17 01/22/17 01/22/17 10:00 11:14 14:07 Temperature Pulse Rate 106 H Respiratory Rate Blood Pressure 92/56 88/58 88/49 O2 Sat by Pulse Oximetry (%) Weight 01/22/17 01/22/17 01/22/17 18:00 18:40 20:00 Temperature Pulse Rate 98 H 72 Respiratory 26 H 21 Rate Blood Pressure 89/66 O2 Sat by Pulse Oximetry (%) Weight 01/22/17 01/23/17 01/23/17 22:00 00:00 02:00 Temperature Pulse Rate 113 H Respiratory 25 H Rate Blood Pressure 89/53 84/54 93/68 O2 Sat by Pulse Oximetry (%) Weight 01/23/17 01/23/17 01/23/17 04:00 06:00 07:45 Temperature Pulse Rate 118 H 122 H Respiratory Rate Blood Pressure 101/77 O2 Sat by Pulse Oximetry (%) Weight 98.9 kg 01/23/17 01/23/17 01/23/17 08:00 08:54 10:00 Temperature Pulse Rate 123 H 131 H 120 H Respiratory Rate Blood Pressure 108/85 94/65 O2 Sat by Pulse Oximetry (%) Weight 01/23/17 01/23/17 01/23/17 12:00 14:00 14:58 Temperature Pulse Rate 168 H 143 H 131 H Respiratory 27 H 31 H Rate Blood Pressure O2 Sat by Pulse Oximetry (%) Weight 01/23/17 01/23/17 01/23/17 16:00 18:00 20:00 Temperature Pulse Rate 134 H 119 H Respiratory 36 H 30 H Rate Blood Pressure O2 Sat by Pulse Oximetry (%) Weight 01/23/17 01/24/17 01/24/17 22:00 02:00 06:00 Temperature Pulse Rate 135 H Respiratory 31 H 25 H 31 H Rate Blood Pressure O2 Sat by Pulse Oximetry (%) Weight 101.2 kg 01/24/17 01/24/17 01/24/17 08:11 08:18 10:40 Temperature Pulse Rate 126 H 116 H Respiratory Rate Blood Pressure 90/52 93/61 O2 Sat by Pulse Oximetry (%) Weight 01/24/17 01/24/17 01/24/17 13:19 13:51 15:12 Temperature Pulse Rate 127 H 119 H 126 H Respiratory Rate Blood Pressure 88/66 O2 Sat by Pulse Oximetry (%) Weight 01/24/17 01/25/17 01/25/17 17:36 00:00 02:00 Temperature Pulse Rate 110 H 114 H Respiratory Rate Blood Pressure 102/73 93/64 O2 Sat by Pulse Oximetry (%) Weight 01/25/17 01/25/17 01/25/17 06:00 17:15 20:00 Temperature 98.4 F Pulse Rate Respiratory 26 H Rate Blood Pressure 105/73 93/63 O2 Sat by Pulse Oximetry (%) Weight 101.2 kg 01/26/17 01/26/17 01/26/17 07:43 18:00 22:00 Temperature Pulse Rate 69 Respiratory Rate Blood Pressure 111/75 O2 Sat by Pulse Oximetry (%) Weight 103.873 kg 01/27/17 01/27/17 01/28/17 06:00 22:00 06:00 Temperature Pulse Rate Respiratory Rate Blood Pressure 104/69 O2 Sat by Pulse Oximetry (%) Weight 103.782 kg 101.06 kg 01/29/17 01/29/17 01/30/17 06:00 09:00 01:04 Temperature Pulse Rate 138 H Respiratory Rate Blood Pressure O2 Sat by Pulse 94 L Oximetry (%) Weight 91.172 kg 01/30/17 01/30/17 01/30/17 01:37 02:15 02:28 Temperature Pulse Rate 136 H 105 H 135 H Respiratory Rate Blood Pressure O2 Sat by Pulse Oximetry (%) Weight 01/30/17 01/30/17 01/30/17 06:00 06:07 10:00 Temperature Pulse Rate 107 H 124 H Respiratory Rate Blood Pressure O2 Sat by Pulse Oximetry (%) Weight 105.868 kg 01/30/17 01/30/17 01/30/17 11:07 14:00 17:00 Temperature Pulse Rate 121 H 135 H Respiratory Rate Blood Pressure O2 Sat by Pulse Oximetry (%) Weight 105.8 kg 01/30/17 01/30/17 01/31/17 20:28 22:00 06:00 Temperature Pulse Rate 61 56 L Respiratory Rate Blood Pressure O2 Sat by Pulse 93 L Oximetry (%) Weight 104.871 kg 01/31/17 01/31/17 02/01/17 14:00 22:00 02:00 Temperature Pulse Rate Respiratory Rate Blood Pressure 96/50 92/51 108/66 O2 Sat by Pulse Oximetry (%) Weight 02/01/17 02/02/17 02/02/17 06:00 02:39 06:00 Temperature Pulse Rate Respiratory Rate Blood Pressure 124/73 O2 Sat by Pulse Oximetry (%) Weight 104.326 kg 100.698 kg 02/02/17 02/02/17 02/02/17 15:55 17:00 22:00 Temperature Pulse Rate 98 H 64 66 Respiratory Rate Blood Pressure 94/53 O2 Sat by Pulse Oximetry (%) Weight 02/03/17 02/03/17 02/03/17 02:00 06:00 07:02 Temperature 97.9 F Pulse Rate 63 58 L 63 Respiratory Rate Blood Pressure 116/71 O2 Sat by Pulse Oximetry (%) Weight 99.881 kg 02/03/17 07:05 Temperature Pulse Rate Respiratory 20 Rate Blood Pressure O2 Sat by Pulse 98 Oximetry (%) Weight Laboratory Tests 01/10/17 01/10/17 01/10/17 14:50 14:50 14:50 WBC 8.1 Hgb 14.3 D Hct 43.3 D Plt Count 199 INR PTT (Actin FS) ABG pH ABG pCO2 at Pt Temp ABG pO2 at Pt Temp ABG HCO3 ABG O2 Content BUN 35 H D Creatinine 1.7 H Random Glucose 119 H D Hemoglobin A1c % Lactic Acid 1.7 Total Bilirubin 1.2 H D Troponin I B-Natriuretic Peptide Vitamin B12 TSH 01/11/17 01/11/17 01/11/17 06:35 06:35 06:35 WBC 9.0 Hgb Hct Plt Count 178 INR PTT (Actin FS) ABG pH ABG pCO2 at Pt Temp ABG pO2 at Pt Temp ABG HCO3 ABG O2 Content BUN Creatinine 1.5 H Random Glucose Hemoglobin A1c % Lactic Acid Total Bilirubin 1.4 H Troponin I B-Natriuretic Peptide Vitamin B12 1255 H TSH 0.56 01/12/17 01/13/17 01/14/17 06:30 05:42 06:25 WBC Hgb Hct Plt Count 159 INR PTT (Actin FS) ABG pH ABG pCO2 at Pt Temp ABG pO2 at Pt Temp ABG HCO3 ABG O2 Content BUN Creatinine 1.5 H 1.5 H Random Glucose Hemoglobin A1c % Lactic Acid Total Bilirubin Troponin I B-Natriuretic Peptide Vitamin B12 TSH 01/15/17 01/16/17 01/16/17 06:40 06:30 06:30 WBC 10.2 H Hgb Hct Plt Count 141 133 L INR PTT (Actin FS) ABG pH ABG pCO2 at Pt Temp ABG pO2 at Pt Temp ABG HCO3 ABG O2 Content BUN 32 H Creatinine 1.3 Random Glucose Hemoglobin A1c % Lactic Acid Total Bilirubin Troponin I B-Natriuretic Peptide Vitamin B12 TSH 01/17/17 01/17/17 01/18/17 06:58 16:00 06:00 WBC Hgb 12.5 Hct Plt Count 129 L 139 INR PTT (Actin FS) ABG pH 7.43 ABG pCO2 at Pt Temp 37.6 ABG pO2 at Pt Temp 61.7 L ABG HCO3 24.2 ABG O2 Content 15.2 BUN Creatinine Random Glucose Hemoglobin A1c % Lactic Acid Total Bilirubin Troponin I B-Natriuretic Peptide Vitamin B12 TSH 01/18/17 01/18/17 01/19/17 06:00 06:00 07:50 WBC Hgb Hct Plt Count 137 INR PTT (Actin FS) ABG pH ABG pCO2 at Pt Temp ABG pO2 at Pt Temp ABG HCO3 ABG O2 Content BUN Creatinine 1.4 H Random Glucose 98 Hemoglobin A1c % Lactic Acid Total Bilirubin Troponin I B-Natriuretic Peptide 1063.96 H Vitamin B12 [facility] 01/20/17 01/20/17 01/20/17 05:00 05:00 05:00 WBC Hgb Hct Plt Count 127 L INR 1.24 H PTT (Actin FS) 29.0 ABG pH ABG pCO2 at Pt Temp ABG pO2 at Pt Temp ABG HCO3 ABG O2 Content BUN Creatinine 1.7 H Random Glucose Hemoglobin A1c % Lactic Acid Total Bilirubin Troponin I B-Natriuretic Peptide 5751.52 H Vitamin B12 [facility] 01/20/17 01/20/17 01/20/17 05:00 10:40 17:30 WBC Hgb Hct Plt Count 110 L INR PTT (Actin FS) ABG pH ABG pCO2 at Pt Temp ABG pO2 at Pt Temp ABG HCO3 ABG O2 Content BUN Creatinine Random Glucose Hemoglobin A1c % Lactic Acid Total Bilirubin Troponin I 0.17 H 0.13 H B-Natriuretic Peptide Vitamin B12 [facility] 01/21/17 01/21/17 01/21/17 00:10 05:35 05:35 WBC Hgb Hct Plt Count INR PTT (Actin FS) 40.6 H ABG pH ABG pCO2 at Pt Temp ABG pO2 at Pt Temp ABG HCO3 ABG O2 Content BUN 47 H Creatinine Random Glucose 121 H Hemoglobin A1c % 5.8 Lactic Acid Total Bilirubin Troponin I B-Natriuretic Peptide Vitamin B12 [facility] 01/21/17 01/22/17 01/22/17 05:35 05:48 06:00 WBC Hgb 11.2 L Hct 33.7 L Plt Count 78 L D 63 L INR PTT (Actin FS) ABG pH ABG pCO2 at Pt Temp ABG pO2 at Pt Temp ABG HCO3 ABG O2 Content BUN Creatinine 2.6 H D Random Glucose Hemoglobin A1c % Lactic Acid Total Bilirubin Troponin I B-Natriuretic Peptide Vitamin B12 [facility] 01/22/17 01/22/17 01/22/17 10:25 17:30 17:55 WBC Hgb Hct Plt Count INR PTT (Actin FS) ABG pH 7.44 ABG pCO2 at Pt Temp 31.5 L ABG pO2 at Pt Temp 67.7 L ABG HCO3 21.3 L ABG O2 Content 13.9 L BUN Creatinine Random Glucose Hemoglobin A1c % Lactic Acid 1.4 Total Bilirubin Troponin I B-Natriuretic Peptide 8953.77 H Vitamin B12 TSH 01/22/17 01/23/17 01/23/17 22:00 05:15 05:15 WBC Hgb Hct Plt Count 82 L D INR 3.15 H D PTT (Actin FS) 66.1 H ABG pH ABG pCO2 at Pt Temp ABG pO2 at Pt Temp ABG HCO3 ABG O2 Content BUN Creatinine Random Glucose Hemoglobin A1c % Lactic Acid Total Bilirubin Troponin I B-Natriuretic Peptide Vitamin B12 TSH 01/23/17 01/24/17 01/24/17 05:15 05:10 05:10 WBC 11.7 H D Hgb Hct Plt Count 120 L D INR PTT (Actin FS) 66.5 H ABG pH ABG pCO2 at Pt Temp ABG pO2 at Pt Temp ABG HCO3 ABG O2 Content BUN Creatinine 2.5 H Random Glucose 191 H D Hemoglobin A1c % Lactic Acid Total Bilirubin Troponin I B-Natriuretic Peptide Vitamin B12 [facility] 01/24/17 01/25/17 01/25/17 05:10 05:35 05:35 WBC 7.8 D Hgb Hct 33.4 L Plt Count 116 L INR PTT (Actin FS) ABG pH ABG pCO2 at Pt Temp ABG pO2 at Pt Temp ABG HCO3 ABG O2 Content BUN 77 H Creatinine 2.5 H 2.2 H Random Glucose Hemoglobin A1c % Lactic Acid Total Bilirubin Troponin I B-Natriuretic Peptide Vitamin B12 TSH 01/25/17 01/25/17 01/26/17 05:35 16:30 05:35 WBC 10.2 H D Hgb Hct Plt Count 123 L INR 3.24 H PTT (Actin FS) 59.2 H ABG pH ABG pCO2 at Pt Temp ABG pO2 at Pt Temp ABG HCO3 ABG O2 Content BUN Creatinine Random Glucose Hemoglobin A1c % Lactic Acid Total Bilirubin Troponin I B-Natriuretic Peptide Vitamin B12 TSH 01/26/17 01/27/17 01/27/17 05:35 05:35 05:35 WBC 11.4 H Hgb 12.8 Hct Plt Count 150 D INR PTT (Actin FS) ABG pH ABG pCO2 at Pt Temp ABG pO2 at Pt Temp ABG HCO3 ABG O2 Content BUN Creatinine 2.0 H 1.9 H Random Glucose 144 H Hemoglobin A1c % Lactic Acid Total Bilirubin Troponin I B-Natriuretic Peptide Vitamin B12 [facility] 01/27/17 01/28/17 01/28/17 05:35 05:35 05:35 WBC 12.6 H Hgb Hct Plt Count 168 INR 3.36 H PTT (Actin FS) 65.7 H ABG pH ABG pCO2 at Pt Temp ABG pO2 at Pt Temp ABG HCO3 ABG O2 Content BUN Creatinine Random Glucose Hemoglobin A1c % Lactic Acid Total Bilirubin Troponin I B-Natriuretic Peptide Vitamin B12 [facility] 01/28/17 01/29/17 01/29/17 05:35 06:00 06:00 WBC 15.7 H Hgb Hct Plt Count 194 INR 4.66 H* D PTT (Actin FS) 60.3 H ABG pH ABG pCO2 at Pt Temp ABG pO2 at Pt Temp ABG HCO3 ABG O2 Content BUN Creatinine Random Glucose Hemoglobin A1c % Lactic Acid Total Bilirubin Troponin I B-Natriuretic Peptide Vitamin B12 [facility] 01/29/17 01/30/17 01/30/17 06:00 05:35 05:35 WBC 16.1 H Hgb Hct Plt Count 238 D INR 5.63 H* PTT (Actin FS) 63.3 H 69.2 H ABG pH ABG pCO2 at Pt Temp ABG pO2 at Pt Temp ABG HCO3 ABG O2 Content BUN Creatinine Random Glucose Hemoglobin A1c % Lactic Acid Total Bilirubin Troponin I B-Natriuretic Peptide Vitamin B12 [facility] 01/30/17 01/30/17 01/31/17 05:35 15:00 05:35 WBC 14.9 H Hgb Hct Plt Count 213 INR 3.42 H D PTT (Actin FS) ABG pH ABG pCO2 at Pt Temp ABG pO2 at Pt Temp ABG HCO3 ABG O2 Content BUN Creatinine 1.6 H Random Glucose Hemoglobin A1c % Lactic Acid Total Bilirubin Troponin I B-Natriuretic Peptide Vitamin B12 [facility] 01/31/17 01/31/17 02/01/17 05:35 05:35 06:00 WBC Hgb Hct Plt Count INR 3.14 H 3.50 H PTT (Actin FS) ABG pH ABG pCO2 at Pt Temp ABG pO2 at Pt Temp ABG HCO3 ABG O2 Content BUN 54 H Creatinine Random Glucose 109 H D Hemoglobin A1c % Lactic Acid Total Bilirubin Troponin I B-Natriuretic Peptide Vitamin B12 TSH 02/01/17 02/01/17 02/02/17 06:05 06:05 05:42 WBC 16.0 H 15.6 H Hgb Hct 37.7 Plt Count 226 205 INR PTT (Actin FS) ABG pH ABG pCO2 at Pt Temp ABG pO2 at Pt Temp ABG HCO3 ABG O2 Content BUN Creatinine 1.5 H Random Glucose Hemoglobin A1c % Lactic Acid Total Bilirubin Troponin I B-Natriuretic Peptide Vitamin B12 TSH 02/02/17 02/03/17 02/03/17 11:14 05:48 05:48 WBC 16.3 H Hgb 12.3 Hct Plt Count 202 INR 2.79 H PTT (Actin FS) ABG pH ABG pCO2 at Pt Temp ABG pO2 at Pt Temp ABG HCO3 ABG O2 Content BUN 55 H Creatinine 1.5 H Random Glucose 89 Hemoglobin A1c % Lactic Acid Total Bilirubin 1.0 Troponin I B-Natriuretic Peptide Vitamin B12 TSH 02/03/17 05:48 WBC Hgb Hct Plt Count INR 2.87 H PTT (Actin FS) ABG pH ABG pCO2 at Pt Temp ABG pO2 at Pt Temp ABG HCO3 ABG O2 Content BUN Creatinine Random Glucose Hemoglobin A1c % Lactic Acid Total Bilirubin Troponin I B-Natriuretic Peptide Vitamin B12 TSH Laboratory Tests 01/10/17 01/11/17 01/14/17 16:25 06:35 14:45 Urine Blood 1+ H Ur Leukocyte Esterase 3+ H 3+ H Urine WBC 876 68 Stool Occult Blood Hep-Induced Plt Ab Rapid RPR Titer Nonreactive HIV 1&2 Antibody Screen HIV P24 Antigen 01/21/17 01/22/17 01/23/17 18:27 08:40 03:00 Urine Blood Ur Leukocyte Esterase Urine WBC 338 Stool Occult Blood Hep-Induced Plt Ab Rapid 2.208 H RPR Titer HIV 1&2 Antibody Screen Negative HIV P24 Antigen Negative 01/24/17 14:15 Urine Blood Ur Leukocyte Esterase Urine WBC Stool Occult Blood Negative Hep-Induced Plt Ab Rapid RPR Titer HIV 1&2 Antibody Screen HIV P24 Antigen 01/10- cxr-There are no prior studies for comparison. The patient is rotated to the left with a prominent sclerotic knob, normal heart and prominent left hilum. There may be some pleural reaction and atelectasis at the left base. The right lung is clear. The bones and soft tissues are intact. When the patient is more stable follow-up chest film with less rotation is suggested. Are no prior studies for comparison. 01/10- spine/lumbar cr- No acute pathology 01/10- head ct w/o contrast- No CT evidence of acute intracranial pathology. Moderate to marked periventricular and subcortical chronic microvascular ischemic changes. 01/10- ct abd/pelvis w/o contrast- In comparison to a previous exam of 10/31/2015 note is made of mild improvement in marked left hydroureteronephrosis. The remainder of the study demonstrates no definite interval change. Marked right hydroureteronephrosis. No CT evidence of urolithiasis. Bilateral renal cortical atrophy, left more than right. 12 cm left renal cortical cyst. Cholelithiasis. 01/10- hip/pelvis right cr- An AP view the pelvis and images of the right hip reveal no sign of fracture, subluxation or bone destruction. There is a scoliosis with degenerative changes and wedging, abdominal distention, patent SI joints and symmetrical appearing hips. There are soft tissue calcifications. Since the prior study of 6 10/31/2015, there is no significant change in the appearance of the hips and pelvis. Symptoms persist, further imaging may be of help. 01/16- cxr- Since 01/10/2017, the patient is in a more apical lordotic projection and no longer rotated to the left. There is a large heart, sclerotic knob and slight increase in density at the left base. An element of fluid with atelectasis cannot be excluded. Follow-up recommended. 01/17- ct chest w/o con- Moderate limitations related to motion. Please evaluate clinically anterior sternum. Mild bibasilar posterior bronchiectatic changes with mild peribronchial consolidations on the left. 3 mm nodule right middle lobe which will need follow-up. Abnormalities within the liver and incompletely seen within both kidneys which will require sonography. Cholelithiasis. Other findings as above. Clinical correlation advised. 01/20-cxr Impression: New left pulmonary and pleural changes. 01/21-cxr Left pleural effusion with compressive basilar atelectasis. Resolving left parahilar infiltrate. No pneumothorax is seen 01/22- cxr- Left pleural effusion. Left basilar compressive atelectasis versus segmental left lower lobe consolidation of infectious etiology. No evidence of CHF. No pneumothorax is seen. 01/22- us duplex- Findings consistent with deep venous thromboses involving the right popliteal vein 01/22- chest cr- Left basilar opacity: combination of pleural effusion and compressive atelectasis. 01/24- cxr- Impression: No significant change. 01/25- cxr- Impression: No significant change since prior exam. CARDIO- 01/10- EKG- SINUS TACHY WITH PVC 01/17- Echo- mildly dilated left atrium, elevated RV pressure 01/20- EKG- Atrial fibrillation with RVR 01/24- EKG- Atrial fibrillation with RVR 01/25- EKG- NSR HOSPITAL COURSE: Date of Admission:01/10/17 Date of Discharge: 02/03/17 86 y.o. M with pmh of b/l severe hydronephrosis L>R seen on CT 10/31/15, otherwise unknown [facility] (poor hitorian/no records), who presented with confusion, groin and back pain. He was brought by family members who found him in his apt confused, and weak, unable to walk as well as he used to a few mo ago. They had not seen him in several months (he lives alone), but stated that he had been complaining of abdominal and back pain for 2 mo over the phone. He had stopped answering his phone and now appeared confused. Per family, his apartment was filthy and unliveable in and the patient was very dirty and disheveled when they found him. They were not aware of any health problems aside from some doreen of "kidney blockage" In the ED, patient underwent UA: results above, ekg: unremarkable for strain or acs, cxr: clear lung bolton, ct abd/pelvis (results above), patient was started on zosyn, vanco. Patient admitted for acute metabolic encephalopathy secondary to UTI and LLE cellulitis. Acute metabolic encephalopathy secondary to UTI and LLE cellulitis -Patient had a UA and LLE cellulitis both concerning for bacteria. Patient started on Vancomycin and zosyn in the ED. Patient switched to rocephin on the floors. Patient switched to Unasyn and completed a course of abx. Patient underwent a head ct and right hip x-ray (results above). In addition, tsh wnl & b12 elevated. Patient's encephalopathy resolved. Bilateral hydroureteronephrosis secondary to BPH -Patient w/ hx of bph. Has bilateral hydroureteronephrosis 2/2 to BPH. Urology recommended davis placement. Patient initally refused davis, but eventually allowed davis placement. Patient started on flomax 0.4 mg bid. Patient will follow up outpatient with urology Acute on CKD -Initially, patient was found to have elevated creatinine. Baseline was unknown, but believed to be around 1.6. Patient's creatinine worsened during an episode of hypotension in conjunction with lasix. Patient's creatinine steadily improved back to his baseline New onset Atrial Fibrillation with RVR/Heparin induced thrombocytopenia -Patient went into Atrial fibrillation with RVR. He was started on a heparin drip and cardizem drip. Patient underwent echo (results above). Patient was found to be hypotensive. Cardizem drip stopped, patient transferred to ICU, and patient started on lopressor. He was then found to have heparin induced thrombocytopenia with +DVT. Patient switched to argatroban drip. Patient also started on amiodarone for rhythm control. Patient has been controlled on lopressor 50 mg big, amiodarone 200 mg po daily. He was bridged to coumadin 2.5 mg daily and his INR will be monitored. Acute Hypoxic respiratory distress likely 2/2 to pleural effusion vs PE vs pneumonia -Patient was found to be desatting during his hospital stay with crackles at his base. CXR was done (above). Creatinine was elevated, so CTA could not be done. Patient was started on IV solumederol and satting at 92% on 4L. ABG done ( above). patient underwent Echocardiogram for evaluation of right heart strain ( results above). Patient was started on a 7 day course of zosyn. Patient's diuretics were held due to JUNG on CKD. Once patient's creatinine improved, patient was restarted on lasix 40 mg po daily. Patient's steroids were tapered and are currently on 30mg po daily. He will taper his steroids over the next few days and use supplemental oxygen to maintain an SPO2 >90%. Minutes to complete discharge: 75 Discharge Summary Reason For Visit: UTI,HYDRONEPHROSIS Current Active Problems [id number] kidney injury (Acute) Altered mental status (Acute) Atrial fibrillation with RVR (Acute) Cellulitis (Acute) DVT (deep venous thrombosis) (Acute) Dementia (Acute) Heparin induced thrombocytopenia (Acute) Hypotension (Acute) Hypoxemia (Acute) Lung nodule (Acute) Metabolic encephalopathy (Acute) Paroxysmal atrial fibrillation (Acute) Pneumonia (Acute) UTI (urinary tract infection) (Acute) CHF (congestive heart failure) (Chronic) COPD (chronic obstructive pulmonary disease) (Chronic) Hydronephrosis (Chronic) Kidney injury (Chronic) Condition: Improved - Instructions Diet, Activity, Other Instructions: You were originally in the hospital due to a urinary tract infection. You were also found to have a rapid heart rate. Please follow up with your primary care provider within 1 week. If you do not have one, a referral has been provided for you. Please follow up with a urologist within 1 week. A referral for the urologist you saw in the hospital has been provided. Please follow up with a on site services specialist within 1 year. A referral has been provided for you Continue these medications: -Flomax 0.4 mg by mouth two times per day -Tylenol 650 mg by mouth as needed for pain -Duoneb as needed for breathing -Amiodarone HCl 200 mg by mouth daily -Polysporin Ointment 1 application two times per day -Colace 100 mg by mouth daily -Lasix 40 mg by mouth daily -Robitussin 10 ml by mouth as needed -Cozaar 25 mg by mouth daily -Lopressor 50 mg by mouth two times per day -Multivitamins 1 tab by mouth daily -Nystatin Cream -Prednisone taper 20 mg by mouth daily for 2 days (2 tablets/day) and then 10 mg by mouth daily for 2 days (1 tablet/day -Coumadin 2.5 mg by mouth daily. You will need to monitor the levels of coumadin in your blood through a blood test (INR). Avoid Heparin flushes, heparin bound catheters, heparin containing medications, and low molecular weight heparin for life If you have chest pain, shortness of breath, or any new symptoms please come back to the hospital immediately. Referrals: Zenon Mariscal MD [Staff Physician] - Dany Brown MD [Staff Physician] - Itz Rosenberg MD [Staff Physician] - Disposition: [facility] - Home Medications Comprehensive Discharge Medication List: Ambulatory Orders Tamsulosin HCl [Flomax -] 0.4 mg PO BID@0830,2200 #30 cap 01/15/17 Acetaminophen [Tylenol .Regular Strength -] 650 mg PO Q4H PRN #0 tablet Albuterol 2.5/Ipratropium 0.5 [Duoneb -] 1 amp NEB Q4HWA PRN #0 amp 02/03/17 Amiodarone HCl [Cordarone -] 200 mg PO DAILY #30 tablet 02/03/17 Bacitracin/Polymyxin Ointment [Polysporin Ointment -] 1 applic TP BID tube Docusate Sodium [Colace -] 100 mg PO DAILY #30 cap 02/03/17 Furosemide [Lasix -] 40 mg PO DAILY tablet 02/03/17 Guaifenesin [Robitussin -] 10 ml PO Q6H PRN #1 each 02/03/17 Losartan Potassium [Cozaar -] 25 mg PO DAILY tablet 02/03/17 Metoprolol Tartrate [Lopressor -] 50 mg PO BID tablet 02/03/17 Multivitamins [Multivit ([facility] Formul[facility])] 1 tab PO DAILY tab 02/03/17 Nystatin Cream [Mycostatin Cream -] 1 applic TP BID applic 02/03/17 Prednisone [Deltasone -] 20 mg PO DAILY #6 tablet 02/03/17 Warfarin Na [Coumadin -] 2.5 mg PO DAILY@1800 #30 tablet 02/03/17 This patient is new to me today: No Emergency Visit: Yes ED Registration Date: 01/10/17 Care time: The patient presented to the Emergency Department on the above date and was hospitalized for further evaluation of their emergent condition. Critical Care patient: No - Discharge Referral Referred to [facility] No Physician Referral: Dany Powell MD ([facility])
--- NOTE | 2017-02-03 18:53 | PN ---
Teaching Attending Note Name of Resident: Palmer Rios ATTENDING PHYSICIAN STATEMENT I saw and evaluated the patient. I reviewed the resident's note and discussed the case with the resident. I agree with the resident's findings and plan as documented. SUBJECTIVE: OBJECTIVE: Vital Signs Period Temp Pulse Resp BP Sys/Locke Pulse Ox Last 24 Hr 97.5 F-98.8 F 58-66 18-20 100-121/42-88 96-98 HEART: S1S2, RRR LUNGS: Bibasilar crackles ABDOMEN: Soft, non-tender, non-distended, normal BS EXTREMITIES: 1+ edema ASSESSMENT AND PLAN: This is an 86-year-old man with a history of bilateral hydronephrosis who presented to the ER with groin pain. 1. Acute diastolic heart failure - Improved 2. Paroxysmal atrial fibrillation - Remains in sinus rhythm - Continue Amiodarone, Lopressor, Coumadin 3. Acute metabolic encephalopathy secondary to UTI and LLE cellulitis - Resolved - Completed Unasyn 4. Pneumonia with reactive airways - Completed Zosyn - Taper Prednisone - Continue DuoNeb as needed 5. Heparin-induced thrombocytopenia - Resolved 6. DVT of right popliteal vein - Continue Coumadin 7. Acute kidney injury - Resolved 8. Chronic diastolic heart failure - Continue Lasix 9. Bilateral hydroureteronephrosis secondary to BPH - Refused Segura - Continue Flomax - Outpatient urology follow-up 10. Stage 3 CKD - Stable 11. Lung nodule, 3 mm in RML - No follow-up necessary per pulmonary 12. Possible hepatic cysts - Oupatient US 13. Disposition - Discharge to [facility] today
== END 2017-02-03 15:14 | DRG 602 ==
LOC: JER 13:26 → JERBED 17:26 → J5S 20:16 → J4W 01-20 07:17 → JICU 01-22 18:25 → J4W 01-26 02:24
PROVIDERS: ADMIT Internal Medicine; ATTEND Internal Medicine
PROC: 0HBRXZZ Excision of Toe Nail, External Approach (ICD-10-PCS; principal; 2017-01-24)
DX: L03.116 Cellulitis of left lower limb (principal); G93.41 Metabolic encephalopathy; I50.33 Acute on chronic diastolic (congestive) heart failure; I26.99 Other pulmonary embolism without acute cor pulmonale; J96.01 Acute respiratory failure with hypoxia; N39.0 Urinary tract infection, site not specified; N17.9 Acute kidney failure, unspecified; J98.11 Atelectasis; N13.30 Unspecified hydronephrosis; I82.4Z1 Acute embolism and thrombosis of unspecified deep veins of right distal lower extremity; E80.6 Other disorders of bilirubin metabolism; I48.0 Paroxysmal atrial fibrillation; D69.59 Other secondary thrombocytopenia; N40.0 Benign prostatic hyperplasia without lower urinary tract symptoms; N18.3 Chronic kidney disease, stage 3 (moderate); R91.1 Solitary pulmonary nodule; R41.82 Altered mental status, unspecified; F03.90 Unspecified dementia, unspecified severity, without behavioral disturbance, psychotic disturbance, mood disturbance, and anxiety; J44.9 Chronic obstructive pulmonary disease, unspecified; I25.119 Atherosclerotic heart disease of native coronary artery with unspecified angina pectoris; D72.829 Elevated white blood cell count, unspecified; I95.9 Hypotension, unspecified; B35.1 Tinea unguium; J20.9 Acute bronchitis, unspecified
CPT/HCPCS: 36415; 36600; 70450-TC; 71010-TC; 71250-TC; 72100-TC; 73523-TC; 74176-TC; 80048; 80053; 80061; 81003; 81015; 82272; 82542; 82607; 82803; 83036; 83605; 83721; 83735; 83880; 84100; 84443; 84484; 85025; 85027; 85384; 85610; 85730; 86022; 86593; 87040; 87070; 87086; 87205; 87389; 93005; 93010; 93306-TC; 93970-TC; 94010; 94640; 94761; 97116-GP; 97161-GP; 99284-25; J0883; J1644